=== PATIENT | male | born 1940 | race Caucasian/White ===

== ENCOUNTER 2019-12-27 21:15 | Inpatient (IN) | payer MEDICARE, SELFPAY ==
[2019-12-27] VITALS (8 sets, daily range): BP systolic 103–145; BP diastolic 58–82; PULSE 116–120; RESP 20–35; TEMP 36.5; O2SAT 95–100
--- NOTE | ~2019-12-27 | XR_ITS ---
EXAMINATION: XR chest 1V portable DATE: 12/27/2019 21:51 INDICATION: COPD and lung cancer presenting with shortness of breath and hypertension. TECHNIQUE: frontal view of the chest was obtained. COMPARISON: Chest radiograph and CT dated 10/16/2019 FINDINGS: Chronic opacity in the right upper lung zone with/of volume loss with cephalad retraction of the hilu m consistent with chronic right upper lobe collapse and scarring likely related to prior treated lung cancer. Opacities at the bilateral lung bases, left greater than right. Mild blunting at the costo p hrenic and cardiophrenic angles suggesting very small bilateral pleural effusions. No pneumothorax. T he cardiomediastinal silhouette is normal. Median sternotomy wires and mediastinal surgical clips are seen, likely from prior coronary artery bypass grafting. IMPRESSION: 1. Opacities at the bilateral lung bases, left greater than right, which could represent atelectasis, pneumonia, mild pulmonary edema or some combination thereof. 2. Very small bilateral pleural effusions. 3. Stable appearance of chronic collapse and scarring of the right upper lobe likely related to treat ed lung cancer. Reviewed, dictated and finalized at location A. ANALYSIS INTERN IMPRESSION: 1. Opacities at the bilateral lung bases, left greater than right, which could represent atelectasis, pneumonia, mild pulmonary edema or some combination ther eof. 2. Very small bilateral pleural effusions. 3. Stable appearance of chronic collapse and scarring of the right upper lobe l ikely related to treated lung cancer.
--- NOTE | ~2019-12-27 | US_ITS ---
EXAMINATION: US venous doppler [facility] DATE: 12/29/2019 14:16 INDICATION: Lower limb swelling. TECHNIQUE: Grayscale ultrasound images without and with compression and Doppler ultrasound images of the bilateral lower extremity veins were obtained. COMPARISON: None. FINDINGS: The visualized portions of right common femoral vein, profunda (deep) femoral vein, femoral vein, pop liteal vein, peroneal veins, posterior tibial veins, and greater saphenous vein outflow are patent. The visualized portions of left common femoral vein, profunda femoral vein, femoral vein, popliteal v ein, peroneal veins, posterior tibial veins, and greater saphenous vein outflow are patent. IMPRESSION: 1. No deep venous thrombosis. Reviewed, dictated and finalized at location A. TENDER
--- NOTE | ~2019-12-27 | XR_ITS ---
XR chest 2V DATE: 12/31/2019 14:40 INDICATION: Shortness of breath. Worsening lung sounds. 2 L continuous oxygen TECHNIQUE: AP and lateral views COMPARISON: 12/27/2019 portable AP chest FINDINGS: Chronic severe right apical capping and elevation of the right hilum, chronic right lung vo lume loss. Status post sternotomy.. Coronary artery stents are noted. Borderline heart size. There is minimal infiltrate or atelectasis in the left lower lobe No pulmonary vascular congestion or pleural effusion or pneumothorax. IMPRESSION: Minimal infiltrate or atelectasis in the left lower lobe; little interval change since 12/27/2019 Reviewed, dictated and finalized at location A. GIOUS EDUCATION DIRECTOR IMPRESSION: Minimal infiltrate or atelectasis in the left lower lobe; little in terval change since 12/27/2019
--- NOTE | 2019-12-27 21:13 | ED.SOB ---
HPI - SOB/Dyspnea General Chief Complaint: Shortness of Breath/Dyspnea Stated Complaint: DIFF BREATHING Time Seen by Provider: 12/27/19 21:13 Source: patient, EMS and RN notes reviewed Limitations: clinical condition History of Present Illness HPI Narrative: A 79 y/o male, with a hx of COPD, presents to the ED via EMS from [place] with worsening SOB beginning today. Per EMS states that the pt wasn't complaining of any N/V when they arrived on scene, but that in route the pt became nauseated and vomited, so they gave him some Zofran. They report that the pt's O2 Sat was 89% on 4L NC, so they placed him on CPAP. They also report that the pt has had a fever. MD elicited complaint: shortness of breath Pertinent past history: COPD Onset (ago): hour(s) (today) Timing: progressively worsening Known history of: COPD Associated symptoms: fever and nausea/vomiting Treatment prior to arrival: oxygen Related Data Home Medications Medication Instructions Recorded Confirmed Mucinex DM 1 tablet PO Q12H 10/16/19 11/22/19 Perforomist 2 ml INHALATION BID 10/16/19 11/22/19 acetaminophen 500 mg PO TID PRN 10/16/19 11/22/19 albuterol sulfate 2.5 mg INHALATION Q4H PRN 10/16/19 11/22/19 amiodarone 200 mg PO DAILY 10/16/19 11/22/19 aspirin [Aspir-81] 81 mg PO DAILY 10/16/19 11/22/19 atorvastatin 40 mg PO HS 10/16/19 11/22/19 budesonide 0.5 mg INHALATION BID 10/16/19 11/22/19 cholecalciferol (vitamin D3) 5,000 unit PO DAILY 10/16/19 11/22/19 [Vitamin D3] citalopram 10 mg PO DAILY 10/16/19 11/22/19 ferrous sulfate 325 mg PO BID 10/16/19 11/22/19 furosemide 20 mg PO DAILY 10/16/19 11/22/19 lisinopril 5 mg PO DAILY 10/16/19 11/22/19 melatonin 5 mg PO HS 10/16/19 11/22/19 multivitamin 1 tablet PO DAILY 10/16/19 11/22/19 nitroglycerin 0.4 mg SUBLINGUAL Q5-15M PRN 10/16/19 11/22/19 pantoprazole 40 mg PO HS 10/16/19 11/22/19 polyethylene glycol 3350 17 g PO DAILY PRN 10/16/19 11/22/19 Allergies Allergy/AdvReac Type Severity Reaction Status Date / Time No Known Allergies Allergy Mild Verified 12/27/19 22:31 Review of Systems Review of Systems: All systems reviewed & are unremarkable except as noted in HPI and below ROS unobtainable: unobtainable due to mental condition Constitutional: Constitutional: Reports fever(s) Respiratory: Respiratory: Reports dyspnea Gastrointestinal: Gastrointestinal: Reports nausea and Reports vomiting [facility] Past Medical History Medical History Atrial fibrillation CAD (coronary artery disease) COPD (chronic obstructive pulmonary disease) Diverticulitis Emphysema, unspecified GERD (gastroesophageal reflux disease) Glaucoma History of angina HTN (hypertension) Hyperlipidemia Lung cancer Myocardial infarction Peripheral vascular disease Thrombocytopenia Vocal cord cancer Surgical History Surgical History History of angioplasty History of cardiac catheterization Hx of appendectomy Hx of CABG Stented coronary artery Family History Family History Father Malignant neoplasm of prostate Mother Alzheimer disease Sibling Cancer, bladder, neck Social History Social History Years smoked: 60 Smoking status: Former smoker Tobacco type: cigarettes Alcohol intake: former Substance use: former Gender identity (if verbalized by the patient): Male Spiritual care concerns: No Agree to blood products: No Comments PCP: Александр. Exam Const: General: acute distress moderate and ill appearing Nutritional Appearance: well nourished (elderly) Limitations: other limitations (Clinical condition) Eyes: Conjunctivae: conjunctivae normal Pupils: Equal, round and reactive pupils present Resp: Effort & Inspection: tachypneic Auscultation: rales bilateral at the base and diminished lung
--- NOTE | 2019-12-27 21:21 | ECG_ITS ---
Measurements Intervals [place] Rate: 121 P: AR: 0 QRS: 82 QRSD: 114 T: -61 QT: 305 QTc: 434 Interpretive Statements ATRIAL FLUTTER/TACHYCARDIA WITH RAPID VENTRICULAR RESPONSE INTRAVENTRICULAR CONDUCTION DELAY CONSIDER INFERIOR INFARCT, AGE INDETERMINATE BASELINE ARTIFACT- I, II, III, AVR, AVL, AVF ABNORMAL ECG Electronically Signed On 12-28-2019 6:42:02 ASSISTANT COUNTY ENGINEER by Gurpreet Nicholas D.O.
[2019-12-27 21:46] LABS: Basophils Absolute Auto 0.1 K/mm3 (0.0-0.1); Basophils Percent Auto 0.8 % (0.2-1.2); Eosinophils Absolute Auto 0.3 K/mm3 (0-0.3); Eosinophils Percent Auto 2.2 % (0-4.4); Hematocrit 35.9 % (42.0-52.0); Hemoglobin 10.4 g/dL (14.0-18.0); Immature Granulocyte Absolute 0.05 K/mm3 (0.00-0.031); Immature Granulocyte Percent A 0.4 % (0-0.5); Lymphocytes Absolute Auto 1.61 K/mm3 (0.9-3.2); Lymphocytes Percent Auto 13.9 % (18.3-44.2); Mean Corpuscular Hemoglobin 27.8 pg (26-34); Mean Platelet Volume 11.2 fl (7.4-10.4); Monocytes Absolute Auto 0.9 K/mm3 (0.1-0.6); Monocytes Percent Auto 7.3 % (2.6-8.5); Neutrophils Absolute Auto 8.7 K/mm3 (1.3-6.7); Neutrophils Percent Auto 75.4 % (45.5-73.1); Platelet Count Result 223 k/mm3 (150-375); Red Blood Count 3.74 M/mm3 (4.6-6.20); Red Cell Distribution Width 15.2 % (11.5-14.5); White Blood Count 11.6 K/mm3 (4.5-10.0)
[2019-12-27] MEDS: ALBUTEROL SULFATE NEB 2.5 MG/0.5 ML INH 10 MG INHALATION (21:46)
[2019-12-27] MEDS: IPRATROPIUM BR 0.02% INH SOLN 0.5 MG/2.5 ML VIAL 1 MG INHALATION (21:46)
[2019-12-27 21:48] LABS: Alveolar/Arterial O2 Gradient 50.3 mmHg; Base Excess ABG 5.4 mEq/l (+/-2.0); Fractional Inspired Oxygen 40 %; Oxygen Content ABG 15.7 %vol (16.0-22.0); Oxygen Saturation ABG 98.9 % (95.0-100.0); Oxyhemoglobin 97.6 % THb (90.0-100.0); PO2 ABG 160.4 mmHg (80.0-100.0); PO2 FiO2 Ratio Arterial Blood 4.01 %; Total Hemoglobin 11.2 g/dL (12.0-18.0); pH ABG 7.325 (7.350-7.450)
[2019-12-27 21:49] LABS: Device NON-INVASIVE VENT; PCO2 ABG 64.8 mmHg (35.0-45.0); Site Drawn LEFT BRACHIAL
[2019-12-27 21:50] LABS: Non-Invasive Expiratory Pressure 8 CMH2O; Non-Invasive Inspiratory Pressure 18 CMH2O; Non-Invasive Vent Rate 10 /MIN
[2019-12-27 21:55] LABS: INR 1.1; Prothrombin Time 13.4 Seconds (11.1-14.7)
[2019-12-27 21:56] LABS: Partial Thromboplastin Time 25.8 SECONDS (22.3-36.8)
[2019-12-27 21:57] LABS: Blood Urea Nitrogen 17 mg/dL (9-20); Calcium 9.1 mg/dL (8.4-10.2); Carbon Dioxide 37 mmol/L (22-30); Chloride 94 mmol/L (98-107); Estimated CRCL calculation 53 ml/min; Estimated Glomerular Filt Rate > 60; Glucose 144 mg/dL (75-110); Potassium 4.4 mmol/L (3.4-5.0); Sodium 139 mmol/L (137-145)
[2019-12-27 22:09] LABS: NT Pro B Type Natriuretic Pept 3910 PG/ML (5-100); Troponin I 0.017 ng/mL (0.000-0.034)
[2019-12-28] VITALS (26 sets, daily range): BP systolic 85–123; BP diastolic 45–71; PULSE 90–122; RESP 18–27; TEMP 36.4–36.8; O2SAT 91–98; BMI 27.1
[2019-12-28] MEDS: IPRATROPIUM BR 0.02% INH SOLN 0.5 MG/2.5 ML VIAL INHALATION ×4 (02:14→20:15)
[2019-12-28] MEDS: ALBUTEROL SULFATE NEB 2.5 MG/0.5 ML INH 5 MG INHALATION ×2 (02:14→09:34)
[2019-12-28 03:13] LABS: Base Excess ABG 7.1 mEq/l (+/-2.0); Device NASAL CANNULA; Fractional Inspired Oxygen 28 %; HCO3 ABG 32.9 mEq/l (22.0-26.0); Modified Allen's Test Unable to perform; Oxygen Content ABG 13.4 %vol (16.0-22.0); Oxygen Saturation ABG 94.4 % (95.0-100.0); Oxyhemoglobin 92.6 % THb (90.0-100.0); PCO2 ABG 53.5 mmHg (35.0-45.0); PO2 ABG 72.5 mmHg (80.0-100.0); PO2 FiO2 Ratio Arterial Blood 2.59 %; Site Drawn RIGHT RADIAL; Total Hemoglobin 10.2 g/dL (12.0-18.0); pH ABG 7.407 (7.350-7.450)
--- NOTE | 2019-12-28 03:54 | PM.IMHP ---
H&P: HPI History of Present Illness Chief complaint: DIFF BREATHING Narrative: This is a pleasant 79-year-old male with known chronic respiratory failure on 2 L of oxygen all the time, coronary artery disease status post CABG x2, COPD, and previous lung cancer which is now in remission and known to our hospitalist service for a recent admission presented to the hospital with increased work of breathing and shortness of breath tonight. The patient presented from [facility] where he tells me there are many residents there who are sick with respiratory illness this past week. The patient had been doing well over the past week although last night he did not sleep. Today he was not feeling well. He started to experience increased wheezing, increased coughing, and increased work of breathing. The patient was found to be saturating 89% on 4 L of nasal cannula and he was placed on CPAP before bringing him to hospital. Apparently the patient did get nauseated on the way to the hospital and did receive Zofran. While in the emergency room this evening he has not had any nausea. The patient was found to be in acute hypercapnic respiratory failure and was initiated on BiPAP. He was also given antibiotics. On my encounter with the patient tonight he does seem somewhat anxious on the BiPAP but states that it has helped him with his breathing. Currently he denies any chest pain, fevers, chills, abdominal pain, dysuria, hematuria, back pain, lower extremity swelling, diarrhea, or rectal bleeding. Tonight the patient was also found to be in rapid atrial fibrillation which did improve significantly in the ER with 1 dose of IV Cardizem. He has no other complaints. Review of Systems Review of Systems: All systems reviewed & are unremarkable except as noted in HPI and below PMFSH Past Medical History Medical History Atrial fibrillation CAD (coronary artery disease) COPD (chronic obstructive pulmonary disease) Diverticulitis Emphysema, unspecified GERD (gastroesophageal reflux disease) Glaucoma History of angina HTN (hypertension) Hyperlipidemia Lung cancer Myocardial infarction Peripheral vascular disease Thrombocytopenia Vocal cord cancer Surgical History Surgical History History of angioplasty History of cardiac catheterization Hx of appendectomy Hx of CABG Stented coronary artery Family History Family History Father Malignant neoplasm of prostate Mother Alzheimer disease Sibling Cancer, bladder, neck Social History Social History Years smoked: 60 Smoking status: Former smoker Tobacco type: cigarettes Alcohol intake: former Substance use: former Gender identity (if verbalized by the patient): Male Spiritual care concerns: No Agree to blood products: No Meds Home Medications and Allergies Home Medications Medication Instructions Recorded Confirmed Type Mucinex DM 1 tablet PO Q12H 10/16/19 11/22/19 History Perforomist 2 ml INHALATION BID 10/16/19 11/22/19 History acetaminophen 500 mg PO TID PRN 10/16/19 11/22/19 History albuterol sulfate 2.5 mg INHALATION Q4H PRN 10/16/19 11/22/19 History amiodarone 200 mg PO DAILY 10/16/19 11/22/19 History aspirin [Aspir-81] 81 mg PO DAILY 10/16/19 11/22/19 History atorvastatin 40 mg PO HS 10/16/19 11/22/19 History budesonide 0.5 mg INHALATION BID 10/16/19 11/22/19 History cholecalciferol (vitamin D3) 5,000 unit PO DAILY 10/16/19 11/22/19 History [Vitamin D3] citalopram 10 mg PO DAILY 10/16/19 11/22/19 History ferrous sulfate 325 mg PO BID 10/16/19 11/22/19 History furosemide 20 mg PO DAILY 10/16/19 11/22/19 History lisinopril 5 mg PO DAILY 10/16/19 11/22/19 History melatonin 5 mg PO HS 10/16/19 11/22/19 History multivitamin 1 tablet PO
[2019-12-28] MEDS: methylPREDNISolone SOD SUCC 125 MG VIAL 60 MG IV PUSH ×3 (05:00→21:50)
[2019-12-28 05:25] LABS: Blood Urea Nitrogen 21 mg/dL (9-20); Calcium 8.8 mg/dL (8.4-10.2); Carbon Dioxide 33 mmol/L (22-30); Chloride 94 mmol/L (98-107); Estimated CRCL calculation 53 ml/min; Estimated Glomerular Filt Rate > 60; Glucose 100 mg/dL (75-110); Potassium 4.7 mmol/L (3.4-5.0); Sodium 136 mmol/L (137-145)
[2019-12-28 05:28] LABS: Basophils Percent Auto 0.5 % (0.2-1.2); Eosinophils Percent Auto 0.1 % (0-4.4); Hematocrit 31.7 % (42.0-52.0); Hemoglobin 9.4 g/dL (14.0-18.0); Immature Granulocyte Absolute 0.02 K/mm3 (0.00-0.031); Immature Granulocyte Percent A 0.3 % (0-0.5); Lymphocytes Absolute Auto 0.34 K/mm3 (0.9-3.2); Lymphocytes Percent Auto 4.6 % (18.3-44.2); Mean Corpuscular HGB Conc 29.7 g/dl (32-36); Mean Corpuscular Volume 94.3 fl (80-100); Mean Platelet Volume 11.9 fl (7.4-10.4); Monocytes Absolute Auto 0.9 K/mm3 (0.1-0.6); Monocytes Percent Auto 11.8 % (2.6-8.5); Neutrophils Absolute Auto 6.1 K/mm3 (1.3-6.7); Neutrophils Percent Auto 82.7 % (45.5-73.1); Platelet Count Result 177 k/mm3 (150-375); Red Blood Count 3.36 M/mm3 (4.6-6.20); Red Cell Distribution Width 15.6 % (11.5-14.5); White Blood Count 7.4 K/mm3 (4.5-10.0)
--- NOTE | 2019-12-28 06:15 | PC.NURSE ---
pt placed on hospital bed.
--- NOTE | 2019-12-28 09:28 | PC.NURSE ---
0925 report received from QUINTIN Koenig.
--- NOTE | 2019-12-28 11:11 | ADMGEN ---
This patient, Eusebio Najera, was admitted to [facility] on 12-28-19 at 0945. Patient/family oriented to hospital policies and general routines including ID bracelet, bed and alarms, visiting hours, pain management, procedures, bathroom and other care routines, personal items, smoking policy, room service/diet, and visiting hours. Valuables list has been completed. Information on how to activate the Rapid Response Team has been discussed. Patient/Family are encouraged to report perceived risks to care and to ask questions if they do not understand what they are told or what they should do.
--- NOTE | 2019-12-28 16:18 | PM.IMPN ---
Progress Note: A&P Assessment and Plan (1) Acute hypercapnic respiratory failure: Code(s): J96.02 - Acute respiratory failure with hypercapnia Status: Acute Assessment and Plan: ------Likely secondary to COPD exacerbation of greater severity and PNA. Abgs h ave improved with the initial bipap. His co2 is still elevated but appears to be at his baseline and is pH is normal now. Continue o2. pt utlizes 2L at home usually. (2) Atrial fibrillation with rapid ventricular response: Code(s): I48.91 - Unspecified atrial fibrillation Status: Acute Assessment and Plan: ------Patient's heart rate is currently in the 110. His home amiodarone was restarted. pt is not on extermination inspector anticoagulation and cannot tell me why today. No CP at this time. continue to monitor tele and symptoms. . (3) COPD exacerbation: Code(s): J44.1 - Chronic obstructive pulmonary disease with (acute) exacerbation Status: Acute Assessment and Plan: ------Continue bronchodilators, continue Solu-Medrol, continue IV antibiotics. Blood cultures and sputum never ordered on admission. will obtain. (4) Glaucoma: Qualifiers: Glaucoma type: unspecified Laterality: unspecified laterality Qualified Code(s): H40.9 - Unspecified glaucoma Code(s): H40.9 - Unspecified glaucoma Status: Chronic Assessment and Plan: -----Continue home eyedrops. (5) Normocytic anemia: Code(s): D64.9 - Anemia, unspecified Status: Chronic Assessment and Plan: -----Appears to be anemia of chronic disease. No signs of acute blood loss. Monitor H&H, transfuse p.r.n.. (6) HTN (hypertension): Qualifiers: Hypertension type: essential hypertension Qualified Code(s): I10 - Essential (primary) hypertension Code(s): I10 - Essential (primary) hypertension Status: Chronic Assessment and Plan: -----Blood pressure still soft. Will not restart home bp meds at this time. will watch bp with lasix onboard. (7) Lung cancer: Qualifiers: Laterality: right Lung location: upper lobe of lung Qualified Code(s): C34.11 - Malignant neoplasm of upper lobe, right bronchus or lung Code(s): C34.90 - Malignant neoplasm of unspecified part of unspecified bronchus or lung Status: Chronic Assessment and Plan: -----Currently in remission (8) CAP (community acquired pneumonia): Code(s): J18.9 - Pneumonia, unspecified organism Status: Acute Assessment and Plan: -----continue to tx with azithromycin and ceftriaxone. Pts flu swab is negative. Will also give lasix as well since he appears fluid overloaded and some of this could be pulmonary edema as well. Additional Plan Time Spent With Patient Time with patient: 25 - 35 minutes Subjective Date/time seen: 12/28/19 16:18 Interval history: Pt is a 79-year-old male here for pneumonia and COPD exacerbation. Patient was seen today and was mildly confused but able to answer my questions. He says that he thinks he is here for pneumonia and states everyone at his facility is sick. He says that he is coughing and does feel short of breath occasionally. He says he is usually on oxygen at home. He has not had any chest pain today. He says he is unsure if his legs are usually swollen. Overall he feels better but not 'great'. He feels constipated but had a BM yesterday. Review of Systems Review of Systems: All systems reviewed & are unremarkable except as noted in HPI and below Exam Narrative: Exam Narrative: General: Well developed well nourished patient resting in bed in NAD HEENT: normocephalic Neck: supple Neuro: Alert and oriented but at first thought he was at the assisted living. CV:slightly tachycardic 102 one exam. Tele shows occasional afib rvr up to 117. Resp:gulshan thoughtout. Abd: Soft, non distended. No pain to palpation. Positiv
[2019-12-28] MEDS: FERROUS SULFATE 324 MG TABLET PO (17:57)
[2019-12-28] MEDS: LEVALBUTEROL NEB 1.25 MG/3 ML 0.63 MG INHALATION (20:15)
[2019-12-28] MEDS: ATORVASTATIN 40 MG TABLET PO (21:49)
[2019-12-28] MEDS: MIRTAZAPINE 7.5 MG TABLET PO (21:49)
[2019-12-28] MEDS: FUROSEMIDE INJ 40 MG/4 ML VIAL IV PUSH (21:49)
[2019-12-28] MEDS: MELATONIN 5 MG TABLET PO (21:49)
[2019-12-28] MEDS: PANTOPRAZOLE 40 MG TABLET PO (21:50)
[2019-12-29] VITALS (16 sets, daily range): BP systolic 96–135; BP diastolic 42–65; PULSE 73–96; RESP 18–22; TEMP 36.1–36.6; O2SAT 95–100
[2019-12-29] MEDS: LEVALBUTEROL NEB 1.25 MG/3 ML 0.63 MG INHALATION ×3 (01:25→15:09)
[2019-12-29] MEDS: IPRATROPIUM BR 0.02% INH SOLN 0.5 MG/2.5 ML VIAL INHALATION ×3 (01:25→15:08)
[2019-12-29 05:09] LABS: Hematocrit 28.8 % (42.0-52.0); Hemoglobin 8.5 g/dL (14.0-18.0); Mean Corpuscular HGB Conc 29.5 g/dl (32-36); Mean Corpuscular Hemoglobin 27.7 pg (26-34); Mean Corpuscular Volume 93.8 fl (80-100); Mean Platelet Volume 11.8 fl (7.4-10.4); Platelet Count Result 156 k/mm3 (150-375); Red Blood Count 3.07 M/mm3 (4.6-6.20); Red Cell Distribution Width 15.3 % (11.5-14.5); White Blood Count 4.5 K/mm3 (4.5-10.0)
[2019-12-29 05:22] LABS: Blood Urea Nitrogen 26 mg/dL (9-20); Calcium 8.6 mg/dL (8.4-10.2); Carbon Dioxide 34 mmol/L (22-30); Chloride 93 mmol/L (98-107); Estimated CRCL calculation 51 ml/min; Estimated Glomerular Filt Rate > 60; Glucose 150 mg/dL (75-110); Potassium 3.9 mmol/L (3.4-5.0); Sodium 136 mmol/L (137-145)
[2019-12-29] MEDS: FERROUS SULFATE 324 MG TABLET PO ×2 (08:22→16:41)
[2019-12-29] MEDS: AMIODARONE HCL 200 MG TABLET PO (08:23)
[2019-12-29] MEDS: methylPREDNISolone SOD SUCC 125 MG VIAL 60 MG IV PUSH ×2 (08:23→20:34)
[2019-12-29] MEDS: FUROSEMIDE INJ 40 MG/4 ML VIAL IV PUSH (08:24)
[2019-12-29] MEDS: ASPIRIN 81 MG ENTERIC TABLET PO (08:24)
[2019-12-29] MEDS: CITALOPRAM HYDROBROMIDE 10 MG TABLET PO (08:24)
--- NOTE | 2019-12-29 11:01 | PM.IMPN ---
Progress Note: A&P Assessment and Plan (1) Acute hypercapnic respiratory failure: Code(s): J96.02 - Acute respiratory failure with hypercapnia Status: Acute Assessment and Plan: ------Likely secondary to COPD exacerbation and PNA. ABGs have improved with the initial bipap. His co2 is still elevated but appears to be at his baseline and is pH is normal now. Continue home setting o2. pt utlizes 2L at home usually. Okay to transfer out of IMU. (2) Atrial fibrillation with rapid ventricular response: Code(s): I48.91 - Unspecified atrial fibrillation Status: Acute Assessment and Plan: ------Patient's heart rate is currently in the 108. His home amiodarone was restarted yesterday. pt is not on care home anticoagulation. No CP at this time. continue to monitor tele and symptoms. Albuterol switched to xopenex. Hopefully his HR will improve with tx. . (3) COPD exacerbation: Code(s): J44.1 - Chronic obstructive pulmonary disease with (acute) exacerbation Status: Acute Assessment and Plan: ------Continue bronchodilators, continue Solu-Medrol (dose lowered today), and continue IV antibiotics. Blood cultures and sputum never ordered on admission but were obtained 12/28. (4) Glaucoma: Qualifiers: Glaucoma type: unspecified Laterality: unspecified laterality Qualified Code(s): H40.9 - Unspecified glaucoma Code(s): H40.9 - Unspecified glaucoma Status: Chronic Assessment and Plan: -----Continue home eyedrops. (5) Normocytic anemia: Code(s): D64.9 - Anemia, unspecified Status: Chronic Assessment and Plan: -----Appears to be anemia of chronic disease. No signs of acute blood loss. Monitor H&H, transfuse p.r.n.. (6) HTN (hypertension): Qualifiers: Hypertension type: essential hypertension Qualified Code(s): I10 - Essential (primary) hypertension Code(s): I10 - Essential (primary) hypertension Status: Chronic Assessment and Plan: -----Blood pressure still soft last one 100/49. Will continue to hold home bp meds. Lasix dose decreased today since swelling has improved. (7) Lung cancer: Qualifiers: Laterality: right Lung location: upper lobe of lung Qualified Code(s): C34.11 - Malignant neoplasm of upper lobe, right bronchus or lung Code(s): C34.90 - Malignant neoplasm of unspecified part of unspecified bronchus or lung Status: Chronic Assessment and Plan: -----Currently in remission (8) CAP (community acquired pneumonia): Code(s): J18.9 - Pneumonia, unspecified organism Status: Acute Assessment and Plan: -----continue to tx with azithromycin and ceftriaxone. Pts flu swab is negative. Continue lasix as well since he appears fluid overloaded and some of this could be pulmonary edema as well. Additional Plan Subjective Date/time seen: 12/29/19 11:01 Interval history: Pt is a 79-year-old male here for pneumonia and COPD exacerbation. Patient seen today and was alert and oriented x4. He states that his shortness of breath is always there but is much better than when he came in. He says he is still coughing up some phlegm. he has not got out of bed so he doesn't know if he has any TOMAS. He uses a walker at the facility but also sometimes uses a wheelchair. he still has not had a BM since being here. He says he has lasix at home but doesn't use it because it doesn't help his swelling . he has never had a blood clot before. he denies chest pain, nausea, vomiting, fevers or chills. Exam Narrative: Exam Narrative: General: Well developed well nourished patient resting in bed in NAD HEENT: normocephalic Neck: supple Neuro: Alert and oriented x4 today CV:slightly tachycardic 108 one exam. Tele shows occasional afib rvr up to 120. Resp:ronchi and wheezing thoughtout. Abd: Soft, non distended. No pain to palpation.
--- NOTE | 2019-12-29 14:21 | PC.NURSE ---
ORDERS TO TRANSFER TO 3RD MED/SURG - REPORT GIVEN TO ELLY Sanchez RN - PT transferred to room 333 via bed accompanied by staff- belongings with pt
[2019-12-29] MEDS: ATORVASTATIN 40 MG TABLET PO (20:32)
[2019-12-29] MEDS: MIRTAZAPINE 7.5 MG TABLET PO (20:33)
[2019-12-29] MEDS: PANTOPRAZOLE 40 MG TABLET PO (20:33)
[2019-12-29] MEDS: MELATONIN 5 MG TABLET PO (20:33)
[2019-12-30] VITALS (16 sets, daily range): BP systolic 100–152; BP diastolic 47–79; PULSE 59–126; RESP 16–20; TEMP 36.3–36.5; O2SAT 96–99
--- NOTE | 2019-12-30 | ECHO_ITS ---
Patient Info Name: Eusebio Najera Age: 79 years : 1940 Gender: Male Ht: 69 in Wt: 182 lbs BSA: 2.02 m2 HR: 84 bpm BP: 152 / 79 mmHg Technical Quality: Fair Exam Date: 12/30/2019 10:01 AM Exam Location: [facility] Pulmonary Exam Room: [facility] Patient Status: Inpatient Admit Date: 12/27/2019 Staff Ordering Physician: Nany Bansal PA-C Jewelry Sorter: Dianne Atkinson RDCS Attending Provider: Nany Bansal PA-C Exam Type: CA echo dop color flow w con Study Info Indications - FRANCISCO CAD CABG ANGINA COPD Complete two-dimensional, color flow and Doppler transthoracic echocardiogram is performed with contrast to opacify the left ventrical and to improve the deliniation of the left ventrical endocarial boarders. Contrast/Agitated Saline Contrast/Ag. Saline: Definity Amount: --- ml Administered By: Shanta Wilson RN Existing IV Access: Yes IV Access Condition: patent with no signs of infiltration Summary 1. Left ventricular chamber dimension is moderately enlarged. 2. Definity contrast administered improved wall motion interpretation. 3. Left ventricular systolic function is moderately reduced, estimated at 40-45%. 4. Left ventricular septal wall motion is abnormal with septal motion related to bundle branch block. 5. The left ventricular diastolic function is abnormal. 6. E/e' 10 is mildly elevated. 7. Left atrial chamber dimension is mildly enlarged. 8. There is mild aortic valve sclerosis. 9. There is mild mitral valve regurgitation. 10. There is mild tricuspid valve regurgitation. 11. Mild pulmonary hypertension, estimated pulmonary arterial systolic pressure is 41 mmHg. Left Ventricle E/e' 10 is mildly elevated. Definity contrast administered improved wall motion interpretation. Left ventricular chamber dimension is moderately enlarged. Left ventricular systolic function is moderately reduced, estimated at 40-45%. Left ventricular septal wall motion is abnormal with septal motion related to bundle branch block. The left ventricular diastolic function is abnormal. Right Ventricle Right ventricular chamber dimension is normal. Right ventricular systolic function is normal. Left Atria Left atrial chamber dimension is mildly enlarged. Right Atria Right atrial chamber dimension is normal. Aortic Valve The aortic valve is trileaflet. There is mild aortic valve sclerosis. There is no aortic valve stenosis. There is no aortic valve regurgitation. Pulmonic Valve There is no pulmonic regurgitation. Mitral Valve There is no mitral valve stenosis. There is mild mitral valve regurgitation. Tricuspid Valve There is mild tricuspid valve regurgitation. Mild pulmonary hypertension, estimated pulmonary arterial systolic pressure is 41 mmHg. Pericardium/Pleural There is no pericardial effusion. Inferior Vena Cava Normal inferior vena cava with >50% collapse upon inspiration consistent with normal right atrial pressure, 5 mmHg. Aorta The aortic root size at the sinus of Valsalva is not well visualized. Left Ventricular Outflow Tract Name Value Normal LVOT 2D LVOT Diameter 2.14 cm LV
[2019-12-30 06:30] LABS: Hematocrit 32.8 % (42.0-52.0); Hemoglobin 9.6 g/dL (14.0-18.0); Mean Corpuscular HGB Conc 29.3 g/dl (32-36); Mean Corpuscular Hemoglobin 27.3 pg (26-34); Mean Corpuscular Volume 93.2 fl (80-100); Platelet Count Result 182 k/mm3 (150-375); Red Blood Count 3.52 M/mm3 (4.6-6.20); Red Cell Distribution Width 15.2 % (11.5-14.5); White Blood Count 9.1 K/mm3 (4.5-10.0)
--- NOTE | 2019-12-30 06:45 | PCRCNOTE ---
Window of time for administration has passed. See next scheduled administration.
--- NOTE | 2019-12-30 06:46 | PCRCNOTE ---
Window of time for administration has passed. See next scheduled administration.
[2019-12-30 06:47] LABS: Blood Urea Nitrogen 32 mg/dL (9-20); Calcium 8.8 mg/dL (8.4-10.2); Carbon Dioxide 38 mmol/L (22-30); Chloride 91 mmol/L (98-107); Estimated CRCL calculation 51 ml/min; Estimated Glomerular Filt Rate > 60; Glucose 129 mg/dL (75-110); Potassium 4.4 mmol/L (3.4-5.0); Sodium 139 mmol/L (137-145)
[2019-12-30] MEDS: CITALOPRAM HYDROBROMIDE 10 MG TABLET PO (07:46)
[2019-12-30] MEDS: FERROUS SULFATE 324 MG TABLET PO ×2 (07:46→16:36)
[2019-12-30] MEDS: ASPIRIN 81 MG ENTERIC TABLET PO (07:46)
[2019-12-30] MEDS: AMIODARONE HCL 200 MG TABLET PO (07:46)
[2019-12-30] MEDS: methylPREDNISolone SOD SUCC 125 MG VIAL 60 MG IV PUSH (07:47)
[2019-12-30] MEDS: FUROSEMIDE INJ 40 MG/4 ML VIAL IV PUSH (07:47)
[2019-12-30] MEDS: LEVALBUTEROL NEB 1.25 MG/3 ML 0.63 MG INHALATION ×3 (09:43→22:15)
[2019-12-30] MEDS: IPRATROPIUM BR 0.02% INH SOLN 0.5 MG/2.5 ML VIAL INHALATION ×3 (09:43→22:16)
[2019-12-30] MEDS: PERFLUTREN LIPID MICROSPHERES 1.5 ML VIAL DILUTED TO 10 ML TOTAL VOLUME IV PUSH (10:47)
--- NOTE | 2019-12-30 15:23 | PM.IMPN ---
Progress Note: A&P Assessment and Plan (1) Acute hypercapnic respiratory failure: Code(s): J96.02 - Acute respiratory failure with hypercapnia Status: Acute Assessment and Plan: ------Likely secondary to COPD exacerbation and PNA. ABGs have improved with the initial bipap. His co2 is still elevated but appears to be at his baseline and is pH is normal now. Continue home setting o2. pt utlizes 2L at home usually. Will transition to oral steroids. (2) Atrial fibrillation with rapid ventricular response: Code(s): I48.91 - Unspecified atrial fibrillation Status: Acute Assessment and Plan: ------Patient's heart rate is currently is 80 now but did peak at 120. His home amiodarone has been restarted. 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 No CP at this time. continue to monitor tele and symptoms. Albuterol switched to xopenex. Hopefully his HR will improve with tx. . (3) COPD exacerbation: Code(s): J44.1 - Chronic obstructive pulmonary disease with (acute) exacerbation Status: Acute Assessment and Plan: ------Continue bronchodilators but will transition to oral steroids tomorrow. Continue IV antibiotics. Blood cultures and sputum never ordered on admission but were obtained 2 and are negative to date. (4) Glaucoma: Qualifiers: Glaucoma type: unspecified Laterality: unspecified laterality Qualified Code(s): H40.9 - Unspecified glaucoma Code(s): H40.9 - Unspecified glaucoma Status: Chronic Assessment and Plan: -----Continue home eyedrops. (5) Normocytic anemia: Code(s): D64.9 - Anemia, unspecified Status: Chronic Assessment and Plan: -----Appears to be anemia of chronic disease. No signs of acute blood loss. Monitor H&H, transfuse p.r.n.. (6) HTN (hypertension): Qualifiers: Hypertension type: essential hypertension Qualified Code(s): I10 - Essential (primary) hypertension Code(s): I10 - Essential (primary) hypertension Status: Chronic Assessment and Plan: -----Blood pressure still soft last one 100/47. Will continue to hold home bp meds. Lasix dose decreased today since swelling has improved. (7) Lung cancer: Qualifiers: Laterality: right Lung location: upper lobe of lung Qualified Code(s): C34.11 - Malignant neoplasm of upper lobe, right bronchus or lung Code(s): C34.90 - Malignant neoplasm of unspecified part of unspecified bronchus or lung Status: Chronic Assessment and Plan: -----Currently in remission (8) CAP (community acquired pneumonia): Code(s): J18.9 - Pneumonia, unspecified organism Status: Acute Assessment and Plan: -----continue to tx with azithromycin and ceftriaxone. Pts flu swab is negative. Continue lasix as well since he appears fluid overloaded and some of this could be pulmonary edema as well. (9) Systolic CHF, acute: Code(s): I50.21 - Acute systolic (congestive) heart failure Status: Acute Assessment and Plan: -----echo today estimates EF is 40-45%. I called his pan shover Dr. Sheth and their office states his last echo was January 2019 within normal EF. He did have a PCI early 2018. The patient has chronic AFib and is on amiodarone. He takes lisinopril at home. He is not on a beta-morena but this could be due to his hypotension and is likely why he is on amiodarone as well. He should follow up with pan shover to see if an additional beta-morena would be warranted since he now has systolic heart failure. He does appear fluid overloaded so we will continue with the diuretic. The patient has not been utilizing the diuretic at home because he says it does not help. He was educated that is important to do so. Additional Plan Subjective Date/time seen: 12/30/19 15:23 Interval history: Pt is a 79-year-ol
[2019-12-30] MEDS: BISACODYL 10 MG SUPPOSITORY RECTAL (16:50)
[2019-12-30] MEDS: polyethylene glycoL 3350 17 GM POWD.PACK PO (16:50)
[2019-12-30] MEDS: ATORVASTATIN 40 MG TABLET PO (21:23)
[2019-12-30] MEDS: PANTOPRAZOLE 40 MG TABLET PO (21:27)
[2019-12-30] MEDS: MELATONIN 5 MG TABLET PO (21:27)
[2019-12-30] MEDS: MIRTAZAPINE 7.5 MG TABLET PO (21:27)
[2019-12-31] VITALS (12 sets, daily range): BP systolic 98–125; BP diastolic 44–64; PULSE 75–100; RESP 18–20; TEMP 36.3–36.6; O2SAT 96–100
[2019-12-31] MEDS: IPRATROPIUM BR 0.02% INH SOLN 0.5 MG/2.5 ML VIAL INHALATION ×3 (08:00→21:10)
[2019-12-31] MEDS: LEVALBUTEROL NEB 1.25 MG/3 ML 0.63 MG INHALATION ×3 (08:00→21:10)
[2019-12-31] MEDS: FERROUS SULFATE 324 MG TABLET PO ×2 (09:19→17:00)
[2019-12-31] MEDS: CITALOPRAM HYDROBROMIDE 10 MG TABLET PO (09:20)
[2019-12-31] MEDS: AMIODARONE HCL 200 MG TABLET PO (09:21)
[2019-12-31] MEDS: ASPIRIN 81 MG ENTERIC TABLET PO (09:21)
[2019-12-31] MEDS: FUROSEMIDE 40 MG TABLET PO (09:21)
[2019-12-31] MEDS: predniSONE 20 MG TABLET 40 MG PO (09:23)
--- NOTE | 2019-12-31 16:01 | PM.IMPN ---
Progress Note: A&P Assessment and Plan (1) Acute hypercapnic respiratory failure: Code(s): J96.02 - Acute respiratory failure with hypercapnia Status: Acute Assessment and Plan: ------Likely secondary to COPD exacerbation and PNA. ABGs have improved with the initial bipap. His co2 is still elevated but appears to be at his baseline and is pH is normal now. Continue home setting o2. pt utlizes 2L at home usually. pt did not do as well with oral steroids as expected. Will monitor another day and if he sounds worse tomorrow he may need to go back on IV steroids. (2) Atrial fibrillation with rapid ventricular response: Code(s): I48.91 - Unspecified atrial fibrillation Status: Acute Assessment and Plan: ------No RVR today. His home amiodarone has been restarted. pt is not on usp anticoagulation d/t fall risk and high risk of bleed. No CP at this time. continue to monitor tele and symptoms. Albuterol switched to xopenex. . (3) COPD exacerbation: Code(s): J44.1 - Chronic obstructive pulmonary disease with (acute) exacerbation Status: Acute Assessment and Plan: ------Continue bronchodilators and IV antibiotics. Blood cultures and sputum never ordered on admission but were obtained 2/ and are negative to date. (4) Glaucoma: Qualifiers: Glaucoma type: unspecified Laterality: unspecified laterality Qualified Code(s): H40.9 - Unspecified glaucoma Code(s): H40.9 - Unspecified glaucoma Status: Chronic Assessment and Plan: -----Continue home eyedrops. (5) Normocytic anemia: Code(s): D64.9 - Anemia, unspecified Status: Chronic Assessment and Plan: -----Appears to be anemia of chronic disease. No signs of acute blood loss. Monitor H&H, transfuse p.r.n.. (6) HTN (hypertension): Qualifiers: Hypertension type: essential hypertension Qualified Code(s): I10 - Essential (primary) hypertension Code(s): I10 - Essential (primary) hypertension Status: Chronic Assessment and Plan: -----Blood pressure still soft last one 123/64. Will continue to hold home bp meds. Lasix dose decreased today since swelling has improved. (7) Lung cancer: Qualifiers: Laterality: right Lung location: upper lobe of lung Qualified Code(s): C34.11 - Malignant neoplasm of upper lobe, right bronchus or lung Code(s): C34.90 - Malignant neoplasm of unspecified part of unspecified bronchus or lung Status: Chronic Assessment and Plan: -----Currently in remission (8) CAP (community acquired pneumonia): Code(s): J18.9 - Pneumonia, unspecified organism Status: Acute Assessment and Plan: -----continue to tx with azithromycin and ceftriaxone. Pts flu swab is negative. Continue lasix as well since he appears fluid overloaded and some of this could be pulmonary edema as well. (9) Systolic CHF, acute: Code(s): I50.21 - Acute systolic (congestive) heart failure Status: Acute Assessment and Plan: -----echo today estimates EF is 40-45%. I called his instructional support technician Dr. Sheth and their office states his last echo was January 2019 within normal EF. He did have a PCI early 2018. The patient has chronic AFib and is on amiodarone. He takes lisinopril at home. He is not on a beta-morena but this could be due to his hypotension and is likely why he is on amiodarone as well. He should follow up with instructional support technician to see if an additional beta-morena would be warranted since he now has systolic heart failure. He does appear fluid overloaded so we will continue with the diuretic. The patient has not been utilizing the diuretic at home because he says it does not help. He was educated that is important to do so. Additional Plan Subjective Date/time seen: 12/31/19 16:01 Interval history: Pt is a 79-year-old male here for pneumonia and
[2019-12-31] MEDS: MELATONIN 5 MG TABLET PO (21:00)
[2019-12-31] MEDS: ATORVASTATIN 40 MG TABLET PO (21:00)
[2019-12-31] MEDS: MIRTAZAPINE 7.5 MG TABLET PO (21:00)
[2019-12-31] MEDS: PANTOPRAZOLE 40 MG TABLET PO (21:00)
[2020-01-01] VITALS (12 sets, daily range): BP systolic 108–152; BP diastolic 47–91; PULSE 56–112; RESP 20–24; TEMP 36.4–36.7; O2SAT 95–100
[2020-01-01 06:35] LABS: Hemoglobin 9.8 g/dL (14.0-18.0); Mean Corpuscular HGB Conc 29.7 g/dl (32-36); Mean Corpuscular Hemoglobin 27.9 pg (26-34); Mean Platelet Volume 11.4 fl (7.4-10.4); Platelet Count Result 172 k/mm3 (150-375); Red Blood Count 3.51 M/mm3 (4.6-6.20); White Blood Count 6.7 K/mm3 (4.5-10.0)
[2020-01-01 06:53] LABS: Blood Urea Nitrogen 26 mg/dL (9-20); Calcium 8.6 mg/dL (8.4-10.2); Carbon Dioxide > 40 mmol/L (22-30); Chloride 88 mmol/L (98-107); Estimated CRCL calculation 51 ml/min; Estimated Glomerular Filt Rate > 60; Glucose 86 mg/dL (75-110); Potassium 3.8 mmol/L (3.4-5.0); Sodium 138 mmol/L (137-145)
[2020-01-01] MEDS: LEVALBUTEROL NEB 1.25 MG/3 ML 0.63 MG INHALATION ×3 (08:28→20:26)
[2020-01-01] MEDS: IPRATROPIUM BR 0.02% INH SOLN 0.5 MG/2.5 ML VIAL INHALATION ×3 (08:28→20:27)
[2020-01-01] MEDS: FERROUS SULFATE 324 MG TABLET PO ×2 (08:42→17:41)
[2020-01-01] MEDS: CITALOPRAM HYDROBROMIDE 10 MG TABLET PO (08:43)
[2020-01-01] MEDS: FUROSEMIDE 40 MG TABLET PO (08:43)
[2020-01-01] MEDS: predniSONE 20 MG TABLET 40 MG PO (08:43)
[2020-01-01] MEDS: AMIODARONE HCL 200 MG TABLET PO (08:43)
[2020-01-01] MEDS: ASPIRIN 81 MG ENTERIC TABLET PO (08:43)
--- NOTE | 2020-01-01 16:47 | PM.IMPN ---
Progress Note: A&P Assessment and Plan (1) Acute hypercapnic respiratory failure: Code(s): J96.02 - Acute respiratory failure with hypercapnia Status: Acute Assessment and Plan: ------Likely secondary to COPD exacerbation and PNA. His Co2 as been climbing on his bmp and he is feeling worse. He has been refusing the bipap at night. Since he sounds worse and his co2 is climing, will obtain another ABG and restart IV steroids. pt utlizes 2L at home usually but may be decreasing his respiratory drive so our o2 goal is 90-93% and we will wean o2. (2) Atrial fibrillation with rapid ventricular response: Code(s): I48.91 - Unspecified atrial fibrillation Status: Acute Assessment and Plan: ------has some readings of tachycardia but on exam had a regular rate. Continue amiodarone. 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 No CP at this time. continue to monitor tele and symptoms. Albuterol switched to xopenex. . (3) COPD exacerbation: Code(s): J44.1 - Chronic obstructive pulmonary disease with (acute) exacerbation Status: Acute Assessment and Plan: ------Continue bronchodilators and IV antibiotics. Blood cultures and sputum never ordered on admission but were obtained 2/ and are negative to date. (4) Glaucoma: Qualifiers: Glaucoma type: unspecified Laterality: unspecified laterality Qualified Code(s): H40.9 - Unspecified glaucoma Code(s): H40.9 - Unspecified glaucoma Status: Chronic Assessment and Plan: -----Continue home eyedrops. (5) Normocytic anemia: Code(s): D64.9 - Anemia, unspecified Status: Chronic Assessment and Plan: -----Appears to be anemia of chronic disease. No signs of acute blood loss. Monitor H&H, transfuse p.r.n.. (6) HTN (hypertension): Qualifiers: Hypertension type: essential hypertension Qualified Code(s): I10 - Essential (primary) hypertension Code(s): I10 - Essential (primary) hypertension Status: Chronic Assessment and Plan: -----Blood pressure still soft last one 140/59. Will restart home bp meds (7) Lung cancer: Qualifiers: Laterality: right Lung location: upper lobe of lung Qualified Code(s): C34.11 - Malignant neoplasm of upper lobe, right bronchus or lung Code(s): C34.90 - Malignant neoplasm of unspecified part of unspecified bronchus or lung Status: Chronic Assessment and Plan: -----Currently in remission (8) CAP (community acquired pneumonia): Code(s): J18.9 - Pneumonia, unspecified organism Status: Acute Assessment and Plan: -----continue to tx with azithromycin and ceftriaxone. Pts flu swab is negative. Continue lasix as well since he appears fluid overloaded and some of this could be pulmonary edema as well. (9) Systolic CHF, acute: Code(s): I50.21 - Acute systolic (congestive) heart failure Status: Acute Assessment and Plan: -----echo today estimates EF is 40-45%. I called his comb setter Dr. Sheth and their office states his last echo was January 2019 within normal EF. He did have a PCI early 2018. The patient has chronic AFib and is on amiodarone. He takes lisinopril at home. He is not on a beta-morena but this could be due to his hypotension and is likely why he is on amiodarone as well. He should follow up with comb setter to see if an additional beta-morena would be warranted since he now has systolic heart failure. He does appear fluid overloaded so we will continue with the diuretic. The patient has not been utilizing the diuretic at home because he says it does not help. He was educated that is important to do so. Additional Plan Subjective Date/time seen: 01/01/20 16:47 Interval history: Pt is a 79-year-old male here for pneumonia and COPD exacerbation. Patient was seen today and
[2020-01-01 17:23] LABS: Alveolar/Arterial O2 Gradient 59.9 mmHg; Base Excess ABG 9.3 mEq/l (+/-2.0); Carboxyhemoglobin 0.3 % THb (0-2.0); Fractional Inspired Oxygen 28 %; HCO3 ABG 34.3 mEq/l (22.0-26.0); Methemoglobin ABG 0.4 %THb (0-1.5); Oxygen Content ABG 14.9 %vol (16.0-22.0); Oxygen Saturation ABG 96.5 % (95.0-100.0); Oxyhemoglobin 94.7 % THb (90.0-100.0); PO2 ABG 81.9 mmHg (80.0-100.0); PO2 FiO2 Ratio Arterial Blood 2.92 %; Reduced Hemoglobin 4.6 %THb (0-5.0); Total Hemoglobin 11.1 g/dL (12.0-18.0); pH ABG 7.463 (7.350-7.450)
[2020-01-01 17:24] LABS: Device NASAL CANNULA; Modified Allen's Test Pass; Site Drawn RIGHT RADIAL
[2020-01-01] MEDS: PANTOPRAZOLE 40 MG TABLET PO (21:08)
[2020-01-01] MEDS: ATORVASTATIN 40 MG TABLET PO (21:08)
[2020-01-01] MEDS: methylPREDNISolone SOD SUCC 125 MG VIAL 60 MG IV PUSH (21:08)
[2020-01-01] MEDS: MIRTAZAPINE 7.5 MG TABLET PO (21:09)
[2020-01-01] MEDS: MELATONIN 5 MG TABLET PO (21:09)
[2020-01-02] VITALS (13 sets, daily range): BP systolic 107–117; BP diastolic 54–61; PULSE 50–102; RESP 14–22; TEMP 36.3–36.7; O2SAT 93–100
[2020-01-02] MEDS: IPRATROPIUM BR 0.02% INH SOLN 0.5 MG/2.5 ML VIAL INHALATION ×4 (02:18→22:05)
[2020-01-02] MEDS: LEVALBUTEROL NEB 1.25 MG/3 ML 0.63 MG INHALATION ×4 (02:18→22:05)
[2020-01-02] MEDS: FUROSEMIDE 40 MG TABLET PO (08:47)
[2020-01-02] MEDS: CITALOPRAM HYDROBROMIDE 10 MG TABLET PO (08:47)
[2020-01-02] MEDS: FERROUS SULFATE 324 MG TABLET PO ×2 (08:47→17:45)
[2020-01-02] MEDS: ASPIRIN 81 MG ENTERIC TABLET PO (08:47)
[2020-01-02] MEDS: AMIODARONE HCL 200 MG TABLET PO (08:47)
[2020-01-02] MEDS: lisinopriL 5 MG TABLET PO (08:47)
[2020-01-02] MEDS: methylPREDNISolone SOD SUCC 125 MG VIAL 60 MG IV PUSH ×2 (08:48→21:16)
--- NOTE | 2020-01-02 11:07 | PM.IMPN ---
Progress Note: A&P Assessment and Plan (1) Acute hypercapnic respiratory failure: Code(s): J96.02 - Acute respiratory failure with hypercapnia Status: Acute Assessment and Plan: ------Likely secondary to COPD exacerbation and PNA. His Co2 as been climbing on his bmp and he felt worse yesterday. ABG was reviewed. Pt was started back on IV steroids 01/01 because he failed to improve yesterday on the oral steroids. He has done much better on the IV steroids today and we will continue them through today and possibly try to wean tomorrow. He may be able to discharge tomorrow if his lung exam and symptoms continue to improve. I spoke with the pt and daughter erica about the plan. Continue home setting of 2L. Will decrease lasix to home dose to avoid worsening alkolosis. Pt refuses bipap/cpap. (2) Atrial fibrillation with rapid ventricular response: Code(s): I48.91 - Unspecified atrial fibrillation Status: Acute Assessment and Plan: ------has some readings of tachycardia but on exam had a regular rate 88bpm. Continue amiodarone. pt is not on oysterman anticoagulation d/t fall risk and high risk of bleed. No CP at this time. . (3) COPD exacerbation: Code(s): J44.1 - Chronic obstructive pulmonary disease with (acute) exacerbation Status: Acute Assessment and Plan: ------Continue bronchodilators and IV antibiotics. Blood cultures and sputum never ordered on admission but were obtained 12/28 and are negative to date. (4) Glaucoma: Qualifiers: Glaucoma type: unspecified Laterality: unspecified laterality Qualified Code(s): H40.9 - Unspecified glaucoma Code(s): H40.9 - Unspecified glaucoma Status: Chronic Assessment and Plan: -----Continue home eyedrops. (5) Normocytic anemia: Code(s): D64.9 - Anemia, unspecified Status: Chronic Assessment and Plan: -----Appears to be anemia of chronic disease. No signs of acute blood loss. Monitor H&H, transfuse p.r.n.. (6) HTN (hypertension): Qualifiers: Hypertension type: essential hypertension Qualified Code(s): I10 - Essential (primary) hypertension Code(s): I10 - Essential (primary) hypertension Status: Chronic Assessment and Plan: -----Blood pressure 117/61. Lasix being decreased (7) Lung cancer: Qualifiers: Laterality: right Lung location: upper lobe of lung Qualified Code(s): C34.11 - Malignant neoplasm of upper lobe, right bronchus or lung Code(s): C34.90 - Malignant neoplasm of unspecified part of unspecified bronchus or lung Status: Chronic Assessment and Plan: -----Currently in remission (8) CAP (community acquired pneumonia): Code(s): J18.9 - Pneumonia, unspecified organism Status: Acute Assessment and Plan: -----continue to tx with azithromycin and ceftriaxone now day 5. Pts flu swab is negative. (9) Systolic CHF, acute: Code(s): I50.21 - Acute systolic (congestive) heart failure Status: Acute Assessment and Plan: -----echo estimates EF is 40-45%. I called his gravity prospector Dr. Sheth last week and their office states his last echo was January 2019 within normal EF. He did have a PCI early 2018. The patient has chronic AFib and is on amiodarone. He takes lisinopril at home. He is not on a beta-morena but this could be due to his hypotension and is likely why he is on amiodarone as well. He should follow up with gravity prospector to see if an additional beta-morena would be warranted since he now has systolic heart failure. The patient has not been utilizing the diuretic at home because he says it does not help. He was educated that is important to do so. Additional Plan Subjective Date/time seen: 01/02/20 11:07 Interval history: Pt is a 79-year-old male here for pneumonia and COPD exacerbation. Patient was seen today and states he i
[2020-01-02] MEDS: BISACODYL 10 MG SUPPOSITORY RECTAL (11:41)
[2020-01-02] MEDS: MIRTAZAPINE 7.5 MG TABLET PO (21:17)
[2020-01-02] MEDS: MELATONIN 5 MG TABLET PO (21:18)
[2020-01-02] MEDS: ATORVASTATIN 40 MG TABLET PO (21:18)
[2020-01-02] MEDS: PANTOPRAZOLE 40 MG TABLET PO (21:19)
[2020-01-03] VITALS (9 sets, daily range): BP systolic 136; BP diastolic 68; PULSE 80–91; RESP 18–20; TEMP 36.3; O2SAT 94–99
[2020-01-03] MEDS: LEVALBUTEROL NEB 1.25 MG/3 ML 0.63 MG INHALATION ×3 (02:45→15:07)
[2020-01-03] MEDS: IPRATROPIUM BR 0.02% INH SOLN 0.5 MG/2.5 ML VIAL INHALATION ×3 (02:45→15:07)
[2020-01-03 06:35] LABS: Hematocrit 32.5 % (42.0-52.0); Hemoglobin 9.7 g/dL (14.0-18.0); Mean Corpuscular HGB Conc 29.8 g/dl (32-36); Mean Corpuscular Hemoglobin 27.6 pg (26-34); Mean Corpuscular Volume 92.6 fl (80-100); Mean Platelet Volume 11.9 fl (7.4-10.4); Platelet Count Result 182 k/mm3 (150-375); Red Blood Count 3.51 M/mm3 (4.6-6.20); Red Cell Distribution Width 14.8 % (11.5-14.5); White Blood Count 7.3 K/mm3 (4.5-10.0)
[2020-01-03 06:47] LABS: Blood Urea Nitrogen 30 mg/dL (9-20); Calcium 8.5 mg/dL (8.4-10.2); Carbon Dioxide 39 mmol/L (22-30); Chloride 91 mmol/L (98-107); Estimated CRCL calculation 63 ml/min; Estimated Glomerular Filt Rate > 60; Glucose 143 mg/dL (75-110); Magnesium 2.4 mg/dL (1.6-2.3); Phosphorus 3.5 mg/dL (2.5-4.5); Potassium 3.9 mmol/L (3.4-5.0); Sodium 136 mmol/L (137-145)
[2020-01-03] MEDS: FERROUS SULFATE 324 MG TABLET PO (08:27)
[2020-01-03] MEDS: methylPREDNISolone SOD SUCC 125 MG VIAL 60 MG IV PUSH (08:28)
[2020-01-03] MEDS: AMIODARONE HCL 200 MG TABLET PO (08:28)
[2020-01-03] MEDS: ASPIRIN 81 MG ENTERIC TABLET PO (08:28)
[2020-01-03] MEDS: CITALOPRAM HYDROBROMIDE 10 MG TABLET PO (08:30)
[2020-01-03] MEDS: lisinopriL 5 MG TABLET PO (08:30)
--- NOTE | 2020-01-03 13:14 | PCDIET ---
Nutrition weekly screen Complete: Pt current nutrition is 2gm Na Nutrition recommendation: agree Last recorded weight is 81.6 kg. Bowel Motility: BM yesterday, normal Labs Reviewed:Mg 2.4, Glucose 143, Na 136, Hgb 9.7, Hct 32.5 Meds Noted: solumedrol, Fe, Remeron, Senna/Miralax Additional Notes: Seeing pt 2/2 to LOS. Pt wt steady, appears well nourished. Pt with good appetite eating 75-100% of all meals. Elevated glucose most likely due to solumedrol. We will continue to monitor for adequate intake every seven days.
--- NOTE | 2020-01-03 19:21 | PM.DS ---
DS: Diagnosis Admitting Diagnosis Admitting Diagnosis: Acute respiratory failure with hypercapnia Discharge Diagnosis (1) Acute hypercapnic respiratory failure: Code(s): J96.02 - Acute respiratory failure with hypercapnia Status: Acute Assessment and Plan: Date of Service 01/03/20 Mr. Najera is an 79yo M with history of COPD, chronic respiratory failure on 2 L home O2, coronary artery disease, previous history of lung cancer now in remission who presented to the emergency room from [facility] for evaluation of increased shortness of breath. BiPAP was initiated in the ER for a short period and antibiotics were started. He was noted to be in atrial fibrillation with RVR on arrival and received 1 dose of IV cardizem. Chest XR showed bibasilar opacities, left greater than right. He was treated with steroids, bronchodilator therapy with duo nebs, and antibiotic therapy for presumed COPD exacerbation with pneumonia. He completed 6 days of IV azithromycin and rocephin at the hospital. He was also diuresed with IV lasix. His symptoms improved with the therapy outlined above and he was back to his baseline of 2L supplemental O2, feeling well. He was hemodynamically stable for discharge 01/03/20 after working with PT/OT and felt to be a good candidate for continued therapy at SNF. Discharged to [facility] to see senior care provider or his PCP within 1 week. (2) Atrial fibrillation with rapid ventricular response: Code(s): I48.91 - Unspecified atrial fibrillation Status: Acute Assessment and Plan: A fib RVR on arrival treated with 1 time dose of IV Cardizem. Following that he was rate controlled on his home amiodarone. Noted he is not on terminal gauger supervisor anticoagulation due to fall risk. (3) COPD exacerbation: Code(s): J44.1 - Chronic obstructive pulmonary disease with (acute) exacerbation Status: Acute Assessment and Plan: Treated with IV steroids, duo nebs, antibiotics. Discharged with tapered course of prednisone along with his home medications. (4) CAP (community acquired pneumonia): Qualifiers: Laterality: unspecified laterality Qualified Code(s): J18.9 - Pneumonia, unspecified organism Code(s): J18.9 - Pneumonia, unspecified organism Status: Acute Assessment and Plan: Completed 6 days of IV azithromycin and rocephin and respiratory regimen outlined above. Flu swab negative. (5) Normocytic anemia: Code(s): D64.9 - Anemia, unspecified Status: Chronic Assessment and Plan: Chronic, no evidence of acute bleeding. H&H low but stable. (6) HTN (hypertension): Qualifiers: Hypertension type: essential hypertension Qualified Code(s): I10 - Essential (primary) hypertension Code(s): I10 - Essential (primary) hypertension Status: Chronic Assessment and Plan: BPs variable but stable at discharge, last 138/68. (7) Lung cancer: Qualifiers: Laterality: right Lung location: upper lobe of lung Qualified Code(s): C34.11 - Malignant neoplasm of upper lobe, right bronchus or lung Code(s): C34.90 - Malignant neoplasm of unspecified part of unspecified bronchus or lung Status: Chronic Assessment and Plan: Currently in remission (8) Systolic CHF, acute: Code(s): I50.21 - Acute systolic (congestive) heart failure Status: Acute Assessment and Plan: Echocardiogram estimates EF 40-45%. His test rider Dr Sheth was contacted by the previous provider and his office stated his last echo was January 2019 with a normal EF. He did have PCI early 2019. He has chronic atrial fibrillation on amiodarone, takes lisinopril, not on a beta morena but this could be due to hypotension, but he could pot
== END 2020-01-03 16:33 | DRG 193 ==
LOC: ANHED 12-28 03:35 → ANHIMU 12-28 11:19 → ANH3MEDSUR 12-30 05:42 → ANHIMU 01-06 06:30
PROVIDERS: Physician Assistant; Admitting Provider Family Medicine; Emergency Provider Emergency Medicine; PCP Registered Nurse; Visit Provider Physician Assistant
DX: J18.9 Pneumonia, unspecified organism (principal); J96.22 Acute and chronic respiratory failure with hypercapnia; I50.21 Acute systolic (congestive) heart failure; C34.90 Malignant neoplasm of unspecified part of unspecified bronchus or lung; C34.11 Malignant neoplasm of upper lobe, right bronchus or lung; I48.20 Chronic atrial fibrillation, unspecified; J43.9 Emphysema, unspecified; I11.0 Hypertensive heart disease with heart failure; I25.10 Atherosclerotic heart disease of native coronary artery without angina pectoris; I73.9 Peripheral vascular disease, unspecified; K21.9 Gastro-esophageal reflux disease without esophagitis; H40.9 Unspecified glaucoma; D63.8 Anemia in other chronic diseases classified elsewhere; E78.5 Hyperlipidemia, unspecified; Z99.81 Dependence on supplemental oxygen; Z85.118 Personal history of other malignant neoplasm of bronchus and lung; Z95.5 Presence of coronary angioplasty implant and graft; Z95.1 Presence of aortocoronary bypass graft; Z87.891 Personal history of nicotine dependence; I25.2 Old myocardial infarction; Z85.21 Personal history of malignant neoplasm of larynx
CPT/HCPCS: 36415; 36600; 71045; 71046; 80048; 82375; 82805; 83050; 83735; 83880; 84100; 84484; 85025; 85027; 85610; 85730; 87040; 87081; 87804; 93005; 93970; 94002; 94640; 96365; 96368; 97110; 97116; 97161; 97165; 97530; 97535; 99291; A9270; C8929; J0456; J0696; J1940; J2930; J7060; J7512; Q9957

== ENCOUNTER 2020-01-10 17:24 | Emergency (ER) | payer MEDICARE, SELFPAY ==
[2020-01-10] VITALS (7 sets, daily range): BP systolic 115–137; BP diastolic 55–68; PULSE 69–99; RESP 17–18; TEMP 36.8–37.1; O2SAT 99–100
--- NOTE | ~2020-01-10 | XR_ITS ---
XR chest 2V 01/10/2020 18:11 Indication: Shortness of breath with exertion. COPD. Procedure: AP and lateral views of the chest Comparison: Comparison to multiple prior studies sequentially, with oldest reviewed study dated 02/16. Findings: Chronic right apical pleural thickening/scarring unchanged. Status post median sternotomy f or CABG. Mild cardiomegaly. The lungs are hyperinflated which is consistent with, but not diagnostic of chronic obstructive pulmonary disease. No acute focal pneumonia, edema or effusion. No pneumothora x. No acute osseous abnormality. Impression: 1: No acute cardiopulmonary disease. No significant change. Reviewed, dictated and finalized at location [facility] Impression: 1: No acute cardiopulmonary disease. No significant change.
--- NOTE | 2020-01-10 17:35 | PC.NURSE ---
Pt states he has increased SOB with exertion. Pt states he has been on abt for pneumonia. Pt lungs diminished at bases and course in upper lobes on expiration. Pt has hx of afib but had ablasion stopped afib til recently. Pt is A&Ox4. Pt has hx of COPD, CHF, and AFIB
--- NOTE | 2020-01-10 17:43 | ECG_ITS ---
Measurements Intervals [place] Rate: 79 P: [place]: 0 QRS: 75 QRSD: 105 T: 66 QT: 405 QTc: 465 Interpretive Statements ATRIAL FLUTTER/TACHYCARDIA CONSIDER INFERIOR INFARCT, AGE INDETERMINATE BASELINE ARTIFACT- I, AVR ABNORMAL ECG Electronically Signed On 01-10-2020 17:59:38 MEDICAL PROGRAM SPECIALIST by Gurpreet Nicholas D.O.
[2020-01-10 17:57] LABS: Hematocrit 29.7 % (42.0-52.0); Hemoglobin 8.9 g/dL (14.0-18.0); Mean Corpuscular Hemoglobin 27.9 pg (26-34); Mean Corpuscular Volume 93.1 fl (80-100); Mean Platelet Volume 11.3 fl (7.4-10.4); Platelet Count Result 199 k/mm3 (150-375); Red Blood Count 3.19 M/mm3 (4.6-6.20); Red Cell Distribution Width 14.9 % (11.5-14.5); White Blood Count 11.4 K/mm3 (4.5-10.0)
--- NOTE | 2020-01-10 18:05 | ED.SOB ---
HPI - SOB/Dyspnea General Chief Complaint: Shortness of Breath/Dyspnea Stated Complaint: SOB Time Seen by Provider: 01/10/20 17:29 Source: patient and family Mode of arrival: ambulatory Limitations: no limitations History of Present Illness HPI Narrative: 79 yo male with h/o COPD, oxygen dependence, CHF who presents from [facility] with intermittent episodes of sob and anxiety. Patient states he had 3 episodes today in which he felt sob. He states just prior to arrival he reports he was trying to get out out of bed and develop sob and anxiousness. He denies fever, worsening cough, nausea, vomiting or chest pain. He wears 2 L NC all the time. He was released from [facility] 1 week ago after treatment of COPD and pneumonia. Pertinent past history: COPD Related Data Home Medications Medication Instructions Recorded Confirmed Mucinex DM 1 tablet PO Q12H 10/16/19 12/28/19 Perforomist 2 ml INHALATION BID 10/16/19 12/28/19 acetaminophen 500 mg PO TID 10/16/19 12/28/19 albuterol sulfate 2.5 mg INHALATION Q4H PRN 10/16/19 12/28/19 amiodarone 200 mg PO DAILY 10/16/19 12/28/19 aspirin [Aspir-81] 81 mg PO DAILY 10/16/19 12/28/19 atorvastatin 40 mg PO HS 10/16/19 12/28/19 budesonide 0.5 mg INHALATION BID 10/16/19 12/28/19 cholecalciferol (vitamin D3) 5,000 unit PO DAILY 10/16/19 12/28/19 [Vitamin D3] citalopram 10 mg PO DAILY 10/16/19 12/28/19 ferrous sulfate 325 mg PO BID 10/16/19 12/28/19 furosemide 20 mg PO DAILY 10/16/19 12/28/19 lisinopril 5 mg PO DAILY 10/16/19 12/28/19 melatonin 5 mg PO HS 10/16/19 12/28/19 multivitamin 1 tablet PO DAILY 10/16/19 12/28/19 nitroglycerin 0.4 mg SUBLINGUAL Q5-15M PRN 10/16/19 12/28/19 pantoprazole 40 mg PO HS 10/16/19 12/28/19 polyethylene glycol 3350 17 g PO DAILY PRN 10/16/19 12/28/19 ondansetron HCl 4 mg PO Q6H PRN 12/28/19 12/28/19 Allergies Allergy/AdvReac Type Severity Reaction Status Date / Time No Known Allergies Allergy Mild Verified 01/10/20 17:34 Review of Systems Review of Systems: All systems reviewed & are unremarkable except as noted in HPI and below Constitutional: Constitutional: Denies chills and Denies fever(s) ENT: Denies dizziness and Denies nasal congestion Cardiovascular: Cardiovascular: Denies chest pain and Denies rapid heart rate Respiratory: Respiratory: Denies chest congestion, Denies cough and Reports dyspnea Gastrointestinal: Gastrointestinal: Denies abdominal pain and Denies nausea PMFSH Social History Social History Years smoked: 35 Smoking status: Former smoker Tobacco type: cigarettes Smoking end date: 04/23/19 Alcohol intake: never Substance use: never Gender identity (if verbalized by the patient): Male Spiritual care concerns: No Agree to blood products: Yes Exam Narrative: Exam Narrative: GENERAL: Well-appearing, well-nourished, and in no acute distress. HEAD: Normocephalic, atraumatic EYES: PERRLA and EOMI, conjunctiva clear without discharge THROAT:Mucous membranes moist, Oropharynx normal without erythema, exudate, peritonsillar swelling or fluctuance NECK: Supple, without lymphadenopathy or mass RESPIRATORY: No respiratory distress, Airway patent, Respirations non-labored, Clear to auscultation without rales, rhonchi or wheeze, on nasal canula, diminished HEART: Regular rate and irregular rhythm. No murmur heard. Normal peripheral pulses. ABDOMEN: Soft, nontender, nondistended, normal active bowel sounds. No masses. No rebound or guarding, No organomegaly. EXTREMITIES: No edema, normal strength with full range of motion. SKIN: Warm, dry, normal color without rash NEURO: Alert and oriented x3. CN 2-12 grossly intact. No focal deficits. PSYCH: Normal mood and affect. Urinary Catheter: Urinary Catheter: patent and draining and urine clear Course Reevaluation(s) Reevaluation #1: I discussed with patient and family test are stable. he has c
[2020-01-10 18:08] LABS: Blood Urea Nitrogen 21 mg/dL (9-20); Calcium 8.5 mg/dL (8.4-10.2); Carbon Dioxide 34 mmol/L (22-30); Chloride 95 mmol/L (98-107); Estimated CRCL calculation 63 ml/min; Estimated Glomerular Filt Rate > 60; Glucose 122 mg/dL (75-110); Potassium 4.3 mmol/L (3.4-5.0); Sodium 138 mmol/L (137-145)
[2020-01-10 18:23] LABS: Band Neutrophils Percent 2 % (0-6); Giant Platelets Present; Hypochromasia 2+ (NORMAL); Lymphocytes Absolute Manual 0.22 K/mm3 (1.1-4.5); Monocytes Absolute Manual 0.34 K/mm3 (0.1-0.90); Monocytes Percent Manual 3 % (3-9); Neutrophils Absolute Manual 10.83 K/mm3 (1.3-6.7); Neutrophils Percent Manual 93 % (46-73); Ovalocytes 2+ (NORMAL); Platelet Estimate Adequate (Adequate); Total Cells Counted 100
[2020-01-10 18:54] LABS: Alveolar/Arterial O2 Gradient 46.4 mmHg; Base Excess ABG 6.8 mEq/l (+/-2.0); Carboxyhemoglobin 0.1 % THb (0-2.0); Fractional Inspired Oxygen 28 %; HCO3 ABG 32.1 mEq/l (22.0-26.0); Methemoglobin ABG 0.2 %THb (0-1.5); Oxygen Content ABG 13.4 %vol (16.0-22.0); Oxygen Saturation ABG 97.2 % (95.0-100.0); Oxyhemoglobin 95.9 % THb (90.0-100.0); PCO2 ABG 50.2 mmHg (35.0-45.0); PO2 FiO2 Ratio Arterial Blood 3.36 %; Reduced Hemoglobin 3.8 %THb (0-5.0); Total Hemoglobin 9.8 g/dL (12.0-18.0); pH ABG 7.424 (7.350-7.450)
[2020-01-10 18:55] LABS: Device NASAL CANNULA; Site Drawn RIGHT BRACHIAL
[2020-01-10] MEDS: ALBUTEROL SULFATE NEB 2.5 MG/0.5 ML INH 5 MG INHALATION (20:30)
[2020-01-10] MEDS: IPRATROPIUM BR 0.02% INH SOLN 0.5 MG/2.5 ML VIAL INHALATION (20:30)
[2020-01-10] MEDS: methylPREDNISolone SOD SUCC 125 MG VIAL IV PUSH (20:37)
--- NOTE | 2020-01-10 21:23 | PC.NURSE ---
called [facility] to transport patient. ETA 15 minute.
--- NOTE | 2020-01-10 21:41 | PC.NURSE ---
Attempted to contact [facility] regarding discharge and report for patient, no answer on the phone. ED Charge nurse Emily Phillips notified.
== END 2020-01-10 21:56 ==
PROVIDERS: Emergency Provider General Practice; PCP Registered Nurse
DX: J44.1 Chronic obstructive pulmonary disease with (acute) exacerbation (principal); Z87.891 Personal history of nicotine dependence; I50.9 Heart failure, unspecified; Z99.81 Dependence on supplemental oxygen
CPT/HCPCS: 36415; 36600; 71046; 80048; 82375; 82805; 83050; 85025; 93005; 94640; 96374; 99284; J2930

== ENCOUNTER 2020-04-26 17:20 | Emergency (ER) | payer MEDICARE, SELFPAY ==
[2020-04-26 17:26] VITALS: BP 102/58; PULSE 74; RESP 18; TEMP 36.9; O2SAT 99
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
[2020-04-26 18:04] VITALS: BP 111/51; PULSE 54; RESP 15; O2SAT 100
== END 2020-04-26 18:05 ==
PROVIDERS: Emergency Provider Emergency Medicine; PCP Registered Nurse
DX: S51.812A Laceration without foreign body of left forearm, initial encounter (principal); I48.91 Unspecified atrial fibrillation; I25.10 Atherosclerotic heart disease of native coronary artery without angina pectoris; J43.9 Emphysema, unspecified; K21.9 Gastro-esophageal reflux disease without esophagitis; H40.9 Unspecified glaucoma; I10 Essential (primary) hypertension; E78.5 Hyperlipidemia, unspecified; Z85.118 Personal history of other malignant neoplasm of bronchus and lung; I25.2 Old myocardial infarction; Z85.21 Personal history of malignant neoplasm of larynx; I73.9 Peripheral vascular disease, unspecified; Z95.1 Presence of aortocoronary bypass graft; Z95.5 Presence of coronary angioplasty implant and graft; Z87.891 Personal history of nicotine dependence; Z79.82 Long term (current) use of aspirin; V00.831A Fall from motorized mobility scooter, initial encounter
CPT/HCPCS: 99282

== ENCOUNTER 2020-05-02 11:28 | Inpatient (IN) | payer MEDICARE, SELFPAY ==
[2020-05-02] VITALS (19 sets, daily range): BP systolic 88–114; BP diastolic 45–96; PULSE 79–103; RESP 15–23; TEMP 36.2–36.7; O2SAT 97–100; BMI 28.2
--- NOTE | ~2020-05-02 | XR_ITS ---
XR chest 1V portable 05/02/2020 12:30 Indication: Shortness of breath Procedure: AP portable chest Comparison: Comparison to multiple prior studies sequentially, with oldest reviewed study dated 09/24. Findings: Chronic right apical pleural thickening/consolidation,. Chronic tenting of the right diaphr agm. No acute focal pneumonia, edema. No pneumothorax. Status post median sternotomy for CABG. No acu te osseous abnormality. Impression: 1: No acute changes. No significant change to chronic right apical consolidation. Reviewed, dictated and finalized at location A. Impression: 1: No acute changes. No significant change to chronic right apical consolidatio n.
--- NOTE | 2020-05-02 11:37 | PC.NURSE ---
LEG BAG CHANGED TO BIGGER DRAINAGE BAG AT THIS TIME, NO FOUL ODOR OR SEDIMENT NOTED AT THIS TIME.
--- NOTE | 2020-05-02 11:49 | ECG_ITS ---
Measurements Intervals [place] Rate: 72 P: 236 LA: 171 QRS: 102 QRSD: 102 T: 20 QT: 392 QTc: 432 Interpretive Statements ATRIAL FLUTTER/TACHYCARDIA RIGHT AXIS DEVIATION CONSIDER INFERIOR INFARCT, AGE INDETERMINATE BASELINE ARTIFACT- I, II, AVR, V1-V6 ABNORMAL ECG Electronically Signed On 05-02-2020 12:26:12 CDT by Gurpreet Nicholas D.O.
[2020-05-02] MEDS: SODIUM CHLORIDE 0.9% IV 500 ML 999 ML IV CONT (12:13)
[2020-05-02 12:19] LABS: Basophils Percent Auto 0.3 % (0.2-1.2); Eosinophils Absolute Auto 0.2 K/mm3 (0-0.3); Eosinophils Percent Auto 1.1 % (0-4.4); Hematocrit 33.1 % (42.0-52.0); Hemoglobin 10.1 g/dL (14.0-18.0); Immature Granulocyte Absolute 0.16 K/mm3 (0.00-0.031); Immature Granulocyte Percent A 1.2 % (0-0.5); Lymphocytes Absolute Auto 1.05 K/mm3 (0.9-3.2); Lymphocytes Percent Auto 7.6 % (18.3-44.2); Mean Corpuscular HGB Conc 30.5 g/dl (32-36); Mean Corpuscular Hemoglobin 28.4 pg (26-34); Monocytes Absolute Auto 1.2 K/mm3 (0.1-0.6); Neutrophils Absolute Auto 11.1 K/mm3 (1.3-6.7); Neutrophils Percent Auto 80.8 % (45.5-73.1); Platelet Count Result 220 k/mm3 (150-375); Red Blood Count 3.56 M/mm3 (4.6-6.20); Red Cell Distribution Width 14.9 % (11.5-14.5); White Blood Count 13.7 K/mm3 (4.5-10.0)
[2020-05-02 12:29] LABS: Partial Thromboplastin Time 23.7 SECONDS (22.3-36.8); Prothrombin Time 12.7 Seconds (11.1-14.7)
[2020-05-02 12:34] LABS: Add Urine Microscopic? YES; Appearance Urine Turbid (Clear); Bacteria Urine 4+ /hpf; Bilirubin Urine 2+ (Negative); Blood Urine 2+ (Negative); Color Urine Amber (Yellow); Glucose Urine UA Negative (Negative); Hyaline Casts Urine 30-49 /lpf; Ketones Urine Trace mg/dL (Negative); Leukocyte Esterase Ur 2+ LEU/UL (Negative); Mucus Urine Rare /lpf; Nitrate Urine Negative (Negative); Protein Urine 2+ mg/dL (Negative); RBC Urine >75 /hpf (0-2); Specific Grav Ur 1.023 (1.001-1.035); Squamous Epithelial Cell Urine Occasional /hpf (Few); WBC Clumps Urine Present /HPF; WBC Urine >75 /hpf
[2020-05-02 12:35] LABS: Alanine Aminotransferase 15 U/L (4-50); Albumin Level 3.9 g/dL (3.5-5.1); Alkaline Phosphatase 76 U/L (38-126); Aspartate Amino Transferase 20 U/L (17-59); Bilirubin,Total 0.6 mg/dL (0.2-1.3); Blood Urea Nitrogen 49 mg/dL (9-20); Calcium 8.8 mg/dL (8.4-10.2); Carbon Dioxide 37 mmol/L (22-30); Chloride 95 mmol/L (98-107); Estimated CRCL calculation 26 ml/min; Estimated Glomerular Filt Rate 32; Glucose 79 mg/dL (75-110); Lipase 89 U/L (23-300); Potassium 4.6 mmol/L (3.4-5.0); Sodium 135 mmol/L (137-145)
[2020-05-02 12:51] LABS: NT Pro B Type Natriuretic Pept 2580 PG/ML (5-100); Troponin I 0.061 ng/mL (0.000-0.034)
--- NOTE | 2020-05-02 13:03 | PC.NURSE ---
PT BP NOTED TO BE 75/48, ЕКАТЕРИНА GOMEZ AND MYSELF AT BEDSIDE TO RECHECK. RECHECK AT 88/51, PT DENIES DIZZINESS, OR BEING LIGHTHEADED. VERBAL ORDER PER ЕКАТЕРИНА GOMEZ TO BEGIN RUNNING 750ML NS AT THIS TIME AT A BOLUS RATE. PA INFORMING PT THAT HE WILL BE STAYING IN THE HOSPITAL, FAMILY AND PT VERBALIZE UNDERSTANDING. RESTING COMFORTABLY.
[2020-05-02] MEDS: SODIUM CHLORIDE 0.9% IV 1,000 ML 999 ML IV CONT ×2 (13:20→13:55)
--- NOTE | 2020-05-02 14:04 | ED.GENADULT ---
HPI - General Adult General Chief complaint: Unspecified <Stefan Murrell PA-C - Last Filed: 05/02/20 14:10> Stated complaint: MULTIPLE C/O <KIT Wheeler Last Filed: 05/02/20 14:10> Time Seen by Provider: 05/02/20 11:44 <KIT Wheeler Last Filed: 05/02/20 14:10> History of Present Illness HPI narrative: Patient is an 79-year-old male who presents to emergency department for evaluation of noting shortness of breath weakness and low blood pressure. Patient has been in the hospital off and on in the recent past for dyspnea. Patient notes that he did not sleep last night and was having nightmares. On arrival patient notes that he feels weak and that his blood pressure has been low since EMS arrived and found him at the [facility] resting in the bed in no distress. Patient notes that he is mainly wheelchair bound. Patient notes he has been having some shortness of breath but denies URI symptoms. <Stefan Murrell PA-C - Last Filed: 05/02/20 14:10> Related Data Home medications: Home Medications Medication Instructions Recorded Confirmed Perforomist 2 ml INHALATION BID 10/16/19 12/28/19 acetaminophen 500 mg PO TID 10/16/19 12/28/19 albuterol sulfate 2.5 mg INHALATION Q4H PRN 10/16/19 12/28/19 aspirin [Aspir-81] 81 mg PO DAILY 10/16/19 12/28/19 atorvastatin 40 mg PO HS 10/16/19 12/28/19 budesonide 0.5 mg INHALATION BID 10/16/19 12/28/19 cholecalciferol (vitamin D3) 5,000 unit PO DAILY 10/16/19 12/28/19 [Vitamin D3] citalopram 10 mg PO DAILY 10/16/19 12/28/19 ferrous sulfate 325 mg PO BID 10/16/19 12/28/19 furosemide 20 mg PO DAILY 10/16/19 12/28/19 lisinopril 5 mg PO DAILY 10/16/19 12/28/19 melatonin 5 mg PO HS 10/16/19 12/28/19 nitroglycerin 0.4 mg SUBLINGUAL Q5-15M PRN 10/16/19 12/28/19 pantoprazole 40 mg PO HS 10/16/19 12/28/19 polyethylene glycol 3350 17 g PO DAILY PRN 10/16/19 12/28/19 ondansetron HCl 4 mg PO Q6H PRN 12/28/19 12/28/19 buspirone 5 mg PO BID 05/02/20 ciprofloxacin HCl 500 mg PO Q12H 05/02/20 docusate sodium 100 mg PO DAILY 05/02/20 finasteride 5 mg PO DAILY 05/02/20 guaifenesin 400 mg PO Q4H 05/02/20 metoprolol succinate [Toprol XL] 25 mg PO DAILY 05/02/20 potassium chloride 20 meq PO DAILY 05/02/20 tamsulosin 0.4 mg PO DAILY 05/02/20 <Stefan Murrell PA-C - Last Filed: 05/02/20 14:10> Allergies/adverse reactions: Allergies Allergy/AdvReac Type Severity Reaction Status Date / Time No Known Allergies Allergy Mild Verified 05/02/20 11:36 <Stefan Murrell PA-C - Last Filed: 05/02/20 14:10> Review of Systems Review of Systems: All systems reviewed & are unremarkable except as noted in HPI and below <Stefan Murrell PA-C - Last Filed: 05/02/20 14:10> [facility] Social History Social History: Social History Years smoked: 35 Smoking status: Former smoker Tobacco type: cigarettes Smoking end date: 04/23/19 Alcohol intake: never Substance use: never Gender identity (if verbalized by the patient): Male Spiritual care concerns: No Agree to blood products: Yes <Stefan Murrell PA-C - Last Filed: 05/02/20 14:10> Exam Narrative: Exam Narrative: GENERAL: Ill-appearing, well-nourished, and in no acute distress. HEAD: Normocephalic, atraumatic. EYES: PERRLA and EOMI. ENT: Nares clear, no rhinorrhea or epistaxis. Mucous membranes dry. Oropharynx without tonsillar hypertrophy exudate or other lesions. NECK: Supple. No adenopathy or masses. No carotid bruits or JVD CHEST: Clear to auscultation. No respiratory distress. No wheezes rales or rhonchi HEART: Regular rate and rhythm. No murmur heard. Normal peripheral pulses. ABDOMEN: Soft, nontender, nondistended EXTREMITIES: Normal range of motion. No edema. SKIN: Warm, dry, no rash. Skin tear of the left forearm NEURO: No focal deficits. Alert and oriented x3. Cranial nerves II through XII grossly i
--- NOTE | 2020-05-02 14:37 | PC.NURSE ---
PA INFORMED OF BP, ASKING FOR BP RECHECK.
--- NOTE | 2020-05-02 14:55 | PC.NURSE ---
ATTEMPTED TO CALL PT REPORT, RN REFUSED STATES SHE WILL CALL BACK.
[2020-05-02 16:25] LABS: Troponin I 0.038 ng/mL (0.000-0.034)
--- NOTE | 2020-05-02 17:22 | PM.IMHP ---
H&P: HPI History of Present Illness Chief complaint: Sepsis/urinary tract infection/acute kidney injury Narrative: Eusebio Najera is a 79 year old male who resides at [facility]. The patient has a history of congestive heart failure as well as COPD and is on chronic oxygen at 2 L per nasal cannula. The patient came to the emergency room for complaints of shortness of breath weakness and low blood pressure. He has been in the hospital on and off the recent past for dyspnea. Patient stated that he did not sleep last night had nightmares. He feels weak and was found in his bed resting quietly when the ambulance ambulance arrived at his place of residence. Patient's creatinine was found to be 2 today. He was also found to have a urinary tract infection. He had a slight bump in his troponin. The patient was started on Rocephin for U TI. IV fluids were started for acute renal failure. Review of Systems Review of Systems: All systems reviewed & are unremarkable except as noted in HPI and below Constitutional: Constitutional: Reports as per HPI and Reports no additional constitutional complaints Eyes: Eyes: Reports as per HPI and Reports no additional eye complaints ENT: Reports system reviewed and no additional complaints, except as documented and Reports Normal hearing present Cardiovascular: Cardiovascular: Reports no additional cardiovascular complaints Respiratory: Respiratory: Reports no additional respiratory complaints and Reports no additional respiratory complaints Gastrointestinal: Gastrointestinal: Reports as per HPI and Reports no additional gastrointestinal complaints Musculoskeletal: Musculoskeletal: Reports no additional musculoskeletal complaints Integumentary/Breasts: Skin/Breast: Reports system reviewed and no additional complaints, except as docu and Reports as per HPI Neurologic: Reports system reviewed and no additional complaints, except as documented, Reports as per HPI and Reports Normal hearing present Psychiatric: Psychiatric: Reports no additional psychiatric complaints and Reports as per HPI Endocrine: Endocrine: Reports no additional endocrine complaints Hematologic/Lymphatic: Hematologic/Lymphatic: Reports no additional hematologic/lymphatic complaints Allergic/Immunologic: Allergic/Immunologic: Reports no additional allergic/immunologic complaints [facility] Past Medical History Medical History (Updated 05/02/20 @ 17:59 by Janice Weldon NP) Atrial fibrillation BPH (benign prostatic hyperplasia) CAD (coronary artery disease) COPD (chronic obstructive pulmonary disease) Depression Diverticulitis Emphysema, unspecified GERD (gastroesophageal reflux disease) History of angina HTN (hypertension) Hyperlipidemia Lung cancer Radiation treatment Myocardial infarction Peripheral vascular disease Thrombocytopenia Vocal cord cancer Radiation treatment Surgical History Surgical History (Updated 05/02/20 @ 17:29 by Janice Weldon NP) History of angioplasty With 5 stents History of cardiac catheterization Hx of appendectomy Hx of CABG 1 vessel on 2 separate occasions Stented coronary artery 5 stents Family History Family History Father Malignant neoplasm of prostate Mother Alzheimer disease Sibling Cancer, bladder, neck Social History Social History (Updated 05/02/20 @ 17:46 by Janice Weldon NP) Social History: The patient stated that he is and he lives in 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 He was just in rehab at [facility]. The patient is a full code. He has 3 children. 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 He denies any alcohol marijuana or illicit drug use. His daughter Massiel is a durable power divorce attorney for healthcare. Smoking packs per day: 1 Smoking cigarettes per day: 20.0 Years smoked: 35 Smoking pack-years: 35.00 Smoking status: Former smoker Tobacco type: ci
[2020-05-02] MEDS: SODIUM CHLORIDE 0.9% IV 1,000 ML 75 ML IV CONT (18:20)
[2020-05-02 18:56] LABS: Troponin I 0.036 ng/mL (0.000-0.034)
[2020-05-02] MEDS: BUDESONIDE RESPULE NEB 0.5 MG/2 ML AMP INHALATION (19:32)
[2020-05-02] MEDS: ATORVASTATIN 40 MG TABLET PO (20:17)
[2020-05-02] MEDS: busPIRone HCL 5 MG TABLET PO (20:17)
[2020-05-02] MEDS: MIRTAZAPINE 7.5 MG TABLET PO (20:17)
[2020-05-02] MEDS: ACETAMINOPHEN 500 MG TABLET PO (20:17)
[2020-05-02] MEDS: PANTOPRAZOLE 40 MG TABLET PO (20:17)
[2020-05-02] MEDS: FERROUS SULFATE 324 MG TABLET PO (20:17)
[2020-05-02] MEDS: MELATONIN 5 MG TABLET PO (20:19)
[2020-05-03] VITALS (19 sets, daily range): BP systolic 91–115; BP diastolic 41–58; PULSE 70–104; RESP 16–22; TEMP 35.9–36.5; O2SAT 98–100
--- NOTE | 2020-05-03 | ECHO_ITS ---
Patient Info Name: Eusebio Najera Age: 79 years : 1940 Gender: Male Ht: 69 in Wt: 199 lbs BSA: 2.12 m2 HR: 99 bpm BP: 104 / 41 mmHg Technical Quality: Fair Exam Date: 05/03/2020 3:44 PM Exam Location: [facility] Exam Room: 331 Patient Status: Inpatient Admit Date: 05/02/2020 Staff Ordering Physician: Nany Bansal PA-C Shipping Team Leader: Dianne Atkinson RDCS Attending Provider: Nany Bansal PA-C Referring Physician: Nimisha BERNARD; Exam Type: CA echo limited w contrast Study Info Indications - CHF SOB Complete two-dimensional, color flow and Doppler transthoracic echocardiogram is performed with contrast to opacify the left ventricle and to improve the deliniation of the left ventricle endocardial borders. Contrast/Agitated Saline Contrast/Ag. Saline: Definity Amount: 1.00 ml IV Access Condition: patent with no signs of infiltration Summary 1. Limited echocardiogram to assess EF. 2. Left ventricular chamber dimension is moderately enlarged. 3. Left ventricular systolic function is moderately reduced, estimated at 35-40%. 4. Left ventricular septal wall motion is abnormal with septal motion related to bundle branch block. 5. Definity contrast administered improved wall motion interpretation. Left Ventricle Limited echocardiogram to assess EF. Left ventricular chamber dimension is moderately enlarged. Left ventricular systolic function is moderately reduced, estimated at 35-40%. Left ventricular septal wall motion is abnormal with septal motion related to bundle branch block. Definity contrast administered improved wall motion interpretation. Diastolic function is not assessed. Tricuspid Valve Name Value Normal TV Regurgitation Doppler TR Peak Velocity 209 cm/s TR Peak Gradient 17 mmHg Estimated PAP/RSVP RA Pressure 10 mmHg <=5 PA Systolic Pressure 27 mmHg <36 RV Systolic Pressure 27 mmHg <36 Ventricles Name Value Normal LV Fractional Shortening/Ejection Fraction 2D/MM LV Diastolic Volume (4C MOD) 166 ml LV EF (4C MOD) 33 % LV Diastolic Volume (2C MOD) 188 ml LV EF (2C MOD) 25 % LV Diastolic Volume (BP MOD) 176 ml 62-150 LV Diastolic Volume Index (BP MOD) 83 ml/m2 34-74 LV Systolic Volume (BP MOD) 126 ml 21-61 LV Systolic Volume Index (BP MOD) 59 ml/m2 11-31 LV EF (BP MOD) 29 % 52-72 LV Diastolic Length (4C) 9.5 cm LV Systolic Length (4C) 8.7 cm LV Stroke Volume (4C MOD) 55 ml Report Signatures Electronically signed by
[2020-05-03 04:51] LABS: Basophils Percent Auto 0.3 % (0.2-1.2); Eosinophils Absolute Auto 0.1 K/mm3 (0-0.3); Eosinophils Percent Auto 1.7 % (0-4.4); Hematocrit 29.4 % (42.0-52.0); Immature Granulocyte Absolute 0.07 K/mm3 (0.00-0.031); Immature Granulocyte Percent A 0.9 % (0-0.5); Lymphocytes Absolute Auto 1.08 K/mm3 (0.9-3.2); Lymphocytes Percent Auto 13.9 % (18.3-44.2); Mean Corpuscular HGB Conc 30.6 g/dl (32-36); Mean Corpuscular Hemoglobin 28.4 pg (26-34); Mean Corpuscular Volume 92.7 fl (80-100); Mean Platelet Volume 11.1 fl (7.4-10.4); Monocytes Absolute Auto 0.5 K/mm3 (0.1-0.6); Monocytes Percent Auto 6.7 % (2.6-8.5); Neutrophils Absolute Auto 5.9 K/mm3 (1.3-6.7); Neutrophils Percent Auto 76.5 % (45.5-73.1); Platelet Count Result 175 k/mm3 (150-375); Red Blood Count 3.17 M/mm3 (4.6-6.20); Red Cell Distribution Width 14.7 % (11.5-14.5); White Blood Count 7.8 K/mm3 (4.5-10.0)
[2020-05-03 05:18] LABS: Blood Urea Nitrogen 36 mg/dL (9-20); Calcium 8.1 mg/dL (8.4-10.2); Carbon Dioxide 31 mmol/L (22-30); Chloride 101 mmol/L (98-107); Estimated CRCL calculation 47 ml/min; Estimated Glomerular Filt Rate > 60; Glucose 90 mg/dL (75-110); Potassium 4.6 mmol/L (3.4-5.0); Sodium 134 mmol/L (137-145)
[2020-05-03] MEDS: SODIUM CHLORIDE 0.9% IV 1,000 ML 75 ML IV CONT ×2 (06:14→19:35)
[2020-05-03] MEDS: BUDESONIDE RESPULE NEB 0.5 MG/2 ML AMP INHALATION ×2 (07:50→19:23)
[2020-05-03] MEDS: busPIRone HCL 5 MG TABLET PO ×2 (10:13→16:46)
[2020-05-03] MEDS: TAMSULOSIN HCL 0.4 MG CAPSULE PO (10:13)
[2020-05-03] MEDS: FERROUS SULFATE 324 MG TABLET PO ×2 (10:13→16:47)
[2020-05-03] MEDS: FINASTERIDE 5 MG TABLET PO (10:13)
[2020-05-03] MEDS: CITALOPRAM HYDROBROMIDE 10 MG TABLET PO (10:14)
[2020-05-03] MEDS: ACETAMINOPHEN 500 MG TABLET PO ×3 (10:14→16:46)
[2020-05-03] MEDS: ASPIRIN 81 MG ENTERIC TABLET PO (10:14)
[2020-05-03] MEDS: FAMOTIDINE 20 MG/2 ML VIAL IV PUSH (10:16)
[2020-05-03] MEDS: POTASSIUM CHLORIDE 20 MEQ TABLET.ER PO (10:17)
[2020-05-03] MEDS: CHOLECALCIFEROL 1,000 UNIT TABLET 5000 UNITS PO (13:17)
--- NOTE | 2020-05-03 13:56 | PM.IMPN ---
Progress Note: A&P Assessment and Plan (1) Urinary tract infection: Qualifiers: Hematuria presence: with hematuria Urinary tract infection type: site unspecified Qualified Code(s): N39.0 - Urinary tract infection, site not specified; R31.9 - Hematuria, unspecified Code(s): N39.0 - Urinary tract infection, site not specified Status: Acute Assessment and Plan: -----Pt UA suspicious for UTI d/t chronic indwelling weeks catheter. His catheter has been changed. His bp and leukocytosis has improved with abx and IVF. Will continue IV fluids but decrease rate. His bp on exam was 102/62 but pt still feeling weak. Last echo shows EF 40% so must watch for fluid overload. I do think he still needs to fluids at this time. Continue ceftriaxone and await urine culture and adjust treatment as needed. (2) Elevated troponin: Code(s): R79.89 - Other specified abnormal findings of blood chemistry Status: Acute Assessment and Plan: -----No further CP. Likely type 2 infarct due to hypotension and infection. I do not suspect ACS at this time. No signs of fluid overload. Monitor for CP. (3) Acute kidney injury: Code(s): N17.9 - Acute kidney failure, unspecified Status: Acute Assessment and Plan: -----Improved with IV therapy. Likely d/t infection and dehydration. Continue to hold diuretics and lisinopril because of his low BP. Will likely stop fluids tomorrow. (4) Atrial fibrillation: Qualifiers: Atrial fibrillation type: unspecified Qualified Code(s): I48.91 - Unspecified atrial fibrillation Code(s): I48.91 - Unspecified atrial fibrillation Status: Acute Assessment and Plan: ------Rate controlled, not on anticoagulation d/t fall risk. No CP. (5) CHF (congestive heart failure): Qualifiers: Heart failure chronicity: unspecified Heart failure type: unspecified Qualified Code(s): I50.9 - Heart failure, unspecified Code(s): I50.9 - Heart failure, unspecified Status: Chronic Assessment and Plan: -----No signs of fluid overload at this time. Pt has systolic HF so will watch the amount of fluids we give him. Hold metoprolol and lasix. (6) Hypotension: Qualifiers: Hypotension type: unspecified hypotension type Qualified Code(s): I95.9 - Hypotension, unspecified Code(s): I95.9 - Hypotension, unspecified Status: Acute Assessment and Plan: ------At this time he has IV fluids and this could be due to sepsis. Will recheck echo. (7) Chronic indwelling Weeks catheter: Code(s): Z97.8 - Presence of other specified devices Status: Acute Assessment and Plan: ------Could be due to enlarged prostate or urinary retention. Looks like he is on medications for BPH. (8) GERD (gastroesophageal reflux disease): Qualifiers: Esophagitis presence: esophagitis presence not specified Qualified Code(s): K21.9 - Gastro-esophageal reflux disease without esophagitis Code(s): K21.9 - Gastro-esophageal reflux disease without esophagitis Status: Acute Assessment and Plan: ------Continue with patient's pantoprazole (9) Hyperlipidemia: Qualifiers: Hyperlipidemia type: unspecified Qualified Code(s): E78.5 - Hyperlipidemia, unspecified Code(s): E78.5 - Hyperlipidemia, unspecified Status: Chronic Assessment and Plan: ------Chronic (10) Normocytic anemia: Code(s): D64.9 - Anemia, unspecified Status: Chronic Assessment and Plan: -----Stable, monitor H and H. (11) COPD (chronic obstructive pulmonary disease): Qualifiers: COPD type: COPD with acute lower respiratory infection Qualified Code(s): J44.0 - Chronic obstructive pulmonary disease with (acute) lower respiratory infection Code(s): J44.9 - Chronic obstructive pulmonary disease, unspecifi
[2020-05-03] MEDS: PERFLUTREN LIPID MICROSPHERES 1.5 ML VIAL DILUTED TO 10 ML TOTAL VOLUME IV PUSH (16:01)
[2020-05-03] MEDS: ALBUTEROL SULFATE NEB 2.5 MG/3 ML INH INHALATION (19:21)
[2020-05-03] MEDS: ATORVASTATIN 40 MG TABLET PO (19:36)
[2020-05-03] MEDS: MIRTAZAPINE 7.5 MG TABLET PO (19:36)
[2020-05-03] MEDS: PANTOPRAZOLE 40 MG TABLET PO (19:37)
[2020-05-03] MEDS: MELATONIN 5 MG TABLET PO (19:37)
[2020-05-04] VITALS (22 sets, daily range): BP systolic 96–122; BP diastolic 44–79; PULSE 73–115; RESP 16–26; TEMP 36.2–36.4; O2SAT 98–100
[2020-05-04 04:23] LABS: Hematocrit 29.4 % (42.0-52.0); Mean Corpuscular HGB Conc 30.6 g/dl (32-36); Mean Corpuscular Hemoglobin 28.4 pg (26-34); Mean Corpuscular Volume 92.7 fl (80-100); Mean Platelet Volume 10.7 fl (7.4-10.4); Platelet Count Result 176 k/mm3 (150-375); Red Blood Count 3.17 M/mm3 (4.6-6.20); Red Cell Distribution Width 14.7 % (11.5-14.5); White Blood Count 6.8 K/mm3 (4.5-10.0)
[2020-05-04 04:48] LABS: Blood Urea Nitrogen 25 mg/dL (9-20); Calcium 8.4 mg/dL (8.4-10.2); Carbon Dioxide 35 mmol/L (22-30); Chloride 102 mmol/L (98-107); Estimated CRCL calculation 58 ml/min; Estimated Glomerular Filt Rate > 60; Glucose 82 mg/dL (75-110); Magnesium 2.1 mg/dL (1.6-2.3); Phosphorus 3.7 mg/dL (2.5-4.5); Potassium 4.8 mmol/L (3.4-5.0); Sodium 136 mmol/L (137-145)
--- NOTE | 2020-05-04 08:19 | WPDCDIQUERY2 ---
CDI Query Clarification Request - ED provider documented sepsis - Janice documented, hypotension, could be due to sepsis in H&P. - 05/03 progress note also states, Could be due to sepsis . Please clarify if sepsis was ruled in or ruled out. <Nilsa Newton RN - Last Filed: 05/04/20 08:25> Clarified Diagnosis (1) Sepsis: Code(s): A41.9 - Sepsis, unspecified organism <Nilsa Newton RN - Last Filed: 05/04/20 08:25> Status: Acute <Nilsa Newton RN - Last Filed: 05/04/20 08:25> Assessment and Plan: Initially patient did have hypotension however patient did not have a fever very mild leukocytosis there was no lactic acidosis, very slight tachycardia and tachypnea most likely patient did not have sepsis <Marielena Hernandez MD - Last Filed: 05/09/20 12:55>
[2020-05-04] MEDS: FINASTERIDE 5 MG TABLET PO (08:23)
[2020-05-04] MEDS: CITALOPRAM HYDROBROMIDE 10 MG TABLET PO (08:23)
[2020-05-04] MEDS: POTASSIUM CHLORIDE 20 MEQ TABLET.ER PO (08:23)
[2020-05-04] MEDS: TAMSULOSIN HCL 0.4 MG CAPSULE PO (08:23)
[2020-05-04] MEDS: FERROUS SULFATE 324 MG TABLET PO ×2 (08:23→16:33)
[2020-05-04] MEDS: ACETAMINOPHEN 500 MG TABLET PO ×2 (08:23→15:12)
[2020-05-04] MEDS: ASPIRIN 81 MG ENTERIC TABLET PO (08:24)
[2020-05-04] MEDS: busPIRone HCL 5 MG TABLET PO ×2 (08:24→16:33)
[2020-05-04] MEDS: CHOLECALCIFEROL 1,000 UNIT TABLET 5000 UNITS PO (08:24)
--- NOTE | 2020-05-04 08:30 | PM.IMPN ---
Progress Note: A&P Assessment and Plan (1) Urinary tract infection: Qualifiers: Hematuria presence: with hematuria Urinary tract infection type: site unspecified Qualified Code(s): N39.0 - Urinary tract infection, site not specified; R31.9 - Hematuria, unspecified Code(s): N39.0 - Urinary tract infection, site not specified Status: Acute Assessment and Plan: -----confirmed UTI, awaiting sensitivities due to chronic indwelling weeks catheter. His catheter has been changed. His bp and leukocytosis has improved with abx and IVF. Continue ceftriaxone and await sensitivities and adjust treatment as needed. Blood cultures negative so far. Continue PT and OT. Patient is eating and drinking well. Likely discharge in 1-2 days (2) Elevated troponin: Code(s): R79.89 - Other specified abnormal findings of blood chemistry Status: Acute Assessment and Plan: -----No further CP. Patient does have some tachycardia today which is likely due to not receiving his beta-morena. Although his blood pressure is still soft, I will restart this but will do metoprolol tartrate b.i.d. so it can be stopped quicker if needed. Likely type 2 infarct due to hypotension and infection. I do not suspect ACS at this time. No signs of fluid overload. Monitor for CP. (3) Acute kidney injury: Code(s): N17.9 - Acute kidney failure, unspecified Status: Acute Assessment and Plan: -----Improved with IV therapy. Likely d/t infection and dehydration. Continue to hold diuretics and lisinopril because of his low BP. (4) Atrial fibrillation: Qualifiers: Atrial fibrillation type: unspecified Qualified Code(s): I48.91 - Unspecified atrial fibrillation Code(s): I48.91 - Unspecified atrial fibrillation Status: Acute Assessment and Plan: ------Rate uncontrolled at this time but no chest pain or palpitations. Restart metoprolol this morning. See above., not on anticoagulation d/t fall risk. No CP. (5) CHF (congestive heart failure): Qualifiers: Heart failure chronicity: unspecified Heart failure type: unspecified Qualified Code(s): I50.9 - Heart failure, unspecified Code(s): I50.9 - Heart failure, unspecified Status: Chronic Assessment and Plan: -----No signs of fluid overload at this time. Pt has systolic HF which is a bit worse since earlier this year. Echo shows EF 35-40%. Continue cardiac medications (6) Hypotension: Qualifiers: Hypotension type: unspecified hypotension type Qualified Code(s): I95.9 - Hypotension, unspecified Code(s): I95.9 - Hypotension, unspecified Status: Acute Assessment and Plan: ------last blood pressure 110/79 at 4:00 a.m.. Patient requested to get his vitals taken after breakfast. He is not having any lightheadedness or dizziness. (7) Chronic indwelling Weeks catheter: Code(s): Z97.8 - Presence of other specified devices Status: Acute Assessment and Plan: ------Could be due to enlarged prostate or urinary retention. Looks like he is on medications for BPH. (8) GERD (gastroesophageal reflux disease): Qualifiers: Esophagitis presence: esophagitis presence not specified Qualified Code(s): K21.9 - Gastro-esophageal reflux disease without esophagitis Code(s): K21.9 - Gastro-esophageal reflux disease without esophagitis Status: Acute Assessment and Plan: ------Continue with patient's pantoprazole (9) Hyperlipidemia: Qualifiers: Hyperlipidemia type: unspecified Qualified Code(s): E78.5 - Hyperlipidemia, unspecified Code(s): E78.5 - Hyperlipidemia, unspecified Status: Chronic Assessment and Plan: ------Chronic (10) Normocytic anemia: Code(s): D64.9 - Anemia, unspecified Status: Chronic Assessment and Plan: -----Stable, monitor
[2020-05-04] MEDS: BUDESONIDE RESPULE NEB 0.5 MG/2 ML AMP INHALATION ×2 (08:49→20:57)
[2020-05-04] MEDS: ALBUTEROL SULFATE NEB 2.5 MG/3 ML INH INHALATION (08:49)
[2020-05-04] MEDS: METOPROLOL TARTRATE 12.5 MG TABLET PO ×2 (09:21→20:25)
[2020-05-04] MEDS: ATORVASTATIN 40 MG TABLET PO (20:24)
[2020-05-04] MEDS: MELATONIN 5 MG TABLET PO (20:25)
[2020-05-04] MEDS: MIRTAZAPINE 7.5 MG TABLET PO (20:26)
[2020-05-04] MEDS: PANTOPRAZOLE 40 MG TABLET PO (20:26)
[2020-05-05] VITALS (11 sets, daily range): BP systolic 95–107; BP diastolic 50–53; PULSE 62–101; RESP 16–20; TEMP 35.9–36.3; O2SAT 99–100
[2020-05-05 05:41] LABS: Hematocrit 30.6 % (42.0-52.0); Hemoglobin 9.2 g/dL (14.0-18.0); Mean Corpuscular HGB Conc 30.1 g/dl (32-36); Mean Corpuscular Hemoglobin 28.1 pg (26-34); Mean Corpuscular Volume 93.6 fl (80-100); Mean Platelet Volume 11.2 fl (7.4-10.4); Platelet Count Result 184 k/mm3 (150-375); Red Blood Count 3.27 M/mm3 (4.6-6.20); Red Cell Distribution Width 14.7 % (11.5-14.5); White Blood Count 7.2 K/mm3 (4.5-10.0)
[2020-05-05 05:54] LABS: Blood Urea Nitrogen 19 mg/dL (9-20); Calcium 8.7 mg/dL (8.4-10.2); Carbon Dioxide 35 mmol/L (22-30); Chloride 99 mmol/L (98-107); Estimated CRCL calculation 56 ml/min; Estimated Glomerular Filt Rate > 60; Glucose 89 mg/dL (75-110); Potassium 4.5 mmol/L (3.4-5.0); Sodium 135 mmol/L (137-145)
[2020-05-05] MEDS: BUDESONIDE RESPULE NEB 0.5 MG/2 ML AMP INHALATION (08:19)
--- NOTE | 2020-05-05 09:48 | PM.DS ---
DS: Admitting Diagnosis Admitting Diagnosis Admitting Diagnosis: Urinary tract infection, site not specified DS: Discharge Diagnosis Discharge Diagnosis (1) Urinary tract infection: Qualifiers: Hematuria presence: with hematuria Urinary tract infection type: site unspecified Qualified Code(s): N39.0 - Urinary tract infection, site not specified; R31.9 - Hematuria, unspecified Code(s): N39.0 - Urinary tract infection, site not specified Status: Acute (2) Elevated troponin: Code(s): R79.89 - Other specified abnormal findings of blood chemistry Status: Acute Assessment and Plan: -----No further CP. Patient does have some tachycardia today which is likely due to not receiving his beta-morena. Although his blood pressure is still soft, I will restart this but will do metoprolol tartrate b.i.d. so it can be stopped quicker if needed. Likely type 2 infarct due to hypotension and infection. I do not suspect ACS at this time. No signs of fluid overload. Monitor for CP. (3) Acute kidney injury: Code(s): N17.9 - Acute kidney failure, unspecified Status: Acute (4) Atrial fibrillation: Qualifiers: Atrial fibrillation type: unspecified Qualified Code(s): I48.91 - Unspecified atrial fibrillation Code(s): I48.91 - Unspecified atrial fibrillation Status: Acute Assessment and Plan: ------Rate uncontrolled at this time but no chest pain or palpitations. Restart metoprolol this morning. See above., not on anticoagulation d/t fall risk. No CP. (5) CHF (congestive heart failure): Qualifiers: Heart failure chronicity: unspecified Heart failure type: unspecified Qualified Code(s): I50.9 - Heart failure, unspecified Code(s): I50.9 - Heart failure, unspecified Status: Chronic Assessment and Plan: -----No signs of fluid overload at this time. Pt has systolic HF which is a bit worse since earlier this year. Echo shows EF 35-40%. Continue cardiac medications (6) Hypotension: Qualifiers: Hypotension type: unspecified hypotension type Qualified Code(s): I95.9 - Hypotension, unspecified Code(s): I95.9 - Hypotension, unspecified Status: Acute (7) Chronic indwelling Landeros catheter: Code(s): Z97.8 - Presence of other specified devices Status: Acute (8) GERD (gastroesophageal reflux disease): Qualifiers: Esophagitis presence: esophagitis presence not specified Qualified Code(s): K21.9 - Gastro-esophageal reflux disease without esophagitis Code(s): K21.9 - Gastro-esophageal reflux disease without esophagitis Status: Acute (9) Hyperlipidemia: Qualifiers: Hyperlipidemia type: unspecified Qualified Code(s): E78.5 - Hyperlipidemia, unspecified Code(s): E78.5 - Hyperlipidemia, unspecified Status: Chronic Assessment and Plan: ------Chronic (10) Normocytic anemia: Code(s): D64.9 - Anemia, unspecified Status: Chronic Assessment and Plan: -----Stable, monitor H and H. (11) COPD (chronic obstructive pulmonary disease): Qualifiers: COPD type: COPD with acute lower respiratory infection Qualified Code(s): J44.0 - Chronic obstructive pulmonary disease with (acute) lower respiratory infection Code(s): J44.9 - Chronic obstructive pulmonary disease, unspecified Status: Chronic Assessment and Plan: ------Continue with his inhalers from home and nebulizer treatments. (12) BPH (benign prostatic hyperplasia): Code(s): N40.0 - Benign prostatic hyperplasia without lower urinary tract symptoms Status: Chronic Assessment and Plan: -----Continue catheter. (13) Depression: Code(s): F32.9 - Major depressive disorder, single episode, unspecified Status: Chronic Assessment and Plan: ------Continue with use BuSpar and Celexa
[2020-05-05] MEDS: ASPIRIN 81 MG ENTERIC TABLET PO (09:55)
[2020-05-05] MEDS: TAMSULOSIN HCL 0.4 MG CAPSULE PO (09:55)
[2020-05-05] MEDS: CHOLECALCIFEROL 1,000 UNIT TABLET 5000 UNITS PO (09:56)
[2020-05-05] MEDS: busPIRone HCL 5 MG TABLET PO (09:56)
[2020-05-05] MEDS: FERROUS SULFATE 324 MG TABLET PO (09:56)
[2020-05-05] MEDS: FINASTERIDE 5 MG TABLET PO (09:57)
[2020-05-05] MEDS: POTASSIUM CHLORIDE 20 MEQ TABLET.ER PO (09:57)
[2020-05-05] MEDS: polyethylene glycoL 3350 17 GM POWD.PACK PO (09:58)
[2020-05-05] MEDS: CITALOPRAM HYDROBROMIDE 10 MG TABLET PO (09:58)
[2020-05-05] MEDS: METOPROLOL TARTRATE 12.5 MG TABLET PO (09:58)
[2020-05-05] MEDS: ACETAMINOPHEN 500 MG TABLET PO ×2 (09:59→13:18)
[2020-05-05 13:11] LABS: SARS-CoV-2 RNA PCR Negative
--- NOTE | 2020-05-09 08:51 | PC.NURSE ---
Blood cx are negative
== END 2020-05-05 15:00 | disposition home health service (06) | DRG 698 ==
LOC: ANHED 14:33 → ANHIMU 14:38
PROVIDERS: Emergency Medicine Emergency Medical Services; Physician Assistant; Admitting Provider Internal Medicine; Emergency Provider Emergency Medicine; PCP Registered Nurse; Visit Provider Family Medicine
DX: T83.511A Infection and inflammatory reaction due to indwelling urethral catheter, initial encounter (principal); A41.9 Sepsis, unspecified organism; I21.A1 Myocardial infarction type 2; I50.22 Chronic systolic (congestive) heart failure; N17.9 Acute kidney failure, unspecified; E87.3 Alkalosis; N39.0 Urinary tract infection, site not specified; Z11.59 Encounter for screening for other viral diseases; I11.0 Hypertensive heart disease with heart failure; R31.9 Hematuria, unspecified; E86.0 Dehydration; N40.0 Benign prostatic hyperplasia without lower urinary tract symptoms; J43.9 Emphysema, unspecified; F32.9 Major depressive disorder, single episode, unspecified; D64.9 Anemia, unspecified; E78.5 Hyperlipidemia, unspecified; K21.9 Gastro-esophageal reflux disease without esophagitis; I48.91 Unspecified atrial fibrillation; I73.9 Peripheral vascular disease, unspecified; I25.10 Atherosclerotic heart disease of native coronary artery without angina pectoris; Z87.891 Personal history of nicotine dependence; Z99.81 Dependence on supplemental oxygen; Z85.118 Personal history of other malignant neoplasm of bronchus and lung; I25.2 Old myocardial infarction; Z85.21 Personal history of malignant neoplasm of larynx; Z95.5 Presence of coronary angioplasty implant and graft; Z95.1 Presence of aortocoronary bypass graft
CPT/HCPCS: 36415; 71045; 80048; 80053; 81001; 83605; 83690; 83735; 83880; 84100; 84484; 85025; 85027; 85610; 85730; 87040; 87077; 87086; 87088; 87186; 87635; 93005; 93308; 94640; 96361; 96365; 97110; 97116; 97161; 97165; 97530; 97535; 99291; A9270; C8924; C9803; J0696; J0743; J7030; J7040; Q9957; U0003

== ENCOUNTER 2020-05-21 09:26 | Inpatient (IN) | payer MEDICARE, SELFPAY ==
[2020-05-21] VITALS (15 sets, daily range): BP systolic 85–110; BP diastolic 40–74; PULSE 67–112; RESP 18–22; TEMP 36–36.6; O2SAT 94–100; BMI 27.3
--- NOTE | ~2020-05-21 | CT_ITS ---
EXAMINATION: CT abdomen pelvis w con DATE: 05/21/2020 11:05 INDICATION: Lower abdominal pain. TECHNIQUE: Computed tomography (CT) of the abdomen and pelvis was performed with 100 mL Omnipaque-350 intravenous contrast. Automated exposure control and iterative reconstruction technique were employe d. The dose-length product was 666.63 mGy-cm. COMPARISON: None FINDINGS: Calcified left lower lobe nodule consistent with old granulomatous disease. Chronic atelectasis/scarr ing at the bilateral lung bases with chronic calcified pleural plaque at the posterior medial right l ower lobe. Heart size is normal. Postoperative change of prior median sternotomy and coronary artery bypass grafting. Small sliding-type hiatal hernia. Liver, gallbladder, spleen, pancreas, left adrenal gland and kidney are normal. Unchanged 1.4 cm right adrenal adenoma with typical low attenuation on prior noncontrast CT. 2.3 cm exophytic right renal cyst. 1.6 cm duodenal diverticulum. Landeros catheter in the decompressed bladder. There is mild colonic diverticulosis with a sigmoid predominance. Ther e is no adjacent inflammatory change to suggest diverticulitis. No abnormal bowel wall thickening or obstruction. No free intraperitoneal gas or fluid. No pathologically enlarged abdominal or pelvic lym phadenopathy. There is calcified atherosclerosis of the aorta and many of the other arteries. There i s stenting at the left and right common iliac arteries. Fractures at the bilateral proximal femurs, b oth with antegrade intramedullary fortunato and femoral neck dynamic compression screw fixations. Small fat -containing left inguinal hernia. Moderate lumbar spondylosis. IMPRESSION: 1. No acute intra-abdominal/pelvic process. 2. Diverticulosis. 3. Small sliding-type hiatal hernia. 4. Small fat-containing left inguinal hernia. Reviewed, dictated and finalized at location A.
--- NOTE | ~2020-05-21 | XR_ITS ---
EXAMINATION: XR chest 1V portable DATE: 05/25/2020 08:17 INDICATION: Pulmonary edema. TECHNIQUE: frontal view of the chest was obtained. COMPARISON: Chest radiograph dated 05/21/2020 and 02/16/2019 FINDINGS: Volume loss and architectural distortion in the right hemithorax with chronic opacification of the ri ght upper lung zone. Unchanged linear atelectasis/scarring at the right lung base. Mildly increased i nterstitial pattern in the lower lungs consistent with mild pulmonary edema. Calcified nodules in the left lower lung zone consistent with old granulomatous disease. The cardiomediastinal silhouette is normal. Median sternotomy wires and mediastinal surgical clips are seen, likely from prior coronary a rtery bypass grafting. IMPRESSION: 1. Mild pulmonary edema. 2. Chronic consolidation in the right upper lung zone with volume loss and architectural distortion w hich could represent atelectasis/scarring although underlying pneumonia or malignancy cannot be exclu ded. Reviewed, dictated and finalized at location A. IMPRESSION: 1. Mild pulmonary edema. 2. Chronic consolidation in the right upper lung zone with volume loss and arch itectural distortion which could represent atelectasis/scarring although underl kristen pneumonia or malignancy cannot be excluded.
--- NOTE | ~2020-05-21 | XR_ITS ---
XR chest 1V portable 05/21/2020 10:09 Indication: Dyspnea. Weakness. Procedure: AP portable chest Comparison: Comparison to multiple prior studies sequentially, with oldest reviewed study dated 06/2020. Findings: There is chronic right apical pleural thickening/scarring. There is chronic scarring right lung base with tenting of the diaphragm. There is prominent pulmonary vascularity, which may reflect mild interstitial edema. Status post median sternotomy for CABG. No significant pleural effusion or p neumothorax. Cardiomediastinal contour is stable. No acute osseous abnormality. Impression: 1: Pulmonary vascular indistinctness, suspicious for interstitial edema. Otherwise, no change. Reviewed, dictated and finalized at location A. Impression: 1: Pulmonary vascular indistinctness, suspicious for interstitial edema. Otherw ise, no change.
--- NOTE | ~2020-05-21 | CT_ITS ---
EXAMINATION: CT brain wo con DATE: 05/22/2020 11:15 INDICATION: Weakness, sepsis and UTI. TECHNIQUE: Computed tomography (CT) of the head was performed without intravenous contrast. The dose- length product was 908.00 mGy-cm. The mA was adjusted according to patient size. Iterative reconstruc tion technique was employed. COMPARISON: None FINDINGS: No acute intracranial hemorrhage, infarction, mass or mass effect. No ventriculomegaly or m idline shift. There are scattered mild periventricular and subcortical white matter changes, most lik pia related to small vessel ischemic disease (microangiopathy). Generalized atrophy. Paranasal sinuse s and mastoids are pneumatized. No depressed skull fractures. IMPRESSION: 1. No acute intracranial abnormality. 2: Chronic age-related findings. Reviewed, dictated and finalized at location A.
--- NOTE | 2020-05-21 09:39 | ECG_ITS ---
Measurements Intervals [place] Rate: 82 P: 236 [place]: 168 QRS: 71 QRSD: 106 T: 42 QT: 368 QTc: 430 Interpretive Statements ATRIAL FLUTTER/TACHYCARDIA CONSIDER INFERIOR INFARCT, AGE INDETERMINATE BASELINE ARTIFACT- I, II, AVR, AVL, V1-V6 ABNORMAL ECG Electronically Signed On 05-21-2020 9:46:47 CDT by Gurpreet Nicholas D.O.
[2020-05-21] MEDS: SODIUM CHLORIDE 0.9% IV 1,000 ML 999 ML IV CONT ×2 (09:48→11:44)
--- NOTE | 2020-05-21 09:48 | ED.WEAKNESS ---
HPI - Weakness General Chief complaint: Weakness Stated complaint: WEAKNESS Time Seen by Provider: 05/21/20 09:31 Source: patient Mode of arrival: EMS Limitations: no limitations History of Present Illness HPI Narrative: This patient is an 79 year old male with history of sepsis, UTI, and indwelling catheter who presents for evaluation of generalized weakness x 2 days. PAtient was discharged from [facility] 2 weeks ago after treatment for UTI and sepsis. He has completed antibiotics recently. He states 2 days ago he started having weakness. He denies falling due to his weakness. He does report right side abdominal pain. He denies chest pain, nausea, vomiting but he had 1 episode of diarrhea this morning. EMS found patient to have blood pressure of 100/40. MD Complaint: generalized weakness Related Data Home Medications Medication Instructions Recorded Confirmed Perforomist 2 ml INHALATION BID 10/16/19 05/21/20 acetaminophen 500 mg PO TID 10/16/19 05/21/20 albuterol sulfate 2.5 mg INHALATION Q4H PRN 10/16/19 05/21/20 aspirin [Aspir-81] 81 mg PO DAILY 10/16/19 05/21/20 atorvastatin 40 mg PO HS 10/16/19 05/21/20 budesonide 0.5 mg INHALATION BID 10/16/19 05/21/20 cholecalciferol (vitamin D3) 5,000 unit PO DAILY 10/16/19 05/21/20 [Vitamin D3] citalopram 10 mg PO DAILY 10/16/19 05/21/20 ferrous sulfate 325 mg PO BID 10/16/19 05/21/20 lisinopril 5 mg PO DAILY 10/16/19 05/21/20 melatonin 5 mg PO HS 10/16/19 05/21/20 nitroglycerin 0.4 mg SUBLINGUAL Q5-15M PRN 10/16/19 05/21/20 pantoprazole 40 mg PO HS 10/16/19 05/21/20 polyethylene glycol 3350 17 g PO DAILY PRN 10/16/19 05/21/20 ondansetron HCl 4 mg PO Q6H PRN 12/28/19 05/21/20 buspirone 5 mg PO BID 05/02/20 05/21/20 docusate sodium 100 mg PO BID PRN 05/02/20 05/21/20 finasteride 5 mg PO DAILY 05/02/20 05/21/20 guaifenesin 600 mg PO BID 05/02/20 05/21/20 metoprolol succinate [Toprol XL] 25 mg PO DAILY 05/02/20 05/21/20 potassium chloride 20 meq PO DAILY 05/02/20 05/21/20 tamsulosin 0.4 mg PO DAILY 05/02/20 05/21/20 furosemide 40 mg PO BID 05/21/20 05/21/20 Allergies Allergy/AdvReac Type Severity Reaction Status Date / Time No Known Allergies Allergy Mild Verified 05/21/20 09:38 Review of Systems Review of Systems: All systems reviewed & are unremarkable except as noted in HPI and below Constitutional: Constitutional: Denies chills, Denies fever(s) and Reports weakness ENT: Denies dizziness Cardiovascular: Cardiovascular: Denies chest pain and Denies radiating jaw, neck or arm pain Respiratory: Respiratory: Reports dyspnea (chronic) and Denies wheezing Gastrointestinal: Gastrointestinal: Reports abdominal pain, Reports diarrhea, Denies nausea and Denies vomiting Genitourinary: Genitourinary: Denies hematuria, Denies oliguria and Denies urinary incontinence Musculoskeletal: Musculoskeletal: Denies back pain [facility] Past Medical History Medical History Atrial fibrillation BPH (benign prostatic hyperplasia) CAD (coronary artery disease) COPD (chronic obstructive pulmonary disease) Depression Diverticulitis Emphysema, unspecified GERD (gastroesophageal reflux disease) History of angina HTN (hypertension) Hyperlipidemia Lung cancer Radiation treatment Myocardial infarction Peripheral vascular disease Thrombocytopenia Vocal cord cancer Radiation treatment Surgical History Surgical History History of angioplasty With 5 stents History of cardiac catheterization Hx of appendectomy Hx of CABG 1 vessel on 2 separate occasions Stented coronary artery 5 stents Social History Social History (Updated 05/21/20 @ 15:42 by Nany Bansal PA-C) Social History: The patient stated that he is and he lives in [facility] living. He was recently in rehab at [facility] but after last hospitalization 2 weeks ago went back
[2020-05-21 10:13] LABS: Basophils Percent Auto 0.2 % (0.2-1.2); Eosinophils Absolute Auto 0.2 K/mm3 (0-0.3); Eosinophils Percent Auto 1.3 % (0-4.4); Hematocrit 30.6 % (42.0-52.0); Hemoglobin 9.4 g/dL (14.0-18.0); Immature Granulocyte Absolute 0.16 K/mm3 (0.00-0.031); Immature Granulocyte Percent A 1.2 % (0-0.5); Lymphocytes Absolute Auto 1.09 K/mm3 (0.9-3.2); Lymphocytes Percent Auto 8.4 % (18.3-44.2); Mean Corpuscular HGB Conc 30.7 g/dl (32-36); Mean Corpuscular Hemoglobin 28.1 pg (26-34); Mean Corpuscular Volume 91.6 fl (80-100); Mean Platelet Volume 11.2 fl (7.4-10.4); Monocytes Absolute Auto 1.2 K/mm3 (0.1-0.6); Monocytes Percent Auto 8.9 % (2.6-8.5); Neutrophils Absolute Auto 10.4 K/mm3 (1.3-6.7); Platelet Count Result 234 k/mm3 (150-375); Red Blood Count 3.34 M/mm3 (4.6-6.20); Red Cell Distribution Width 15.2 % (11.5-14.5)
[2020-05-21 10:21] LABS: Add Urine Microscopic? YES; Appearance Urine Cloudy (Clear); Bacteria Urine Trace /hpf; Bilirubin Urine Negative (Negative); Blood Urine 3+ (Negative); Color Urine Yellow (Yellow); Glucose Urine UA Negative (Negative); Hyaline Casts Urine 15-19 /lpf; Ketones Urine Negative (Negative); Leukocyte Esterase Ur 3+ LEU/UL (Negative); Mucus Urine Rare /lpf; Nitrate Urine Positive (Negative); Protein Urine 1+ mg/dL (Negative); RBC Urine 21-50 /hpf (0-2); Specific Grav Ur 1.014 (1.001-1.035); Urobilinogen Urine Negative mg/dL (<2.0); WBC Urine >75 /hpf
[2020-05-21 10:23] LABS: Partial Thromboplastin Time 22.6 SECONDS (22.3-36.8); Prothrombin Time 12.7 Seconds (11.1-14.7)
[2020-05-21 10:26] LABS: Lactic Acid Reflex 1.4 mmol/L (0.7-2.1)
[2020-05-21 10:29] LABS: Alanine Aminotransferase 25 U/L (4-50); Albumin Level 3.7 g/dL (3.5-5.1); Alkaline Phosphatase 73 U/L (38-126); Aspartate Amino Transferase 22 U/L (17-59); Bilirubin,Total 0.4 mg/dL (0.2-1.3); Blood Urea Nitrogen 41 mg/dL (9-20); CRP < 0.5 mg/dL (<1.0); Calcium 8.6 mg/dL (8.4-10.2); Carbon Dioxide 37 mmol/L (22-30); Chloride 94 mmol/L (98-107); Estimated Glomerular Filt Rate 58; Glucose 89 mg/dL (75-110); Lipase 60 U/L (23-300); Sodium 133 mmol/L (137-145)
[2020-05-21 11:13] LABS: NT Pro B Type Natriuretic Pept 1670 PG/ML (5-100)
[2020-05-21] MEDS: ERTAPENEM 1 GM/NS 50 ML 1 GM/50 ML BAG IVPB (11:44)
--- NOTE | 2020-05-21 14:57 | ADMGEN ---
This patient, Eusebio Najera, was admitted to IMU Room 204-01. Patient/family oriented to hospital policies and general routines including ID bracelet, bed and alarms, visiting hours, pain management, procedures, bathroom and other care routines, personal items, smoking policy, room service/diet, and visiting hours. Valuables list has been completed. Information on how to activate the Rapid Response Team has been discussed. Patient/Family are encouraged to report perceived risks to care and to ask questions if they do not understand what they are told or what they should do.
[2020-05-21] MEDS: SODIUM CHLORIDE 0.9% IV 1,000 ML 125 ML IV CONT ×2 (15:26→22:42)
--- NOTE | 2020-05-21 15:36 | PM.IMHP ---
H&P: HPI History of Present Illness Chief complaint: sepsis,uti Narrative: Eusebio Najera is a 79 year old male who has a history of urinary retention, resistant UTIs, and hypotension who presented emergency room for progressing generalized weakness. Patient states that he felt mildly weak when he was discharged 2 weeks ago but thought he could handle it at the assisted living facility. In the last 2 days he has noted that he has been significantly weak. He has lightheadedness, dizziness and has been incontinent of diarrhea which is unusual for him. He says the diarrhea is black but he takes iron and this is been black for 3-4 months. The patient mentions that he has had burning around the catheter site and has noticed in the mornings he has to strain to get urine to go into his urine bag. The Landeros bag usually has urine in the mornings but he still feels distended and that he needs to urinate more. He has never had this issue before. He also has been having some abdominal pain since last week that is not associated with urinary retention or his diarrhea. He mentions 3 days ago he had some stabbing like chest pain before he went to bed and it went away on its own. It was non reproducible. He did not have any shortness of breath with this or recurrence since 3 days ago. Although he has felt weak he denies falls, fevers, shortness of breath, numbness or tingling, weakness on 1 side of his body, cough or leg swelling. He said his left side has been weaker for the last 2 years but has not changed. He is chronically on 2 L of oxygen and denies any changes in that. He has a history of atrial fibrillation and had an ablation previously. He sees Dr. Reyes and is occasionally and AFib but because of his high fall risk he is not on anticoagulation. Review of Systems Review of Systems: All systems reviewed & are unremarkable except as noted in HPI and below [facility] Past Medical History Medical History Atrial fibrillation BPH (benign prostatic hyperplasia) CAD (coronary artery disease) COPD (chronic obstructive pulmonary disease) Depression Diverticulitis Emphysema, unspecified GERD (gastroesophageal reflux disease) History of angina HTN (hypertension) Hyperlipidemia Lung cancer Radiation treatment Myocardial infarction Peripheral vascular disease Thrombocytopenia Vocal cord cancer Radiation treatment Surgical History Surgical History History of angioplasty With 5 stents History of cardiac catheterization Hx of appendectomy Hx of CABG 1 vessel on 2 separate occasions Stented coronary artery 5 stents Social History Social History (Updated 05/21/20 @ 15:42 by Nany Bansal PA-C) Social History: The patient stated that he is and he lives in assistant account manager living. He was recently in rehab at [facility] but after last hospitalization 2 weeks ago went back to assisted living with home health. The patient is a full code. He has 3 children. 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 He denies any alcohol marijuana or illicit drug use. His daughter Massiel is a durable power estate planning attorney for healthcare. Smoking packs per day: 2 Smoking cigarettes per day: 40.0 Years smoked: 55 Smoking pack-years: 110.00 Smoking status: Former smoker Tobacco type: cigarettes Second hand tobacco smoke exposure: Yes Smoking end date: 04/23/19 Alcohol intake: never Substance use: never Substance use type: does not use Gender identity (if verbalized by the patient): Male Spiritual care concerns: No Agree to blood products: Yes Meds Home Medications and Allergies Home Medications Medication Instructions Recorded Confirmed Type Perforomist 2 ml INHALATION BID 10/16/19 05/02/20 History acetaminophen 500 mg PO TID 10/16/19 05/02/20 History albuterol sulfate 2.5 mg INHA
[2020-05-21] MEDS: busPIRone HCL 5 MG TABLET PO (18:59)
[2020-05-21] MEDS: VANCOMYCIN ORAL 125 MG/2.5 ML SYRUP PO ×2 (18:59→23:12)
[2020-05-21] MEDS: FERROUS SULFATE 324 MG TABLET PO (19:00)
[2020-05-21] MEDS: ACETAMINOPHEN 500 MG TABLET PO (19:00)
[2020-05-21] MEDS: BUDESONIDE RESPULE NEB 0.5 MG/2 ML AMP INHALATION (20:28)
[2020-05-21] MEDS: PANTOPRAZOLE 40 MG TABLET PO (20:59)
[2020-05-21] MEDS: MIRTAZAPINE 7.5 MG TABLET PO (20:59)
[2020-05-21] MEDS: MELATONIN 5 MG TABLET PO (20:59)
[2020-05-21 23:24] LABS: Sodium Urine Random 62 meq/L
[2020-05-22] VITALS (14 sets, daily range): BP systolic 99–114; BP diastolic 44–56; PULSE 56–111; RESP 16–24; TEMP 36.2–37.1; O2SAT 96–100
[2020-05-22 05:01] LABS: Basophils Percent Auto 0.1 % (0.2-1.2); Eosinophils Absolute Auto 0.2 K/mm3 (0-0.3); Eosinophils Percent Auto 2.7 % (0-4.4); Hematocrit 26.3 % (42.0-52.0); Hemoglobin 8.1 g/dL (14.0-18.0); Immature Granulocyte Absolute 0.11 K/mm3 (0.00-0.031); Immature Granulocyte Percent A 1.5 % (0-0.5); Lymphocytes Absolute Auto 0.91 K/mm3 (0.9-3.2); Lymphocytes Percent Auto 12.7 % (18.3-44.2); Mean Corpuscular HGB Conc 30.8 g/dl (32-36); Mean Corpuscular Hemoglobin 28.4 pg (26-34); Mean Corpuscular Volume 92.3 fl (80-100); Mean Platelet Volume 10.9 fl (7.4-10.4); Monocytes Absolute Auto 0.6 K/mm3 (0.1-0.6); Monocytes Percent Auto 8.7 % (2.6-8.5); Neutrophils Absolute Auto 5.3 K/mm3 (1.3-6.7); Neutrophils Percent Auto 74.3 % (45.5-73.1); Platelet Count Result 184 k/mm3 (150-375); Red Blood Count 2.85 M/mm3 (4.6-6.20); Red Cell Distribution Width 15.2 % (11.5-14.5); White Blood Count 7.1 K/mm3 (4.5-10.0)
[2020-05-22] MEDS: VANCOMYCIN ORAL 125 MG/2.5 ML SYRUP PO ×2 (05:33→11:43)
[2020-05-22 05:34] LABS: Alanine Aminotransferase 20 U/L (4-50); Alkaline Phosphatase 74 U/L (38-126); Aspartate Amino Transferase 17 U/L (17-59); Bilirubin,Total < 0.1 mg/dL (0.2-1.3); Blood Urea Nitrogen 26 mg/dL (9-20); CRP 0.7 mg/dL (<1.0); Calcium 7.9 mg/dL (8.4-10.2); Carbon Dioxide 32 mmol/L (22-30); Chloride 102 mmol/L (98-107); Estimated CRCL calculation 56 ml/min; Estimated Glomerular Filt Rate > 60; Glucose 83 mg/dL (75-110); Magnesium 2.2 mg/dL (1.6-2.3); Phosphorus 3.2 mg/dL (2.5-4.5); Potassium 4.1 mmol/L (3.4-5.0); Sodium 137 mmol/L (137-145)
[2020-05-22 06:26] LABS: Folic Acid 10.2 ng/mL (2.76->20)
[2020-05-22] MEDS: SODIUM CHLORIDE 0.9% IV 1,000 ML 125 ML IV CONT (06:43)
[2020-05-22] MEDS: BUDESONIDE RESPULE NEB 0.5 MG/2 ML AMP INHALATION ×2 (08:08→20:03)
[2020-05-22] MEDS: ACETAMINOPHEN 500 MG TABLET PO ×3 (08:58→16:23)
[2020-05-22] MEDS: CITALOPRAM HYDROBROMIDE 10 MG TABLET PO (08:58)
[2020-05-22] MEDS: busPIRone HCL 5 MG TABLET PO ×2 (08:58→16:23)
[2020-05-22] MEDS: ASPIRIN 81 MG ENTERIC TABLET PO (08:58)
[2020-05-22] MEDS: TAMSULOSIN HCL 0.4 MG CAPSULE PO (08:59)
[2020-05-22] MEDS: FINASTERIDE 5 MG TABLET PO (08:59)
[2020-05-22] MEDS: FERROUS SULFATE 324 MG TABLET PO ×2 (08:59→16:23)
[2020-05-22] MEDS: ERTAPENEM 1 GM/NS 50 ML 1 GM/50 ML BAG IVPB (09:03)
--- NOTE | 2020-05-22 10:46 | PM.IMPN ---
Progress Note: A&P Assessment and Plan (1) Catheter-associated urinary tract infection: Qualifiers: Encounter type: initial encounter Indwelling urinary catheter type: indwelling urethral catheter Qualified Code(s): T83.511A - Infection and inflammatory reaction due to indwelling urethral catheter, initial encounter; N39.0 - Urinary tract infection, site not specified Code(s): T83.511A - Infection and inflammatory reaction due to indwelling urethral catheter, initial encounter; N39.0 - Urinary tract infection, site not specified Status: Acute Assessment and Plan: Chronic Landeros. UA suspicious for UTI with some burning at the catheter site. Symptoms resolved today. Catheter changed. Continue Flomax. History of resistant UTI; continue Ertapenem and wait for urine culture. Will consider ID consult pending urine culture. (2) Sepsis: Qualifiers: Sepsis acute organ dysfunction status: unspecified Sepsis type: sepsis due to unspecified organism Qualified Code(s): A41.9 - Sepsis, unspecified organism Code(s): A41.9 - Sepsis, unspecified organism Status: Acute Assessment and Plan: Evident on arrival with hypotension and leukocytosis. Suspected source at this time is urinary. See above. Blood and urine cultures pending; CT abdomen shows no acute process. Monitor vitals and urine output. Decrease rate IV fluids and monitor fluid status. (3) Diarrhea: Qualifiers: Diarrhea type: unspecified type Qualified Code(s): R19.7 - Diarrhea, unspecified Code(s): R19.7 - Diarrhea, unspecified Status: Resolved Assessment and Plan: With diarrhea and leukocytosis on arrival, he was started on oral vanc for concern of C diff since he was recently treated with antibiotics for UTI. No diarrhea today, stop vanc. Stool occult blood to be collected with next BM. No evidence of colitis on CT. Leukocytosis resolved. Will monitor. (4) CHF (congestive heart failure): Qualifiers: Heart failure chronicity: unspecified Heart failure type: unspecified Qualified Code(s): I50.9 - Heart failure, unspecified Code(s): I50.9 - Heart failure, unspecified Status: Chronic Assessment and Plan: Chronic; mixed systolic and diastolic. Echo 12/2019 shows EF 40-45% with mild pulmonary hypertension. Appears compensated. Will monitor fluid status. Medications are held secondary to hypotension. (5) Chronic respiratory failure with hypoxia: Code(s): J96.11 - Chronic respiratory failure with hypoxia Status: Acute Assessment and Plan: Tolerating his home O2 requirement of 2L/min. (6) COPD (chronic obstructive pulmonary disease): Qualifiers: COPD type: COPD with acute exacerbation Qualified Code(s): J44.1 - Chronic obstructive pulmonary disease with (acute) exacerbation Code(s): J44.9 - Chronic obstructive pulmonary disease, unspecified Status: Acute Assessment and Plan: No evidence of respiratory distress. Continue pulmicort and PRN albuterol. (7) GERD (gastroesophageal reflux disease): Qualifiers: Esophagitis presence: esophagitis presence not specified Qualified Code(s): K21.9 - Gastro-esophageal reflux disease without esophagitis Code(s): K21.9 - Gastro-esophageal reflux disease without esophagitis Status: Acute Assessment and Plan: Continue protonix. (8) Generalized weakness: Code(s): R53.1 - Weakness Status: Acute Assessment and Plan: Lives at assisted living. Continue PT/OT. Hypotension may be contributing. (9) Chronic atrial fibrillation: Code(s): I48.20 - Chronic atrial fibrillation, unspecified
--- NOTE | 2020-05-22 17:15 | PC.NURSE ---
This patient, Eusebio Najera, was transferred to [facility] on 05/22/20 at 1704. Personal belongings sent with patient. Belongings list checked. Report given to Jamie RIBEIRO. Appropriate documentation sent with patient.
[2020-05-22] MEDS: SODIUM CHLORIDE 0.9% IV 1,000 ML 80 ML IV CONT (18:09)
[2020-05-22] MEDS: ALBUTEROL SULFATE NEB 2.5 MG/0.5 ML INH INHALATION (20:03)
[2020-05-22] MEDS: MELATONIN 5 MG TABLET PO (21:18)
[2020-05-22] MEDS: PANTOPRAZOLE 40 MG TABLET PO (21:18)
[2020-05-22] MEDS: MIRTAZAPINE 7.5 MG TABLET PO (21:19)
[2020-05-23] VITALS (17 sets, daily range): BP systolic 97–117; BP diastolic 52–61; PULSE 75–121; RESP 16–20; TEMP 36.6–37.1; O2SAT 95–100
[2020-05-23] MEDS: LEVOTHYROXINE SODIUM 50 MCG TABLET PO (05:33)
[2020-05-23 06:20] LABS: Basophils Absolute Auto 0.1 K/mm3 (0.0-0.1); Eosinophils Absolute Auto 0.3 K/mm3 (0-0.3); Eosinophils Percent Auto 4.1 % (0-4.4); Hematocrit 30.9 % (42.0-52.0); Hemoglobin 9.3 g/dL (14.0-18.0); Immature Granulocyte Absolute 0.09 K/mm3 (0.00-0.031); Immature Granulocyte Percent A 1.2 % (0-0.5); Lymphocytes Absolute Auto 0.78 K/mm3 (0.9-3.2); Lymphocytes Percent Auto 10.6 % (18.3-44.2); Mean Corpuscular HGB Conc 30.1 g/dl (32-36); Mean Corpuscular Hemoglobin 28.5 pg (26-34); Mean Corpuscular Volume 94.8 fl (80-100); Mean Platelet Volume 11.1 fl (7.4-10.4); Monocytes Absolute Auto 0.7 K/mm3 (0.1-0.6); Monocytes Percent Auto 9.4 % (2.6-8.5); Neutrophils Absolute Auto 5.4 K/mm3 (1.3-6.7); Neutrophils Percent Auto 73.7 % (45.5-73.1); Platelet Count Result 197 k/mm3 (150-375); Red Blood Count 3.26 M/mm3 (4.6-6.20); Red Cell Distribution Width 15.1 % (11.5-14.5); White Blood Count 7.4 K/mm3 (4.5-10.0)
[2020-05-23 06:36] LABS: Blood Urea Nitrogen 17 mg/dL (9-20); Calcium 8.3 mg/dL (8.4-10.2); Carbon Dioxide 33 mmol/L (22-30); Chloride 101 mmol/L (98-107); Estimated CRCL calculation 63 ml/min; Estimated Glomerular Filt Rate > 60; Glucose 83 mg/dL (75-110); Potassium 4.3 mmol/L (3.4-5.0); Sodium 137 mmol/L (137-145)
[2020-05-23] MEDS: SODIUM CHLORIDE 0.9% IV 1,000 ML 80 ML IV CONT (06:49)
[2020-05-23] MEDS: ALBUTEROL SULFATE NEB 2.5 MG/0.5 ML INH INHALATION ×2 (08:01→19:56)
[2020-05-23] MEDS: BUDESONIDE RESPULE NEB 0.5 MG/2 ML AMP INHALATION ×2 (08:01→19:55)
[2020-05-23] MEDS: ACETAMINOPHEN 500 MG TABLET PO ×3 (08:21→16:54)
[2020-05-23] MEDS: busPIRone HCL 5 MG TABLET PO ×2 (08:21→16:53)
[2020-05-23] MEDS: ASPIRIN 81 MG ENTERIC TABLET PO (08:21)
[2020-05-23] MEDS: FERROUS SULFATE 324 MG TABLET PO ×2 (08:22→16:53)
[2020-05-23] MEDS: TAMSULOSIN HCL 0.4 MG CAPSULE PO (08:22)
[2020-05-23] MEDS: CITALOPRAM HYDROBROMIDE 10 MG TABLET PO (08:22)
[2020-05-23] MEDS: FINASTERIDE 5 MG TABLET PO (08:22)
--- NOTE | 2020-05-23 08:28 | ECG_ITS ---
Measurements Intervals [place] Rate: 132 P: DC: 0 QRS: 85 QRSD: 103 T: -78 QT: 292 QTc: 433 Interpretive Statements ATRIAL FLUTTER/TACHYCARDIA WITH RAPID VENTRICULAR RESPONSE VENTRICULAR PREMATURE COMPLEX BORDERLINE ST-T WAVE ABNORMALITY- INF/LAT LEADS ABNORMAL ECG Electronically Signed On 05-23-2020 9:06:15 CDT by Gurpreet Nicholas D.O.
[2020-05-23 09:26] LABS: Troponin I 0.059 ng/mL (0.000-0.034)
[2020-05-23 09:41] LABS: IFOB Positive Control Positive; Immunochemical Fecal Occult Bl Positive (N)
--- NOTE | 2020-05-23 09:44 | PM.IMPN ---
Progress Note: A&P Assessment and Plan (1) Atrial fibrillation with rapid ventricular response: Code(s): I48.91 - Unspecified atrial fibrillation Status: Acute Assessment and Plan: Patient with history of chronic a fib followed by Dr Sheth in [place]; with RVR this morning. Yesterday was A fib/flutter rates in 80s. He described chest discomfort to nursing early this AM that has now resolved. Troponin minimally elevated may be secondary to RVR; trop was mildly elevated and flat last admission a few weeks ago. He does have history of coronary artery disease with multiple coronary stents, last 2019 per patient. Not on systemic anticoagulation due to history of falls. May have been precipitated by holding his beta blockade due to hypotension; other possible contributing factors could include presumed UTI, TSH is elevated. His home Toprol had been held due to hypotension. Pressures more stable this morning than on arrival, last 107/59 this morning. Will try IV Lopressor for rate control and monitor with cardiac telemetry and monitor BP. If no improvement with lopressor, will consider cardiology consultation here. Edit: Appreciate Dr Zheng's recommendations; resume low-dose lopressor, gentle diuresis with oral lasix, and will defer decision of systemic anticoagulation to his primary [place] administrative law judge. Appreciate input. (2) Catheter-associated urinary tract infection: Qualifiers: Encounter type: initial encounter Indwelling urinary catheter type: indwelling urethral catheter Qualified Code(s): T83.511A - Infection and inflammatory reaction due to indwelling urethral catheter, initial encounter; N39.0 - Urinary tract infection, site not specified Code(s): T83.511A - Infection and inflammatory reaction due to indwelling urethral catheter, initial encounter; N39.0 - Urinary tract infection, site not specified Status: Acute Assessment and Plan: Chronic Landeros, patient reports initiated a few months ago. UA suspicious for UTI. He noted that he was previously having to strain to get urine into his catheter bag and was having burning at the catheter site. His catheter was changed here and those symptoms have now resolved. The facility has requested urology consult for evaluation of possible trial of catheter removal. Patient cannot recall the name of his urologist but believe he is followed by our group here. Appreciate recommendations in this setting. Continue Flomax. History of resistant UTI; continue Ertapenem (day 3) and wait for urine culture. Will consider ID consult pending urine culture. Edit: Urine culture growing gram negative bacilli 2 separate organisms, waiting on sensitivities. Appreciate urology recommendations - noted the plan to keep Landeros catheter to attempt voiding trial at 6 month no in July. Rhiannon restarted Proscar. He can follow up in the office outpatient. Appreciate input. (3) Sepsis: Qualifiers: Sepsis acute organ dysfunction status: unspecified Sepsis type: sepsis due to unspecified organism Qualified Code(s): A41.9 - Sepsis, unspecified organism Code(s): A41.9 - Sepsis, unspecified organism Status: Acute Assessment and Plan: Evident on arrival with hypotension and leukocytosis. Suspected source at this time is urinary. See above. Blood and urine cultures pending; CT abdomen shows no acute process. Monitor vitals and urine output. (4) CHF (congestive heart failure): Qualifiers: Heart failure chronicity: unspecified Heart failure type: unspecified Qualified Code(s): I50.9 - Heart failure, unspecified Code(s): I50.9 - Heart failure, unspecified Status: Chronic Assessment and Plan: Chronic; mixed systolic and diastolic. Echo 12/2019 showed EF 40-45% with mild pulmonary hypertension. Oral lasix, beta blockade, and monitor fluid status. _
--- NOTE | 2020-05-23 10:06 | PCPTNOTE ---
Attempted PT evaluation this AM. Per nursing, pt has had some cardiac testing and some chest pain this AM however to take PT easy. Pt states he's feeling tired and would prefer resting. Will try again at a later time.
--- NOTE | 2020-05-23 10:06 | PCOTNOTE ---
OT evaluation attempted this AM. Patient refusing therapy at this time stating that he is too tired. Refusing despite encouragement, however, agreeable to OT evaluation at later time. Will attempt OT evaluation at later time.
[2020-05-23] MEDS: METOPROLOL TARTRATE INJ 5 MG/5 ML VIAL IV PUSH (10:35)
[2020-05-23] MEDS: ERTAPENEM 1 GM/NS 50 ML 1 GM/50 ML BAG IVPB (11:46)
[2020-05-23 11:50] LABS: Troponin I 0.101 ng/mL (0.000-0.034)
[2020-05-23 15:09] LABS: Troponin I 0.183 ng/mL (0.000-0.034)
--- NOTE | 2020-05-23 15:53 | PM.CNCAR ---
Assessment and Plan Assessment and plan (1) Atrial fibrillation with rapid ventricular response: Code(s): I48.91 - Unspecified atrial fibrillation Status: Acute Assessment and Plan: 79-year-old male with multiple medical problems-coronary disease, history of CABG in 1988, redo CABG in 1997 with unknown graft; peripheral artery disease, persistent atrial flutter with history of atrial flutter ablation in 2013 with recurrent flutter in 2019 (not on anticoagulation due to history of frequent falls and hip fracture from a fall as per notes from his manager it training), history of UTI, and indwelling catheter. Patient was admitted with generalized weakness with recurrent UTI. He had an episode of chest discomfort this morning when he was in atrial fibrillation with RVR. Currently, he is in atrial flutter/fibrillation with ventricular rate in 90s. Chest discomfort has resolved. Troponins are mildly elevated. -resume low-dose metoprolol tartrate at 6.25 mg p.o. b.i.d., dose to be optimized as tolerated. -continue aspirin -patient has not been on chronic anticoagulation due to history of recurrent falls and hip fracture secondary to a fall. He follows up with a manager it training in [place]. His candidacy for any future chronic anticoagulation will be determined by his primary manager it training after discharge from the hospital. (2) Troponin level elevated: Code(s): R79.89 - Other specified abnormal findings of blood chemistry Status: Acute Assessment and Plan: Patient has known CAD. Troponin elevation likely type 2 [place] in the setting of UTI. He does have known CAD and history of PCI and surgical revascularization. Continue aspirin, low-dose beta-morena, statin. Hold ACEI for now due to recent hypotension. (3) CHF (congestive heart failure): Qualifiers: Heart failure chronicity: unspecified Heart failure type: unspecified Qualified Code(s): I50.9 - Heart failure, unspecified Code(s): I50.9 - Heart failure, unspecified Status: Chronic Assessment and Plan: Patient has CHF with mildly reduced ejection fraction on the recent echo. He has mild volume overload at present. Start gentle diuresis with furosemide p.o. q.a.m. and monitor in's and out's, electrolytes and renal function. (4) Urinary tract infection: Qualifiers: Hematuria presence: with hematuria Urinary tract infection type: site unspecified Qualified Code(s): N39.0 - Urinary tract infection, site not specified; R31.9 - Hematuria, unspecified Code(s): N39.0 - Urinary tract infection, site not specified Status: Acute Assessment and Plan: Management as per primary team. History of Present Illness History of Present Illness Consult date/time: 05/23/20 15:53 Date of consult: 05/23/2020 reason for consult: Chronic a fib now in RVR; chest pain this morning resolved; hypotension Requesting physician:ЕКАТЕРИНА Lima Chief complaint: Generalized weakness HPI: 79-year-old male with multiple medical problems-coronary disease, history of CABG in 1988, redo CABG in 1997 with unknown graft; peripheral artery disease, persistent atrial flutter with history of atrial flutter ablation in 2013 with recurrent flutter in 2019 (not on anticoagulation due to history of frequent falls and hip fracture from a fall as per notes from his manager it training), history of UTI, and indwelling catheter. Patient presented to [facility] ER on 05/21/2020 with complaints of generalized weakness for last 2 days. He was recently discharged from the hospital after treatment of UTI and sepsis. EMS found patient to have blood pressure of 100/40. Today morning, patient had fibrillation with RVR with associated chest discomfort which lasted for about 2 hours associated with shortness of breath. His beta-morena was held due to relatively low blood pressure. EKG on presentation which I personally evaluated showed atrial flutter
--- NOTE | 2020-05-23 15:56 | WPDURCON ---
Assessment and Plan Assessment and plan (1) Acute UTI: Code(s): N39.0 - Urinary tract infection, site not specified Status: Acute Assessment and Plan: Continue IV antibiotics, tailor to culture results. (2) Chronic indwelling Weeks catheter: Code(s): Z97.8 - Presence of other specified devices Status: Acute Assessment and Plan: Keep weeks in and continue monthly catheter changes until Jul. Patient will need a follow up in our office for a voiding trial. No further evaluation needed. (3) BPH (benign prostatic hyperplasia): Code(s): N40.0 - Benign prostatic hyperplasia without lower urinary tract symptoms Status: Chronic Assessment and Plan: Continue Flomax. Restart Finasteride 5mg QD. Urology Consult Note HPI Date Seen: 05/23/20 Requesting Physician: JANES Vigil Primary Care Provider: Kimmy Dawson, FENCE MAKING MACHINE OPERATOR Consult Narrative Narrative: Eusebio Najera is a 79 year old male who presented to the ER on 05/21/2020 for weakness that was worsening and started 2 days ago. He was also c/o right flank pain. He has been on antibiotics recently for a UTI. UA is suspicious of a UTI, culture is growing gram negative bacilli, but sensitivity is not ready. Blood cultures are still pending. A CT was done of abdomen and pelvis and is negative for urologic findings. His WBC is 7.4 and creatinine is 0.80. He is a patient of mine who I saw for the first time in the office on 02/10/2020. We had a long discussion regarding his retention in that he had his weeks initially placed at [facility] d/t slowed stream and difficultly urinating. He was started on Flomax at that time. I started him on Finasteride and sent him back to [facility] to have monthly catheter changes d/t the FInasteride taking 3-6 months to work. He is not a candidate for a Urolift or TURP d/t other co-morbidities. His weeks was most recently changed here in the hospital. We discussed that if we did another voiding trial in six months and he wasn't able to urinate, he unfortunately would need a weeks indefinitely with monthly weeks changes. That six month voiding trial is due on or after 08/12/2020. THe patient is a poor historian and his responses to my questions were not appropriate, he is unfortunately not a reliable source of information. Review of Systems Review of Systems: ROS unobtainable: Yes unobtainable due to mental status PMFSH Past Medical History Medical History Atrial fibrillation BPH (benign prostatic hyperplasia) CAD (coronary artery disease) COPD (chronic obstructive pulmonary disease) Depression Diverticulitis Emphysema, unspecified GERD (gastroesophageal reflux disease) History of angina HTN (hypertension) Hyperlipidemia Lung cancer Radiation treatment Myocardial infarction Peripheral vascular disease Thrombocytopenia Vocal cord cancer Radiation treatment Surgical History Surgical History History of angioplasty With 5 stents History of cardiac catheterization Hx of appendectomy Hx of CABG 1 vessel on 2 separate occasions Stented coronary artery 5 stents Family History Family History Father Malignant neoplasm of prostate Mother Alzheimer disease Sibling Cancer, bladder, neck Social History Social History Social History: The patient stated that he is and he lives in carpenter assistant installer living. He was recently in rehab at [facility] but after last hospitalization 2 weeks ago went back to assisted living with home health. The patient is a full code. He has 3 children. 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 He denies any alcohol marijuana or illicit drug use. His daughter Massiel is a durable power prosecuting attorney for [employer] [employer]
[2020-05-23] MEDS: MELATONIN 5 MG TABLET PO (21:22)
[2020-05-23] MEDS: METOPROLOL TARTRATE 6.25 MG TABLET PO (21:22)
[2020-05-23] MEDS: PANTOPRAZOLE 40 MG TABLET PO (21:25)
[2020-05-23] MEDS: MIRTAZAPINE 7.5 MG TABLET PO (21:26)
[2020-05-24] VITALS (18 sets, daily range): BP systolic 105–125; BP diastolic 46–62; PULSE 64–120; RESP 16–20; TEMP 36.5–37.5; O2SAT 95–100
[2020-05-24] MEDS: LEVOTHYROXINE SODIUM 50 MCG TABLET PO (05:51)
[2020-05-24 06:06] LABS: Hematocrit 29.4 % (42.0-52.0); Hemoglobin 8.8 g/dL (14.0-18.0)
[2020-05-24 06:30] LABS: Blood Urea Nitrogen 12 mg/dL (9-20); Calcium 8.4 mg/dL (8.4-10.2); Carbon Dioxide 34 mmol/L (22-30); Chloride 100 mmol/L (98-107); Estimated CRCL calculation 63 ml/min; Estimated Glomerular Filt Rate > 60; Glucose 81 mg/dL (75-110); Magnesium 2.1 mg/dL (1.6-2.3); Sodium 137 mmol/L (137-145)
[2020-05-24] MEDS: BUDESONIDE RESPULE NEB 0.5 MG/2 ML AMP INHALATION ×2 (07:23→20:13)
[2020-05-24] MEDS: ALBUTEROL SULFATE NEB 2.5 MG/3 ML INH (07:23)
[2020-05-24] MEDS: ACETAMINOPHEN 500 MG TABLET PO ×3 (08:59→18:04)
[2020-05-24] MEDS: busPIRone HCL 5 MG TABLET PO ×2 (09:00→18:04)
[2020-05-24] MEDS: ASPIRIN 81 MG ENTERIC TABLET PO (09:00)
[2020-05-24] MEDS: CITALOPRAM HYDROBROMIDE 10 MG TABLET PO (09:00)
[2020-05-24] MEDS: FERROUS SULFATE 324 MG TABLET PO ×2 (09:01→18:04)
[2020-05-24] MEDS: METOPROLOL TARTRATE 6.25 MG TABLET PO ×2 (09:02→21:04)
[2020-05-24] MEDS: TAMSULOSIN HCL 0.4 MG CAPSULE PO (09:02)
[2020-05-24] MEDS: FUROSEMIDE 40 MG TABLET PO (09:02)
[2020-05-24] MEDS: FINASTERIDE 5 MG TABLET PO (09:02)
[2020-05-24] MEDS: ERTAPENEM 1 GM/NS 50 ML 1 GM/50 ML BAG IVPB (09:03)
--- NOTE | 2020-05-24 09:53 | PM.IMPN ---
Progress Note: A&P Assessment and Plan (1) Atrial fibrillation with rapid ventricular response: Code(s): I48.91 - Unspecified atrial fibrillation Status: Acute Assessment and Plan: Patient with history of chronic a fib followed by Dr Sheth in [place]. Rates low 100s today. Appreciate cardiology recommendations; resumed metoprolol and oral lasix, will monitor. May have been precipitated by holding his beta blockade due to hypotension; other possible contributing factors could include UTI, TSH is elevated. (2) Catheter-associated urinary tract infection: Qualifiers: Encounter type: initial encounter Indwelling urinary catheter type: indwelling urethral catheter Qualified Code(s): T83.511A - Infection and inflammatory reaction due to indwelling urethral catheter, initial encounter; N39.0 - Urinary tract infection, site not specified Code(s): T83.511A - Infection and inflammatory reaction due to indwelling urethral catheter, initial encounter; N39.0 - Urinary tract infection, site not specified Status: Acute Assessment and Plan: Chronic Landeros. Urine culture grew ESBL E coli and pseudomonas. Appreciate Dr Poole's recommendations; switched to Imipenem today. Appreciate urology recommendations - noted the plan to keep Landeros catheter to attempt voiding trial at 6 month no in July. Rhiannon restarted Proscar. He can follow up in the office outpatient. Appreciate input. (3) Sepsis: Qualifiers: Sepsis acute organ dysfunction status: unspecified Sepsis type: sepsis due to unspecified organism Qualified Code(s): A41.9 - Sepsis, unspecified organism Code(s): A41.9 - Sepsis, unspecified organism Status: Acute Assessment and Plan: Evident on arrival with hypotension and leukocytosis. Suspected source at this time is urinary. See above. Blood cultures show no growth to date; CT abdomen shows no acute process. Monitor vitals and urine output. (4) CHF (congestive heart failure): Qualifiers: Heart failure chronicity: unspecified Heart failure type: unspecified Qualified Code(s): I50.9 - Heart failure, unspecified Code(s): I50.9 - Heart failure, unspecified Status: Chronic Assessment and Plan: Chronic; mixed systolic and diastolic. Echo 12/2019 showed EF 40-45% with mild pulmonary hypertension. Oral lasix, beta blockade, and monitor fluid status. (5) Chronic respiratory failure with hypoxia: Code(s): J96.11 - Chronic respiratory failure with hypoxia Status: Acute Assessment and Plan: Tolerating his home O2 requirement of 2L/min. No respiratory distress today. (6) COPD (chronic obstructive pulmonary disease): Qualifiers: COPD type: COPD with acute exacerbation Qualified Code(s): J44.1 - Chronic obstructive pulmonary disease with (acute) exacerbation Code(s): J44.9 - Chronic obstructive pulmonary disease, unspecified Status: Acute Assessment and Plan: No evidence of respiratory distress. Continue pulmicort and PRN albuterol. (7) GERD (gastroesophageal reflux disease): Qualifiers: Esophagitis presence: esophagitis presence not specified Qualified Code(s): K21.9 - Gastro-esophageal reflux disease without esophagitis Code(s): K21.9 - Gastro-esophageal reflux disease without esophagitis Status: Acute Assessment and Plan: Continue protonix. (8) Generalized weakness: Code(s): R53.1 - Weakness Status: Acute Assessment and Plan: Lives at assisted living. Continue PT/OT. (9) Elevated TSH: Code(s): R79.89 - Other specified abnormal findings of blood chemistry Status: Acute A
--- NOTE | 2020-05-24 10:39 | PM.PNCARD ---
Progress Note: A&P Assessment and Plan (1) Atrial fibrillation with rapid ventricular response: Code(s): I48.91 - Unspecified atrial fibrillation Status: Acute Assessment and Plan: 79-year-old male with multiple medical problems-coronary disease, history of CABG in 1988, redo CABG in 1997 with unknown graft; peripheral artery disease, persistent atrial flutter with history of atrial flutter ablation in 2013 with recurrent flutter in 2019 (not on anticoagulation due to history of frequent falls and hip fracture from a fall as per notes from his dock supervisor Dr Sheth in [place]), history of UTI and indwelling catheter. Heart rate improving with re-initiation of beta-morena. Recommend documentation of heart rates from the director digital advertising. Continue low-dose metoprolol tartrate at 6.25 mg p.o. b.i.d. up titrate when able. Monitor blood pressure response to furosemide. Continue aspirin Has not been on chronic anticoagulation due to history of recurrent falls and hip fracture secondary to a fall. He follows up with Dr Sheth in [place]. His candidacy for any future chronic anticoagulation should be determined by his primary dock supervisor after discharge from the hospital. (2) Troponin level elevated: Code(s): R79.89 - Other specified abnormal findings of blood chemistry Status: Acute Assessment and Plan: Patient has known CAD. Troponin elevation likely type 2 [place] in the setting of UTI. He does have known CAD and history of PCI and surgical revascularization. Continue aspirin, low-dose beta-morena, statin. Hold ACEI for now due to recent hypotension. Denied chest discomfort this morning. (3) CHF (congestive heart failure): Qualifiers: Heart failure chronicity: unspecified Heart failure type: unspecified Qualified Code(s): I50.9 - Heart failure, unspecified Code(s): I50.9 - Heart failure, unspecified Status: Chronic Assessment and Plan: Mildly reduced ejection fraction on the echo from 12/30/2019. EF 40-45%. Mild volume overload at present. Continue gentle diuresis with furosemide p.o. q.a.m.. Monitor intake and output, electrolytes and renal function. (4) Urinary tract infection: Qualifiers: Hematuria presence: with hematuria Urinary tract infection type: site unspecified Qualified Code(s): N39.0 - Urinary tract infection, site not specified; R31.9 - Hematuria, unspecified Code(s): N39.0 - Urinary tract infection, site not specified Status: Acute Assessment and Plan: Management as per primary team. Additional Plan No further cardiac recommendations. Will follow p.r.n.. Please do not hesitate to call if we can be of further assistance.. Plan discussed with Dr Riley [id number] 05/24/2020 Time Spent With Patient Time with patient: less than 15 minutes Subjective Date/time seen: 05/24/20 10:39 Interval history: Follow-up for: Atrial fibrillation with rapid ventricular response, chest discomfort, history coronary artery disease Date of service: 05/24/2020 Subjective: Denied chest discomfort or palpitations. States had some slight right arm discomfort this morning. Lightheaded if he gets up too quickly. Shortness of breath with exertional activities at baseline. Review of Systems Constitutional: Constitutional: Denies chills, Reports fatigue, Denies fever(s) and Denies headache(s) Eyes: Eyes: Denies change in vision, Denies loss of vision and Denies eye pain ENT: Reports Normal hearing present, Denies headache(s), Denies lip swelling, Denies epistaxis and Denies sore throat Cardiovascular: Cardiovascular: Denies chest pain, Denies syncope, Reports irregular heart rhythm, Denies lightheadedness and Reports dyspnea Respiratory: Respiratory: Denies cough, Reports dyspnea and Denies wheezing Gastrointestinal: Serena
--- NOTE | 2020-05-24 14:11 | WPDINFPN2 ---
Progress Note: A&P Assessment and Plan (1) Acute UTI: Code(s): N39.0 - Urinary tract infection, site not specified Status: Acute Assessment and Plan: Symptomatic UTI due to catheter malfunction REC Imipenem q6hr x 7 days. Ok discharge planning, he hopes to go to a SNF prior to return to assisted living. Less frequent dosing is not possible. Subjective Date/time seen: 05/24/20 14:11 Objective Data Vital Signs Vital Signs: Vital Signs - 24 hr 05/23/20 16:00 05/23/20 18:00 05/23/20 19:58 Temperature 36.9 C Pulse Rate 111 H 113 H 76 Respiratory Rate 18 16 Blood Pressure 115/59 L Pulse Oximetry 98 95 05/23/20 20:00 05/23/20 20:06 05/23/20 21:00 Temperature 36.6 C Pulse Rate 98 87 75 Respiratory Rate 18 18 Blood Pressure 103/55 L Pulse Oximetry 99 05/23/20 21:22 05/24/20 00:00 05/24/20 02:00 Temperature 36.5 C Pulse Rate 86 73 74 Respiratory Rate 18 Blood Pressure 119/62 Pulse Oximetry 100 05/24/20 04:00 05/24/20 06:00 05/24/20 07:20 Temperature 37.1 C Pulse Rate 89 113 H 78 Respiratory Rate 18 16 Blood Pressure 125/60 Pulse Oximetry 99 95 05/24/20 08:57 05/24/20 09:02 Temperature 37.5 C Pulse Rate 64 64 Respiratory Rate 16 Blood Pressure 111/46 L Pulse Oximetry 96 Intake/Output Intake/Output: Intake & Output 05/21/20 05/22/20 05/23/20 05/24/20 23:59 23:59 23:59 23:59 Intake Total 3440 2850 2060 840 Output Total 350 1450 1850 750 Balance 3090 1400 210 90 Meds/Results Medications: Active Medications Generic Name Dose Route Start Last Admin Trade Name Freq PRN Reason Stop Dose Admin Acetaminophen 500 mg 05/21/20 17:00 05/24/20 12:50 Tylenol Tablet PO 500 mg TID SHENA Administration Albuterol 2.5 mg 05/21/20 16:22 05/23/20 19:56 Albuterol Sulf Neb 2.5mg/0.5ml INHALATION 2.5 mg Q6HRT PRN Administration Shortness Of Breath Aspirin 81 mg 05/22/20 09:00 05/24/20 09:00 Aspirin Ec PO 81 mg DAILY SHENA Administration Budesonide 0.5 mg 05/21/20 20:00 05/24/20 07:23 Pulmicort Respule Neb INHALATION 0.5 mg Q12HRT SHENA Administration Buspirone HCl 5 mg 05/21/20 17:00 05/24/20 09:00 Buspar PO 5 mg BID SHENA Administration Citalopram Hydrobromide 10 mg 05/22/20 09:00 05/24/20 09:00 Celexa PO 10 mg DAILY SHENA Administration Ferrous Sulfate 324 mg 05/21/20 17:00 05/24/20 09:01 Ferrous Sulfate PO 324 mg BID SHENA Administration Finasteride 5 mg 05/22/20 09:00 05/24/20 09:02 Proscar PO 5 mg DAILY SHENA Administration Furosemide 40 mg 05/24/20 09:00 05/24/20 09:02 Lasix Tablet PO 40 mg DAILY SHENA Administration Imipenem/Cilastatin Sodium 250 100 mls @ 300 mls/hr 05/24/20 14:10 mg/ Dextrose IVPB 05/31/20 08:29 Q6H SHENA Levothyroxine Sodium 50 mcg 05/23/20 06:30 05/24/20 05:51 Synthroid PO 50 mcg DAILY@0630 SHENA Administration Melatonin 5 mg 05/21/20 21:00 05/23/20 21:22 Melatonin PO 5 mg HS SHENA Administration Metoprolol Tartrate 6.25 mg 05/23/20 21:00 05/24/20 09:02 Lopressor PO 6.25 mg Q12HR SHENA Administration Mirtazapine 7.5 mg 05/21/20 21:00 05/23/20 21:26 Remeron PO 7.5 mg HS SHENA Administration Ondansetron HCl 4 mg 05/21/20 16:28 Zofran Odt PO Q6H PRN Vomiting Pantoprazole Sodium 40 mg 05/21/20 21:00 05/23/20 21:25 Protonix PO 40 mg HS SHENA Administration Tamsulosin HCl 0.4 mg 05/22/20 09:00 05/24/20 09:02 Flomax PO 0.4 mg DAILY SHENA Administration Radiology Results: ITS Impressions Chest X-Ray 05/21/20 10:21 Impression: 1: Pulmonary vascular indistinctness, suspicious for interstitial edema. Otherwise, no change. Abdomen/Pelvis CT 05/21/20 11:06 IMPRESSION: 1. No acute intra-abdominal/pelvic process. 2. Diverticulosis. 3. Small sliding-type hiatal hernia. 4. Small fat-containing left inguinal hernia. Head CT
--- NOTE | 2020-05-24 15:05 | CONS_ITS ---
DATE OF CONSULTATION: 05/24/2020 REASON FOR CONSULTATION: Urinary tract infection. HISTORY OF PRESENT ILLNESS: The patient is an 79-year-old male who was found to have urinary retention earlier this year and was started on medical therapy. He has had a Landeros catheter in place for several months now. He did have a malfunction of his catheter prior to the present admission, manifested by abdomen feeling distended, increased urinary urge, leaking around the catheter site and having to strain to get the urine into his bag. Upon arrival here, he also noted chest pain, weakness, loose bowel movements, and flank pain. On arrival here, he was tachycardic. He was admitted, he has been given ertapenem. Consultation requested today, he has been seen by Urology team with no interventions planned for the moment. The patient denies fever, chills, sweats, ongoing abdominal pain, nausea, vomiting, or dizziness. ALLERGIES: NONE KNOWN. PRESENT MEDICATIONS: List reviewed. No immunosuppressants. HOME MEDICATION: List also reviewed. No recent antibiotics. HABITS: Ex-smoker and no alcohol. 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 FAMILY HISTORY: Prostate cancer, Alzheimer's. SOCIAL HISTORY: He is , assisted living, 3 children. No family at the bedside. 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 REVIEW OF SYSTEMS: 14-point review otherwise negative. PHYSICAL EXAMINATION: GENERAL: This is an elderly male who appears younger than his actual age, in no distress. VITAL SIGNS: Afebrile since arrival, 64, 16, 96%, 111/46. SKIN: No generalized rashes. Warm and dry. NODES: He has no cervical adenopathy. EENT: The conjunctivae are normal. Pupils equal, round. The oropharynx, oral mucosa also normal. NECK: No masses or thyromegaly. LUNGS: Clear to auscultation and percussion. BACK: No CVAT. CARDIAC: Regular rate and rhythm. Normal S1, S2. No murmurs. ABDOMEN: Mildly obese. No masses, tenderness, organomegaly. : Landeros catheter draining clear yellow urine. EXTREMITIES: No clubbing, cyanosis, or edema. LABORATORY DATA: Urine culture with an ESBL producing E. coli as well as Pseudomonas, each more than 100,000. I also reviewed his urinalysis results in full. Blood cultures from May 21, no growth. Prior blood cultures on May 02, final no growth. The patient's white blood cell count 13.0 on admission, now normal at 7.4, hemoglobin 8.8, platelets are 197, differential normal. Chemistry panel normal except for CO2 of 34. Troponin is high, albumin 3.0. TSH is high. T4 is low. Urinalysis as above. RADIOLOGICAL DATA: Abdomen and pelvic CT, inguinal hernia, hiatal hernia, diverticulosis, and other chronic findings. ASSESSMENT: 1. Symptomatic urinary tract infection due to catheter malfunction, the catheter has now been replaced and functioning well. He has multi-drug resistant pathogens isolated from his urine culture. 2. Urinary tract obstruction with Landeros in place and followed by Urology. 3. Chemical hypothyroidism. 4. Past diverticulitis. RECOMMENDATIONS: 1. Change ertapenem to imipenem and continue for 7-day course. 2. Okay with me for discharge planning. Unfortunately, he is not appropriate for anything less than q.6 hours dosing and so discharge planning may be problematic. I reassured the patient that no matter where he is, he will get the needed antibiotics for his condition. Thank you very much for asking me see him. I will follow along as needed.
[2020-05-24] MEDS: IMIPENEM/CILASTATIN SODIUM 250 MG in DEXTROSE 5% 100 ML 300 ML IVPB (18:04)
[2020-05-24] MEDS: ALBUTEROL SULFATE NEB 2.5 MG/0.5 ML INH INHALATION (20:13)
[2020-05-24] MEDS: PANTOPRAZOLE 40 MG TABLET PO (21:05)
[2020-05-24] MEDS: MIRTAZAPINE 7.5 MG TABLET PO (21:05)
[2020-05-24] MEDS: MELATONIN 5 MG TABLET PO (21:05)
[2020-05-25] VITALS (20 sets, daily range): BP systolic 81–121; BP diastolic 45–62; PULSE 50–107; RESP 18–20; TEMP 36.3–36.8; O2SAT 95–100
[2020-05-25] MEDS: IMIPENEM/CILASTATIN SODIUM 250 MG in DEXTROSE 5% 100 ML 300 ML IVPB ×4 (00:50→18:03)
[2020-05-25] MEDS: LEVOTHYROXINE SODIUM 50 MCG TABLET PO (06:03)
[2020-05-25 06:27] LABS: Basophils Percent Auto 0.7 % (0.2-1.2); Eosinophils Absolute Auto 0.3 K/mm3 (0-0.3); Eosinophils Percent Auto 4.8 % (0-4.4); Hematocrit 29.4 % (42.0-52.0); Hemoglobin 8.9 g/dL (14.0-18.0); Immature Granulocyte Absolute 0.04 K/mm3 (0.00-0.031); Immature Granulocyte Percent A 0.7 % (0-0.5); Lymphocytes Absolute Auto 0.52 K/mm3 (0.9-3.2); Lymphocytes Percent Auto 9.3 % (18.3-44.2); Mean Corpuscular HGB Conc 30.3 g/dl (32-36); Mean Corpuscular Hemoglobin 28.3 pg (26-34); Mean Corpuscular Volume 93.6 fl (80-100); Mean Platelet Volume 10.9 fl (7.4-10.4); Monocytes Absolute Auto 0.5 K/mm3 (0.1-0.6); Monocytes Percent Auto 9.1 % (2.6-8.5); Neutrophils Absolute Auto 4.2 K/mm3 (1.3-6.7); Neutrophils Percent Auto 75.4 % (45.5-73.1); Platelet Count Result 184 k/mm3 (150-375); Red Blood Count 3.14 M/mm3 (4.6-6.20); Red Cell Distribution Width 15.1 % (11.5-14.5); White Blood Count 5.6 K/mm3 (4.5-10.0)
[2020-05-25 06:38] LABS: Blood Urea Nitrogen 12 mg/dL (9-20); Calcium 8.2 mg/dL (8.4-10.2); Carbon Dioxide 35 mmol/L (22-30); Chloride 98 mmol/L (98-107); Estimated CRCL calculation 71 ml/min; Estimated Glomerular Filt Rate > 60; Glucose 91 mg/dL (75-110); Magnesium 2.1 mg/dL (1.6-2.3); Potassium 3.8 mmol/L (3.4-5.0); Sodium 137 mmol/L (137-145)
[2020-05-25] MEDS: BUDESONIDE RESPULE NEB 0.5 MG/2 ML AMP INHALATION ×2 (07:12→20:06)
[2020-05-25] MEDS: FUROSEMIDE 40 MG TABLET PO (08:34)
[2020-05-25] MEDS: ASPIRIN 81 MG ENTERIC TABLET PO (08:34)
[2020-05-25] MEDS: ACETAMINOPHEN 500 MG TABLET PO ×3 (08:34→18:02)
[2020-05-25] MEDS: FERROUS SULFATE 324 MG TABLET PO ×2 (08:34→18:02)
[2020-05-25] MEDS: FINASTERIDE 5 MG TABLET PO (08:34)
[2020-05-25] MEDS: TAMSULOSIN HCL 0.4 MG CAPSULE PO (08:34)
[2020-05-25] MEDS: busPIRone HCL 5 MG TABLET PO ×2 (08:34→18:03)
[2020-05-25] MEDS: CITALOPRAM HYDROBROMIDE 10 MG TABLET PO (08:34)
[2020-05-25] MEDS: METOPROLOL TARTRATE 6.25 MG TABLET PO (08:37)
[2020-05-25] MEDS: LIDOCAINE HCL 1% LOCAL INJ 2 ML AMPUL 5 ML INFILTRATE (14:00)
--- NOTE | 2020-05-25 15:14 | PM.IMPN ---
Progress Note: A&P Assessment and Plan (1) Atrial fibrillation with rapid ventricular response: Code(s): I48.91 - Unspecified atrial fibrillation Status: Acute Assessment and Plan: Patient with history of chronic a fib followed by Dr Sheth in [place]. Rates 90s to low 100s today. Appreciate cardiology recommendations; resumed metoprolol and oral lasix, will monitor. May have been precipitated by holding his beta blockade due to hypotension; other possible contributing factors could include UTI, TSH is elevated. (2) Catheter-associated urinary tract infection: Qualifiers: Indwelling urinary catheter type: indwelling urethral catheter Encounter type: initial encounter Qualified Code(s): T83.511A - Infection and inflammatory reaction due to indwelling urethral catheter, initial encounter; N39.0 - Urinary tract infection, site not specified Code(s): T83.511A - Infection and inflammatory reaction due to indwelling urethral catheter, initial encounter; N39.0 - Urinary tract infection, site not specified Status: Acute Assessment and Plan: Chronic Landeros. Urine culture grew ESBL E coli and pseudomonas. Appreciate Dr Poole's recommendations; switched to Imipenem 05/24/20. Appreciate urology recommendations - noted the plan to keep Landeros catheter to attempt voiding trial at 6 month no in July. Rhiannon restarted Proscar. He can follow up in the office outpatient. Appreciate input. Plan to place midline today and discharge once COVID testing comes back hopefully tomorrow, to continue IV imipenem through 05/31/20 (3) Sepsis: Qualifiers: Sepsis type: sepsis due to unspecified organism Sepsis acute organ dysfunction status: unspecified Qualified Code(s): A41.9 - Sepsis, unspecified organism Code(s): A41.9 - Sepsis, unspecified organism Status: Acute Assessment and Plan: Evident on arrival with hypotension and leukocytosis. Suspected source at this time is urinary. See above. Blood cultures show no growth to date; CT abdomen shows no acute process. Monitor vitals and urine output. (4) CHF (congestive heart failure): Qualifiers: Heart failure chronicity: unspecified Heart failure type: unspecified Qualified Code(s): I50.9 - Heart failure, unspecified Code(s): I50.9 - Heart failure, unspecified Status: Chronic Assessment and Plan: Chronic; mixed systolic and diastolic. Echo 12/2019 showed EF 40-45% with mild pulmonary hypertension. Oral lasix, beta blockade, and monitor fluid status. (5) Chronic respiratory failure with hypoxia: Code(s): J96.11 - Chronic respiratory failure with hypoxia Status: Acute Assessment and Plan: Tolerating his home O2 requirement of 2L/min. No respiratory distress today. (6) COPD (chronic obstructive pulmonary disease): Qualifiers: COPD type: COPD with acute exacerbation Qualified Code(s): J44.1 - Chronic obstructive pulmonary disease with (acute) exacerbation Code(s): J44.9 - Chronic obstructive pulmonary disease, unspecified Status: Acute Assessment and Plan: No evidence of respiratory distress. Continue pulmicort and PRN albuterol. (7) GERD (gastroesophageal reflux disease): Qualifiers: Esophagitis presence: esophagitis presence not specified Qualified Code(s): K21.9 - Gastro-esophageal reflux disease without esophagitis Code(s): K21.9 - Gastro-esophageal reflux disease without esophagitis Status: Acute Assessment and Plan: Continue protonix. (8) Generalized weakness: Code(s): R53.1 - Weakness Status: Acute Assessment and Plan: Lives at assisted living. Continue PT/OT.
[2020-05-25] MEDS: CENTRAL LINE FLUSH 10 ML IV PUSH ×2 (18:03→20:35)
[2020-05-25] MEDS: PANTOPRAZOLE 40 MG TABLET PO (20:34)
[2020-05-25] MEDS: MELATONIN 5 MG TABLET PO (20:34)
[2020-05-25] MEDS: MIRTAZAPINE 7.5 MG TABLET PO (20:34)
[2020-05-26] VITALS (12 sets, daily range): BP systolic 107–137; BP diastolic 51–75; PULSE 71–116; RESP 18–20; TEMP 36.3–36.7; O2SAT 95–99
[2020-05-26] MEDS: IMIPENEM/CILASTATIN SODIUM 250 MG in DEXTROSE 5% 100 ML 300 ML IVPB ×4 (00:05→17:38)
[2020-05-26] MEDS: LEVOTHYROXINE SODIUM 50 MCG TABLET PO (05:26)
[2020-05-26] MEDS: CENTRAL LINE FLUSH 10 ML IV PUSH ×3 (05:26→17:38)
[2020-05-26 05:42] LABS: Hematocrit 26.5 % (42.0-52.0); Hemoglobin 8.1 g/dL (14.0-18.0)
[2020-05-26 05:45] LABS: Blood Urea Nitrogen 11 mg/dL (9-20); Calcium 8.1 mg/dL (8.4-10.2); Carbon Dioxide 37 mmol/L (22-30); Chloride 97 mmol/L (98-107); Estimated CRCL calculation 63 ml/min; Estimated Glomerular Filt Rate > 60; Glucose 89 mg/dL (75-110); Potassium 3.8 mmol/L (3.4-5.0); Sodium 137 mmol/L (137-145)
[2020-05-26] MEDS: BUDESONIDE RESPULE NEB 0.5 MG/2 ML AMP INHALATION (07:34)
[2020-05-26] MEDS: ASPIRIN 81 MG ENTERIC TABLET PO (08:13)
[2020-05-26] MEDS: FERROUS SULFATE 324 MG TABLET PO ×2 (08:13→17:38)
[2020-05-26] MEDS: CITALOPRAM HYDROBROMIDE 10 MG TABLET PO (08:13)
[2020-05-26] MEDS: FINASTERIDE 5 MG TABLET PO (08:13)
[2020-05-26] MEDS: TAMSULOSIN HCL 0.4 MG CAPSULE PO (08:13)
[2020-05-26] MEDS: FUROSEMIDE 40 MG TABLET PO (08:14)
[2020-05-26] MEDS: ACETAMINOPHEN 500 MG TABLET PO ×3 (08:14→17:38)
[2020-05-26] MEDS: METOPROLOL TARTRATE 6.25 MG TABLET PO (08:14)
[2020-05-26] MEDS: busPIRone HCL 5 MG TABLET PO ×2 (08:14→17:37)
--- NOTE | 2020-05-26 16:25 | PM.DS ---
DS: Admitting Diagnosis Admitting Diagnosis Admitting Diagnosis: Sepsis, unspecified organism DS: Discharge Diagnosis Discharge Diagnosis (1) Atrial fibrillation with rapid ventricular response: Code(s): I48.91 - Unspecified atrial fibrillation Status: Acute Assessment and Plan: Date of Service 05/26/20 Mr. Najera is a pleasant 79yo M with history of chronic a fib, COPD with chronic respiratory failure using 2L/min O2 at baseline, and BPH with chronic indwelling Landeros catheter who presented to the ED from assisted living for evaluation of generalized weakness. He described that he was having burning around his catheter site and was having to strain to get any urine into the bag. His catheter was changed here and those symptoms resolved. He was treated with IV ertapenem based on his last urine culture results. When urine culture grew ESBL E coli and also pseudomonas infectious disease was consulted. He was treated with IV imipenem, midline was placed, and he was discharged to SNF to continue IV imipenem q6 through 05/31/[address] Poole's recommendations. Mr. Najera's established systems protection technician is Dr Sheth in [place]. He remained in a fib through this admission. He has hypotension which caused some difficulty controlling his rate. His oral metoprolol was held due to blood pressures 80s/40s initially. Unfortunately his heart rates increased up to 130s once his metoprolol was held, cardiology was consulted for help managing a fib RVR. Pressures were more stable at that time and lower-dose metoprolol was added back in addition to oral lasix. He did have a bit of chest discomfort the morning he went into RVR and troponins were minimally elevated. Chest pain resolved and heart rates were stable in 90s day of discharge. He is not on systemic anticoagulation due to high fall risk. He will benefit from following up with Dr Sheth. TSH was 12. He was started on oral levothyroxine and will benefit from TSH monitoring in about 6 weeks. Chronic anemia noted - H&H remained low but stable with no evidence of acute bleeding. He was seen by Rhiannon Jj, BRANDY, urology, regarding his chronic indwelling Landeros catheter. She recommends leaving Landeros in and for him to follow up in July 2020 for voiding trial at her office, which is the 6 month no for his catheter. He was hemodynamically stable for discharge 05/26/20 to continue IV imipenem for multi-drug resistant UTI to be seen by PCP or NH provider in 1 week. He worked with PT/OT and was felt to be a good candidate for continued therapy at [facility]. COVID-19 testing for screening discharge 05/25/20 was negative. Patient with history of chronic a fib followed by Dr Sheth in [place]. Rates 90s to low 100s today. Seen by cardiology here; resumed metoprolol and oral lasix, improved now. RVR may have been precipitated by holding his beta blockade due to hypotension; other possible contributing factors could include UTI, TSH is elevated. (2) Catheter-associated urinary tract infection: Qualifiers: Indwelling urinary catheter type: indwelling urethral catheter Encounter type: initial encounter Qualified Code(s): T83.511A - Infection and inflammatory reaction due to indwelling urethral catheter, initial encounter; N39.0 - Urinary tract infection, site not specified Code(s): T83.511A - Infection and inflammatory reaction due to indwelling urethral catheter, initial encounter; N39.0 - Urinary tract infection, site not specified Status: Acute Assessment and Plan: Chronic Landeros. Urine culture grew ESBL E coli and pseudomonas. Appreciate Dr Poole's recommendations; switched to Imipenem 05/24/20. Appreciate urology recommendations - noted the plan to keep Landeros catheter to attempt voiding trial at 6 month no in July. Continue Flomax and Proscar. Plan to place midline today and discharge to continue IV imipene
[2020-05-26 17:28] LABS: SARS-CoV-2 RNA PCR Negative
== END 2020-05-26 19:00 | DRG 698 ==
LOC: ANHED 12:35 → ANHIMU 13:14 → ANH3MEDSUR 05-23 00:28 → ANHIMU 05-30 09:07 → ANH3MEDSUR 05-30 10:35 → ANHIMU 05-30 10:35
PROVIDERS: Family Medicine; Physician Assistant; Admitting Provider Internal Medicine; Emergency Provider General Practice; PCP Registered Nurse; Visit Provider Physician Assistant
DX: T83.511A Infection and inflammatory reaction due to indwelling urethral catheter, initial encounter (principal); A41.9 Sepsis, unspecified organism; R65.20 Severe sepsis without septic shock; I21.A1 Myocardial infarction type 2; N17.9 Acute kidney failure, unspecified; J96.11 Chronic respiratory failure with hypoxia; I50.42 Chronic combined systolic (congestive) and diastolic (congestive) heart failure; N39.0 Urinary tract infection, site not specified; J44.9 Chronic obstructive pulmonary disease, unspecified; I25.10 Atherosclerotic heart disease of native coronary artery without angina pectoris; E78.5 Hyperlipidemia, unspecified; K21.9 Gastro-esophageal reflux disease without esophagitis; F32.9 Major depressive disorder, single episode, unspecified; Z99.81 Dependence on supplemental oxygen; I11.0 Hypertensive heart disease with heart failure; B96.20 Unspecified Escherichia coli [E. coli] as the cause of diseases classified elsewhere; B96.5 Pseudomonas (aeruginosa) (mallei) (pseudomallei) as the cause of diseases classified elsewhere; Z11.59 Encounter for screening for other viral diseases
CPT/HCPCS: 36415; 36569; 70450; 71045; 74177; 80048; 80053; 81001; 82274; 82607; 82746; 83605; 83690; 83735; 83880; 84100; 84300; 84439; 84443; 84484; 85014; 85018; 85025; 85610; 85730; 86140; 87040; 87077; 87086; 87088; 87186; 87635; 93005; 94640; 96361; 96365; 97110; 97116; 97161; 97165; 97530; 99285; A9270; C1751; C9803; J0743; J1335; J7030; Q9967; U0003

== ENCOUNTER 2020-06-22 05:17 | Emergency (ER) | payer MEDICARE, SELFPAY ==
--- NOTE | ~2020-06-22 | CT_ITS ---
EXAMINATION: CT abdomen pelvis wo con EXAM DATE: 06/22/2020 06:46 INDICATION: Lower abdominal pain for 3 days. Diarrhea. TECHNIQUE: Spiral CT of the abdomen and pelvis was performed without contrast. Axial, coronal and s agittal images were reviewed. The dose-length product (DLP) for this examination was 706.14 mGy-cm. The exposure was tailored according to patient size (auto mA exposure control), and iterative recons truction (ASIR) was used as additional dose reduction technique. Comparison is made to prior examinat ion from 05/21/2020. FINDINGS: There is a right adrenal gland 1.2 cm adenoma. The liver, spleen, adrenal glands and pancr eas are otherwise unremarkable. Gallbladder is unremarkable. No biliary obstruction. There is no n ephrolithiasis or hydronephrosis. There is a 2 cm right renal cyst. The prostate is unremarkable. T he bladder is unremarkable. There is no retroperitoneal or pelvic lymphadenopathy. Biiliac stents. Small left inguinal fat-containing hernia. There is suspicion of ascending colonic wall thickening, for about 3 cm in length, suspicion of colon ic adenocarcinoma. There is mild to moderate sigmoid predominant in the colonic diverticulosis. Ther e is no adjacent inflammatory change to suggest diverticulitis. The appendix is not positively visual ized. There is no pericecal inflammatory change to suggest appendicitis. The stomach and small gian l are unremarkable. There is expected amount of colonic stool. No free intraperitoneal gas. The heart is normal in size. There are no pericardial or pleural effusions. Some right pleural thickeni ng posteromedially with calcifications. Left lower lobe granuloma. Moderate hyperinflation and emphys rhina. There are no osteoblastic or osteolytic lesions identified. Bilateral hip gamma nails. IMPRESSION: 1. Suspicion of of ascending colonic adenocarcinoma; recommend colonoscopy. 2. Mild to moderate sigmoid predominant diverticulosis. 3. Other chronic findings. Reviewed, dictated and finalized at location A.
[2020-06-22 05:19] VITALS: BP 109/53; PULSE 102; RESP 18; TEMP 36.4; O2SAT 95
--- NOTE | 2020-06-22 05:22 | ECG_ITS ---
Measurements Intervals [place] Rate: 101 P: [place]: 0 QRS: 85 QRSD: 110 T: 31 QT: 345 QTc: 449 Interpretive Statements ATRIAL FLUTTER/TACHYCARDIA WITH RAPID VENTRICULAR RESPONSE NONSPECIFIC ST & T-WAVE ABNORMALITY- INF/LAT LEADS ABNORMAL ECG Electronically Signed On 06-22-2020 7:00:37 CDT by Gurpreet Nicholas D.O.
--- NOTE | 2020-06-22 05:44 | ED.ABDPAIN ---
HPI - Abdominal Pain General Chief Complaint: Abdominal Pain <Nae Dugan MD - Last Filed: 06/23/20 04:35> Stated Complaint: abd pain <Nae Dugan MD - Last Filed: 06/23/20 04:35> Time Seen by Provider: 06/22/20 05:18 <Nae Dugan MD - Last Filed: 06/23/20 04:35> Source: patient <Nae Dugan MD - Last Filed: 06/23/20 04:35> Mode of arrival: ambulatory <Nae Dugan MD - Last Filed: 06/23/20 04:35> Limitations: no limitations <Nae Dugan MD - Last Filed: 06/23/20 04:35> History of Present Illness HPI narrative: This patient is an 79 year old male with multiple medical problems which includes COPD on 1 LNC , urinary retention with indwelling weeks catheter who presents for evaluation of lower abdominal pain. Patient states he developed lower abdominal pain yesterday. He describes this pain has pressure like he needs to have a bowel movement. He has already had 1 BM this morning and this may have improved his pain. He also reports penile pain since his weeks catheter was changed 2 days ago. . HE denies associated nausea, vomiting or fever. He is unaware of if his catheter is draining. <Nae Dugan MD - Last Filed: 06/23/20 04:35> Related Data Home Medications: Home Medications Medication Instructions Recorded Confirmed Perforomist 2 ml INHALATION BID 10/16/19 05/21/20 albuterol sulfate 2.5 mg INHALATION Q4H PRN 10/16/19 05/21/20 aspirin [Aspir-81] 81 mg PO DAILY 10/16/19 05/21/20 atorvastatin 40 mg PO HS 10/16/19 05/21/20 budesonide 0.5 mg INHALATION BID 10/16/19 05/21/20 cholecalciferol (vitamin D3) 5,000 unit PO DAILY 10/16/19 05/21/20 [Vitamin D3] citalopram 10 mg PO DAILY 10/16/19 05/21/20 ferrous sulfate 325 mg PO BID 10/16/19 05/21/20 melatonin 5 mg PO HS 10/16/19 05/21/20 nitroglycerin 0.4 mg SUBLINGUAL Q5-15M PRN 10/16/19 05/21/20 pantoprazole 40 mg PO HS 10/16/19 05/21/20 polyethylene glycol 3350 17 g PO DAILY PRN 10/16/19 05/21/20 ondansetron HCl 4 mg PO Q6H PRN 12/28/19 05/21/20 buspirone 5 mg PO BID 05/02/20 05/21/20 docusate sodium 100 mg PO BID PRN 05/02/20 05/21/20 finasteride 5 mg PO DAILY 05/02/20 05/21/20 guaifenesin 600 mg PO BID 05/02/20 05/21/20 potassium chloride 20 meq PO DAILY 05/02/20 05/21/20 tamsulosin 0.4 mg PO DAILY 05/02/20 05/21/20 <Nae Dugan MD - Last Filed: 06/23/20 04:35> Allergies/Adverse Reactions: Allergies Allergy/AdvReac Type Severity Reaction Status Date / Time No Known Allergies Allergy Mild Verified 06/22/20 05:27 <Nae Dugan MD - Last Filed: 06/23/20 04:35> Review of Systems Review of Systems: All systems reviewed & are unremarkable except as noted in HPI and below <Nae Dugan MD - Last Filed: 06/23/20 04:35> Constitutional: Constitutional: Denies chills and Denies fever(s) <Nae Dugan MD - Last Filed: 06/23/20 04:35> Cardiovascular: Cardiovascular: Denies chest pain <Nae Dugan MD - Last Filed: 06/23/20 04:35> Respiratory: Respiratory: Denies cough and Denies dyspnea <Nae Dugan MD - Last Filed: 06/23/20 04:35> Gastrointestinal: Gastrointestinal: Reports abdominal pain, Denies diarrhea, Denies nausea and Denies vomiting <Nae Dugan MD - Last Filed: 06/23/20 04:35> Genitourinary: Genitourinary: Reports dysuria <Nae Dugan MD - Last Filed: 06/23/20 04:35> PMFSH Social History Social History: Social History Social History: The patient stated that he is and he lives in paraprofessional education assistant living. He was recently in rehab at [facility] but after last hospitalization 2 weeks ago went back to assisted living with home health. The patient is a full code. He has 3 children. 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 He denies any alcohol marijuana or illicit drug use. His daughter Massiel is a durable power employee benefits attorney for
[2020-06-22 05:59] LABS: Basophils Absolute Auto 0.1 K/mm3 (0.0-0.1); Basophils Percent Auto 0.9 % (0.2-1.2); Eosinophils Absolute Auto 0.3 K/mm3 (0-0.3); Eosinophils Percent Auto 3.4 % (0-4.4); Hematocrit 31.6 % (42.0-52.0); Hemoglobin 9.6 g/dL (14.0-18.0); Immature Granulocyte Absolute 0.03 K/mm3 (0.00-0.031); Immature Granulocyte Percent A 0.4 % (0-0.5); Lymphocytes Absolute Auto 1.23 K/mm3 (0.9-3.2); Lymphocytes Percent Auto 15.1 % (18.3-44.2); Mean Corpuscular HGB Conc 30.4 g/dl (32-36); Mean Corpuscular Volume 92.1 fl (80-100); Mean Platelet Volume 12.1 fl (7.4-10.4); Monocytes Absolute Auto 0.9 K/mm3 (0.1-0.6); Monocytes Percent Auto 11.6 % (2.6-8.5); Neutrophils Absolute Auto 5.6 K/mm3 (1.3-6.7); Neutrophils Percent Auto 68.6 % (45.5-73.1); Platelet Count Result 223 k/mm3 (150-375); Red Blood Count 3.43 M/mm3 (4.6-6.20); Red Cell Distribution Width 14.2 % (11.5-14.5); White Blood Count 8.1 K/mm3 (4.5-10.0)
[2020-06-22 06:03] LABS: Alveolar/Arterial O2 Gradient 0.9 mmHg; Carboxyhemoglobin 0.1 % THb (0-2.0); Device ROOM AIR; Fractional Inspired Oxygen 21 %; HCO3 ABG 34.5 mEq/l (22.0-26.0); Methemoglobin ABG 0.3 %THb (0-1.5); Modified Allen's Test Pass; Oxygen Content ABG 13.4 %vol (16.0-22.0); Oxygen Saturation ABG 96.6 % (95.0-100.0); Oxyhemoglobin 95.2 % THb (90.0-100.0); PCO2 ABG 52.7 mmHg (35.0-45.0); PO2 ABG 85.7 mmHg (80.0-100.0); PO2 FiO2 Ratio Arterial Blood 4.08 %; Reduced Hemoglobin 4.4 %THb (0-5.0); Site Drawn RIGHT RADIAL; Total Hemoglobin 9.9 g/dL (12.0-18.0); pH ABG 7.434 (7.350-7.450)
[2020-06-22 06:10] LABS: Alanine Aminotransferase 12 U/L (4-50); Albumin Level 3.7 g/dL (3.5-5.1); Alkaline Phosphatase 89 U/L (38-126); Anion Gap 10.4 mmol/L (7-16); Aspartate Amino Transferase 25 U/L (17-59); Bilirubin,Total 0.8 mg/dL (0.2-1.3); Blood Urea Nitrogen 17 mg/dL (9-20); Calcium 8.7 mg/dL (8.4-10.2); Carbon Dioxide 37 mmol/L (22-30); Chloride 94 mmol/L (98-107); Estimated CRCL calculation 56 ml/min; Estimated Glomerular Filt Rate > 60; Glucose 100 mg/dL (75-110); Lipase 50 U/L (23-300); Potassium 4.4 mmol/L (3.4-5.0); Sodium 137 mmol/L (137-145)
[2020-06-22 06:11] LABS: Lactic Acid Reflex 0.5 mmol/L (0.7-2.1)
[2020-06-22 06:17] LABS: Add Urine Microscopic? YES; Appearance Urine Turbid (Clear); Bacteria Urine 2+ /hpf; Bilirubin Urine Negative (Negative); Blood Urine 3+ (Negative); Color Urine Yellow (Yellow); Glucose Urine UA Negative (Negative); Ketones Urine Negative (Negative); Leukocyte Esterase Ur 3+ LEU/UL (Negative); Mucus Urine Moderate /lpf; Nitrate Urine Positive (Negative); Protein Urine 2+ mg/dL (Negative); RBC Urine >75 /hpf (0-2); Specific Grav Ur 1.014 (1.001-1.035); Urobilinogen Urine Negative mg/dL (<2.0); WBC Clumps Urine Present /HPF; WBC Urine >75 /hpf
[2020-06-22 06:54] VITALS: BP 111/81; PULSE 85; RESP 17; O2SAT 97
--- NOTE | 2020-06-22 07:19 | PC.NURSE ---
This RN called pharmacy to inquire about medication. Pharmacy is sending medication.
[2020-06-22] MEDS: ERTAPENEM 1 GM/NS 50 ML 1 GM/50 ML BAG IVPB (07:25)
[2020-06-22 07:26] VITALS: BP 105/56; PULSE 92; RESP 20; O2SAT 100
--- NOTE | 2020-06-22 08:13 | PC.NURSE ---
Pt asked me to call his daughter Massiel, to give him a ride home. Called Massiel and she states she will be here in a little bit.
== END 2020-06-22 09:12 ==
PROVIDERS: Emergency Provider General Practice; PCP Registered Nurse
DX: R10.30 Lower abdominal pain, unspecified (principal); R93.3 Abnormal findings on diagnostic imaging of other parts of digestive tract; I48.20 Chronic atrial fibrillation, unspecified; Z79.82 Long term (current) use of aspirin; J44.9 Chronic obstructive pulmonary disease, unspecified; Z87.891 Personal history of nicotine dependence; R00.0 Tachycardia, unspecified; R94.31 Abnormal electrocardiogram [ECG] [EKG]
CPT/HCPCS: 36415; 36600; 74176; 80053; 81001; 82375; 82805; 83050; 83605; 83690; 85025; 87077; 87086; 87088; 87186; 93005; 96365; 99284; J1335

== ENCOUNTER 2020-07-19 11:42 | Inpatient (IN) | payer MEDICARE, SELFPAY ==
[2020-07-19] VITALS (11 sets, daily range): BP systolic 105–154; BP diastolic 46–76; PULSE 74–104; RESP 16–30; TEMP 35.7–37.9; O2SAT 95–99
--- NOTE | ~2020-07-19 | XR_ITS ---
EXAMINATION: XR chest 1V portable DATE: 07/19/2020 12:11 INDICATION: Shortness of breath. TECHNIQUE: A single frontal view of the chest was obtained. COMPARISON: Chest single view 05/25/2020, chest CT 10/16/2019, chest 2 views 02/16/2019 FINDINGS: There are chronic airspace opacities at right lung apex with volume loss, superior displace ment of the right hilum, and rightward displacement of the superior mediastinum, consistent with scar ring. There is mild scarring at right lung base. A calcified left lung nodule is consistent with old granulomatous disease. No pleural effusion or pneumothorax. The heart size is normal. Median sternoto my wires and mediastinal surgical clips are seen, likely from prior coronary artery bypass grafting. IMPRESSION: 1. Stable scarring in right lung, worst at right lung apex. Reviewed, dictated and finalized at location B.
--- NOTE | ~2020-07-19 | NM_ITS ---
EXAMINATION: NM raoul stress w perfusion DATE: 07/25/2020 10:23 INDICATION: Coronary atherosclerosis. TECHNIQUE: Rest images were obtained following intravenous administration of 10.5 mCi Tc99m tetrofosm in (Myoview). The patient was infused intravenously with Lexiscan (regadenoson). Then, 32.7 mCi Tc99m tetrofosmin (Myoview) was administered intravenously, and stress images were obtained. Data was dejuan nstructed into short axis and horizontal and vertical long axis SPECT images. Gated SPECT images were also obtained. COMPARISON: None. FINDINGS: There is a small, mild, fixed perfusion defect involving left ventricular apex, consistent with infarct. There is a moderate-sized, severe, partially reversible perfusion defect involving infe rior wall of left ventricle, consistent with mixed ischemia and infarct. There is no segmental wall motion abnormality. Left ventricular ejection fraction measures 44%. IMPRESSION: 1. Moderate-sized area of severe mixed ischemia and infarct involving left ventricular inferior wall. 2. Small area of mild infarct involving left ventricular apex. 3. Decreased left ventricular ejection fraction measuring 44%. Reviewed, dictated and finalized at location A. IMPRESSION: 1. Moderate-sized area of severe mixed ischemia and infarct involving left vent ricular inferior wall. 2. Small area of mild infarct involving left ventricular apex. 3. Decreased left ventricular ejection fraction measuring 44%.
--- NOTE | ~2020-07-19 | US_ITS ---
EXAMINATION: US carotid duplex BI DATE: 07/25/2020 09:56 INDICATION: Left carotid bruit. TECHNIQUE: Grayscale, color Doppler, and pulsed Doppler images of the cervical carotid arteries were obtained. The degree of vessel stenosis is placed in one of the following categories: normal, <50%, 5 0-69%, >=70% but less than near-occlusion, near-occlusion, or total occlusion. Note that percent sten osis relative to normal distal artery lumen diameter is indirectly measured from velocity measurement s as described by Zay, et al. Radiology 2003; 229:340-346. COMPARISON: None. FINDINGS: RIGHT: The right common carotid artery (CCA) peak systolic velocity (PSV) is 59 cm/s. The right internal car otid artery (ICA) PSV is 71 cm/s. The right ICA end-diastolic velocity (EDV) is 14 cm/s. The right IC A/CCA PSV ratio is 1.2. Grayscale and color Doppler images yield an estimate of <50% diameter reducti on from plaque in the ICA. There is antegrade flow in the right vertebral artery. LEFT: The left CCA PSV is 58 cm/s. The left ICA PSV is 104 cm/s. The left ICA EDV is 9 cm/s. The left ICA/C CA PSV ratio is 1.8. Grayscale and color Doppler images yield an estimate of <50% diameter reduction from plaque in the ICA. There is antegrade flow in the left vertebral artery. IMPRESSION: 1. <50% stenosis in the right internal carotid artery. 2. <50% stenosis in the left internal carotid artery. Reviewed, dictated and finalized at location A.
--- NOTE | ~2020-07-19 | XR_ITS ---
EXAMINATION: XR chest 2V DATE: 07/29/2020 09:45 INDICATION: Leukocytosis TECHNIQUE: AP and lateral views of the chest are obtained. COMPARISON: 07/19/2020 FINDINGS: There is unchanged opacity of the right lung apex with rightward deviation of the trachea a nd superior displacement of the right hilum, consistent with scarring. Also noted is stable scarring of the right lung base. There is no pleural effusion or pneumothorax. The heart size is normal. Media n sternotomy wires and mediastinal surgical clips are seen, likely from prior coronary artery bypass grafting. There is moderate thoracic spondylosis. IMPRESSION: 1. Chronic scarring of the right lung without acute cardiopulmonary abnormality. Reviewed, dictated and finalized at location A. IMPRESSION: 1. Chronic scarring of the right lung without acute cardiopulmonary abnormality .
--- NOTE | 2020-07-19 11:50 | ECG_ITS ---
Measurements Intervals [place] Rate: 101 P: 76 PA: 211 QRS: 77 QRSD: 93 T: 47 QT: 332 QTc: 431 Interpretive Statements ATRIAL FLUTTER/TACHYCARDIA WITH RAPID VENTRICULAR RESPONSE BORDERLINE ST-T WAVE ABNORMALITY- DIFFUSE LEADS BASELINE ARTIFACT- I, II, III, AVR, AVL, AVF, V4-V6 ABNORMAL ECG Electronically Signed On 07-19-2020 15:04:18 CDT by Gurpreet Nicholas D.O.
[2020-07-19 12:13] LABS: Basophils Percent Auto 0.3 % (0.2-1.2); Hematocrit 30.8 % (42.0-52.0); Hemoglobin 9.3 g/dL (14.0-18.0); Immature Granulocyte Absolute 0.05 K/mm3 (0.00-0.031); Immature Granulocyte Percent A 0.5 % (0-0.5); Lymphocytes Absolute Auto 0.28 K/mm3 (0.9-3.2); Lymphocytes Percent Auto 2.7 % (18.3-44.2); Mean Corpuscular HGB Conc 30.2 g/dl (32-36); Mean Corpuscular Hemoglobin 27.4 pg (26-34); Mean Corpuscular Volume 90.9 fl (80-100); Mean Platelet Volume 12.2 fl (7.4-10.4); Monocytes Absolute Auto 0.6 K/mm3 (0.1-0.6); Monocytes Percent Auto 6.2 % (2.6-8.5); Neutrophils Absolute Auto 9.2 K/mm3 (1.3-6.7); Neutrophils Percent Auto 90.3 % (45.5-73.1); Platelet Count Result 179 k/mm3 (150-375); Red Blood Count 3.39 M/mm3 (4.6-6.20); Red Cell Distribution Width 14.1 % (11.5-14.5); White Blood Count 10.2 K/mm3 (4.5-10.0)
--- NOTE | 2020-07-19 12:21 | ED.SOB ---
HPI - SOB/Dyspnea General Chief Complaint: Shortness of Breath/Dyspnea Stated Complaint: SOB Time Seen by Provider: 07/19/20 11:56 History of Present Illness HPI Narrative: Patient is A+O x2, poor historian, history taken from nursing staff at the facility. 79-year-old male presents emergency department for a change in vital signs per the nursing staff at his shelter. Staff notes that he had a temperature yesterday, and with tachycardic. Additionally, they note he was feeling worsening shortness of breath. Give him Tylenol for fever. They sent him into the emergency department for further evaluation. Patient reports feeling short of breath for months. No chest pain. No abdominal pain. No nausea or vomiting. He states he wears 2 L oxygen at the facility Related Data Home Medications Medication Instructions Recorded Confirmed Perforomist 2 ml INHALATION Q12H 10/16/19 07/19/20 albuterol sulfate 2.5 mg INHALATION Q4H PRN 10/16/19 07/19/20 aspirin [Aspir-81] 81 mg PO DAILY 10/16/19 07/19/20 atorvastatin 40 mg PO HS 10/16/19 07/19/20 budesonide 0.5 mg INHALATION Q12H 10/16/19 07/19/20 cholecalciferol (vitamin D3) 5,000 unit PO DAILY 10/16/19 07/19/20 [Vitamin D3] citalopram 10 mg PO DAILY 10/16/19 07/19/20 ferrous sulfate 325 mg PO BID 10/16/19 07/19/20 melatonin 5 mg PO HS 10/16/19 07/19/20 nitroglycerin 0.4 mg SUBLINGUAL Q5-15M PRN 10/16/19 07/19/20 pantoprazole 40 mg PO HS 10/16/19 07/19/20 polyethylene glycol 3350 17 g PO EVERY OTHER DAY 10/16/19 07/19/20 ondansetron HCl 4 mg PO Q6H PRN 12/28/19 07/19/20 buspirone 5 mg PO TID 05/02/20 07/19/20 docusate sodium 100 mg PO BID PRN 05/02/20 07/19/20 finasteride 5 mg PO DAILY 05/02/20 07/19/20 guaifenesin 600 mg PO Q12H 05/02/20 07/19/20 potassium chloride 20 meq PO DAILY 05/02/20 07/19/20 tamsulosin 0.4 mg PO HS 05/02/20 07/19/20 Lactobacillus acidophilus 100 mg PO BID 07/19/20 07/19/20 [Acidophilus] acetaminophen [Mapap 325 - 650 mg PO Q6H PRN 07/19/20 07/19/20 (acetaminophen)] doxycycline hyclate 100 mg PO Q12H 07/19/20 07/19/20 furosemide 40 mg PO Q12H 07/19/20 07/19/20 lidocaine 1 applic TOPICAL QID PRN 07/19/20 07/19/20 lorazepam [Ativan] 0.5 mg PO Q12H PRN 07/19/20 07/19/20 Allergies Allergy/AdvReac Type Severity Reaction Status Date / Time No Known Allergies Allergy Mild Verified 06/22/20 05:27 Review of Systems Review of Systems: Narrative: CONSTITUTIONAL: Denies fever, chills, or sweats. EYES: Denies visual changes, redness, or discharge. ENT: Denies rhinorrhea, congestion, sore throat, or otalgia. CARDIOVASCULAR: Denies chest pain, palpitations, or edema. RESPIRATORY: Reports shortness of breath. GASTROINTESTINAL: Denies abdominal pain, nausea, vomiting, or diarrhea. GENITOURINARY: Denies dysuria or hematuria. SKIN: Denies rash or itching. MUSCULOSKELETAL: Denies back pain, joint pain, or myalgia. NEUROLOGIC: Denies headache, numbness, dizziness, or weakness. PSYCHIATRIC: Denies anxiety or depression. All systems reviewed & are unremarkable except as noted in HPI and below (ROS) [facility] Past Medical History Medical History Anemia Atrial fibrillation BPH (benign prostatic hyperplasia) CAD (coronary artery disease) COPD (chronic obstructive pulmonary disease) Depression Diverticulitis Emphysema, unspecified GERD (gastroesophageal reflux disease) History of angina HTN (hypertension) Hyperlipidemia Lung cancer Radiation treatment Myocardial infarction Peripheral vascular disease Thrombocytopenia Vocal cord cancer Radiation treatment Surgical History Surgical History History of angioplasty With 5 stents History of cardiac catheterization History of total left hip arthroplasty bilateral hip gamma nails noted on his CT scan. Hx of appendectomy Hx of CABG 1 vessel on 2 separate occasions S/P insertion of iliac artery stent Stented c
[2020-07-19 12:29] LABS: Anion Gap 7 mmol/L (8-16); Blood Urea Nitrogen 27 mg/dL (9-20); Calcium 8.4 mg/dL (8.4-10.2); Carbon Dioxide 35 mmol/L (22-30); Chloride 95 mmol/L (98-107); Estimated Glomerular Filt Rate 53; Glucose 120 mg/dL (75-110); Lactic Acid Reflex 1.3 mmol/L (0.7-2.1); Potassium 4.2 mmol/L (3.4-5.0); Sodium 137 mmol/L (137-145)
[2020-07-19] MEDS: ALBUTEROL SULFATE (*SP) AEROSOL 1 PUFF 6 PUFF INHALATION (12:44)
[2020-07-19] MEDS: ALBUTEROL SULFATE (*SP) INHALER 1 PUFF (12:44)
[2020-07-19] MEDS: ACETAMINOPHEN 325 MG TABLET 650 MG PO (12:46)
[2020-07-19] MEDS: methylPREDNISolone SOD SUCC 40 MG VIAL 80 MG IV PUSH (12:46)
[2020-07-19] MEDS: LACTATED RINGERS 1,000 ML 999 ML IV CONT (12:46)
[2020-07-19 12:57] LABS: Alanine Aminotransferase 9 U/L (4-50); Albumin Level 4.3 g/dL (3.5-5.1); Alkaline Phosphatase 44 U/L (38-126); Aspartate Amino Transferase 7 U/L (17-59); Bilirubin,Total 1.4 mg/dL (0.2-1.3)
[2020-07-19 13:17] LABS: NT Pro B Type Natriuretic Pept 3930 PG/ML (5-100); Troponin I 0.107 ng/mL (0.000-0.034)
[2020-07-19 13:18] LABS: Lactate Dehydrogenase < 100 U/L (313-618)
[2020-07-19 14:21] LABS: Add Urine Microscopic? YES; Appearance Urine Cloudy (Clear); Bacteria Urine Trace /hpf; Bilirubin Urine Negative (Negative); Blood Urine 2+ (Negative); Color Urine Yellow (Yellow); Glucose Urine UA Negative (Negative); Ketones Urine Negative (Negative); Leukocyte Esterase Ur 3+ LEU/UL (Negative); Mucus Urine Rare /lpf; Nitrate Urine Negative (Negative); Protein Urine 2+ mg/dL (Negative); Specific Grav Ur 1.016 (1.001-1.035); Squamous Epithelial Cell Urine Rare /hpf (Few); WBC Clumps Urine Present /HPF; WBC Urine >75 /hpf
[2020-07-19 14:38] LABS: CRP 13.8 mg/dL (<1.0)
[2020-07-19] MEDS: SODIUM CHLORIDE 0.9% IV 1,000 ML 999 ML IV CONT (15:27)
--- NOTE | 2020-07-19 18:09 | PC.NURSE ---
This patient, Eusebio Najera, was admitted to Intensive Care Unit-4. Patient/family oriented to hospital policies and general routines including ID bracelet, bed and alarms, visiting hours, pain management, procedures, bathroom and other care routines, personal items, smoking policy, room service/diet, and visiting hours. Valuables list has been completed. Information on how to activate the Rapid Response Team has been discussed. Patient/Family are encouraged to report perceived risks to care and to ask questions if they do not understand what they are told or what they should do.
[2020-07-19] MEDS: SODIUM CHLORIDE 0.9% IV 1,000 ML 75 ML IV CONT (18:52)
--- NOTE | 2020-07-19 20:40 | PM.IMHP ---
H&P: HPI History of Present Illness Date/Time: 07/19/20 20:40 Chief complaint: UTI with sepsis Narrative: Eusebio Najera is a 79 year old male Who has a history of COPD and is chronically on oxygen at 2 L per nasal cannula. EMS was dispatched to a nursing facility with the patient was complaining of shortness of breath and temperature. The patient was complaining of shortness of breath. He had an episode of emesis this morning. The patient uses nebulizers as well as inhalers. Patient stated that he was short of breath for several weeks but just been getting progressively worse. Patient has a history of having urinary tract infections with a chronic indwelling Landeros catheter. He has had ESBL as well as Pseudomonas aeruginosa in his urine. Patient recently was check for COVID was found to be negative. Patient was satting 98-100% on 3 L. according to the EMS record the patient came from a intermediate facility. The patient was [facility] me [facility]. Patient had a temperature of 100.2? upon arrival to the emergency room. Patient was fall for covid 19. The patient was noted to have a large dark stool however he is on iron. The patient has a chronic indwelling Landeros catheters found to have a UTI. The patient was started on cefepime per ED provider. Patient was given Tylenol for the fever. Patient's chest x-ray was read as stable scarring in the right lung worse at the right lung apex per radiology. His urine was positive for UTI. His white count was noted to be 10.2. His H&H is 9.3 and 30.8. His troponin was noted to be 0.107. But his troponins are chronically elevated. BNP 3930. He does have a history of congestive heart failure. He is not complaining of any chest pain at this time. His COVID testing is pending. He was placed in isolation and ICU. Date of service 07/19/2020 Review of Systems Review of Systems: All systems reviewed & are unremarkable except as noted in HPI and below Constitutional: Constitutional: Reports as per HPI and Reports no additional constitutional complaints Eyes: Eyes: Reports as per HPI and Reports no additional eye complaints ENT: Reports system reviewed and no additional complaints, except as documented and Reports Normal hearing present Cardiovascular: Cardiovascular: Reports no additional cardiovascular complaints Respiratory: Respiratory: Reports no additional respiratory complaints and Reports no additional respiratory complaints Gastrointestinal: Gastrointestinal: Reports as per HPI and Reports no additional gastrointestinal complaints Musculoskeletal: Musculoskeletal: Reports no additional musculoskeletal complaints Integumentary/Breasts: Skin/Breast: Reports system reviewed and no additional complaints, except as docu and Reports as per HPI Neurologic: Reports system reviewed and no additional complaints, except as documented, Reports as per HPI and Reports Normal hearing present Psychiatric: Psychiatric: Reports no additional psychiatric complaints and Reports as per HPI Endocrine: Endocrine: Reports no additional endocrine complaints Hematologic/Lymphatic: Hematologic/Lymphatic: Reports no additional hematologic/lymphatic complaints Allergic/Immunologic: Allergic/Immunologic: Reports no additional allergic/immunologic complaints [facility] Past Medical History Medical History (Updated 07/19/20 @ 21:11 by Janice Weldon NP) Anemia Atrial fibrillation BPH (benign prostatic hyperplasia) CAD (coronary artery disease) COPD (chronic obstructive pulmonary disease) Depression Diverticulitis Emphysema, unspecified GERD (gastroesophageal reflux disease) History of angina HTN (hypertension) Hyperlipidemia Lung cancer Radiation treatment Myocardial infarction Peripheral vascular disease Thrombocytopenia Vocal cord cancer Radiation treatment Surgical History Surgical History (Updated 07/19/20 @ 21:16 by Janice Weldon NP) History of angioplasty
[2020-07-19] MEDS: MIRTAZAPINE 7.5 MG TABLET PO (21:10)
[2020-07-19] MEDS: TAMSULOSIN HCL 0.4 MG CAPSULE PO (21:11)
[2020-07-19] MEDS: guaiFENesin 12 HR 600 MG TABCR PO (21:11)
[2020-07-19] MEDS: PANTOPRAZOLE 40 MG TABLET PO (21:11)
[2020-07-19] MEDS: MELATONIN 5 MG TABLET PO (21:13)
[2020-07-19] MEDS: ALBUTEROL SULFATE (*SP) AEROSOL 1 PUFF 2 PUFF INHALATION (21:30)
[2020-07-19] MEDS: BUDESONIDE RESPULE NEB 0.5 MG/2 ML AMP INHALATION (21:30)
[2020-07-19 22:02] LABS: Troponin I 0.115 ng/mL (0.000-0.034)
[2020-07-19] MEDS: FUROSEMIDE 40 MG TABLET PO (23:37)
[2020-07-19] MEDS: methylPREDNISolone SOD SUCC 125 MG VIAL 60 MG IV PUSH (23:37)
[2020-07-20] VITALS (18 sets, daily range): BP systolic 104–121; BP diastolic 41–60; PULSE 55–100; RESP 16–24; TEMP 36.6–36.7; O2SAT 90–98
[2020-07-20 00:41] LABS: SARS-CoV-2 RNA PCR Negative
[2020-07-20 05:12] LABS: Basophils Percent Auto 0.1 % (0.2-1.2); Hematocrit 26.2 % (42.0-52.0); Immature Granulocyte Absolute 0.12 K/mm3 (0.00-0.031); Immature Granulocyte Percent A 1.5 % (0-0.5); Lymphocytes Absolute Auto 0.24 K/mm3 (0.9-3.2); Mean Corpuscular HGB Conc 30.5 g/dl (32-36); Mean Corpuscular Hemoglobin 27.8 pg (26-34); Mean Platelet Volume 11.9 fl (7.4-10.4); Monocytes Absolute Auto 0.3 K/mm3 (0.1-0.6); Monocytes Percent Auto 3.3 % (2.6-8.5); Neutrophils Absolute Auto 7.4 K/mm3 (1.3-6.7); Neutrophils Percent Auto 92.1 % (45.5-73.1); Platelet Count Result 144 k/mm3 (150-375); Red Blood Count 2.88 M/mm3 (4.6-6.20); Red Cell Distribution Width 13.6 % (11.5-14.5)
[2020-07-20] MEDS: methylPREDNISolone SOD SUCC 125 MG VIAL 60 MG IV PUSH ×4 (05:24→23:34)
[2020-07-20] MEDS: SODIUM CHLORIDE 0.9% IV 1,000 ML 75 ML IV CONT (05:24)
[2020-07-20 05:25] LABS: Alanine Aminotransferase 12 U/L (4-50); Alkaline Phosphatase 79 U/L (38-126); Anion Gap 5 mmol/L (8-16); Aspartate Amino Transferase 24 U/L (17-59); Bilirubin,Total 0.7 mg/dL (0.2-1.3); Blood Urea Nitrogen 24 mg/dL (9-20); Calcium 8.2 mg/dL (8.4-10.2); Carbon Dioxide 32 mmol/L (22-30); Chloride 97 mmol/L (98-107); Estimated CRCL calculation 53 ml/min; Estimated Glomerular Filt Rate > 60; Glucose 141 mg/dL (75-110); Magnesium 2.1 mg/dL (1.6-2.3); Sodium 134 mmol/L (137-145)
[2020-07-20] MEDS: LEVOTHYROXINE SODIUM 50 MCG TABLET PO (05:30)
--- NOTE | 2020-07-20 07:05 | PC.NURSE ---
This patient, Eusebio Najera, was transferred to [[facility] ] on 07/20/20 at 0705. Personal belongings sent with patient. Belongings list checked and signed with receiving [ RN]. Report given to [Poli ]. Appropriate documentation sent with patient.
[2020-07-20] MEDS: guaiFENesin 12 HR 600 MG TABCR PO ×2 (07:48→20:53)
[2020-07-20] MEDS: ASPIRIN 81 MG ENTERIC TABLET PO (07:48)
[2020-07-20] MEDS: CHOLECALCIFEROL 1,000 UNITS TABLET 5000 UNITS PO (07:48)
[2020-07-20] MEDS: POTASSIUM CHLORIDE 20 MEQ TABLET.ER PO (07:49)
[2020-07-20] MEDS: FUROSEMIDE 40 MG TABLET PO ×2 (07:49→20:53)
[2020-07-20] MEDS: METOPROLOL SUCCINATE EXT REL 12.5 MG TABCR PO (07:49)
[2020-07-20] MEDS: ACIDOPHILUS/BULGARICUS CHEWABLE TABLET 1 TABLET PO ×2 (07:49→16:06)
[2020-07-20] MEDS: CITALOPRAM HYDROBROMIDE 10 MG TABLET PO (07:49)
[2020-07-20] MEDS: FINASTERIDE 5 MG TABLET PO (07:49)
[2020-07-20] MEDS: busPIRone HCL 5 MG TABLET PO ×3 (07:49→16:06)
[2020-07-20] MEDS: ALBUTEROL SULFATE (*SP) AEROSOL 1 PUFF 2 PUFF INHALATION ×2 (09:32→12:16)
[2020-07-20] MEDS: BUDESONIDE/FORMOTEROL (*SP) 160-4.5 MCG 6 GM INH 2 PUFF INHALATION (09:32)
[2020-07-20] MEDS: LORazepam 0.5 MG TABLET PO (13:41)
--- NOTE | 2020-07-20 15:07 | PM.IMPN ---
Progress Note: A&P Assessment and Plan (1) UTI (urinary tract infection) due to urinary indwelling Landeros catheter: Code(s): T83.511A - Infection and inflammatory reaction due to indwelling urethral catheter, initial encounter; N39.0 - Urinary tract infection, site not specified Status: Acute Assessment and Plan: patient has and positive for ESBL and Pseudomonas in the past. I started him on Primaxin awaiting full sensitivities (2) Chronic atrial fibrillation: Code(s): I48.20 - Chronic atrial fibrillation, unspecified Status: Acute Assessment and Plan: Restart metoprolol. (3) Sepsis: Qualifiers: Sepsis type: sepsis due to unspecified organism Sepsis acute organ dysfunction status: unspecified Qualified Code(s): A41.9 - Sepsis, unspecified organism Code(s): A41.9 - Sepsis, unspecified organism Status: Acute Assessment and Plan: Most likely due to use UTI. Patient does have a chronic indwelling Landeros catheter. He was found to have UTI as well the patient's last urine cultures last month showed ESBL and the previous urine cultures were also ESBL plus Pseudomonas aeruginosa. (4) CHF (congestive heart failure): Qualifiers: Heart failure chronicity: unspecified Heart failure type: unspecified Qualified Code(s): I50.9 - Heart failure, unspecified Code(s): I50.9 - Heart failure, unspecified Status: Chronic Assessment and Plan: continue metoprolol and Lasix. (5) Elevated troponin: Code(s): R79.89 - Other specified abnormal findings of blood chemistry Status: Acute Assessment and Plan: Patient has chronically elevated troponins (6) BPH (benign prostatic hyperplasia): Code(s): N40.0 - Benign prostatic hyperplasia without lower urinary tract symptoms Status: Chronic Assessment and Plan: His a chronic indwelling Landeros catheter. He is on Proscar and Flomax. (7) Chronic respiratory failure with hypoxia: Code(s): J96.11 - Chronic respiratory failure with hypoxia Status: Chronic Assessment and Plan: He is chronically on 2 L per nasal cannula. (8) COPD (chronic obstructive pulmonary disease): Qualifiers: COPD type: COPD with acute exacerbation Qualified Code(s): J44.1 - Chronic obstructive pulmonary disease with (acute) exacerbation Code(s): J44.9 - Chronic obstructive pulmonary disease, unspecified Status: Chronic Assessment and Plan: I continued with his neb treatments and is inhalers. I started him on Solu-Medrol. (9) HTN (hypertension): Qualifiers: Hypertension type: essential hypertension Qualified Code(s): I10 - Essential (primary) hypertension Code(s): I10 - Essential (primary) hypertension Status: Chronic Assessment and Plan: I continued with his metoprolol. (10) Anemia: Code(s): D64.9 - Anemia, unspecified Status: Chronic Assessment and Plan: it looks like the patient is on ferrous sulfate Will continue to monitor. Subjective Date/time seen: 07/20/20 15:07 Interval history: Reinaldo is a 79 year old male Who has a history of COPD and cHF and is chronically on oxygen at 2 L per nasal cannula. EMS was dispatched to a nursing facility with the patient was complaining of shortness of breath and temperature. Pts covid is negative. Pt is now on medical floor. Pt admitted with UTI, COPD exacerbation and sepsis. Review of Systems Constitutional: Constitutional: Reports fatigue and Reports weakness Respiratory: Respiratory: Reports cough, Reports dyspnea and Reports wheezing Exam Const: General: cooperative, healthy appearing, comfortable, no acute distress, well developed, alert, awake and Physically active Nutritional Appearance: average body habitus and well nourished Orientation/consciousness: oriented to person and oriented to place Limitations: no limita
[2020-07-20] MEDS: ALBUTEROL SULFATE NEB 2.5 MG/3 ML INH INHALATION (15:16)
[2020-07-20] MEDS: PANTOPRAZOLE 40 MG TABLET PO (20:53)
[2020-07-20] MEDS: TAMSULOSIN HCL 0.4 MG CAPSULE PO (20:53)
[2020-07-20] MEDS: MIRTAZAPINE 7.5 MG TABLET PO (20:53)
[2020-07-20] MEDS: MELATONIN 5 MG TABLET PO (20:53)
[2020-07-21] VITALS (14 sets, daily range): BP systolic 103–134; BP diastolic 43–70; PULSE 54–88; RESP 20; TEMP 36.3–36.7; O2SAT 98–100
[2020-07-21 05:18] LABS: Hematocrit 24.7 % (42.0-52.0); Hemoglobin 7.7 g/dL (14.0-18.0); Mean Corpuscular HGB Conc 31.2 g/dl (32-36); Mean Corpuscular Volume 89.8 fl (80-100); Mean Platelet Volume 12.7 fl (7.4-10.4); Platelet Count Result 154 k/mm3 (150-375); Red Blood Count 2.75 M/mm3 (4.6-6.20); Red Cell Distribution Width 13.5 % (11.5-14.5)
[2020-07-21 05:31] LABS: Anion Gap 6 mmol/L (8-16); Blood Urea Nitrogen 26 mg/dL (9-20); Calcium 8.1 mg/dL (8.4-10.2); Carbon Dioxide 31 mmol/L (22-30); Chloride 99 mmol/L (98-107); Estimated CRCL calculation 51 ml/min; Estimated Glomerular Filt Rate > 60; Glucose 144 mg/dL (75-110); Potassium 3.7 mmol/L (3.4-5.0); Sodium 136 mmol/L (137-145)
[2020-07-21] MEDS: LEVOTHYROXINE SODIUM 50 MCG TABLET PO (05:59)
[2020-07-21] MEDS: methylPREDNISolone SOD SUCC 125 MG VIAL 60 MG IV PUSH ×4 (05:59→23:35)
[2020-07-21] MEDS: METOPROLOL SUCCINATE EXT REL 12.5 MG TABCR PO (08:30)
[2020-07-21] MEDS: ASPIRIN 81 MG ENTERIC TABLET PO (08:30)
[2020-07-21] MEDS: CHOLECALCIFEROL 1,000 UNITS TABLET 5000 UNITS PO (08:30)
[2020-07-21] MEDS: FUROSEMIDE 40 MG TABLET PO ×2 (08:30→20:36)
[2020-07-21] MEDS: ACIDOPHILUS/BULGARICUS CHEWABLE TABLET 1 TABLET PO ×2 (08:30→17:11)
[2020-07-21] MEDS: CITALOPRAM HYDROBROMIDE 10 MG TABLET PO (08:31)
[2020-07-21] MEDS: FINASTERIDE 5 MG TABLET PO (08:31)
[2020-07-21] MEDS: guaiFENesin 12 HR 600 MG TABCR PO ×2 (08:31→20:36)
[2020-07-21] MEDS: busPIRone HCL 5 MG TABLET PO ×3 (08:31→17:10)
[2020-07-21] MEDS: POTASSIUM CHLORIDE 20 MEQ TABLET.ER PO (08:31)
[2020-07-21] MEDS: ALBUTEROL SULFATE (*SP) AEROSOL 1 PUFF 2 PUFF INHALATION ×4 (08:31→19:58)
[2020-07-21] MEDS: BUDESONIDE/FORMOTEROL (*SP) 160-4.5 MCG 6 GM INH 2 PUFF INHALATION ×2 (08:31→19:57)
--- NOTE | 2020-07-21 18:09 | PM.IMPN ---
Progress Note: A&P Assessment and Plan (1) UTI (urinary tract infection) due to urinary indwelling Landeros catheter: Code(s): T83.511A - Infection and inflammatory reaction due to indwelling urethral catheter, initial encounter; N39.0 - Urinary tract infection, site not specified Status: Acute Assessment and Plan: patient has and positive for ESBL and Pseudomonas in the past. I started him on Primaxin awaiting full sensitivities 07/21/20 18:09 Interval history: Reinaldo is a 79 year old male Who has a history of COPD and cHF and is chronically on oxygen at 2 L per nasal cannula. EMS was dispatched to a nursing facility with the patient was complaining of shortness of breath and temperature. Pts covid is negative. Pt is now on medical floor. Pt admitted with UTI, COPD exacerbation and sepsis. patient with history UTI with E coli ESBL and Pseudomonas sensitive to imipenem this time patient urine is growing E coli sensitivities pending will continue imipenem, is clinically stable, is feeling much better denies any abdominal pain nausea or vomiting fever or chills, will follow-up on sensitivity and further recommendation to follow (2) Chronic atrial fibrillation: Code(s): I48.20 - Chronic atrial fibrillation, unspecified Status: Acute Assessment and Plan: Restart metoprolol. (3) Sepsis: Qualifiers: Sepsis type: sepsis due to unspecified organism Sepsis acute organ dysfunction status: unspecified Qualified Code(s): A41.9 - Sepsis, unspecified organism Code(s): A41.9 - Sepsis, unspecified organism Status: Acute Assessment and Plan: Most likely due to use UTI. Patient does have a chronic indwelling Landeros catheter. He was found to have UTI as well the patient's last urine cultures last month showed ESBL and the previous urine cultures were also ESBL plus Pseudomonas aeruginosa. (4) CHF (congestive heart failure): Qualifiers: Heart failure chronicity: unspecified Heart failure type: unspecified Qualified Code(s): I50.9 - Heart failure, unspecified Code(s): I50.9 - Heart failure, unspecified Status: Chronic Assessment and Plan: continue metoprolol and Lasix. (5) Elevated troponin: Code(s): R79.89 - Other specified abnormal findings of blood chemistry Status: Acute Assessment and Plan: Patient has chronically elevated troponins (6) BPH (benign prostatic hyperplasia): Code(s): N40.0 - Benign prostatic hyperplasia without lower urinary tract symptoms Status: Chronic Assessment and Plan: His a chronic indwelling Lnaderos catheter. He is on Proscar and Flomax. (7) Chronic respiratory failure with hypoxia: Code(s): J96.11 - Chronic respiratory failure with hypoxia Status: Chronic Assessment and Plan: He is chronically on 2 L per nasal cannula. (8) COPD (chronic obstructive pulmonary disease): Qualifiers: COPD type: COPD with acute exacerbation Qualified Code(s): J44.1 - Chronic obstructive pulmonary disease with (acute) exacerbation Code(s): J44.9 - Chronic obstructive pulmonary disease, unspecified Status: Chronic Assessment and Plan: I continued with his neb treatments and is inhalers. I started him on Solu-Medrol. (9) HTN (hypertension): Qualifiers: Hypertension type: essential hypertension Qualified Code(s): I10 - Essential (primary) hypertension Code(s): I10 - Essential (primary) hypertension Status: Chronic Assessment and Plan: I continued with his metoprolol. (10) Anemia: Code(s): D64.9 - Anemia, unspecified Status: Chronic Assessment and Plan: it looks like the patient is on ferrous sulfate Will continue to monitor. Subjective Date/time seen: 07/21/20 18:09 Interval history: Reinaldo is a 79 year old male Who has a history of COPD and cHF and is chronically on oxygen
[2020-07-21] MEDS: TAMSULOSIN HCL 0.4 MG CAPSULE PO (20:36)
[2020-07-21] MEDS: MIRTAZAPINE 7.5 MG TABLET PO (20:36)
[2020-07-21] MEDS: PANTOPRAZOLE 40 MG TABLET PO (20:36)
[2020-07-21] MEDS: MELATONIN 5 MG TABLET PO (20:36)
[2020-07-21 22:23] LABS: IFOB Positive Control Positive; Immunochemical Fecal Occult Bl Positive (N)
[2020-07-22] VITALS (19 sets, daily range): BP systolic 105–141; BP diastolic 48–65; PULSE 63–82; RESP 16–24; TEMP 36.2–36.8; O2SAT 96–100
[2020-07-22 04:46] LABS: Hematocrit 25.6 % (42.0-52.0); Hemoglobin 7.9 g/dL (14.0-18.0); Mean Corpuscular HGB Conc 30.9 g/dl (32-36); Mean Corpuscular Hemoglobin 27.7 pg (26-34); Mean Corpuscular Volume 89.8 fl (80-100); Mean Platelet Volume 11.9 fl (7.4-10.4); Platelet Count Result 173 k/mm3 (150-375); Red Blood Count 2.85 M/mm3 (4.6-6.20); Red Cell Distribution Width 13.2 % (11.5-14.5); White Blood Count 5.6 K/mm3 (4.5-10.0)
[2020-07-22 05:03] LABS: Anion Gap 4 mmol/L (8-16); Blood Urea Nitrogen 29 mg/dL (9-20); Calcium 8.4 mg/dL (8.4-10.2); Carbon Dioxide 36 mmol/L (22-30); Chloride 97 mmol/L (98-107); Estimated CRCL calculation 51 ml/min; Estimated Glomerular Filt Rate > 60; Glucose 160 mg/dL (75-110); Potassium 3.6 mmol/L (3.4-5.0); Sodium 137 mmol/L (137-145)
[2020-07-22] MEDS: LEVOTHYROXINE SODIUM 50 MCG TABLET PO (06:18)
[2020-07-22] MEDS: methylPREDNISolone SOD SUCC 125 MG VIAL 60 MG IV PUSH ×4 (06:19→23:37)
[2020-07-22] MEDS: BUDESONIDE/FORMOTEROL (*SP) 160-4.5 MCG 6 GM INH 2 PUFF INHALATION (08:01)
[2020-07-22] MEDS: ALBUTEROL SULFATE (*SP) AEROSOL 1 PUFF 2 PUFF INHALATION ×3 (08:01→15:54)
--- NOTE | 2020-07-22 08:47 | WPDGICN ---
Assessment and Plan Assessment and plan (1) Anemia: Code(s): D64.9 - Anemia, unspecified Status: Chronic Assessment and Plan: Patient has chronic anemia. Now with occult blood in stool. Would consider GI endoscopy to evaluate more thoroughly. But we should wait till is CHF and COPD or felt to be stable. This can be deferred in performed electively. Either later this admission or electively as an outpatient. We will follow with you during this hospital stay. Consider GI endoscopy in several days. (2) Occult blood in stools: Code(s): R19.5 - Other fecal abnormalities Status: Acute (3) UTI (urinary tract infection) due to urinary indwelling Landeros catheter: Code(s): T83.511A - Infection and inflammatory reaction due to indwelling urethral catheter, initial encounter; N39.0 - Urinary tract infection, site not specified Status: Acute (4) Atrial fibrillation with rapid ventricular response: Code(s): I48.91 - Unspecified atrial fibrillation Status: Acute (5) COPD (chronic obstructive pulmonary disease): Qualifiers: COPD type: COPD with acute exacerbation Qualified Code(s): J44.1 - Chronic obstructive pulmonary disease with (acute) exacerbation Code(s): J44.9 - Chronic obstructive pulmonary disease, unspecified Status: Chronic (6) Systolic CHF, acute: Code(s): I50.21 - Acute systolic (congestive) heart failure Status: Acute GI Consult Note Consult date/time: 07/22/20 08:47 HPI: Eusebio Najera is a 79 year old male Seen in evaluation at the request of the hospitalist service. Patient was found to have Hemoccult-positive stools. Review of old records reveal a chronic anemia. Patient was admitted the hospital because of exacerbation of congestive heart failure. He also has an underlying history of COPD. And at the time of admission had an active urinary tract infection. Patient denies any obvious signs of GI blood loss. His current weight appetite bowel movements are normal. States he is feeling somewhat less short of breath after admission with supplemental oxygen. Diuresis. No obvious active bleeding as described. He denies abdominal pain. Review of Systems Review of Systems: All systems reviewed & are unremarkable except as noted in HPI and below PMFSH Past Medical History Medical History Anemia Atrial fibrillation BPH (benign prostatic hyperplasia) CAD (coronary artery disease) COPD (chronic obstructive pulmonary disease) Depression Diverticulitis Emphysema, unspecified GERD (gastroesophageal reflux disease) History of angina HTN (hypertension) Hyperlipidemia Lung cancer Radiation treatment Myocardial infarction Peripheral vascular disease Thrombocytopenia Vocal cord cancer Radiation treatment Surgical History Surgical History History of angioplasty With 5 stents History of cardiac catheterization History of total left hip arthroplasty bilateral hip gamma nails noted on his CT scan. Hx of appendectomy Hx of CABG 1 vessel on 2 separate occasions S/P insertion of iliac artery stent Stented coronary artery 5 stents Family History Family History Father Malignant neoplasm of prostate Mother Alzheimer disease Sibling Cancer, bladder, neck Social History Social History Social History: The patient stated that he is and he lives in professional nursing assistant living. He was recently in rehab at [facility] and has gone back to assisted living with home health. The patient is a full code. He has 3 children. 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 He denies any alcohol marijuana or illicit drug use. His daughter Massiel is a durable power boat operator for healthcare. Smoking p
[2020-07-22] MEDS: CHOLECALCIFEROL 1,000 UNITS TABLET 5000 UNITS PO (08:53)
[2020-07-22] MEDS: busPIRone HCL 5 MG TABLET PO ×3 (08:53→17:11)
[2020-07-22] MEDS: POTASSIUM CHLORIDE 20 MEQ TABLET.ER PO (08:53)
[2020-07-22] MEDS: guaiFENesin 12 HR 600 MG TABCR PO ×2 (08:53→21:24)
[2020-07-22] MEDS: ACIDOPHILUS/BULGARICUS CHEWABLE TABLET 1 TABLET PO ×2 (08:53→17:11)
[2020-07-22] MEDS: METOPROLOL SUCCINATE EXT REL 12.5 MG TABCR PO (08:53)
[2020-07-22] MEDS: FUROSEMIDE 40 MG TABLET PO ×2 (08:54→21:24)
[2020-07-22] MEDS: CITALOPRAM HYDROBROMIDE 10 MG TABLET PO (08:54)
[2020-07-22] MEDS: FINASTERIDE 5 MG TABLET PO (08:55)
[2020-07-22] MEDS: POTASSIUM CHLORIDE 20 MEQ TABLET 40 MEQ PO (10:37)
--- NOTE | 2020-07-22 16:54 | PM.IMPN ---
Progress Note: A&P Assessment and Plan (1) UTI (urinary tract infection) due to urinary indwelling Landeros catheter: Code(s): T83.511A - Infection and inflammatory reaction due to indwelling urethral catheter, initial encounter; N39.0 - Urinary tract infection, site not specified Status: Acute Assessment and Plan: patient has and positive for ESBL and Pseudomonas in the past. I started him on Primaxin awaiting full sensitivities 07/22/20 16:54 Interval history: Reinaldo is a 79 year old male Who has a history of COPD and cHF and is chronically on oxygen at 2 L per nasal cannula. EMS was dispatched to a nursing facility with the patient was complaining of shortness of breath and temperature. Pts covid is negative. Pt is now on medical floor. Pt admitted with UTI, COPD exacerbation and sepsis. patient with history UTI with E coli ESBL and Pseudomonas sensitive to imipenem this time patient is a similar presented with a E coli ESBL and Pseudomonas and sensitive to imipenem will continue, is clinically stable will give 4/7 days of IV antibiotic before doing the discharge planning, patient remains clinically stable denies any fever or chills (2) Chronic atrial fibrillation: Code(s): I48.20 - Chronic atrial fibrillation, unspecified Status: Acute Assessment and Plan: Restart metoprolol. (3) Sepsis: Qualifiers: Sepsis type: sepsis due to unspecified organism Sepsis acute organ dysfunction status: unspecified Qualified Code(s): A41.9 - Sepsis, unspecified organism Code(s): A41.9 - Sepsis, unspecified organism Status: Acute Assessment and Plan: Most likely due to use UTI. Patient does have a chronic indwelling Landeros catheter. He was found to have UTI as well the patient's last urine cultures last month showed ESBL and the previous urine cultures were also ESBL plus Pseudomonas aeruginosa. (4) CHF (congestive heart failure): Qualifiers: Heart failure chronicity: unspecified Heart failure type: unspecified Qualified Code(s): I50.9 - Heart failure, unspecified Code(s): I50.9 - Heart failure, unspecified Status: Chronic Assessment and Plan: continue metoprolol and Lasix. (5) Elevated troponin: Code(s): R79.89 - Other specified abnormal findings of blood chemistry Status: Acute Assessment and Plan: Patient has chronically elevated troponins (6) BPH (benign prostatic hyperplasia): Code(s): N40.0 - Benign prostatic hyperplasia without lower urinary tract symptoms Status: Chronic Assessment and Plan: His a chronic indwelling Landeros catheter. He is on Proscar and Flomax. (7) Chronic respiratory failure with hypoxia: Code(s): J96.11 - Chronic respiratory failure with hypoxia Status: Chronic Assessment and Plan: He is chronically on 2 L per nasal cannula. (8) COPD (chronic obstructive pulmonary disease): Qualifiers: COPD type: COPD with acute exacerbation Qualified Code(s): J44.1 - Chronic obstructive pulmonary disease with (acute) exacerbation Code(s): J44.9 - Chronic obstructive pulmonary disease, unspecified Status: Chronic Assessment and Plan: I continued with his neb treatments and is inhalers. I started him on Solu-Medrol. (9) HTN (hypertension): Qualifiers: Hypertension type: essential hypertension Qualified Code(s): I10 - Essential (primary) hypertension Code(s): I10 - Essential (primary) hypertension Status: Chronic Assessment and Plan: I continued with his metoprolol. (10) Anemia: Code(s): D64.9 - Anemia, unspecified Status: Chronic Assessment and Plan: it looks like the patient is on ferrous sulfate Will continue to monitor. Subjective Date/time seen: 07/22/20 16:54 Interval history: Reinaldo is a 79 year old male Who has a history of COPD and cHF and is chronica
[2020-07-22] MEDS: BUDESONIDE RESPULE NEB 0.5 MG/2 ML AMP INHALATION (20:21)
[2020-07-22] MEDS: ALBUTEROL SULFATE NEB 2.5 MG/0.5 ML INH INHALATION (20:21)
[2020-07-22] MEDS: PANTOPRAZOLE 40 MG TABLET PO (21:24)
[2020-07-22] MEDS: MIRTAZAPINE 7.5 MG TABLET PO (21:24)
[2020-07-22] MEDS: MELATONIN 5 MG TABLET PO (21:24)
[2020-07-22] MEDS: TAMSULOSIN HCL 0.4 MG CAPSULE PO (21:25)
[2020-07-23] VITALS (25 sets, daily range): BP systolic 98–140; BP diastolic 49–65; PULSE 58–108; RESP 16–20; TEMP 36.2–36.7; O2SAT 95–99
[2020-07-23 05:42] LABS: Hematocrit 26.5 % (42.0-52.0); Hemoglobin 8.1 g/dL (14.0-18.0); Mean Corpuscular HGB Conc 30.6 g/dl (32-36); Mean Corpuscular Hemoglobin 27.1 pg (26-34); Mean Corpuscular Volume 88.6 fl (80-100); Mean Platelet Volume 12.1 fl (7.4-10.4); Platelet Count Result 180 k/mm3 (150-375); Red Blood Count 2.99 M/mm3 (4.6-6.20); Red Cell Distribution Width 13.2 % (11.5-14.5); White Blood Count 4.6 K/mm3 (4.5-10.0)
[2020-07-23] MEDS: LEVOTHYROXINE SODIUM 50 MCG TABLET PO (05:49)
[2020-07-23] MEDS: methylPREDNISolone SOD SUCC 125 MG VIAL 60 MG IV PUSH ×4 (05:49→23:58)
[2020-07-23 06:01] LABS: Anion Gap 4 mmol/L (8-16); Blood Urea Nitrogen 29 mg/dL (9-20); Calcium 8.3 mg/dL (8.4-10.2); Carbon Dioxide 38 mmol/L (22-30); Chloride 93 mmol/L (98-107); Estimated CRCL calculation 56 ml/min; Estimated Glomerular Filt Rate > 60; Glucose 138 mg/dL (75-110); Sodium 135 mmol/L (137-145)
[2020-07-23 06:16] LABS: Potassium 3.5 mmol/L (3.4-5.0)
[2020-07-23] MEDS: BUDESONIDE RESPULE NEB 0.5 MG/2 ML AMP INHALATION ×2 (07:31→19:47)
[2020-07-23] MEDS: ALBUTEROL SULFATE NEB 2.5 MG/0.5 ML INH INHALATION ×3 (07:31→19:47)
[2020-07-23] MEDS: CITALOPRAM HYDROBROMIDE 10 MG TABLET PO (10:15)
[2020-07-23] MEDS: METOPROLOL SUCCINATE EXT REL 12.5 MG TABCR PO (10:15)
[2020-07-23] MEDS: CHOLECALCIFEROL 1,000 UNITS TABLET 5000 UNITS PO (10:15)
[2020-07-23] MEDS: FINASTERIDE 5 MG TABLET PO (10:15)
[2020-07-23] MEDS: guaiFENesin 12 HR 600 MG TABCR PO ×2 (10:15→20:17)
[2020-07-23] MEDS: busPIRone HCL 5 MG TABLET PO ×3 (10:15→15:59)
[2020-07-23] MEDS: ACIDOPHILUS/BULGARICUS CHEWABLE TABLET 1 TABLET PO ×2 (10:15→15:59)
[2020-07-23] MEDS: POTASSIUM CHLORIDE 20 MEQ TABLET 40 MEQ PO (10:16)
[2020-07-23] MEDS: POTASSIUM CHLORIDE 20 MEQ TABLET.ER PO (10:16)
--- NOTE | 2020-07-23 10:55 | WPDGIPROGNO ---
Progress Note: A&P Additional Plan Patient alert and comfortable this morning. No longer short of breath. No obvious bleeding reported. he denies abdominal pain. Physical exam reveals patient be alert vital signs stable. Comfortable at rest. HEENT exam is anicteric. Lungs are clear with few rales noted. Heart without murmur. Abdomen bowel sounds are present soft nontender with no organomegaly. Labs reveal stool Hemoccult positive. Hemoglobin 8.1, hematocrit 26.5, MCV 88. Impression 1. Anemia. Suspect blood loss given Hemoccult-positive stools. This likely contributed to congestive heart failure. 2. Occult blood in stool. Plan is to proceed with colonoscopy an EGD tomorrow after preparation to assess this anemia and occult blood loss. 3. Congestive heart failure. Patient improved after therapy. Plan is to proceed with GI endoscopy. Subjective Date/time seen: 07/23/20 10:55 Objective Data Vital Signs Vital Signs: Vital Signs - 24 hr 07/22/20 12:00 07/22/20 13:05 07/22/20 14:10 Temperature 98.2 F Pulse Rate 77 71 76 Respiratory Rate 24 H Blood Pressure 105/58 L Pulse Oximetry 99 07/22/20 16:00 07/22/20 17:34 07/22/20 18:46 Temperature 97.1 F L Pulse Rate 68 64 69 Respiratory Rate 20 Blood Pressure 128/64 Pulse Oximetry 99 07/22/20 20:00 07/22/20 20:23 07/22/20 20:28 Temperature 98.2 F Pulse Rate 63 78 76 Respiratory Rate 22 H 20 20 Blood Pressure 128/53 L Pulse Oximetry 98 98 07/22/20 22:00 07/22/20 23:16 07/23/20 00:00 Temperature 97.6 F Pulse Rate 74 81 69 Respiratory Rate 18 Blood Pressure 120/58 L Pulse Oximetry 96 07/23/20 01:55 07/23/20 03:37 07/23/20 04:00 Temperature 98.0 F Pulse Rate 70 68 64 Respiratory Rate 18 Blood Pressure 132/52 L Pulse Oximetry 97 07/23/20 06:00 07/23/20 06:54 07/23/20 07:31 Temperature 98.0 F Pulse Rate 79 58 L 76 Respiratory Rate 18 18 Blood Pressure 98/61 L Pulse Oximetry 97 98 07/23/20 07:59 07/23/20 08:00 07/23/20 10:00 Temperature Pulse Rate 74 86 72 Respiratory Rate 18 Blood Pressure Pulse Oximetry 95 07/23/20 10:15 Temperature Pulse Rate 82 Respiratory Rate Blood Pressure Pulse Oximetry Intake/Output Intake/Output: Intake & Output 07/20/20 07/21/20 07/22/20 07/23/20 23:59 23:59 23:59 23:59 Intake Total 1570 1770 1838 940 Output Total 1450 2000 2400 1600 Balance 467 -004 -562 -660 Meds/Results Medications: Active Medications Generic Name Dose Route Start Last Admin Trade Name Freq PRN Reason Stop Dose Admin Acetaminophen 650 mg 07/19/20 18:37 Tylenol Tablet PO Q6H PRN Mild Pain (1-3) Or Fever Albuterol 2.5 mg 07/19/20 18:37 07/20/20 15:16 Albuterol Sulf Neb 2.5 Mg/3 Ml INHALATION 2.5 mg Q4H PRN Administration Shortness Of Breath Or Wheezing Albuterol 2.5 mg 07/22/20 20:00 07/23/20 07:31 Albuterol Sulf Neb 2.5mg/0.5ml INHALATION 2.5 mg [id number] SHENA Administration Aspirin 81 mg 07/20/20 09:00 07/21/20 08:30 Aspirin Ec PO 81 mg DAILY SHENA Administration Budesonide 0.5 mg 07/22/20 20:00 07/23/20 07:31 Pulmicort Respule Neb INHALATION 0.5 mg Q12HRT SHENA Administration Buspirone HCl 5 mg 07/20/20 09:00 07/23/20 10:15 Buspar PO 5 mg TID SHENA Administration Citalopram Hydrobromide 10 mg 07/20/20 09:00 07/23/20 10:15 Celexa PO 10 mg DAILY SHENA Administration Docusate Sodium 100 mg 07/19/20 18:37 Colace Capsule PO BID PRN Constipation Ferrous Sulfate 324 mg 07/29/20 09:00 Ferrous Sulfate PO BID SHENA Finasteride 5 mg 07/20/20 09:00 07/23/20 10:15 Proscar PO 5 mg DAILY SHENA Administration Furosemide 40 mg 07/19/20 21:00 07/22/20 21:24 Lasix Tablet PO 40 mg Q12HR SHENA Administration Guaifenesin 600 mg 07/19/20 21:00 07/23/20 10:15 Mucinex 12 Hr Tab PO 600 mg Q12HR SHENA Administration Im
[2020-07-23] MEDS: PEG (High)/E-LYTE SOLN 4,000 ML BTL 4000 ML PO (13:22)
[2020-07-23 16:16] LABS: SARS-CoV-2 RNA PCR Negative
[2020-07-23] MEDS: FUROSEMIDE 40 MG TABLET PO (17:40)
--- NOTE | 2020-07-23 18:05 | PM.IMPN ---
Progress Note: A&P Assessment and Plan (1) UTI (urinary tract infection) due to urinary indwelling Landeros catheter: Code(s): T83.511A - Infection and inflammatory reaction due to indwelling urethral catheter, initial encounter; N39.0 - Urinary tract infection, site not specified Status: Acute Assessment and Plan: patient has and positive for ESBL and Pseudomonas in the past. I started him on Primaxin awaiting full sensitivities 07/23/20 18:05 Interval history: Reinaldo is a 79 year old male Who has a history of COPD and cHF and is chronically on oxygen at 2 L per nasal cannula. EMS was dispatched to a nursing facility with the patient was complaining of shortness of breath and temperature. Pts covid is negative. Pt is now on medical floor. Pt admitted with UTI, COPD exacerbation and sepsis. patient with history UTI with E coli ESBL and Pseudomonas sensitive to imipenem this time patient is a similar presented with a E coli ESBL and Pseudomonas and sensitive to imipenem will continue, is clinically stable will give 5/7 days of IV antibiotic before doing the discharge planning, patient remains clinically stable denies any fever or chills (2) Chronic atrial fibrillation: Code(s): I48.20 - Chronic atrial fibrillation, unspecified Status: Acute Assessment and Plan: Restart metoprolol. (3) Sepsis: Qualifiers: Sepsis type: sepsis due to unspecified organism Sepsis acute organ dysfunction status: unspecified Qualified Code(s): A41.9 - Sepsis, unspecified organism Code(s): A41.9 - Sepsis, unspecified organism Status: Acute Assessment and Plan: Most likely due to use UTI. Patient does have a chronic indwelling Landeros catheter. He was found to have UTI as well the patient's last urine cultures last month showed ESBL and the previous urine cultures were also ESBL plus Pseudomonas aeruginosa. (4) CHF (congestive heart failure): Qualifiers: Heart failure chronicity: unspecified Heart failure type: unspecified Qualified Code(s): I50.9 - Heart failure, unspecified Code(s): I50.9 - Heart failure, unspecified Status: Chronic Assessment and Plan: continue metoprolol and Lasix. (5) Elevated troponin: Code(s): R79.89 - Other specified abnormal findings of blood chemistry Status: Acute Assessment and Plan: Patient has chronically elevated troponins (6) BPH (benign prostatic hyperplasia): Code(s): N40.0 - Benign prostatic hyperplasia without lower urinary tract symptoms Status: Chronic Assessment and Plan: His a chronic indwelling Landeros catheter. He is on Proscar and Flomax. (7) Chronic respiratory failure with hypoxia: Code(s): J96.11 - Chronic respiratory failure with hypoxia Status: Chronic Assessment and Plan: He is chronically on 2 L per nasal cannula. (8) COPD (chronic obstructive pulmonary disease): Qualifiers: COPD type: COPD with acute exacerbation Qualified Code(s): J44.1 - Chronic obstructive pulmonary disease with (acute) exacerbation Code(s): J44.9 - Chronic obstructive pulmonary disease, unspecified Status: Chronic Assessment and Plan: I continued with his neb treatments and is inhalers. I started him on Solu-Medrol. (9) HTN (hypertension): Qualifiers: Hypertension type: essential hypertension Qualified Code(s): I10 - Essential (primary) hypertension Code(s): I10 - Essential (primary) hypertension Status: Chronic Assessment and Plan: I continued with his metoprolol. (10) Anemia: Code(s): D64.9 - Anemia, unspecified Status: Chronic Assessment and Plan: it looks like the patient is on ferrous sulfate Will continue to monitor. Subjective Date/time seen: 07/23/20 18:05 Interval history: Reinaldo is a 79 year old male Who has a history of COPD and cHF and is chronicall
[2020-07-23] MEDS: TAMSULOSIN HCL 0.4 MG CAPSULE PO (20:16)
[2020-07-23] MEDS: PANTOPRAZOLE 40 MG TABLET PO (20:17)
[2020-07-24] VITALS (24 sets, daily range): BP systolic 97–151; BP diastolic 39–67; PULSE 56–86; RESP 18–23; TEMP 36.3–37.1; O2SAT 96–100
[2020-07-24 05:14] LABS: Hemoglobin 7.9 g/dL (14.0-18.0); Mean Corpuscular HGB Conc 30.4 g/dl (32-36); Mean Corpuscular Hemoglobin 27.1 pg (26-34); Mean Corpuscular Volume 89.3 fl (80-100); Mean Platelet Volume 11.8 fl (7.4-10.4); Platelet Count Result 189 k/mm3 (150-375); Red Blood Count 2.91 M/mm3 (4.6-6.20); Red Cell Distribution Width 13.3 % (11.5-14.5); White Blood Count 4.3 K/mm3 (4.5-10.0)
[2020-07-24 05:30] LABS: Potassium 2.9 mmol/L (3.4-5.0)
[2020-07-24 05:47] LABS: Anion Gap 4.99999 mmol/L (8-16); Blood Urea Nitrogen 24 mg/dL (9-20); Calcium 8.2 mg/dL (8.4-10.2); Carbon Dioxide > 40 mmol/L (22-30); Chloride 92 mmol/L (98-107); Estimated CRCL calculation 63 ml/min; Estimated Glomerular Filt Rate > 60; Glucose 115 mg/dL (75-110); Sodium 137 mmol/L (137-145)
[2020-07-24] MEDS: methylPREDNISolone SOD SUCC 125 MG VIAL 60 MG IV PUSH ×4 (05:52→23:29)
[2020-07-24] MEDS: LEVOTHYROXINE SODIUM 50 MCG TABLET PO (05:53)
[2020-07-24] MEDS: LACTATED RINGERS 1,000 ML 150 ML IV CONT ×2 (07:00→08:59)
--- NOTE | 2020-07-24 07:39 | WPDANESEPPF ---
Anes - Initial Pre Proc Eval Procedure: Operation Date: 07/24/20 08:00 Proposed Procedures p Esophagogastroduodenoscopy & Colonoscopy - Arthur Duncan MD Date/Time: 07/24/20 07:39 Surgeon: Li He MD Pre Op Diagnosis: UTI with sepsis Patient Data Age: 79 Gender: M Height: 5 ft 9 in Weight: 88.4 kg Last Vital Signs Temp 97.3 F L 07/24/20 07:04 Pulse 84 07/24/20 07:04 Resp 20 07/24/20 07:04 BP 131/55 L 07/24/20 07:04 Pulse Ox 96 07/24/20 07:06 Allergies Allergy/AdvReac Type Severity Reaction Status Date / Time No Known Allergies Allergy Mild Verified 07/24/20 06:50 Home Medications Medication Instructions Recorded Confirmed Type Perforomist 2 ml INHALATION Q12H 10/16/19 07/19/20 History albuterol sulfate 2.5 mg INHALATION Q4H PRN 10/16/19 07/19/20 History aspirin [Aspir-81] 81 mg PO DAILY 10/16/19 07/19/20 History atorvastatin 40 mg PO HS 10/16/19 07/19/20 History budesonide 0.5 mg INHALATION Q12H 10/16/19 07/19/20 History cholecalciferol (vitamin D3) 5,000 unit PO DAILY 10/16/19 07/19/20 History [Vitamin D3] citalopram 10 mg PO DAILY 10/16/19 07/19/20 History ferrous sulfate 325 mg PO BID 10/16/19 07/19/20 History melatonin 5 mg PO HS 10/16/19 07/19/20 History nitroglycerin 0.4 mg SUBLINGUAL Q5-15M PRN 10/16/19 07/19/20 History pantoprazole 40 mg PO HS 10/16/19 07/19/20 History polyethylene glycol 3350 17 g PO EVERY OTHER DAY 10/16/19 07/19/20 History mirtazapine [Remeron] 7.5 mg PO HS #15 tablet 10/21/19 07/19/20 Rx ondansetron HCl 4 mg PO Q6H PRN 12/28/19 07/19/20 History buspirone 5 mg PO TID 05/02/20 07/19/20 History docusate sodium 100 mg PO BID PRN 05/02/20 07/19/20 History finasteride 5 mg PO DAILY 05/02/20 07/19/20 History guaifenesin 600 mg PO Q12H 05/02/20 07/19/20 History potassium chloride 20 meq PO DAILY 05/02/20 07/19/20 History tamsulosin 0.4 mg PO HS 05/02/20 07/19/20 History levothyroxine [Synthroid] 50 mcg PO DAILY@0630 30 Days #30 05/26/20 07/19/20 Rx tablet metoprolol succinate [Toprol XL] 12.5 mg PO DAILY #0 tablet 05/26/20 07/19/20 Rx Lactobacillus acidophilus 100 mg PO BID 07/19/20 07/19/20 History [Acidophilus] acetaminophen [Mapap 325 - 650 mg PO Q6H PRN 07/19/20 07/19/20 History (acetaminophen)] doxycycline hyclate 100 mg PO Q12H 07/19/20 07/19/20 History furosemide 40 mg PO Q12H 07/19/20 07/19/20 History lidocaine 1 applic TOPICAL QID PRN 07/19/20 07/19/20 History lorazepam [Ativan] 0.5 mg PO Q12H PRN 07/19/20 07/19/20 History Laboratory Tests 07/22/20 07/24/20 07/24/20 03:26 04:21 04:21 WBC 4.3 K/mm3 L K/mm3 (4.5-10.0) RBC 2.91 M/mm3 L M/mm3 (4.6-6.20) Hgb 7.9 g/dL L g/dL (14.0-18.0) Hct 26.0 % L % (42.0-52.0) MCV 89.3 fl fl (80-100) MCH 27.1 pg pg (26-34) MCHC 30.4 g/dl L g/dl (32-36) RDW 13.3 % % (11.5-14.5) Plt Count 189 k/mm3 k/mm3 (150-375) MPV 11.8 fl H fl (7.4-10.4) Sodium 137 mmol/L mmol/L (137-145) Potassium 2.9 mmol/L L mmol/L (3.4-5.0) Chloride 92 mmol/L L mmol/L (98-107) Carbon Dioxide > 40 mmol/L H mmol/L (22-30) Anion Gap 4.47136 mmol/L L mmol/L (8-16) BUN 24 mg/dL H mg/dL (9-20) Creatinine 0.80 mg/dL mg/dL (0.7-1.3) Estim Creat Clear Calc 63 ml/min ml/min Estimated GFR > 60 (59 - ) Glucose 115 mg/dL H mg/dL (75-110) Calcium 8.2 mg/dL L mg/dL (8.4-10.2) Magnesium SARS-CoV-2 RNA (RT-PCR) Negative 07/24/20 04:21 WBC RBC Hgb Hct MCV MCH MCHC RDW Plt Count MPV Sodium Potassium Chloride Carbon Dioxide Anion Gap BUN Creatinine Estim Creat Clear Calc Estimated GFR Glucose Calcium Magnesium 2.0 mg/dL mg/dL
--- NOTE | 2020-07-24 08:34 | SUR.OPER ---
EGD COMPLETED AT 828, COLONOSCOPY STARTED AT 834.
--- NOTE | 2020-07-24 09:33 | PCPTNOTE ---
Attempted PT eval. Pt gone to GI Lab. Will try again this afternoon.
[2020-07-24] MEDS: acetaZOLAMIDE TAB 250 MG TABLET PO (11:23)
[2020-07-24] MEDS: busPIRone HCL 5 MG TABLET PO ×2 (11:23→17:26)
[2020-07-24] MEDS: FINASTERIDE 5 MG TABLET PO (11:24)
[2020-07-24] MEDS: POTASSIUM CHLORIDE 20 MEQ TABLET.ER PO (11:24)
[2020-07-24] MEDS: CHOLECALCIFEROL 1,000 UNITS TABLET 5000 UNITS PO (11:24)
[2020-07-24] MEDS: ACIDOPHILUS/BULGARICUS CHEWABLE TABLET 1 TABLET PO ×2 (11:24→17:26)
[2020-07-24] MEDS: METOPROLOL SUCCINATE EXT REL 12.5 MG TABCR PO (11:25)
[2020-07-24] MEDS: CITALOPRAM HYDROBROMIDE 10 MG TABLET PO (11:25)
[2020-07-24] MEDS: guaiFENesin 12 HR 600 MG TABCR PO ×2 (11:25→21:44)
[2020-07-24 11:47] LABS: Potassium 3.3 mmol/L (3.4-5.0)
[2020-07-24 12:21] LABS: Carcinoembryonic Antigen 15.1 ng/mL (0.0-3.0)
[2020-07-24] MEDS: ALBUTEROL SULFATE NEB 2.5 MG/0.5 ML INH INHALATION ×2 (14:36→19:55)
[2020-07-24] MEDS: POTASSIUM CHLORIDE 20 MEQ PACKET (FOR LIQUID) 40 MEQ PO (15:15)
[2020-07-24] MEDS: metroNIDAZOLE 250 MG TABLET 500 MG PO ×2 (15:55→17:27)
[2020-07-24] MEDS: NEOMYCIN SULFATE 500 MG TAB 1000 MG PO ×2 (15:56→17:26)
--- NOTE | 2020-07-24 16:59 | PM.IMPN ---
Progress Note: A&P Assessment and Plan (1) UTI (urinary tract infection) due to urinary indwelling Landeros catheter: Code(s): T83.511A - Infection and inflammatory reaction due to indwelling urethral catheter, initial encounter; N39.0 - Urinary tract infection, site not specified Status: Acute Assessment and Plan: patient has and positive for ESBL and Pseudomonas in the past. I started him on Primaxin awaiting full sensitivities 07/24/20 16:59 Interval history: Reinaldo is a 79 year old male Who has a history of COPD and cHF and is chronically on oxygen at 2 L per nasal cannula. EMS was dispatched to a nursing facility with the patient was complaining of shortness of breath and temperature. Pts covid is negative. Pt is now on medical floor. Pt admitted with UTI, COPD exacerbation and sepsis. patient with history UTI with E coli ESBL and Pseudomonas sensitive to imipenem this time patient is a similar presented with a E coli ESBL and Pseudomonas and sensitive to imipenem will continue, is clinically stable will give 6/7 days of IV antibiotic, patient with anemia patient was seen by GI and had a colonoscopy today which showed patient has colon mass suspicious for malignancy recommending excision and further evaluation, I spoke with the patient and he is in agreement for the surgery, patient has a moderate systolic dysfunction with ejection fraction of 45% will consult cardiology for their opinion for the surgery, patient is seen by surgery team upon clearance from cardiology team patient will have colectomy, GI also spoke with the patient's daughter and she is also in agreement with surgery, will continue to monitor further recommendation to follow (2) Chronic atrial fibrillation: Code(s): I48.20 - Chronic atrial fibrillation, unspecified Status: Acute Assessment and Plan: Restart metoprolol. (3) Sepsis: Qualifiers: Sepsis type: sepsis due to unspecified organism Sepsis acute organ dysfunction status: unspecified Qualified Code(s): A41.9 - Sepsis, unspecified organism Code(s): A41.9 - Sepsis, unspecified organism Status: Acute Assessment and Plan: Most likely due to use UTI. Patient does have a chronic indwelling Landeros catheter. He was found to have UTI as well the patient's last urine cultures last month showed ESBL and the previous urine cultures were also ESBL plus Pseudomonas aeruginosa. (4) CHF (congestive heart failure): Qualifiers: Heart failure chronicity: unspecified Heart failure type: unspecified Qualified Code(s): I50.9 - Heart failure, unspecified Code(s): I50.9 - Heart failure, unspecified Status: Chronic Assessment and Plan: continue metoprolol and Lasix. (5) Elevated troponin: Code(s): R79.89 - Other specified abnormal findings of blood chemistry Status: Acute Assessment and Plan: Patient has chronically elevated troponins (6) BPH (benign prostatic hyperplasia): Code(s): N40.0 - Benign prostatic hyperplasia without lower urinary tract symptoms Status: Chronic Assessment and Plan: His a chronic indwelling Landeros catheter. He is on Proscar and Flomax. (7) Chronic respiratory failure with hypoxia: Code(s): J96.11 - Chronic respiratory failure with hypoxia Status: Chronic Assessment and Plan: He is chronically on 2 L per nasal cannula. (8) COPD (chronic obstructive pulmonary disease): Qualifiers: COPD type: COPD with acute exacerbation Qualified Code(s): J44.1 - Chronic obstructive pulmonary disease with (acute) exacerbation Code(s): J44.9 - Chronic obstructive pulmonary disease, unspecified Status: Chronic Assessment and Plan: I continued with his neb treatments and is inhalers. I started him on Solu-Medrol. (9) HTN (hypertension): Qualifiers: Hypertension type: essential hypertension Qualified Code(
--- NOTE | 2020-07-24 17:27 | PM.CNCAR ---
Assessment and Plan Assessment and plan (1) Preop cardiovascular exam: Code(s): Z01.810 - Encounter for preprocedural cardiovascular examination Status: Acute Assessment and Plan: patient is going to be at least at moderate risk and likely in the high risk category but I do think that given his chest pain and extensive cardiac history that further evaluation should be performed prior to his colon surgery. Will order a Lexiscan myocardial perfusion study for in the morning. 2D echocardiogram with Doppler also be ordered to evaluate for his ejection fraction as he does have a known cardiomyopathy. Further risk assessment will be dependent on results of these tests. (2) Cardiomyopathy: Code(s): I42.9 - Cardiomyopathy, unspecified Status: Acute Assessment and Plan: Previously 40-45%. Will repeat a 2D echocardiogram with Doppler. (3) Coronary artery disease of [place] heart with stable angina pectoris: Code(s): I25.118 - Atherosclerotic heart disease of [place] coronary artery with other forms of angina pectoris Status: Acute Assessment and Plan: Continue metoprolol, statin, furosemide hold aspirin for now (4) Atrial fibrillation with rapid ventricular response: Code(s): I48.91 - Unspecified atrial fibrillation Status: Acute Assessment and Plan: rate is controlled (5) Hypokalemia: Code(s): E87.6 - Hypokalemia Status: Acute Assessment and Plan: will replace with another 40 mEq p.o. potassium x1 (6) Left carotid bruit: Code(s): R09.89 - Other specified symptoms and signs involving the circulatory and respiratory systems Status: Acute Assessment and Plan: carotid artery ultrasound also to be performed because of his bruit History of Present Illness History of Present Illness Consult date/time: 07/24/20 17:27 Requesting physician: Marielena Hernandez MD Consult reason: pre-op evaluation Reason For Visit: UTI with sepsis Narrative: date of service 07/24/2020 Reason for consultation preoperative risk evaluation History patient is a 79-year-old male with significant coronary history. He was found to be anemic and had a colonoscopy showing a mass consistent with colon cancer. Preoperative risk assessment is ask for by the hospitalist. He has a history of CABG in 1988 and a redo CABG and 1997. He also has peripheral artery disease as well as atrial flutter and atrial flutter ablation 2013. Recurrent atrial flutter in 2019. Not on anticoagulation due to history of frequent falls and hip fracture. His indwelling catheter. He was hospitalized at the end of April of 2020 at this hospital because of urosepsis. Patient was also found to be anemic. Patient follows with Dr. Sheth in [place]. Patient states that he does have angina on occasion. He states that he has chest pain if he over exerts . He is not very active. He has chest pain 1 time every couple of months relieved over the period of minutes. He describes as tightness. It is associated shortness of breath. He has chronic shortness of breath and is on 2 L via nasal cannula. He is short of breath with most any activity. He denies any paroxysmal nocturnal dyspnea, orthopnea, syncope, presyncope or palpitations. Review of Systems Review of Systems: All systems reviewed & are unremarkable except as noted in HPI and below Constitutional: Constitutional: Denies weakness Eyes: Eyes: Denies blurry vision ENT: Denies epistaxis Cardiovascular: Cardiovascular: Reports chest pain Respiratory: Respiratory: Reports dyspnea Gastrointestinal: Gastrointestinal: Denies abdominal pain Genitourinary: Genitourinary: Denies dysuria Musculoskeletal: Musculoskeletal: Denies neck pain Integumentary/Breasts: Skin/Breast: Denies dry skin Neurologic: Denies headache(s) Psychiatric: Psychiatric: Denies anxiety and Denies confusion Endocrine: Endocrine: De
--- NOTE | 2020-07-24 19:02 | PM.CNGS ---
Assessment and Plan Assessment and plan (1) Ascending colon malignant neoplasm: Code(s): C18.2 - Malignant neoplasm of ascending colon Status: Chronic Assessment and Plan: pathology is pending but with the elevated CEA and the appearance at colonoscopy as well as CT scan I think it is safe to say he has ascending colon cancer. Patient is a high risk surgical candidate but will need right colectomy. Plan to proceed with this using hand access laparoscopic technique. I discussed this with the patient and his daughter. As I mentioned, they very much want to do this during this hospitalization and without repeating his bowel prep if possible. I will start him on Ensure and continue clear liquids. Cardiac workup is underway. (2) Coronary artery disease of [place] heart with stable angina pectoris: Code(s): I25.118 - Atherosclerotic heart disease of [place] coronary artery with other forms of angina pectoris Status: Acute Assessment and Plan: Significant coronary disease and still has angina. Evaluation is proceeding. (3) Cardiomyopathy: Code(s): I42.9 - Cardiomyopathy, unspecified Status: Chronic (4) Anemia: Code(s): D64.9 - Anemia, unspecified Status: Chronic (5) UTI (urinary tract infection) due to urinary indwelling Lander[place] catheter: Code(s): T83.511A - Infection and inflammatory reaction due to indwelling urethral catheter, initial encounter; N39.0 - Urinary tract infection, site not specified Status: Acute Assessment and Plan: Being treated (6) Hyponatremia: Code(s): E87.1 - Hypo-osmolality and hyponatremia Status: Acute (7) COPD (chronic obstructive pulmonary disease): Qualifiers: COPD type: COPD with acute exacerbation Qualified Code(s): J44.1 - Chronic obstructive pulmonary disease with (acute) exacerbation Code(s): J44.9 - Chronic obstructive pulmonary disease, unspecified Status: Chronic Assessment and Plan: on 2 L oxygen chronically. High risk for postoperative mechanical ventilation and ICU care History of Present Illness Consult details Consult date: 07/24/20 Reason for consult: other ( ascending colon mass) Narrative: The patient is an 79-year-old man who resides in a assisted living and has a chronic indwelling Landeros catheter. He has severe COPD and is on 2 L of oxygen chronically. He also has an extensive cardiac history with coronary bypass grafting x2 and 5 coronary stents. He is in atrial fib chronically but is not on anticoagulation due to risk of falling. He has a history of congestive heart failure. He was in the hospital critically ill with community-acquired pneumonia and acute respiratory failure last September. Recently he came to the hospital with fever and increased shortness of breath. He was admitted on 07/19/2020 with sepsis and urinary tract infection. He was noted to have guaiac-positive stools and anemia. He had a CT scan of the abdomen and pelvis 06/20/2020 which suggested an ascending colon mass. Dr. Duncan saw the patient in consultation on 07/22/2020. The patient underwent colonoscopy today. His colonoscopy did confirm a suspicious mass in the distal ascending colon strongly suggestive of colon cancer. His CT scan from 06/22/2020 was not done with intravenous contrast. He had CT 05/21/2020 with IV contrast. This did not show any sign of liver nodules but also did not really suggest the ascending colon mask. CEA came back today at 15.1. Patient has been seen by Dr. Infante for cardiology consultation. I spoke with Dr. Infante while the patient desires to proceed with resection of the colon mass, evaluation of his current cardiac status and also of his carotid artery status is needed prior to proceeding. Patient very much however wants to have this surgery done before going back to the custodial. He also would like to avoid another bowel prep if possible. He has not
[2020-07-24] MEDS: BUDESONIDE RESPULE NEB 0.5 MG/2 ML AMP INHALATION (19:55)
[2020-07-24] MEDS: TAMSULOSIN HCL 0.4 MG CAPSULE PO (21:44)
[2020-07-24] MEDS: PANTOPRAZOLE 40 MG TABLET PO (21:44)
[2020-07-24] MEDS: MIRTAZAPINE 7.5 MG TABLET PO (21:44)
[2020-07-24] MEDS: MELATONIN 5 MG TABLET PO (21:44)
[2020-07-25] VITALS (19 sets, daily range): BP systolic 100–139; BP diastolic 45–72; PULSE 47–79; RESP 18–24; TEMP 36.2–36.7; O2SAT 93–99
--- NOTE | 2020-07-25 | ECHO_ITS ---
Patient Info Name: Eusebio Najera Age: 79 years : 1940 Gender: Male Ht: 69 in Wt: 195 lbs BSA: 2.10 m2 HR: 75 bpm BP: 106 / 54 mmHg Heart Rhythm: Atrial Fibrillation Technical Quality: Good Exam Date: 07/25/2020 11:03 AM Exam Location: [facility] Pulmonary Patient Status: Inpatient Admit Date: 07/20/2020 Staff Ordering Physician: Christoph Infante MD Proof Sorter: Rahul Jordan RDCS Attending Provider: Li He MD Referring Physician: Naresh RODRIGUEZ; Exam Type: CA echo dop color flow w con Study Info Indications Z01.810 - Encounter for preprocedural cardiovascular examination Complete two-dimensional, color flow and Doppler transthoracic echocardiogram is performed with contrast to opacify the left ventricle and to improve the deliniation of the left ventricle endocardial borders. Contrast/Agitated Saline Contrast/Ag. Saline: Definity Amount: 3.00 ml Administered By: Melvin Overton RN Existing IV Access: Yes History/Risk Factors CAD s/p CABGx2, COPD, HTN. Summary 1. Left ventricular chamber dimension is mildly enlarged. 2. Left ventricular systolic function is mildly reduced, estimated at 40-45%. 3. There is mildly increased left ventricular wall thickness. 4. The left ventricular diastolic function is grade I diastolic dysfunction. 5. The inferior wall is hypokinetic. 6. Left atrial chamber dimension is mildly enlarged. 7. There is moderate aortic valve sclerosis. 8. There is mild aortic valve regurgitation. 9. There is mild aortic valve calcification. 10. There is mild mitral valve regurgitation. 11. The mitral valve has thickened leaflets. 12. The aortic root size at the sinus of Valsalva is mildly dilated. Left Ventricle Left ventricular chamber dimension is mildly enlarged. Left ventricular systolic function is mildly reduced, estimated at 40-45%. There is mildly increased left ventricular wall thickness. The left ventricular diastolic function is grade I diastolic dysfunction. The inferior wall is hypokinetic. All other higgins appear normal. Right Ventricle Right ventricular chamber dimension is normal. Right ventricular systolic function is normal. Left Atria Left atrial chamber dimension is mildly enlarged. Right Atria Right atrial chamber dimension is normal. Atrial Septum Intact interatrial septum visualized by color flow imaging. Aortic Valve The aortic valve is trileaflet. There is moderate aortic valve sclerosis. There is no aortic valve stenosis. There is mild aortic valve regurgitation. There is mild aortic valve calcification. Pulmonic Valve The pulmonic valve is not well visualized. There is no pulmonic valve stenosis. There is trace pulmonic regurgitation. Mitral Valve The mitral valve has thickened leaflets. There is no mitral valve stenosis. There is mild mitral valve regurgitation. Tricuspid Valve The tricuspid valve leaflets are normal. There is no significant tricuspid valve stenosis. There is trace tricuspid valve regurgitation. Pericardium/Pleural The pericardium appears normal. There is no pericardial effusion. Inferior Vena Cava Normal inferior vena cava with >50% collapse upon inspiration consistent with normal right atrial pressure, 10 mmHg. Aorta The aortic root size at the sinus of Valsalva is mildly dilated. Left Ventricular Outflow Tract
[2020-07-25 04:42] LABS: Hematocrit 26.2 % (42.0-52.0); Hemoglobin 8.2 g/dL (14.0-18.0); Mean Corpuscular HGB Conc 31.3 g/dl (32-36); Mean Corpuscular Hemoglobin 27.7 pg (26-34); Mean Corpuscular Volume 88.5 fl (80-100); Mean Platelet Volume 11.3 fl (7.4-10.4); Platelet Count Result 200 k/mm3 (150-375); Red Blood Count 2.96 M/mm3 (4.6-6.20); Red Cell Distribution Width 13.2 % (11.5-14.5); White Blood Count 5.3 K/mm3 (4.5-10.0)
[2020-07-25 04:57] LABS: Anion Gap 7 mmol/L (8-16); Blood Urea Nitrogen 24 mg/dL (9-20); Calcium 8.2 mg/dL (8.4-10.2); Carbon Dioxide 31 mmol/L (22-30); Chloride 97 mmol/L (98-107); Estimated CRCL calculation 56 ml/min; Estimated Glomerular Filt Rate > 60; Glucose 140 mg/dL (75-110); Potassium 3.3 mmol/L (3.4-5.0); Sodium 135 mmol/L (137-145)
[2020-07-25] MEDS: LEVOTHYROXINE SODIUM 50 MCG TABLET PO (06:14)
[2020-07-25] MEDS: methylPREDNISolone SOD SUCC 125 MG VIAL 60 MG IV PUSH ×4 (06:14→23:23)
--- NOTE | 2020-07-25 07:30 | PC.NURSE ---
Patient to [facility] via bed for Lexiscan.
--- NOTE | 2020-07-25 09:41 | WPDGIPROGNO ---
Progress Note: A&P Additional Plan Patient alert and comfortable this morning. No active bleeding described. He denies abdominal pain. Less short of breath. Physical exam reveals patient to be alert. Vital signs are stable. HEENT exam is anicteric. Lungs are clear No rales appreciated.. Heart without murmur, Heart irregularly irregular. abdomen is soft nontender no organomegaly. . Impression 1. Right colon mass. Consistent with carcinoma. Final histology pending. Appreciate surgery input. Agree with plans for surgical resection. 2. Congestive heart failure. Patient improving after hospital stay. Cardiology now following the patient for clearance prior to surgery. 3. Atrial fibrillation. Anticoagulation on hold. Subjective Date/time seen: 07/25/20 09:41 Objective Data Vital Signs Vital Signs: Vital Signs - 24 hr 07/24/20 09:50 07/24/20 10:00 07/24/20 11:25 Temperature 98.8 F Pulse Rate 70 70 74 Respiratory Rate 18 Blood Pressure 144/46 H Pulse Oximetry 98 07/24/20 12:00 07/24/20 14:00 07/24/20 14:36 Temperature 97.5 F L Pulse Rate 66 70 75 Respiratory Rate 20 18 Blood Pressure 151/47 H Pulse Oximetry 99 07/24/20 14:48 07/24/20 16:00 07/24/20 18:00 Temperature 98.6 F Pulse Rate 74 67 78 Respiratory Rate 18 20 Blood Pressure 122/44 L Pulse Oximetry 97 07/24/20 19:40 07/24/20 19:55 07/24/20 20:00 Temperature 98.8 F Pulse Rate 68 69 63 Respiratory Rate 22 H 20 20 Blood Pressure 115/48 L Pulse Oximetry 99 97 97 07/24/20 20:03 07/24/20 22:00 07/25/20 00:00 Temperature 98.0 F Pulse Rate 68 69 65 Respiratory Rate 20 20 Blood Pressure 127/45 L Pulse Oximetry 93 07/25/20 02:00 07/25/20 04:00 07/25/20 06:00 Temperature 97.9 F Pulse Rate 47 L 59 L 66 Respiratory Rate 20 Blood Pressure 106/54 L Pulse Oximetry 97 Intake/Output Intake/Output: Intake & Output 07/22/20 07/23/20 07/24/20 07/25/20 23:59 23:59 23:59 23:59 Intake Total 1838 1380 1900 200 Output Total 2400 2200 2050 1000 [facility] -[phone] -150 -800 Meds/Results Medications: Active Medications Generic Name Dose Route Start Last Admin Trade Name Freq PRN Reason Stop Dose Admin Acetaminophen 650 mg 07/19/20 18:37 Tylenol Tablet PO Q6H PRN Mild Pain (1-3) Or Fever Albuterol 2.5 mg 07/19/20 18:37 07/20/20 15:16 Albuterol Sulf Neb 2.5 Mg/3 Ml INHALATION 2.5 mg Q4H PRN Administration Shortness Of Breath Or Wheezing Albuterol 2.5 mg 07/22/20 20:00 07/24/20 19:55 Albuterol Sulf Neb 2.5mg/0.5ml INHALATION 2.5 mg [id number] SHENA Administration Aspirin 81 mg 07/20/20 09:00 07/21/20 08:30 Aspirin Ec PO 81 mg DAILY SHENA Administration Budesonide 0.5 mg 07/22/20 20:00 07/24/20 19:55 Pulmicort Respule Neb INHALATION 0.5 mg Q12HRT SHENA Administration Buspirone HCl 5 mg 07/20/20 09:00 07/24/20 17:26 Buspar PO 5 mg TID SHENA Administration Citalopram Hydrobromide 10 mg 07/20/20 09:00 07/24/20 11:25 Celexa PO 10 mg DAILY SHENA Administration Docusate Sodium 100 mg 07/19/20 18:37 Colace Capsule PO BID PRN Constipation Ferrous Sulfate 324 mg 07/29/20 09:00 Ferrous Sulfate PO BID SHENA Finasteride 5 mg 07/20/20 09:00 07/24/20 11:24 Proscar PO 5 mg DAILY SHENA Administration Guaifenesin 600 mg 07/19/20 21:00 07/24/20 21:44 Mucinex 12 Hr Tab PO 600 mg Q12HR SHENA Administration Imipenem/Cilastatin Sodium 500 mg in 100 mls @ 300 mls/hr 07/19/20 23:00 07/25/20 06:35 Primaxin 500 Mg/D5w 100 Ml IVPB Infused Q8H SHENA Infusion Lactated Ringer's 1,000 mls @ 80 mls/hr 07/24/20 11:00 07/24/20 09:34 Lr - Lactated Ringers Iv IV CONT Infused .[id number] SHENA Infusion Potassium Chloride 500 mls @ 125 mls/hr 07/25/20 08:47 Kcl 40 Meq/D5w 500 Ml Peripheral IVPB 07/25/20 12:46 ONCE ONE Lactobacillus Acidophilus 1 tablet
--- NOTE | 2020-07-25 10:15 | PC.NURSE ---
Patient returned to room following Lexiscan.
[2020-07-25] MEDS: CHOLECALCIFEROL 1,000 UNITS TABLET 5000 UNITS PO (10:23)
[2020-07-25] MEDS: CITALOPRAM HYDROBROMIDE 10 MG TABLET PO (10:24)
[2020-07-25] MEDS: busPIRone HCL 5 MG TABLET PO ×3 (10:24→17:16)
[2020-07-25] MEDS: ACIDOPHILUS/BULGARICUS CHEWABLE TABLET 1 TABLET PO ×2 (10:24→17:16)
[2020-07-25] MEDS: POTASSIUM CHLORIDE 20 MEQ TABLET.ER PO (10:25)
[2020-07-25] MEDS: FINASTERIDE 5 MG TABLET PO (10:25)
[2020-07-25] MEDS: METOPROLOL SUCCINATE EXT REL 12.5 MG TABCR PO (10:25)
[2020-07-25] MEDS: guaiFENesin 12 HR 600 MG TABCR PO ×2 (10:25→21:25)
--- NOTE | 2020-07-25 11:13 | PM.PNCARD ---
Progress Note: A&P Assessment and Plan (1) Preop cardiovascular exam: Code(s): Z01.810 - Encounter for preprocedural cardiovascular examination Status: Acute Assessment and Plan: History of chest pain and extensive cardiac history. Lexiscan done for risk stratification. Nuclear perfusion study is abnormal. Moderate risk to high risk for cardiovascular event. (2) Cardiomyopathy: Qualifiers: Cardiomyopathy type: ischemic Qualified Code(s): I25.5 - Ischemic cardiomyopathy Code(s): I42.9 - Cardiomyopathy, unspecified Status: Chronic Assessment and Plan: Previously 40-45%. EF 44% on stress test. Echo pending. Continue Metoprolol. Follows with Dr. Sheth, [facility], in [facility] (3) Coronary artery disease of [place] heart with stable angina pectoris: Code(s): I25.118 - Atherosclerotic heart disease of [place] coronary artery with other forms of angina pectoris Status: Acute Assessment and Plan: Continue metoprolol, statin, furosemide. Hold aspirin for now (4) Atrial fibrillation with rapid ventricular response: Code(s): I48.91 - Unspecified atrial fibrillation Status: Acute Assessment and Plan: Rate is controlled (5) Hypokalemia: Code(s): E87.6 - Hypokalemia Status: Acute Assessment and Plan: Supplemented. BMP in the morning (6) Left carotid bruit: Code(s): R09.89 - Other specified symptoms and signs involving the circulatory and respiratory systems Status: Acute Assessment and Plan: Carotid Dopplers are negative. Additional Plan OK to proceed with planned surgery with moderate to high risk. Plan discussed with Dr. Infante 11:10 07/25/2020 Subjective Date/time seen: 07/25/20 08:45 seen in stress lab Interval history: Follow up for: coronary artery disease and cardiac risk assessment for noncardiac surgery. Date of service: 07/25/2020 Subjective: denied chest discomfort , shortness of breath, lightheaded or palpitations. Tired of laying and not being able to eat. Review of Systems Constitutional: Constitutional: Denies fatigue, Denies headache(s) and Denies weakness Eyes: Eyes: Denies blurry vision ENT: Denies headache(s), Denies lip swelling, Denies epistaxis and Denies neck pain Cardiovascular: Cardiovascular: Denies chest pain, Denies dyspnea and Reports dyspnea on exertion Respiratory: Respiratory: Reports dyspnea on exertion Comments: Chronic oxygen at 2 L per nasal cannula Gastrointestinal: Gastrointestinal: Denies abdominal pain Genitourinary: Genitourinary: Denies dysuria Musculoskeletal: Musculoskeletal: Denies neck pain Integumentary/Breasts: Skin/Breast: Denies dry skin Neurologic: Denies confusion, Denies headache(s) and Denies weakness Psychiatric: Psychiatric: Denies anxiety and Denies confusion Endocrine: Endocrine: Denies fatigue Hematologic/Lymphatic: Hematologic/Lymphatic: Denies easy bleeding Allergic/Immunologic: Allergic/Immunologic: Denies lip swelling Exam Narrative: Exam Narrative: Seen in stress lab. Laying comfortably in bed. No distress peer Const: General: no acute distress; No confusion Orientation/consciousness: No confusion HENMT: General nose exam: Normal nares present Eyes: Sclera: sclerae normal Neck: Neck: no JVD Carotids: bruit Other: left carotid bruit Chest: Other: no reproducible chest wall pain to palpation Resp: Auscultation: clear to auscultation bilaterally Cardio: Rate: regular rate Rhythm: regular rhythm GI: GI Palp: Yes Soft to palpation Auscultation: normal bowel sounds Skin: General skin exam: normal color Neuro: General: No confusion Cognition (Neuro): normal cognition Sp
[2020-07-25] MEDS: PERFLUTREN LIPID MICROSPHERES 1.5 ML VIAL DILUTED TO 10 ML TOTAL VOLUME IV PUSH (11:34)
[2020-07-25] MEDS: POTASSIUM CHLORIDE 20 MEQ PACKET (FOR LIQUID) 40 MEQ PO (12:23)
[2020-07-25] MEDS: ALBUTEROL SULFATE NEB 2.5 MG/0.5 ML INH INHALATION ×2 (14:14→19:53)
--- NOTE | 2020-07-25 17:26 | EST_ITS ---
Patient Info Name: Eusebio Najera Age: 79 years : 1940 Gender: Male Ht: 69 in Wt: 185 lbs BSA: 2.04 m2 BP: 132 / 43 mmHg Exam Date: 07/25/2020 8:38 AM Exam Location: [facility] Stress Patient Status: Inpatient Admit Date: 07/20/2020 Staff Ordering Physician: Christoph Infante MD Attending Provider: TIMOTHY CURRAN Exercise Technologist: Kris Barrientos RDCS, RT Exam Type: CA stress raoul w NM Study Info A regadenoson stress test was performed. Summary 1. Please correlate with nuclear medicine images, reported separately. 2. No abnormal ST-T wave changes with lexiscan. Protocol: Lexiscan Stress ECG Details Stage: REST Duration (min): 0 min : 57 sec HR (bpm): 64 SBP (mmHg): 136 DBP (mmHg): 59 Stage: REST Duration (min): 3 min : 10 sec HR (bpm): 71 SBP (mmHg): 136 DBP (mmHg): 59 Stage: STAGE 1 Duration (min): 0 min : 59 sec HR (bpm): 75 SBP (mmHg): 132 DBP (mmHg): 43 Stage: RECOVERY Duration (min): 1 min : 0 sec HR (bpm): 86 SBP (mmHg): 132 DBP (mmHg): 43 Stage: RECOVERY Duration (min): 2 min : 0 sec HR (bpm): 86 SBP (mmHg): 132 DBP (mmHg): 43 Stage: RECOVERY Duration (min): 3 min : 0 sec HR (bpm): 83 SBP (mmHg): 113 DBP (mmHg): 46 Stage: RECOVERY Duration (min): 4 min : 0 sec HR (bpm): 84 SBP (mmHg): 113 DBP (mmHg): 46 Stage: RECOVERY Duration (min): 5 min : 0 sec HR (bpm): 75 SBP (mmHg): 121 DBP (mmHg): 48 Stage: RECOVERY Duration (min): 5 min : 9 sec HR (bpm): 82 SBP (mmHg): 121 DBP (mmHg): 48 Rest HR: 71 bpm Peak HR: 91 bpm Rest Sys BP: 136 mmHg Peak Sys BP: 132 mmHg Max Pred HR: 139 bpm % Max Pred HR: 65 % Target HR: 118 bpm Max RPP: 12,012 bpm*mmHg Target HR Summary: Hemodynamic response to exercise was normal BP Response: Normal blood pressure response Termination Reason: Completed protocol Cardiac Symptoms: None Total Time: 1 min : 0 sec Rest Norris BP: 59 mmHg Peak Norris BP: 43 mmHg Total Dose: 0.4 mg Resting ECG Normal sinus rhythm. Ventricular couplet, PACs, nonspecific ST and T-wave abnormality. Stress ECG No abnormal ST/T wave changes with exercise. Arrhythmias Frequent PACs. Frequent PVCs. Report Signatures
--- NOTE | 2020-07-25 18:01 | PM.IMPN ---
Progress Note: A&P Assessment and Plan (1) UTI (urinary tract infection) due to urinary indwelling Landeros catheter: Code(s): T83.511A - Infection and inflammatory reaction due to indwelling urethral catheter, initial encounter; N39.0 - Urinary tract infection, site not specified Status: Acute Assessment and Plan: 07/25/20 18:01 patient has and positive for ESBL and Pseudomonas in the past. I started him on Primaxin awaiting full sensitivities Interval history: Reinaldo is a 79 year old male Who has a history of COPD and cHF and is chronically on oxygen at 2 L per nasal cannula. EMS was dispatched to a nursing facility with the patient was complaining of shortness of breath and temperature. Pts covid is negative. Pt is now on medical floor. Pt admitted with UTI, COPD exacerbation and sepsis. patient with history UTI with E coli ESBL and Pseudomonas sensitive to imipenem this time patient is a similar presented with a E coli ESBL and Pseudomonas and sensitive to imipenem will continue, is clinically stable will give 6/7 days of IV antibiotic, patient with anemia patient was seen by GI and had a colonoscopy today which showed patient has colon mass suspicious for malignancy recommending excision and further evaluation, I spoke with the patient and he is in agreement for the surgery, patient has a moderate systolic dysfunction with ejection fraction of 45% will consult cardiology for their opinion for the surgery, Patient is clinically stable seen by choir director patient had Lexiscan test suggesting moderate to high risk for the surgery, patient is cleared for colectomy tomorrow will follow-up clinically patient is stable, denies any abdominal pain nausea or vomiting fever or chills (2) Chronic atrial fibrillation: Code(s): I48.20 - Chronic atrial fibrillation, unspecified Status: Acute Assessment and Plan: Restart metoprolol. (3) Sepsis: Qualifiers: Sepsis type: sepsis due to unspecified organism Sepsis acute organ dysfunction status: unspecified Qualified Code(s): A41.9 - Sepsis, unspecified organism Code(s): A41.9 - Sepsis, unspecified organism Status: Acute Assessment and Plan: Most likely due to use UTI. Patient does have a chronic indwelling Landeros catheter. He was found to have UTI as well the patient's last urine cultures last month showed ESBL and the previous urine cultures were also ESBL plus Pseudomonas aeruginosa. (4) CHF (congestive heart failure): Qualifiers: Heart failure chronicity: unspecified Heart failure type: unspecified Qualified Code(s): I50.9 - Heart failure, unspecified Code(s): I50.9 - Heart failure, unspecified Status: Chronic Assessment and Plan: continue metoprolol and Lasix. (5) Elevated troponin: Code(s): R79.89 - Other specified abnormal findings of blood chemistry Status: Acute Assessment and Plan: Patient has chronically elevated troponins (6) BPH (benign prostatic hyperplasia): Code(s): N40.0 - Benign prostatic hyperplasia without lower urinary tract symptoms Status: Chronic Assessment and Plan: His a chronic indwelling Landeros catheter. He is on Proscar and Flomax. (7) Chronic respiratory failure with hypoxia: Code(s): J96.11 - Chronic respiratory failure with hypoxia Status: Chronic Assessment and Plan: He is chronically on 2 L per nasal cannula. (8) COPD (chronic obstructive pulmonary disease): Qualifiers: COPD type: COPD with acute exacerbation Qualified Code(s): J44.1 - Chronic obstructive pulmonary disease with (acute) exacerbation Code(s): J44.9 - Chronic obstructive pulmonary disease, unspecified Status: Chronic Assessment and Plan: I continued with his neb treatments and is inhalers. I started him on Solu-Medrol. (9) HTN (hypertension): Qualifiers: Hypertension type: essen
[2020-07-25] MEDS: BUDESONIDE RESPULE NEB 0.5 MG/2 ML AMP INHALATION (19:53)
[2020-07-25] MEDS: MELATONIN 5 MG TABLET PO (21:25)
[2020-07-25] MEDS: TAMSULOSIN HCL 0.4 MG CAPSULE PO (21:25)
[2020-07-25] MEDS: PANTOPRAZOLE 40 MG TABLET PO (21:25)
[2020-07-25] MEDS: MIRTAZAPINE 7.5 MG TABLET PO (21:25)
[2020-07-26] VITALS (29 sets, daily range): BP systolic 101–146; BP diastolic 37–79; PULSE 34–86; RESP 12–20; TEMP 35.7–36.5; O2SAT 97–100
[2020-07-26 04:39] LABS: Hematocrit 26.8 % (42.0-52.0); Hemoglobin 8.4 g/dL (14.0-18.0); Mean Corpuscular HGB Conc 31.3 g/dl (32-36); Mean Corpuscular Hemoglobin 27.5 pg (26-34); Mean Corpuscular Volume 87.9 fl (80-100); Mean Platelet Volume 11.2 fl (7.4-10.4); Platelet Count Result 214 k/mm3 (150-375); Red Blood Count 3.05 M/mm3 (4.6-6.20); Red Cell Distribution Width 13.5 % (11.5-14.5); White Blood Count 6.4 K/mm3 (4.5-10.0)
[2020-07-26 04:51] LABS: Anion Gap 2 mmol/L (8-16); Blood Urea Nitrogen 26 mg/dL (9-20); Carbon Dioxide 34 mmol/L (22-30); Chloride 99 mmol/L (98-107); Estimated CRCL calculation 56 ml/min; Estimated Glomerular Filt Rate > 60; Glucose 155 mg/dL (75-110); Potassium 3.7 mmol/L (3.4-5.0); Sodium 135 mmol/L (137-145)
[2020-07-26] MEDS: methylPREDNISolone SOD SUCC 125 MG VIAL 60 MG IV PUSH ×4 (06:12→23:53)
[2020-07-26] MEDS: LEVOTHYROXINE SODIUM 50 MCG TABLET PO (06:12)
--- NOTE | 2020-07-26 07:25 | WPDGIPROGNO ---
Progress Note: A&P Additional Plan Patient alert and comfortable this morning. Anxious to proceed with surgery. He denies any bleeding. Denies abdominal pain. Physical exam reveals patient to be alert. Vital signs stable. HEENT exam unremarkable he is anicteric. Lungs appear clear. Heart without murmur. Abdomen is soft nontender with no organomegaly. Labs reveal a right colon mass consistent with adenocarcinoma. Impression 1. Adenocarcinoma of the right colon. Resection anticipated. Await cardiology clearance. 2. Congestive heart failure. Cardiology evaluation in progress. In anticipation of a ventral colon resection. Subjective Date/time seen: 07/26/20 07:25 Objective Data Vital Signs Vital Signs: Vital Signs - 24 hr 07/25/20 08:00 07/25/20 10:00 07/25/20 10:25 Temperature 97.2 F L Pulse Rate 65 75 71 Respiratory Rate 22 H Blood Pressure 129/50 L Pulse Oximetry 99 07/25/20 12:00 07/25/20 14:00 07/25/20 14:15 Temperature 97.4 F L Pulse Rate 76 78 76 Respiratory Rate 20 20 Blood Pressure 139/72 Pulse Oximetry 98 07/25/20 14:20 07/25/20 15:56 07/25/20 16:00 Temperature 97.3 F L Pulse Rate 76 63 73 Respiratory Rate 20 24 H Blood Pressure 100/45 L Pulse Oximetry 99 07/25/20 18:00 07/25/20 18:42 07/25/20 19:54 Temperature 97.4 F L Pulse Rate 76 75 77 Respiratory Rate 18 20 Blood Pressure 115/53 L Pulse Oximetry 98 07/25/20 19:56 07/25/20 20:00 07/25/20 22:00 Temperature Pulse Rate 70 54 L Respiratory Rate 20 Blood Pressure Pulse Oximetry 96 96 07/26/20 00:00 07/26/20 00:03 07/26/20 00:48 Temperature 96.5 F L Pulse Rate 73 73 36 L Respiratory Rate 16 16 Blood Pressure 134/79 Pulse Oximetry 100 100 07/26/20 02:00 07/26/20 03:28 07/26/20 04:00 Temperature Pulse Rate 51 L 36 L 54 L Respiratory Rate 18 Blood Pressure Pulse Oximetry 100 07/26/20 04:14 07/26/20 05:39 07/26/20 06:00 Temperature 96.4 F L Pulse Rate 54 L 34 L 66 Respiratory Rate 18 Blood Pressure 136/47 L Pulse Oximetry 100 Intake/Output Intake/Output: Intake & Output 07/23/20 07/24/20 07/25/20 07/26/20 23:59 23:59 23:59 23:59 Intake Total 1380 1900 570 100 Output Total 2200 2050 1450 750 Balance -820 -150 -880 -650 Meds/Results Medications: Active Medications Generic Name Dose Route Start Last Admin Trade Name Freq PRN Reason Stop Dose Admin Acetaminophen 650 mg 07/19/20 18:37 Tylenol Tablet PO Q6H PRN Mild Pain (1-3) Or Fever Albuterol 2.5 mg 07/19/20 18:37 07/20/20 15:16 Albuterol Sulf Neb 2.5 Mg/3 Ml INHALATION 2.5 mg Q4H PRN Administration Shortness Of Breath Or Wheezing Albuterol 2.5 mg 07/22/20 20:00 07/25/20 19:53 Albuterol Sulf Neb 2.5mg/0.5ml INHALATION 2.5 mg [id number] SHENA Administration Aspirin 81 mg 07/20/20 09:00 07/21/20 08:30 Aspirin Ec PO 81 mg DAILY SHENA Administration Budesonide 0.5 mg 07/22/20 20:00 07/25/20 19:53 Pulmicort Respule Neb INHALATION 0.5 mg Q12HRT SHENA Administration Buspirone HCl 5 mg 07/20/20 09:00 07/25/20 17:16 Buspar PO 5 mg TID SHENA Administration Citalopram Hydrobromide 10 mg 07/20/20 09:00 07/25/20 10:24 Celexa PO 10 mg DAILY SHENA Administration Docusate Sodium 100 mg 07/19/20 18:37 Colace Capsule PO BID PRN Constipation Ferrous Sulfate 324 mg 07/29/20 09:00 Ferrous Sulfate PO BID SHENA Finasteride 5 mg 07/20/20 09:00 07/25/20 10:25 Proscar PO 5 mg DAILY SHENA Administration Guaifenesin 600 mg 07/19/20 21:00 07/25/20 21:25 Mucinex 12 Hr Tab PO 600 mg Q12HR SHENA Administration Imipenem/Cilastatin Sodium 500 mg in 100 mls @ 300 mls/hr 07/19/20 23:00 07/26/20 06:58 Primaxin 500 Mg/D5w 100 Ml IVPB Infused Q8H SHENA Infusion Lactated Ringer's 1,000 mls @ 80 mls/hr 07/24/20 11:00 07/24/20 09:34 Lr - Lactated Ringers Iv
[2020-07-26] MEDS: ALBUTEROL SULFATE NEB 2.5 MG/0.5 ML INH INHALATION ×3 (08:41→20:50)
[2020-07-26] MEDS: BUDESONIDE RESPULE NEB 0.5 MG/2 ML AMP INHALATION ×2 (08:41→20:50)
[2020-07-26] MEDS: CITALOPRAM HYDROBROMIDE 10 MG TABLET PO (08:53)
[2020-07-26] MEDS: METOPROLOL SUCCINATE EXT REL 12.5 MG TABCR PO (08:53)
[2020-07-26] MEDS: FINASTERIDE 5 MG TABLET PO (08:54)
[2020-07-26] MEDS: busPIRone HCL 5 MG TABLET PO ×3 (08:54→17:51)
--- NOTE | 2020-07-26 10:51 | PM.PNCARD ---
Progress Note: A&P Assessment and Plan (1) Preop cardiovascular exam: Code(s): Z01.810 - Encounter for preprocedural cardiovascular examination Status: Acute Assessment and Plan: History of chest pain and extensive cardiac history. Lexiscan done for risk stratification. Nuclear perfusion study is abnormal. I personally reviewed the perfusion images. He does have a mixed inferior defect but it is predominantly fixed consistent with predominantly old infarction. He does have a mild amount of reversibility involving the inferior wall. There is no other significant ischemia noted. finally, the cardiac catheterization report from 2019 was sent from [facility]. Within that catheterization report, there is known occluded proximal RCA as well as occluded vein graft to the RCA. Patient does have faint collaterals coming from the left system to the PDA. He also has an occluded proximal LAD as well as 2 occluded diagonal branches. The vein graft to the LAD is patent and at that time patient had a 95% InStent stenosis of the vein graft to the diagonal branch is which was stented. The circumflex system had previous stents. There is no ischemia within the LAD or circumflex systems when reviewing his stress test from yesterday. Therefore, his abnormal stress test for ischemia on all correlates to his known anatomy of the occluded RCA with the occluded vein graft to the RCA with some faint collaterals. subsequently, there is no benefit of Re-cathing this patient in my opinion as his known anatomy correlates very well to the stress test as above. the ADULT SCHOOL TEACHER of the RCA will not /cannot be addressed. With all of this being said, I do think that this patient is at high risk of having at least some degree of cardiovascular complication for his upcoming colon resection. However, I think his intraoperative mortality risk is low Albeit not zero. All of these findings were discussed with Dr. Kimble. If possible, I recommend continuing his aspirin perioperatively. Obviously I recommend continuing his statin as well as his beta-morena perioperatively also. Avoid excessive IV hydration to avoid putting him into heart failure. I believe he is optimized as much as possible prior to hemicolectomy. I did talk this over with the patient as well as the patient's daughter also. I explained everything that is detailed in this note including mortality risk as well as him being at high risk of having at least some degree of cardiovascular complication. They verbalized understanding, are agreeable, and wished to proceed with colon resection Jaxon. (2) Cardiomyopathy: Qualifiers: Cardiomyopathy type: ischemic Qualified Code(s): I25.5 - Ischemic cardiomyopathy Code(s): I42.9 - Cardiomyopathy, unspecified Status: Chronic Assessment and Plan: Previously 40-45%. EF 44% on stress test. Echo pending. Continue Metoprolol. Follows with Dr. Sheth, [facility] (3) Coronary artery disease of [place] heart with stable angina pectoris: Code(s): I25.118 - Atherosclerotic heart disease of [place] coronary artery with other forms of angina pectoris Status: Acute Assessment and Plan: Continue metoprolol, statin, furosemide. Resume aspirin for now if able (4) Atrial fibrillation with rapid ventricular response: Code(s): I48.91 - Unspecified atrial fibrillation Status: Acute Assessment and Plan: Rate is controlled (5) Hypokalemia: Code(s): E87.6 - Hypokalemia Status: Acute Assessment and Plan: Supplemented. BMP in the morning (6) Left carotid bruit: Code(s): R09.89 - Other specified symptoms and signs involving the circulatory and respiratory systems Status: Acute Assessment and
[2020-07-26] MEDS: CHOLECALCIFEROL 1,000 UNITS TABLET 5000 UNITS PO (12:38)
[2020-07-26] MEDS: ACIDOPHILUS/BULGARICUS CHEWABLE TABLET 1 TABLET PO ×2 (12:39→17:50)
[2020-07-26] MEDS: guaiFENesin 12 HR 600 MG TABCR PO ×2 (12:39→21:00)
[2020-07-26] MEDS: POTASSIUM CHLORIDE 20 MEQ PACKET (FOR LIQUID) PO (12:40)
[2020-07-26] MEDS: NEOMYCIN SULFATE 500 MG TAB 1000 MG PO ×3 (12:41→21:00)
[2020-07-26] MEDS: metroNIDAZOLE 250 MG TABLET 500 MG PO ×3 (12:42→23:52)
--- NOTE | 2020-07-26 12:44 | PM.IMPN ---
Progress Note: A&P Assessment and Plan (1) UTI (urinary tract infection) due to urinary indwelling Landeros catheter: Code(s): T83.511A - Infection and inflammatory reaction due to indwelling urethral catheter, initial encounter; N39.0 - Urinary tract infection, site not specified Status: Acute Assessment and Plan: 07/26/20 12:44 patient has and positive for ESBL and Pseudomonas in the past. I started him on Primaxin awaiting full sensitivities Interval history: Reinaldo is a 79 year old male Who has a history of COPD and cHF and is chronically on oxygen at 2 L per nasal cannula. EMS was dispatched to a nursing facility with the patient was complaining of shortness of breath and temperature. Pts covid is negative. Pt is now on medical floor. Pt admitted with UTI, COPD exacerbation and sepsis. patient with history UTI with E coli ESBL and Pseudomonas sensitive to imipenem this time patient is a similar presented with a E coli ESBL and Pseudomonas and sensitive to imipenem will continue, is clinically stable will give 6/7 days of IV antibiotic, patient with anemia patient was seen by GI and had a colonoscopy today which showed patient has colon mass suspicious for malignancy recommending excision and further evaluation, I spoke with the patient and he is in agreement for the surgery, patient has a moderate systolic dysfunction with ejection fraction of 45% will consult cardiology for their opinion for the surgery, Patient is clinically stable seen by boning room worker patient had Lexiscan test suggesting moderate to high risk for the surgery, today boning room worker recommending cardiac catheterization further evaluation and recommendation for the surgery, patient is clinically stable does complaint abdominal but no nausea or vomiting fever or chills, today patient is sitting in the chair working with physical therapy. will follow-up on cardiac catheterization further recommendation to follow (2) Chronic atrial fibrillation: Code(s): I48.20 - Chronic atrial fibrillation, unspecified Status: Acute Assessment and Plan: Restart metoprolol. (3) Sepsis: Qualifiers: Sepsis type: sepsis due to unspecified organism Sepsis acute organ dysfunction status: unspecified Qualified Code(s): A41.9 - Sepsis, unspecified organism Code(s): A41.9 - Sepsis, unspecified organism Status: Acute Assessment and Plan: Most likely due to use UTI. Patient does have a chronic indwelling Landeros catheter. He was found to have UTI as well the patient's last urine cultures last month showed ESBL and the previous urine cultures were also ESBL plus Pseudomonas aeruginosa. (4) CHF (congestive heart failure): Qualifiers: Heart failure chronicity: unspecified Heart failure type: unspecified Qualified Code(s): I50.9 - Heart failure, unspecified Code(s): I50.9 - Heart failure, unspecified Status: Chronic Assessment and Plan: continue metoprolol and Lasix. (5) Elevated troponin: Code(s): R79.89 - Other specified abnormal findings of blood chemistry Status: Acute Assessment and Plan: Patient has chronically elevated troponins (6) BPH (benign prostatic hyperplasia): Code(s): N40.0 - Benign prostatic hyperplasia without lower urinary tract symptoms Status: Chronic Assessment and Plan: His a chronic indwelling Landeros catheter. He is on Proscar and Flomax. (7) Chronic respiratory failure with hypoxia: Code(s): J96.11 - Chronic respiratory failure with hypoxia Status: Chronic Assessment and Plan: He is chronically on 2 L per nasal cannula. (8) COPD (chronic obstructive pulmonary disease): Qualifiers: COPD type: COPD with acute exacerbation Qualified Code(s): J44.1 - Chronic obstructive pulmonary disease with (acute) exacerbation Code(s): J44.9 - Chronic obstructive pulmonary disease, unspecified Statu
--- NOTE | 2020-07-26 13:21 | WPDANESEPP ---
Anes - Eval Pre Procedure Procedure: Operation Date: 07/27/20 10:00 Proposed Procedures p HAND ASSISTED LAPAROSCOPIC RIGHT COLECTOMY - Peggy Ferro MD Date/Time: 07/26/20 13:21 Pre Op Diagnosis: Right colon adenocarcinoma Patient Data Age: 79 Gender: M Height: 5 ft 9 in Weight: 86.5 kg Last Vital Signs Temp 97.1 F L 07/26/20 12:00 Pulse 77 07/26/20 12:00 Resp 18 07/26/20 12:00 BP 101/45 L 07/26/20 12:00 Pulse Ox 98 07/26/20 12:00 Allergies Allergy/AdvReac Type Severity Reaction Status Date / Time No Known Allergies Allergy Mild Verified 07/24/20 06:50 Home Medications Medication Instructions Recorded Confirmed Type Perforomist 2 ml INHALATION Q12H 10/16/19 07/19/20 History albuterol sulfate 2.5 mg INHALATION Q4H PRN 10/16/19 07/19/20 History aspirin [Aspir-81] 81 mg PO DAILY 10/16/19 07/19/20 History atorvastatin 40 mg PO HS 10/16/19 07/19/20 History budesonide 0.5 mg INHALATION Q12H 10/16/19 07/19/20 History cholecalciferol (vitamin D3) 5,000 unit PO DAILY 10/16/19 07/19/20 History [Vitamin D3] citalopram 10 mg PO DAILY 10/16/19 07/19/20 History ferrous sulfate 325 mg PO BID 10/16/19 07/19/20 History melatonin 5 mg PO HS 10/16/19 07/19/20 History nitroglycerin 0.4 mg SUBLINGUAL Q5-15M PRN 10/16/19 07/19/20 History pantoprazole 40 mg PO HS 10/16/19 07/19/20 History polyethylene glycol 3350 17 g PO EVERY OTHER DAY 10/16/19 07/19/20 History mirtazapine [Remeron] 7.5 mg PO HS #15 tablet 10/21/19 07/19/20 Rx ondansetron HCl 4 mg PO Q6H PRN 12/28/19 07/19/20 History buspirone 5 mg PO TID 05/02/20 07/19/20 History docusate sodium 100 mg PO BID PRN 05/02/20 07/19/20 History finasteride 5 mg PO DAILY 05/02/20 07/19/20 History guaifenesin 600 mg PO Q12H 05/02/20 07/19/20 History potassium chloride 20 meq PO DAILY 05/02/20 07/19/20 History tamsulosin 0.4 mg PO HS 05/02/20 07/19/20 History levothyroxine [Synthroid] 50 mcg PO DAILY@0630 30 Days #30 05/26/20 07/19/20 Rx tablet metoprolol succinate [Toprol XL] 12.5 mg PO DAILY #0 tablet 05/26/20 07/19/20 Rx Lactobacillus acidophilus 100 mg PO BID 07/19/20 07/19/20 History [Acidophilus] acetaminophen [Mapap 325 - 650 mg PO Q6H PRN 07/19/20 07/19/20 History (acetaminophen)] doxycycline hyclate 100 mg PO Q12H 07/19/20 07/19/20 History furosemide 40 mg PO Q12H 07/19/20 07/19/20 History lidocaine 1 applic TOPICAL QID PRN 07/19/20 07/19/20 History lorazepam [Ativan] 0.5 mg PO Q12H PRN 07/19/20 07/19/20 History Laboratory Tests 07/26/20 07/26/20 04:23 04:23 WBC 6.4 K/mm3 K/mm3 (4.5-10.0) RBC 3.05 M/mm3 L M/mm3 (4.6-6.20) Hgb 8.4 g/dL L g/dL (14.0-18.0) Hct 26.8 % L % (42.0-52.0) MCV 87.9 fl fl (80-100) MCH 27.5 pg pg (26-34) MCHC 31.3 g/dl L g/dl (32-36) RDW 13.5 % % (11.5-14.5) Plt Count 214 k/mm3 k/mm3 (150-375) MPV 11.2 fl H fl (7.4-10.4) Sodium 135 mmol/L L mmol/L (137-145) Potassium 3.7 mmol/L mmol/L (3.4-5.0) Chloride 99 mmol/L mmol/L (98-107) Carbon Dioxide 34 mmol/L H mmol/L (22-30) Anion Gap 2 mmol/L L mmol/L (8-16) BUN 26 mg/dL H mg/dL (9-20) Creatinine 0.90 mg/dL mg/dL (0.7-1.3) Estim Creat Clear Calc 56 ml/min ml/min Estimated GFR > 60 (59 - ) Glucose 155 mg/dL H mg/dL (75-110) Calcium 8.0 mg/dL L mg/dL (8.4-10.2) Patient hx anesthesia problems: none Family hx anesthesia problems: none PMFSH Past Medical History Medical History Anemia Atrial fibrillation BPH (benign prostatic hyperplasia) CAD (coronary artery disease) COPD (chronic obstructive pulmonary disease) Coronary artery disease of [place] heart with stable angina pectoris Depression Diverticulitis Emphysema, unspecified GERD (gastroesophageal reflux disease) History of angina HTN (hypertension) Hyperlipidemia Lung can
[2020-07-26] MEDS: MELATONIN 5 MG TABLET PO (21:00)
[2020-07-26] MEDS: MIRTAZAPINE 7.5 MG TABLET PO (21:00)
[2020-07-26] MEDS: TAMSULOSIN HCL 0.4 MG CAPSULE PO (21:00)
[2020-07-26] MEDS: PANTOPRAZOLE 40 MG TABLET PO (21:00)
[2020-07-27] VITALS (27 sets, daily range): BP systolic 104–156; BP diastolic 51–77; PULSE 43–107; RESP 16–20; TEMP 36–36.8; O2SAT 93–100; BMI 27.7
[2020-07-27 05:04] LABS: Hematocrit 27.8 % (42.0-52.0); Hemoglobin 8.6 g/dL (14.0-18.0); Mean Corpuscular HGB Conc 30.9 g/dl (32-36); Mean Corpuscular Hemoglobin 26.8 pg (26-34); Mean Corpuscular Volume 86.6 fl (80-100); Platelet Count Result 226 k/mm3 (150-375); Red Blood Count 3.21 M/mm3 (4.6-6.20); Red Cell Distribution Width 13.2 % (11.5-14.5); White Blood Count 5.9 K/mm3 (4.5-10.0)
[2020-07-27 05:47] LABS: Anion Gap 3 mmol/L (8-16); Blood Urea Nitrogen 28 mg/dL (9-20); Calcium 7.9 mg/dL (8.4-10.2); Carbon Dioxide 32 mmol/L (22-30); Chloride 98 mmol/L (98-107); Estimated CRCL calculation 71 ml/min; Estimated Glomerular Filt Rate > 60; Glucose 138 mg/dL (75-110); Potassium 4.1 mmol/L (3.4-5.0); Sodium 133 mmol/L (137-145)
[2020-07-27] MEDS: methylPREDNISolone SOD SUCC 125 MG VIAL 60 MG IV PUSH ×3 (06:20→17:23)
[2020-07-27] MEDS: LEVOTHYROXINE SODIUM 50 MCG TABLET PO (06:20)
[2020-07-27] MEDS: CHLORHEXIDINE GLUCONATE 4% SOL 120 ML BTL 1 APPLIC TOPICAL (06:21)
[2020-07-27] MEDS: METOPROLOL SUCCINATE EXT REL 12.5 MG TABCR PO (07:58)
--- NOTE | 2020-07-27 08:57 | PM.PNCARD ---
Progress Note: A&P Assessment and Plan (1) Preop cardiovascular exam: Code(s): Z01.810 - Encounter for preprocedural cardiovascular examination Status: Acute Assessment and Plan: History of chest pain and extensive cardiac history. Lexiscan done for risk stratification. Nuclear perfusion study is abnormal. I personally reviewed the perfusion images. He does have a mixed inferior defect but it is predominantly fixed consistent with predominantly old infarction. He does have a mild amount of reversibility involving the inferior wall. There is no other significant ischemia noted. finally, the cardiac catheterization report from 2019 was sent from [facility]. Within that catheterization report, there is known occluded proximal RCA as well as occluded vein graft to the RCA. Patient does have faint collaterals coming from the left system to the PDA. He also has an occluded proximal LAD as well as 2 occluded diagonal branches. The vein graft to the LAD is patent and at that time patient had a 95% InStent stenosis of the vein graft to the diagonal branch is which was stented. The circumflex system had previous stents. There is no ischemia within the LAD or circumflex systems when reviewing his stress test from yesterday. Therefore, his abnormal stress test for ischemia on all correlates to his known anatomy of the occluded RCA with the occluded vein graft to the RCA with some faint collaterals. subsequently, there is no benefit of Re-cathing this patient in my opinion as his known anatomy correlates very well to the stress test as above. the PUBLIC HEALTH SANITARIAN TECHNICIAN of the RCA will not /cannot be addressed. With all of this being said, I do think that this patient is at high risk of having at least some degree of cardiovascular complication for his upcoming colon resection. However, I think his intraoperative mortality risk is low Albeit not zero. All of these findings were discussed with Dr. Kimble. If possible, I recommend continuing his aspirin perioperatively. Obviously I recommend continuing his statin as well as his beta-morena perioperatively also. Avoid excessive IV hydration to avoid putting him into heart failure. I believe he is optimized as much as possible prior to hemicolectomy. I did talk this over with the patient as well as the patient's daughter also. I explained everything that is detailed in this note including mortality risk as well as him being at high risk of having at least some degree of cardiovascular complication. They verbalized understanding, are agreeable, and wished to proceed with colon resection Jaxon. (2) Cardiomyopathy: Qualifiers: Cardiomyopathy type: ischemic Qualified Code(s): I25.5 - Ischemic cardiomyopathy Code(s): I42.9 - Cardiomyopathy, unspecified Status: Chronic Assessment and Plan: Previously 40-45%. EF 44% on stress test. Echo pending. Continue Metoprolol. Follows with Dr. Sheth, [place], in [facility] (3) Coronary artery disease of [place] heart with stable angina pectoris: Code(s): I25.118 - Atherosclerotic heart disease of [place] coronary artery with other forms of angina pectoris Status: Acute Assessment and Plan: Continue metoprolol, statin, furosemide. continue current meds (4) Atrial fibrillation with rapid ventricular response: Code(s): I48.91 - Unspecified atrial fibrillation Status: Acute Assessment and Plan: Rate is controlled (5) Hypokalemia: Code(s): E87.6 - Hypokalemia Status: Acute Assessment and Plan: Supplemented. BMP in the morning (6) Left carotid bruit: Code(s): R09.89 - Other specified symptoms and signs involving the circulatory and respiratory systems Status: Acute Assessment and Plan: C
--- NOTE | 2020-07-27 09:00 | PC.NURSE ---
Patient to Pre-Op via bed. Daughter at bedside.
--- NOTE | 2020-07-27 09:14 | WPDGIPROGNO ---
Progress Note: A&P Additional Plan patient alert and comfortable this morning. Anxious to proceed with surgery. No obvious GI bleeding evident. He denies abdominal pain. Breathing easily today. Physical exam reveals lungs to have only few rhonchi. Heart without murmur. Abdomen soft and nontender. No obvious organomegaly. Labs reveal hemoglobin 8.6, hematocrit 27.8, MCV 86. Mass biopsy consistent with adenocarcinoma of the colon. Impression 1. Ascending colon mass. Adenocarcinoma confirmed. Surgical therapy anticipated today. 2. Congestive heart failure. Stable as per cardiology service following patient. Subjective Date/time seen: 07/27/20 09:14 Objective Data Vital Signs Vital Signs: Vital Signs - 24 hr 07/26/20 10:00 07/26/20 12:00 07/26/20 14:00 Temperature 97.1 F L Pulse Rate 57 L 58 L 73 Respiratory Rate 18 Blood Pressure 101/45 L Pulse Oximetry 98 07/26/20 14:53 07/26/20 14:55 07/26/20 15:03 Temperature Pulse Rate 60 64 Respiratory Rate 20 20 Blood Pressure Pulse Oximetry 97 07/26/20 16:15 07/26/20 16:50 07/26/20 18:00 Temperature 96.3 F L Pulse Rate 63 71 65 Respiratory Rate 20 Blood Pressure 124/54 L Pulse Oximetry 99 07/26/20 19:38 07/26/20 20:00 07/26/20 20:54 Temperature 96.8 F L Pulse Rate 71 70 75 Respiratory Rate 20 20 20 Blood Pressure 102/37 L Pulse Oximetry 98 98 07/26/20 21:04 07/26/20 22:00 07/26/20 23:58 Temperature 97.7 F Pulse Rate 76 54 L 54 L Respiratory Rate 20 20 Blood Pressure 146/42 H Pulse Oximetry 100 07/27/20 00:00 07/27/20 02:00 07/27/20 03:35 Temperature 97.4 F L Pulse Rate 43 L 58 L 57 L Respiratory Rate 20 18 Blood Pressure 156/56 H Pulse Oximetry 100 99 07/27/20 04:00 07/27/20 06:00 07/27/20 06:52 Temperature 97.9 F Pulse Rate 57 L 47 L 57 L Respiratory Rate 18 18 Blood Pressure 138/52 L Pulse Oximetry 99 100 07/27/20 07:58 09/04/20 08:00 Temperature Pulse Rate 68 78 Respiratory Rate Blood Pressure Pulse Oximetry Intake/Output Intake/Output: Intake & Output 07/24/20 07/25/20 07/26/20 07/27/20 23:59 23:59 23:59 23:59 Intake Total 6639 232 4727 600 Output Total 2050 1450 1350 700 Balance -150 -880 -310 -100 Meds/Results Medications: Active Medications Generic Name Dose Route Start Last Admin Trade Name Freq PRN Reason Stop Dose Admin Acetaminophen 650 mg 07/19/20 18:37 Tylenol Tablet PO Q6H PRN Mild Pain (1-3) Or Fever Albuterol 2.5 mg 07/19/20 18:37 07/20/20 15:16 Albuterol Sulf Neb 2.5 Mg/3 Ml INHALATION 2.5 mg Q4H PRN Administration Shortness Of Breath Or Wheezing Albuterol 2.5 mg 07/22/20 20:00 07/26/20 20:50 Albuterol Sulf Neb 2.5mg/0.5ml INHALATION 2.5 mg [id number] SHENA Administration Alvimopan 12 mg 07/27/20 09:30 Entereg PO 07/27/20 09:31 ONCE ONE Aspirin 81 mg 07/20/20 09:00 07/21/20 08:30 Aspirin Ec PO 81 mg DAILY [facility] Administration Budesonide 0.5 mg 07/22/20 20:00 07/26/20 20:50 Pulmicort Respule Neb INHALATION 0.5 mg Q12HRT SHENA Administration Buspirone HCl 5 mg 07/20/20 09:00 07/27/20 07:52 Buspar PO Not Given TID [facility] Citalopram Hydrobromide 10 mg 07/20/20 09:00 07/27/20 07:52 Celexa PO Not Given DAILY [facility] Docusate Sodium 100 mg 07/19/20 18:37 Colace Capsule PO BID PRN Constipation Ferrous Sulfate 324 mg 07/29/20 09:00 Ferrous Sulfate PO BID [facility] Finasteride 5 mg 07/20/20 09:00 07/27/20 07:52 Proscar PO Not Given DAILY [facility] Guaifenesin 600 mg 07/19/20 21:00 07/27/20 07:52 Mucinex 12 Hr Tab PO Not Given Q12HR [facility] Imipenem/Cilastatin Sodium 500 mg in 100 mls @ 300 mls/hr 07/19/20 23:00 07/27/20 06:52 Primaxin 500 Mg/D5w 100 Ml IVPB Infused Q8H SHENA Infusion Lactated Ringer's 1,000 mls @ 80 mls/hr 07/24/20 11:00 07/24/20 09:34 Lr - Lactated Edith
--- NOTE | 2020-07-27 09:33 | WPDANESEFPP ---
Anes - Eval Final PreProcedure Day of Procedure 07/27/20 09:33 Patient weight: overweight Heart: irregular rhythm Lungs: clear to auscultation Airway: Mallampati scale class II Neurological: alert and oriented Last oral intake: >/= 8 hours ASA classification: IV Emergent: no Anesthetic plan: proceed Anesthesia type and monitoring: general ETT and standard monitoring Informed Consent: The patient's anesthetic plan and its attendant risks and benefits were discussed with the patient/family/POA. Questions were solicited and answers provided to the satisfaction of the patient/family/POA.
[2020-07-27] MEDS: ALVIMOPAN 12 MG CAPSULE PO (09:55)
[2020-07-27] MEDS: LACTATED RINGERS 1,000 ML 30 ML IV CONT ×2 (09:57→11:50)
[2020-07-27] MEDS: ceFAZolin 2 GM/D5W 50 ML 2 GM/50 ML BAG IVPB (10:00)
[2020-07-27] MEDS: metroNIDAZOLE 500 MG/ISO 100ML 500 MG/100 ML BAG 100 MG IVPB (10:23)
[2020-07-27] MEDS: BUPIVACAINE/EPINEPHRINE 0.5% 30 ML VIAL INFILTRATE (10:45)
--- NOTE | 2020-07-27 11:43 | PM.PROC ---
Procedure Note - Detailed Date of procedure: 07/27/20 Pre-op diagnosis: Right colon adenocarcinoma Post-op diagnosis: same Procedure performed: Hand assisted laparoscopic right colectomy, mobilization of hepatic flexure Description of procedure: The patient was taken to the operating room and placed in the supine position. After adequate induction of general anesthesia, the patient was prepped and draped normal sterile fashion. A time-out was then done to verify the patient's identity as well as the procedure being performed. I began by making a hand port incision in the supraumbilical region. This was carried down into the peritoneal cavity and there was no noted adhesions to the anterior abdominal wall. The hand port was then placed at this point. I then insufflated the abdomen through the hand port. I then placed the camera through the hand port under direct visualization I placed 2 5 mm ports in right mid and right upper abdomen. Once this was done, I examined the right abdomen. It was noted there was some scarring of the right colon to the right lateral abdominal wall and there was also adhesions near the ileocecal junction likely from previous appendectomy. Given this I slowly took down all these adhesions under direct visualization with the LigaSure device. Once the ileocecal area was mobilized, I began my medial approach. I did this by 1st recognizing and transecting the right colic vessels. This was taken down near the base of the mesentery with the LigaSure. Once this was done, I carried this plane towards the hepatic flexure until I encountered the duodenum which was mobilized posteriorly. I then began taking down the lateral attachments of the terminal ileum and right colon including taking down the white line of [place] and the hepatic flexure. Once this was done my medial and lateral dissection planes met. I was able to easily manipulate the right colon. At this point, I extracorporealyzed the right colon and terminal ileum. I then transected the terminal ileum approximately 10 cm proximal to the ileo colic junction with a 55 ЮЛИЯ stapler. I then localized the tumor in the hepatic flexure, I measured 10 cm distal to this and transected the transverse colon at this point. I then performed a [id number] functional end-to-end anastomosis between the ileum and mid transverse colon with a 55 ЮЛИЯ stapler followed by a TL 60 stapler. The anastomosis was noted to be tension-free and widely patent. Of note, the middle colic vessels were noted to be spared and intact. I then copiously irrigated the abdomen, no other pathology was noted. I then closed the hand port incision with 1 PDS suture x 2 at the fascial level. The skin was closed with 4 O Monocryl subcuticular sutures including the 5 mm ports sites. Dermabond was then placed on all wounds. The patient tolerated the procedure well. He was extubated in the operating room postoperatively and will be transferred to the recovery room in stable condition. Implants: Anesthesia: GETA Surgeon: Peggy Ferro MD Estimated blood loss (mL): 25 Drains: No Packing: No Pathology: yes Complications: No immediate complications Condition: stable Disposition: PACU Findings: palpable, tatooed mass at hepatic flexure
--- NOTE | 2020-07-27 11:46 | PCOTNOTE ---
Attempted to see pt this AM. RN stated that pt was having surgery at this time. Will continue per POC duration and frequency.
--- NOTE | 2020-07-27 12:00 | PCPTNOTE ---
The PT treatment was unable to be completed today due to patient out of room for procedure. Will continue per Plan of Care frequency and duration.
--- NOTE | 2020-07-27 12:25 | PC.NURSE ---
Patient to transfer to 259 after surgery. Report given to QUINTIN Marrero. Patient's belongings moved to 259. Daughter, Massiel, aware and helped move belongings.
--- NOTE | 2020-07-27 13:02 | PC.NURSE ---
Recieved patient from OR, iv intact and locked. Report from IMU and PACU.
[2020-07-27] MEDS: busPIRone HCL 5 MG TABLET PO ×2 (13:16→17:23)
--- NOTE | 2020-07-27 14:08 | PM.IMPN ---
Progress Note: A&P Assessment and Plan (1) UTI (urinary tract infection) due to urinary indwelling Landeros catheter: Code(s): T83.511A - Infection and inflammatory reaction due to indwelling urethral catheter, initial encounter; N39.0 - Urinary tract infection, site not specified Status: Acute Assessment and Plan: 07/27/20 14:08 patient has and positive for ESBL and Pseudomonas in the past. I started him on Primaxin awaiting full sensitivities Interval history: Reinaldo is a 79 year old male Who has a history of COPD and cHF and is chronically on oxygen at 2 L per nasal cannula. EMS was dispatched to a nursing facility with the patient was complaining of shortness of breath and temperature. Pts covid is negative. Pt is now on medical floor. Pt admitted with UTI, COPD exacerbation and sepsis. patient with history UTI with E coli ESBL and Pseudomonas sensitive to imipenem this time patient is a similar presented with a E coli ESBL and Pseudomonas and sensitive to imipenem will continue, is clinically stable will give 6/7 days of IV antibiotic, patient with anemia patient was seen by GI and had a colonoscopy today which showed patient has colon mass suspicious for malignancy recommending excision and further evaluation, I spoke with the patient and he is in agreement for the surgery, patient has a moderate systolic dysfunction with ejection fraction of 45% will consult cardiology for their opinion for the surgery, Patient is clinically stable seen by health plan advisor patient had Lexiscan test suggesting moderate to high risk for the surgery, today patient was taken to OR and had a colectomy, patient still under anesthesia, denies any pain, patient's daughter is present in the room, patient is given clear liquid, will continue to monitor and further recommendation to follow (2) Chronic atrial fibrillation: Code(s): I48.20 - Chronic atrial fibrillation, unspecified Status: Acute Assessment and Plan: Restart metoprolol. (3) Sepsis: Qualifiers: Sepsis type: sepsis due to unspecified organism Sepsis acute organ dysfunction status: unspecified Qualified Code(s): A41.9 - Sepsis, unspecified organism Code(s): A41.9 - Sepsis, unspecified organism Status: Acute Assessment and Plan: Most likely due to use UTI. Patient does have a chronic indwelling Landeros catheter. He was found to have UTI as well the patient's last urine cultures last month showed ESBL and the previous urine cultures were also ESBL plus Pseudomonas aeruginosa. (4) CHF (congestive heart failure): Qualifiers: Heart failure chronicity: unspecified Heart failure type: unspecified Qualified Code(s): I50.9 - Heart failure, unspecified Code(s): I50.9 - Heart failure, unspecified Status: Chronic Assessment and Plan: continue metoprolol and Lasix. (5) Elevated troponin: Code(s): R79.89 - Other specified abnormal findings of blood chemistry Status: Acute Assessment and Plan: Patient has chronically elevated troponins (6) BPH (benign prostatic hyperplasia): Code(s): N40.0 - Benign prostatic hyperplasia without lower urinary tract symptoms Status: Chronic Assessment and Plan: His a chronic indwelling Landeros catheter. He is on Proscar and Flomax. (7) Chronic respiratory failure with hypoxia: Code(s): J96.11 - Chronic respiratory failure with hypoxia Status: Chronic Assessment and Plan: He is chronically on 2 L per nasal cannula. (8) COPD (chronic obstructive pulmonary disease): Qualifiers: COPD type: COPD with acute exacerbation Qualified Code(s): J44.1 - Chronic obstructive pulmonary disease with (acute) exacerbation Code(s): J44.9 - Chronic obstructive pulmonary disease, unspecified Status: Chronic Assessment and Plan: I continued with his neb treatments and is inhalers. I started him on So
[2020-07-27] MEDS: ALBUTEROL SULFATE NEB 2.5 MG/0.5 ML INH INHALATION ×2 (15:18→20:31)
[2020-07-27] MEDS: ACIDOPHILUS/BULGARICUS CHEWABLE TABLET 1 TABLET PO (17:23)
[2020-07-27] MEDS: BUDESONIDE RESPULE NEB 0.5 MG/2 ML AMP INHALATION (20:31)
[2020-07-27] MEDS: TAMSULOSIN HCL 0.4 MG CAPSULE PO (21:27)
[2020-07-27] MEDS: guaiFENesin 12 HR 600 MG TABCR PO (21:27)
[2020-07-27] MEDS: MELATONIN 5 MG TABLET PO (21:27)
[2020-07-27] MEDS: PANTOPRAZOLE 40 MG TABLET PO (21:27)
[2020-07-27] MEDS: MIRTAZAPINE 7.5 MG TABLET PO (21:27)
[2020-07-28] VITALS (17 sets, daily range): BP systolic 111–124; BP diastolic 46–71; PULSE 56–78; RESP 16–20; TEMP 36.3–36.8; O2SAT 95–100; BMI 10.0
[2020-07-28] MEDS: methylPREDNISolone SOD SUCC 125 MG VIAL 60 MG IV PUSH ×5 (01:17→23:43)
[2020-07-28 05:39] LABS: Hematocrit 27.8 % (42.0-52.0); Hemoglobin 8.6 g/dL (14.0-18.0); Mean Corpuscular HGB Conc 30.9 g/dl (32-36); Mean Corpuscular Hemoglobin 27.7 pg (26-34); Mean Corpuscular Volume 89.4 fl (80-100); Mean Platelet Volume 11.4 fl (7.4-10.4); Platelet Count Result 205 k/mm3 (150-375); Red Blood Count 3.11 M/mm3 (4.6-6.20); Red Cell Distribution Width 13.7 % (11.5-14.5); White Blood Count 14.1 K/mm3 (4.5-10.0)
[2020-07-28] MEDS: LEVOTHYROXINE SODIUM 50 MCG TABLET PO (06:03)
[2020-07-28 06:30] LABS: Blood Urea Nitrogen 28 mg/dL (9-20); Carbon Dioxide 32 mmol/L (22-30); Chloride 99 mmol/L (98-107); Estimated CRCL calculation 63 ml/min; Estimated Glomerular Filt Rate > 60; Glucose 142 mg/dL (75-110)
[2020-07-28 06:31] LABS: Anion Gap 3 mmol/L (8-16); Sodium 134 mmol/L (137-145)
[2020-07-28] MEDS: ACETAMINOPHEN 325 MG TABLET 650 MG PO (06:59)
[2020-07-28 07:20] LABS: Potassium 4.4 mmol/L (3.4-5.0)
[2020-07-28] MEDS: busPIRone HCL 5 MG TABLET PO ×3 (08:51→17:03)
[2020-07-28] MEDS: CHOLECALCIFEROL 1,000 UNITS TABLET 5000 UNITS PO (08:51)
[2020-07-28] MEDS: ACIDOPHILUS/BULGARICUS CHEWABLE TABLET 1 TABLET PO ×2 (08:51→17:03)
[2020-07-28] MEDS: guaiFENesin 12 HR 600 MG TABCR PO ×2 (08:51→20:41)
[2020-07-28] MEDS: POTASSIUM CHLORIDE 20 MEQ PACKET (FOR LIQUID) PO (08:51)
[2020-07-28] MEDS: CITALOPRAM HYDROBROMIDE 10 MG TABLET PO (08:51)
[2020-07-28] MEDS: FINASTERIDE 5 MG TABLET PO (08:51)
--- NOTE | 2020-07-28 08:58 | PM.PNCARD ---
Progress Note: A&P Assessment and Plan (1) Preop cardiovascular exam: Code(s): Z01.810 - Encounter for preprocedural cardiovascular examination Status: Acute Assessment and Plan: He has done well thus far postoperatively. Continue current cardiac regimen. Once he is eating and drinking more regularly, his home dose of furosemide should be restarted (2) Cardiomyopathy: Qualifiers: Cardiomyopathy type: ischemic Qualified Code(s): I25.5 - Ischemic cardiomyopathy Code(s): I42.9 - Cardiomyopathy, unspecified Status: Chronic Assessment and Plan: Previously 40-45%. EF 44% on stress test. Echo pending. Continue Metoprolol. Follows with Dr. Sheth, [facility] [place], in [facility] (3) Coronary artery disease of [place] heart with stable angina pectoris: Code(s): I25.118 - Atherosclerotic heart disease of [place] coronary artery with other forms of angina pectoris Status: Acute Assessment and Plan: Continue metoprolol, statin continue current meds (4) Atrial fibrillation with rapid ventricular response: Code(s): I48.91 - Unspecified atrial fibrillation Status: Acute Assessment and Plan: Rate is controlled (5) Hypokalemia: Code(s): E87.6 - Hypokalemia Status: Acute Assessment and Plan: stable (6) Left carotid bruit: Code(s): R09.89 - Other specified symptoms and signs involving the circulatory and respiratory systems Status: Acute Assessment and Plan: Carotid Dopplers are negative. will follow-up postoperative Subjective Date/time seen: 07/28/20 08:59 Interval history: Follow up for: coronary artery disease and cardiac risk assessment for noncardiac surgery. Date of service: 07/28/2020 Subjective: he looks quite well pod 1 status post partial colon resection. Denies any chest pain or shortness of breath. Does have some abdominal pain. Review of Systems Review of Systems: All systems reviewed & are unremarkable except as noted in HPI and below Constitutional: Constitutional: Denies fatigue, Denies headache(s) and Denies weakness Eyes: Eyes: Denies blurry vision ENT: Denies headache(s), Denies lip swelling, Denies epistaxis and Denies neck pain Cardiovascular: Cardiovascular: Denies chest pain and Reports dyspnea on exertion Respiratory: Respiratory: Reports dyspnea on exertion Gastrointestinal: Gastrointestinal: Reports abdominal pain Genitourinary: Genitourinary: Denies dysuria Musculoskeletal: Musculoskeletal: Denies neck pain Integumentary/Breasts: Skin/Breast: Denies dry skin Neurologic: Denies confusion, Denies headache(s) and Denies weakness Psychiatric: Psychiatric: Denies anxiety and Denies confusion Endocrine: Endocrine: Denies fatigue Hematologic/Lymphatic: Hematologic/Lymphatic: Denies easy bleeding Allergic/Immunologic: Allergic/Immunologic: Denies lip swelling Exam Narrative: Exam Narrative: Seen in stress lab. Laying comfortably in bed. No distress peer Const: General: no acute distress; No confusion Orientation/consciousness: No confusion HENMT: General nose exam: Normal nares present Eyes: Sclera: sclerae normal Neck: Neck: no JVD Carotids: bruit Other: left carotid bruit Chest: Other: no reproducible chest wall pain to palpation Resp: Auscultation: clear to auscultation bilaterally Cardio: Rate: regular rate Rhythm: regular rhythm GI: Auscultation: normal bowel sounds Skin: General skin exam: normal color Neuro: General: No confusion Cognition (Neuro): normal cognition Speech: normal speech Extrem: General: no pedal edema Psych: Mental Status: mental status grossly normal Objective Data Vital Signs Vital Signs: Vital Signs - 24 hr 07/27/20 09:30 07/27/20 11
--- NOTE | 2020-07-28 09:00 | WPDGIPROGNO ---
Progress Note: A&P Additional Plan Patient alert. Complains of incisional tenderness after surgery yesterday. Physical exam reveals abdomen to be soft. Incisional tenderness noted. Bowel sounds present but hypoactive. Surgical findings noted. Await final path report. Labs reveal hemoglobin 8.6, hematocrit 27.8. Impression 1. Adenocarcinoma of the colon. Status post resection. Tumor located at hepatic flexure area. Final path pending. 2. Congestive heart failure. Clinically stable at this time. Cardiology following. 3. COPD. Whigham to be stable at present. Plan for supportive care. Advance diet per surgical service. Anticipate follow-up colonoscopy 1 year. Oncology follow-up pending results of final path report. Subjective Date/time seen: 07/28/20 09:00 Objective Data Vital Signs Vital Signs: Vital Signs - 24 hr 07/27/20 09:30 07/27/20 11:50 07/27/20 12:10 Temperature 96.8 F L 98.2 F Pulse Rate 48 L 95 72 Respiratory Rate 20 19 Blood Pressure 143/57 H 145/77 H 155/67 H Pulse Oximetry 99 100 100 07/27/20 12:25 07/27/20 12:35 07/27/20 13:05 Temperature 97.9 F Pulse Rate 65 67 107 H Respiratory Rate 16 18 19 Blood Pressure 122/56 L 136/72 118/55 L Pulse Oximetry 99 99 98 07/27/20 13:20 07/27/20 13:50 07/27/20 14:50 Temperature 97.5 F L 97.7 F 97.8 F Pulse Rate 53 L 54 L 60 Respiratory Rate 19 18 19 Blood Pressure 126/57 L 116/56 L 117/58 L Pulse Oximetry 97 96 97 07/27/20 15:19 07/27/20 15:20 07/27/20 15:24 Temperature Pulse Rate 77 71 Respiratory Rate 18 18 Blood Pressure Pulse Oximetry 93 07/27/20 16:00 07/27/20 18:00 07/27/20 20:00 Temperature 98.1 F Pulse Rate 61 81 57 L Respiratory Rate 18 Blood Pressure 115/55 L Pulse Oximetry 97 07/27/20 20:25 07/27/20 20:33 07/27/20 20:34 Temperature Pulse Rate 69 69 Respiratory Rate 18 18 Blood Pressure Pulse Oximetry 95 07/27/20 20:53 07/28/20 00:00 07/28/20 01:10 Temperature 97.6 F 97.4 F L Pulse Rate 57 L 58 L 61 Respiratory Rate 18 16 Blood Pressure 104/51 L 111/63 Pulse Oximetry 98 97 07/28/20 04:00 Temperature Pulse Rate 61 Respiratory Rate Blood Pressure Pulse Oximetry Intake/Output Intake/Output: Intake & Output 07/25/20 07/26/20 07/27/20 07/28/20 23:59 23:59 23:59 23:59 Intake Total 570 1040 1520 600 Output Total 1450 1350 1250 550 Balance -880 -310 270 50 Meds/Results Medications: Active Medications Generic Name Dose Route Start Last Admin Trade Name Freq PRN Reason Stop Dose Admin Acetaminophen 650 mg 07/19/20 18:37 07/28/20 06:59 Tylenol Tablet PO 650 mg Q6H PRN Administration Mild Pain (1-3) Or Fever Albuterol 2.5 mg 07/19/20 18:37 07/20/20 15:16 Albuterol Sulf Neb 2.5 Mg/3 Ml INHALATION 2.5 mg Q4H PRN Administration Shortness Of Breath Or Wheezing Albuterol 2.5 mg 07/22/20 20:00 07/27/20 20:31 Albuterol Sulf Neb 2.5mg/0.5ml INHALATION 2.5 mg [id number] SHENA Administration Aspirin 81 mg 07/20/20 09:00 07/21/20 08:30 Aspirin Ec PO 81 mg DAILY [facility] Administration Budesonide 0.5 mg 07/22/20 20:00 07/27/20 20:31 Pulmicort Respule Neb INHALATION 0.5 mg Q12HRT SHENA Administration Buspirone HCl 5 mg 07/20/20 09:00 07/28/20 08:51 Buspar PO 5 mg TID [facility] Administration Citalopram Hydrobromide 10 mg 07/20/20 09:00 07/28/20 08:51 Celexa PO 10 mg DAILY [facility] Administration Ferrous Sulfate 324 mg 07/29/20 09:00 Ferrous Sulfate PO BID [facility] Finasteride 5 mg 07/20/20 09:00 07/28/20 08:51 Proscar PO 5 mg DAILY [facility] Administration Guaifenesin 600 mg 07/19/20 21:00 07/28/20 08:51 Mucinex 12 Hr Tab PO 600 mg Q12HR [facility] Administration Imipenem/Cilastatin Sodium 500 mg in 100 mls @ 300 mls/hr 07/19/20 23:00 07/28/20 06:22 Primaxin 500 Mg/D5w 100 Ml IVPB Infused Q8H SHE[facility] Infusion Lactobacillus Acidophilus 1 tablet 07/20/20 0
--- NOTE | 2020-07-28 09:25 | PM.PNGS ---
Progress Note: A&P Assessment and Plan (1) Ascending colon malignant neoplasm: Code(s): C18.2 - Malignant neoplasm of ascending colon Status: Chronic Assessment and Plan: cont clears, await bowel fxn, cont PT/OT, encourage OOB/IS (2) Coronary artery disease of [place] heart with stable angina pectoris: Code(s): I25.118 - Atherosclerotic heart disease of [place] coronary artery with other forms of angina pectoris Status: Acute Assessment and Plan: stable, mgmt per cardiology Subjective Subjective Date/Time Seen: 07/28/20 09:25 doing ok this am, c/o some incisional soreness, iglesia clears Review of Systems Constitutional: Constitutional: Reports body ache(s), Denies chills, Reports fatigue, Reports lethargy and Reports weakness Cardiovascular: Cardiovascular: Denies chest pain Respiratory: Respiratory: Denies dyspnea and Reports dyspnea on exertion Gastrointestinal: Gastrointestinal: Reports abdominal pain, Reports bloating, Denies constipation, Denies heartburn, Denies diarrhea, Denies nausea, Denies vomiting and Denies hematemesis Exam Const: General: no acute distress Resp: Auscultation: diminished lung sounds Cardio: Rate: regular rate Rhythm: regular rhythm GI: Other: S, mod dist, renée TTP, incisions C/D/I Objective Data Vital Signs Vital Signs: Vital Signs - 24 hr 07/27/20 09:30 07/27/20 11:50 07/27/20 12:10 Temperature 36.0 C L 36.8 C Pulse Rate 48 L 95 72 Respiratory Rate 20 19 Blood Pressure 143/57 H 145/77 H 155/67 H Pulse Oximetry 99 100 100 07/27/20 12:25 07/27/20 12:35 07/27/20 13:05 Temperature 36.6 C Pulse Rate 65 67 107 H Respiratory Rate 16 18 19 Blood Pressure 122/56 L 136/72 118/55 L Pulse Oximetry 99 99 98 07/27/20 13:20 07/27/20 13:50 07/27/20 14:50 Temperature 36.4 C L 36.5 C 36.6 C Pulse Rate 53 L 54 L 60 Respiratory Rate 19 18 19 Blood Pressure 126/57 L 116/56 L 117/58 L Pulse Oximetry 97 96 97 07/27/20 15:19 07/27/20 15:20 07/27/20 15:24 Temperature Pulse Rate 77 71 Respiratory Rate 18 18 Blood Pressure Pulse Oximetry 93 07/27/20 16:00 07/27/20 18:00 07/27/20 20:00 Temperature 36.7 C Pulse Rate 61 81 57 L Respiratory Rate 18 Blood Pressure 115/55 L Pulse Oximetry 97 07/27/20 20:25 07/27/20 20:33 07/27/20 20:34 Temperature Pulse Rate 69 69 Respiratory Rate 18 18 Blood Pressure Pulse Oximetry 95 07/27/20 20:53 07/28/20 00:00 07/28/20 01:10 Temperature 36.4 C 36.3 C L Pulse Rate 57 L 58 L 61 Respiratory Rate 18 16 Blood Pressure 104/51 L 111/63 Pulse Oximetry 98 97 07/28/20 04:00 Temperature Pulse Rate 61 Respiratory Rate Blood Pressure Pulse Oximetry Intake/Output Intake/Output: Intake & Output 07/25/20 07/26/20 07/27/20 07/28/20 23:59 23:59 23:59 23:59 Intake Total 570 1040 1520 600 Output Total 1450 1350 1250 550 Balance -880 -310 270 50 Meds/Results Medications: Active Medications Generic Name Dose Route Start Last Admin Trade Name Freq PRN Reason Stop Dose Admin Acetaminophen 650 mg 07/19/20 18:37 07/28/20 06:59 Tylenol Tablet PO 650 mg Q6H PRN Administration Mild Pain (1-3) Or Fever Albuterol 2.5 mg 07/19/20 18:37 07/20/20 15:16 Albuterol Sulf Neb 2.5 Mg/3 Ml INHALATION 2.5 mg Q4H PRN Administration Shortness Of Breath Or Wheezing Albuterol 2.5 mg 07/22/20 20:00 07/27/20 20:31 Albuterol Sulf Neb 2.5mg/0.5ml INHALATION 2.5 mg [id number] SHENA Administration Aspirin 81 mg 07/20/20 09:00 07/21/20 08:30 Aspirin Ec PO 81 mg DAILY [facility] Administration Budesonide 0.5 mg 07/22/20 20:00 07/27/20 20:31 Pulmicort Respule Neb INHALATION 0.5 mg Q12HRT SHENA Administration Buspirone HCl 5 mg 07/20/20 09:00 07/28/20 08:51 Buspar PO 5 mg TID [facility] Administration Citalopram Hydrobromide 10 mg 07/20/20 09:00 07/28/20 08:51 Celexa PO 10 mg DAILY [facility] Administration F
--- NOTE | 2020-07-28 09:28 | PCPTNOTE ---
Attempted PT reeval. Pt refused, states he's too tired to do anything. Will try again later today.
[2020-07-28] MEDS: ALBUTEROL SULFATE NEB 2.5 MG/0.5 ML INH INHALATION ×4 (09:35→21:33)
[2020-07-28] MEDS: BUDESONIDE RESPULE NEB 0.5 MG/2 ML AMP INHALATION ×3 (09:35→21:33)
[2020-07-28] MEDS: ASPIRIN 81 MG ENTERIC TABLET PO (11:27)
--- NOTE | 2020-07-28 14:35 | PM.IMPN ---
Progress Note: A&P Assessment and Plan (1) UTI (urinary tract infection) due to urinary indwelling Landeros catheter: Code(s): T83.511A - Infection and inflammatory reaction due to indwelling urethral catheter, initial encounter; N39.0 - Urinary tract infection, site not specified Status: Acute Assessment and Plan: 07/28/20 14:35 patient has and positive for ESBL and Pseudomonas in the past. I started him on Primaxin awaiting full sensitivities Interval history: Reinaldo is a 79 year old male Who has a history of COPD and cHF and is chronically on oxygen at 2 L per nasal cannula. EMS was dispatched to a nursing facility with the patient was complaining of shortness of breath and temperature. Pts covid is negative. Pt is now on medical floor. Pt admitted with UTI, COPD exacerbation and sepsis. patient with history UTI with E coli ESBL and Pseudomonas sensitive to imipenem this time patient is a similar presented with a E coli ESBL and Pseudomonas and sensitive to imipenem will continue, is clinically stable will give 6/7 days of IV antibiotic, patient with anemia patient was seen by GI and had a colonoscopy today which showed patient has colon mass suspicious for malignancy recommending excision and further evaluation, I spoke with the patient and he is in agreement for the surgery, patient has a moderate systolic dysfunction with ejection fraction of 45% will consult cardiology for their opinion for the surgery, Patient is clinically stable seen by registered nurse fetal patient had Lexiscan test suggesting moderate to high risk for the surgery, on 07/27 patient was taken to OR POD 1and had a colectomy, today patient states abdominal pain still persists, denies any nausea or vomit, able to tolerate clear liquid, he states that he is passing gas but not sure patient still is somewhat confused, his grandson is present in the room, patient denies any fever or chills, patient has leukocytosis most likely secondary to stress and pain will going to continue to monitor (2) Chronic atrial fibrillation: Code(s): I48.20 - Chronic atrial fibrillation, unspecified Status: Acute Assessment and Plan: Restart metoprolol. (3) Sepsis: Qualifiers: Sepsis type: sepsis due to unspecified organism Sepsis acute organ dysfunction status: unspecified Qualified Code(s): A41.9 - Sepsis, unspecified organism Code(s): A41.9 - Sepsis, unspecified organism Status: Acute Assessment and Plan: Most likely due to use UTI. Patient does have a chronic indwelling Landeros catheter. He was found to have UTI as well the patient's last urine cultures last month showed ESBL and the previous urine cultures were also ESBL plus Pseudomonas aeruginosa. (4) CHF (congestive heart failure): Qualifiers: Heart failure chronicity: unspecified Heart failure type: unspecified Qualified Code(s): I50.9 - Heart failure, unspecified Code(s): I50.9 - Heart failure, unspecified Status: Chronic Assessment and Plan: continue metoprolol and Lasix. (5) Elevated troponin: Code(s): R79.89 - Other specified abnormal findings of blood chemistry Status: Acute Assessment and Plan: Patient has chronically elevated troponins (6) BPH (benign prostatic hyperplasia): Code(s): N40.0 - Benign prostatic hyperplasia without lower urinary tract symptoms Status: Chronic Assessment and Plan: His a chronic indwelling Landeros catheter. He is on Proscar and Flomax. (7) Chronic respiratory failure with hypoxia: Code(s): J96.11 - Chronic respiratory failure with hypoxia Status: Chronic Assessment and Plan: He is chronically on 2 L per nasal cannula. (8) COPD (chronic obstructive pulmonary disease): Qualifiers: COPD type: COPD with acute exacerbation Qualified Code(s): J44.1 - Chronic obstructive pulmonary disease with (acute) exacerbation Code(s
--- NOTE | 2020-07-28 14:48 | WPDANESPN ---
Anes - Prog Note Post-Op Date/Time: 07/28/20 14:48 Cardiovascular status: normal Respiratory status: normal Airway patency: baseline Mental status: baseline Post-Op hydration status: normal Vital Signs: Last Vital Signs Temp 36.8 C 07/28/20 14:00 Pulse 73 07/28/20 14:37 Resp 16 07/28/20 14:00 BP 121/71 07/28/20 14:00 Pulse Ox 99 07/28/20 14:00 Pain Score (VAS): 4 I/O: Intake & Output 07/27/20 07/28/20 07/28/20 23:59 07:59 15:59 Intake Total 670 600 390 Output Total 250 550 Balance 420 50 390 Laboratory Tests 07/28/20 05:08 07/28/20 05:08 07/28/20 07/28/20 05:08 05:08 WBC 14.1 H RBC 3.11 L Hgb 8.6 L Hct 27.8 L MCV 89.4 MCH 27.7 MCHC 30.9 L RDW 13.7 Plt Count 205 MPV 11.4 H Sodium 134 L Potassium 4.4 Chloride 99 Carbon Dioxide 32 H Anion Gap 3 L BUN 28 H Creatinine 0.80 Estim Creat Clear Calc 63 Estimated GFR > 60 Glucose 142 H Calcium 8.0 L Post-procedural complaints: none Patient Feedback: Patient satisfied with anesthetic care.
[2020-07-28] MEDS: MELATONIN 5 MG TABLET PO (20:41)
[2020-07-28] MEDS: MIRTAZAPINE 7.5 MG TABLET PO (20:42)
[2020-07-28] MEDS: PANTOPRAZOLE 40 MG TABLET PO (20:42)
[2020-07-28] MEDS: TAMSULOSIN HCL 0.4 MG CAPSULE PO (20:43)
[2020-07-29] VITALS (17 sets, daily range): BP systolic 106–152; BP diastolic 54–78; PULSE 66–111; RESP 20–32; TEMP 36.1–36.6; O2SAT 89–99
[2020-07-29 05:49] LABS: Hematocrit 29.6 % (42.0-52.0); Hemoglobin 9.1 g/dL (14.0-18.0); Mean Corpuscular HGB Conc 30.7 g/dl (32-36); Mean Corpuscular Hemoglobin 27.6 pg (26-34); Mean Corpuscular Volume 89.7 fl (80-100); Mean Platelet Volume 11.4 fl (7.4-10.4); Platelet Count Result 209 k/mm3 (150-375); Red Cell Distribution Width 13.9 % (11.5-14.5); White Blood Count 16.4 K/mm3 (4.5-10.0)
[2020-07-29] MEDS: LEVOTHYROXINE SODIUM 50 MCG TABLET PO (05:59)
[2020-07-29] MEDS: methylPREDNISolone SOD SUCC 125 MG VIAL 60 MG IV PUSH ×4 (05:59→23:47)
[2020-07-29 06:01] LABS: Anion Gap 2 mmol/L (8-16); Blood Urea Nitrogen 29 mg/dL (9-20); Calcium 8.3 mg/dL (8.4-10.2); Carbon Dioxide 33 mmol/L (22-30); Chloride 96 mmol/L (98-107); Estimated CRCL calculation 71 ml/min; Estimated Glomerular Filt Rate > 60; Glucose 141 mg/dL (75-110); Potassium 4.4 mmol/L (3.4-5.0); Sodium 131 mmol/L (137-145)
[2020-07-29] MEDS: busPIRone HCL 5 MG TABLET PO ×3 (08:45→17:07)
[2020-07-29] MEDS: POTASSIUM CHLORIDE 20 MEQ PACKET (FOR LIQUID) PO (08:45)
[2020-07-29] MEDS: CHOLECALCIFEROL 1,000 UNITS TABLET 5000 UNITS PO (08:46)
[2020-07-29] MEDS: ACIDOPHILUS/BULGARICUS CHEWABLE TABLET 1 TABLET PO ×2 (08:46→17:07)
[2020-07-29] MEDS: FERROUS SULFATE 324 MG TABLET PO ×2 (08:46→17:07)
[2020-07-29] MEDS: ASPIRIN 81 MG ENTERIC TABLET PO (08:46)
[2020-07-29] MEDS: FINASTERIDE 5 MG TABLET PO (08:46)
[2020-07-29] MEDS: guaiFENesin 12 HR 600 MG TABCR PO ×2 (08:46→20:26)
[2020-07-29] MEDS: CITALOPRAM HYDROBROMIDE 10 MG TABLET PO (08:46)
--- NOTE | 2020-07-29 08:46 | PM.PNGS ---
Progress Note: A&P Assessment and Plan (1) Ascending colon malignant neoplasm: Code(s): C18.2 - Malignant neoplasm of ascending colon Status: Chronic Assessment and Plan: doing well, cont to await bowel fxn, advance to soft diet, encourage OOB/IS, PT/OT (2) Leukocytosis: Code(s): D72.829 - Elevated white blood cell count, unspecified Status: Acute Assessment and Plan: unclear etiology, will cont to follow at this point Subjective Subjective Date/Time Seen: 07/29/20 08:46 feels pretty good, some incisional pain, +flatus, liquid BM overnight Review of Systems Constitutional: Constitutional: Denies body ache(s), Denies chills, Reports fatigue, Reports lethargy and Reports weakness Cardiovascular: Cardiovascular: Denies chest pain Respiratory: Respiratory: Denies dyspnea and Reports dyspnea on exertion Gastrointestinal: Gastrointestinal: Reports abdominal pain, Denies bloating, Denies constipation, Denies heartburn, Denies diarrhea, Denies nausea, Denies vomiting and Denies hematemesis Exam Const: General: no acute distress Resp: Auscultation: clear to auscultation bilaterally Cardio: Rate: regular rate Rhythm: regular rhythm GI: Other: soft, sl dist, renée TTP, incisions C/D/I Objective Data Vital Signs Vital Signs: Vital Signs - 24 hr 07/28/20 09:36 07/28/20 09:44 07/28/20 10:00 Temperature 36.8 C Pulse Rate 68 72 72 Respiratory Rate 18 18 16 Blood Pressure 113/46 L Pulse Oximetry 97 100 07/28/20 12:00 07/28/20 14:00 07/28/20 14:37 Temperature 36.8 C Pulse Rate 73 71 73 Respiratory Rate 16 18 Blood Pressure 121/71 Pulse Oximetry 99 07/28/20 14:44 07/28/20 16:00 07/28/20 20:00 Temperature Pulse Rate 73 78 65 Respiratory Rate 18 Blood Pressure Pulse Oximetry 07/28/20 21:33 07/28/20 21:36 07/28/20 21:37 Temperature 36.6 C Pulse Rate 72 56 L 72 Respiratory Rate 20 20 Blood Pressure 124/56 L Pulse Oximetry 95 97 07/28/20 21:39 07/29/20 00:00 07/29/20 04:00 Temperature Pulse Rate 73 66 73 Respiratory Rate 20 Blood Pressure Pulse Oximetry 07/29/20 06:00 Temperature 36.5 C Pulse Rate 79 Respiratory Rate 20 Blood Pressure 152/78 H Pulse Oximetry 99 Intake/Output Intake/Output: Intake & Output 07/26/20 07/27/20 07/28/20 07/29/20 23:59 23:59 23:59 23:59 Intake Total 1040 1520 1800 675 Output Total 1350 1250 1050 500 Balance -310 270 750 175 Meds/Results Medications: Active Medications Generic Name Dose Route Start Last Admin Trade Name Freq PRN Reason Stop Dose Admin Acetaminophen 650 mg 07/19/20 18:37 07/28/20 06:59 Tylenol Tablet PO 650 mg Q6H PRN Administration Mild Pain (1-3) Or Fever Albuterol 2.5 mg 07/19/20 18:37 07/20/20 15:16 Albuterol Sulf Neb 2.5 Mg/3 Ml INHALATION 2.5 mg Q4H PRN Administration Shortness Of Breath Or Wheezing Albuterol 2.5 mg 07/22/20 20:00 07/28/20 21:33 Albuterol Sulf Neb 2.5mg/0.5ml INHALATION 2.5 mg [id number] SHENA Administration Aspirin 81 mg 07/20/20 09:00 07/28/20 11:27 Aspirin Ec PO 81 mg DAILY SHENA Administration Budesonide 0.5 mg 07/22/20 20:00 07/28/20 21:33 Pulmicort Respule Neb INHALATION 0.5 mg Q12HRT SHENA Administration Buspirone HCl 5 mg 07/20/20 09:00 07/28/20 17:03 Buspar PO 5 mg TID SHENA Administration Citalopram Hydrobromide 10 mg 07/20/20 09:00 07/28/20 08:51 Celexa PO 10 mg DAILY SHENA Administration Ferrous Sulfate 324 mg 07/29/20 09:00 Ferrous Sulfate PO BID SHENA Finasteride 5 mg 07/20/20 09:00 07/28/20 08:51 Proscar PO 5 mg DAILY SHENA Administration Guaifenesin 600 mg 07/19/20 21:00 07/28/20 20:41 Mucinex 12 Hr Tab PO 600 mg Q12HR SHENA Administration Imipenem/Cilastatin Sodium 500 mg in 100 mls @ 300 mls/hr 07/19/20 23:00 07/29/20 06:21 Primaxin 500 Mg/D5w 100 Ml IVPB Infused Q8H SHENA Infusion [facility]
[2020-07-29] MEDS: BUDESONIDE RESPULE NEB 0.5 MG/2 ML AMP INHALATION ×2 (08:48→20:48)
[2020-07-29] MEDS: METOPROLOL SUCCINATE EXT REL 12.5 MG TABCR PO (08:48)
[2020-07-29] MEDS: ALBUTEROL SULFATE NEB 2.5 MG/0.5 ML INH INHALATION ×3 (08:48→20:48)
--- NOTE | 2020-07-29 09:04 | WPDGIPROGNO ---
Progress Note: A&P Assessment and Plan (1) Ascending colon malignant neoplasm: Code(s): C18.2 - Malignant neoplasm of ascending colon Status: Chronic Assessment and Plan: Patient now status post resection of hepatic flexure colon carcinoma. Final histology pending. Plan is for supportive care. Postoperative management per Dr. Ferro. Advance diet per her sister actions. (2) COPD (chronic obstructive pulmonary disease): Qualifiers: COPD type: COPD with acute exacerbation Qualified Code(s): J44.1 - Chronic obstructive pulmonary disease with (acute) exacerbation Code(s): J44.9 - Chronic obstructive pulmonary disease, unspecified Status: Chronic (3) Atrial fibrillation: Code(s): I48.91 - Unspecified atrial fibrillation Status: Acute (4) ASHD (arteriosclerotic heart disease): Code(s): I25.10 - Atherosclerotic heart disease of [place] coronary artery without angina pectoris Status: Acute Subjective Date/time seen: 07/29/20 09:04 Patient alert and current more comfortable this morning. States he is passing some flatus and small amount of stool. Tolerated liquids. Review of Systems Review of Systems: All systems reviewed & are unremarkable except as noted in HPI and below Exam Narrative: Exam Narrative: Physical exam reveals patient to be comfortable. Lungs are clear. Abdomen is soft bowel sounds active. Incisional tenderness reported. Objective Data Vital Signs Vital Signs: Vital Signs - 24 hr 07/28/20 09:36 07/28/20 09:44 07/28/20 10:00 Temperature 98.3 F Pulse Rate 68 72 72 Respiratory Rate 18 18 16 Blood Pressure 113/46 L Pulse Oximetry 97 100 07/28/20 12:00 07/28/20 14:00 07/28/20 14:37 Temperature 98.2 F Pulse Rate 73 71 73 Respiratory Rate 16 18 Blood Pressure 121/71 Pulse Oximetry 99 07/28/20 14:44 07/28/20 16:00 07/28/20 20:00 Temperature Pulse Rate 73 78 65 Respiratory Rate 18 Blood Pressure Pulse Oximetry 07/28/20 21:33 07/28/20 21:36 07/28/20 21:37 Temperature 97.9 F Pulse Rate 72 56 L 72 Respiratory Rate 20 20 Blood Pressure 124/56 L Pulse Oximetry 95 97 07/28/20 21:39 07/29/20 00:00 07/29/20 04:00 Temperature Pulse Rate 73 66 73 Respiratory Rate 20 Blood Pressure Pulse Oximetry 07/29/20 06:00 07/29/20 08:48 07/29/20 08:58 Temperature 97.7 F Pulse Rate 79 86 109 H Respiratory Rate 20 32 H 32 H Blood Pressure 152/78 H Pulse Oximetry 99 89 L Intake/Output Intake/Output: Intake & Output 07/26/20 07/27/20 07/28/20 07/29/20 23:59 23:59 23:59 23:59 Intake Total 1040 1520 1800 675 Output Total 1350 1250 1050 500 Balance -310 270 750 175 Meds/Results Medications: Active Medications Generic Name Dose Route Start Last Admin Trade Name Freq PRN Reason Stop Dose Admin Acetaminophen 650 mg 07/19/20 18:37 07/28/20 06:59 Tylenol Tablet PO 650 mg Q6H PRN Administration Mild Pain (1-3) Or Fever Albuterol 2.5 mg 07/19/20 18:37 07/20/20 15:16 Albuterol Sulf Neb 2.5 Mg/3 Ml INHALATION 2.5 mg Q4H PRN Administration Shortness Of Breath Or Wheezing Albuterol 2.5 mg 07/22/20 20:00 07/29/20 08:48 Albuterol Sulf Neb 2.5mg/0.5ml INHALATION 2.5 mg [id number] SHENA Administration Aspirin 81 mg 07/20/20 09:00 07/29/20 08:46 Aspirin Ec PO 81 mg DAILY SHENA Administration Budesonide 0.5 mg 07/22/20 20:00 07/29/20 08:48 Pulmicort Respule Neb INHALATION 0.5 mg Q12HRT SHENA Administration Buspirone HCl 5 mg 07/20/20 09:00 07/29/20 08:45 Buspar PO 5 mg TID SHENA Administration Citalopram Hydrobromide 10 mg 07/20/20 09:00 07/29/20 08:46 Celexa PO 10 mg DAILY SHENA Administration Ferrous Sulfate 324 mg 07/29/20 09:00 07/29/20 08:46 Ferrous Sulfate PO 324 mg BID SHENA Administration Finasteride 5 mg 07/20/20 09:00 07/29/20 08:46 Proscar PO 5 mg DAILY SHENA Administr
--- NOTE | 2020-07-29 09:17 | PM.PNCARD ---
Progress Note: A&P Assessment and Plan (1) Preop cardiovascular exam: Code(s): Z01.810 - Encounter for preprocedural cardiovascular examination Status: Acute Assessment and Plan: feels worse today with worsening white count. Blood cultures have been ordered. Continue current cardiac regimen. Will give him a dose of furosemide IV 40 mg x 1. Also check a chest x-ray on him today. (2) Cardiomyopathy: Qualifiers: Cardiomyopathy type: ischemic Qualified Code(s): I25.5 - Ischemic cardiomyopathy Code(s): I42.9 - Cardiomyopathy, unspecified Status: Chronic Assessment and Plan: Previously 40-45%. EF 44% on stress test. Echo pending. Continue Metoprolol. Follows with Dr. Sheth, [facility], in [facility] (3) Coronary artery disease of [place] heart with stable angina pectoris: Code(s): I25.118 - Atherosclerotic heart disease of [place] coronary artery with other forms of angina pectoris Status: Acute Assessment and Plan: Continue metoprolol, statin continue current meds (4) Atrial fibrillation with rapid ventricular response: Code(s): I48.91 - Unspecified atrial fibrillation Status: Acute Assessment and Plan: Rate is controlled (5) Hypokalemia: Code(s): E87.6 - Hypokalemia Status: Acute Assessment and Plan: stable (6) Left carotid bruit: Code(s): R09.89 - Other specified symptoms and signs involving the circulatory and respiratory systems Status: Acute Assessment and Plan: Carotid Dopplers are negative. Subjective Date/time seen: 07/29/20 09:17 Interval history: Follow up for: coronary artery disease and cardiac risk assessment for noncardiac surgery. Date of service: Subjective: does not feel very well today. Poorly describes how he feels but he does deny any chest pain. He is short of breath but states that it is not worse than usual. Abdominal pain is present Review of Systems Review of Systems: All systems reviewed & are unremarkable except as noted in HPI and below Constitutional: Constitutional: Denies fatigue, Denies headache(s) and Denies weakness Eyes: Eyes: Denies blurry vision ENT: Denies headache(s), Denies lip swelling, Denies epistaxis and Denies neck pain Cardiovascular: Cardiovascular: Denies chest pain and Reports dyspnea on exertion Respiratory: Respiratory: Reports dyspnea on exertion Gastrointestinal: Gastrointestinal: Reports abdominal pain Genitourinary: Genitourinary: Denies dysuria Musculoskeletal: Musculoskeletal: Denies neck pain Integumentary/Breasts: Skin/Breast: Denies dry skin Neurologic: Denies confusion, Denies headache(s) and Denies weakness Psychiatric: Psychiatric: Denies anxiety and Denies confusion Endocrine: Endocrine: Denies fatigue Hematologic/Lymphatic: Hematologic/Lymphatic: Denies easy bleeding Allergic/Immunologic: Allergic/Immunologic: Denies lip swelling Exam Narrative: Exam Narrative: Seen in stress lab. Laying comfortably in bed. No distress peer Const: General: no acute distress; No confusion Orientation/consciousness: No confusion HENMT: General nose exam: Normal nares present Eyes: Sclera: sclerae normal Neck: Neck: no JVD Carotids: bruit Chest: Other: no reproducible chest wall pain to palpation Resp: Auscultation: diminished lung sounds Cardio: Rate: regular rate Rhythm: regular rhythm GI: Auscultation: normal bowel sounds Skin: General skin exam: normal color Neuro: General: No confusion Cognition (Neuro): normal cognition Speech: normal speech Extrem: General: no pedal edema Psych: Mental Status: mental status grossly normal Objective Data Vital Signs Vital Signs: Vital Signs - 24 hr 07/28/20 09:36 07/28/20 09:44 07/28/20 10:00
[2020-07-29] MEDS: FUROSEMIDE INJ 40 MG/4 ML VIAL IV PUSH (10:12)
[2020-07-29 13:56] LABS: Base Excess ABG 5.6 mEq/l (+/-2.0); Device NASAL CANNULA; Fractional Inspired Oxygen 32 %; HCO3 ABG 30.2 mEq/l (22.0-26.0); Modified Allen's Test Pass; Oxygen Content ABG 13.2 %vol (16.0-22.0); Oxyhemoglobin 92.4 % THb (90.0-100.0); PCO2 ABG 44.2 mmHg (35.0-45.0); PO2 ABG 71.4 mmHg (80.0-100.0); PO2 FiO2 Ratio Arterial Blood 2.23 %; Site Drawn RIGHT RADIAL; Total Hemoglobin 10.1 g/dL (12.0-18.0); pH ABG 7.452 (7.350-7.450)
[2020-07-29] MEDS: MORPHINE SULFATE 2 MG/ML INJ IV PUSH (14:02)
--- NOTE | 2020-07-29 14:18 | PM.IMPN ---
Progress Note: A&P Assessment and Plan (1) UTI (urinary tract infection) due to urinary indwelling Landeros catheter: Code(s): T83.511A - Infection and inflammatory reaction due to indwelling urethral catheter, initial encounter; N39.0 - Urinary tract infection, site not specified Status: Acute Assessment and Plan: 07/29/20 14:18 patient has and positive for ESBL and Pseudomonas in the past. I started him on Primaxin awaiting full sensitivities Interval history: Reinaldo is a 79 year old male Who has a history of COPD and cHF and is chronically on oxygen at 2 L per nasal cannula. EMS was dispatched to a nursing facility with the patient was complaining of shortness of breath and temperature. Pts covid is negative. Pt is now on medical floor. Pt admitted with UTI, COPD exacerbation and sepsis. patient with history UTI with E coli ESBL and Pseudomonas sensitive to imipenem this time patient is a similar presented with a E coli ESBL and Pseudomonas and sensitive to imipenem will continue, is clinically stable will give 6/7 days of IV antibiotic, patient with anemia patient was seen by GI and had a colonoscopy today which showed patient has colon mass suspicious for malignancy recommending excision and further evaluation, I spoke with the patient and he is in agreement for the surgery, patient has a moderate systolic dysfunction with ejection fraction of 45% will consult cardiology for their opinion for the surgery, Patient is clinically stable seen by tool room attendant patient had Lexiscan test suggesting moderate to high risk for the surgery, on 07/27 patient was taken to OR POD 2 and had a colectomy, today patient states abdominal pain still persists,Is having difficulty with breathing due to abdominal pain denies any nausea or vomit, able to tolerate clear liquid, he did have a bowel movement, however he appears short of breath, earlier today he was given IV Lasix 40 mg by tool room attendant, chest x-ray is negative for pulmonary edema, ABG show pH of 7.453, pCO2 of 44 and P O2 72% on 4 L oxygen, will give the patient 2 mg morphine IV for pain control, will continue to monitor, patient denies any fever or chills, patient has leukocytosis most likely secondary to stress and pain, patient is on imipenem for his UTI, will order blood culture, will going to continue to monitor (2) Chronic atrial fibrillation: Code(s): I48.20 - Chronic atrial fibrillation, unspecified Status: Acute Assessment and Plan: Restart metoprolol. (3) Sepsis: Qualifiers: Sepsis type: sepsis due to unspecified organism Sepsis acute organ dysfunction status: unspecified Qualified Code(s): A41.9 - Sepsis, unspecified organism Code(s): A41.9 - Sepsis, unspecified organism Status: Acute Assessment and Plan: Most likely due to use UTI. Patient does have a chronic indwelling Landeros catheter. He was found to have UTI as well the patient's last urine cultures last month showed ESBL and the previous urine cultures were also ESBL plus Pseudomonas aeruginosa. (4) CHF (congestive heart failure): Qualifiers: Heart failure chronicity: unspecified Heart failure type: unspecified Qualified Code(s): I50.9 - Heart failure, unspecified Code(s): I50.9 - Heart failure, unspecified Status: Chronic Assessment and Plan: continue metoprolol and Lasix. (5) Elevated troponin: Code(s): R79.89 - Other specified abnormal findings of blood chemistry Status: Acute Assessment and Plan: Patient has chronically elevated troponins (6) BPH (benign prostatic hyperplasia): Code(s): N40.0 - Benign prostatic hyperplasia without lower urinary tract symptoms Status: Chronic Assessment and Plan: His a chronic indwelling Landeros catheter. He is on Proscar and Flomax. (7) Chronic respiratory failure with hypoxia: Code(s): J96.11 - Chronic respiratory failure with hy
--- NOTE | 2020-07-29 16:05 | PCPTNOTE ---
The PT treatment was unable to be completed today. Will continue per Plan of Care frequency and duration.
[2020-07-29] MEDS: FUROSEMIDE INJ 40 MG/4 ML VIAL 20 MG IV PUSH (17:06)
[2020-07-29] MEDS: ACETAMINOPHEN 325 MG TABLET 650 MG PO (17:14)
[2020-07-29 17:29] LABS: Anion Gap 4 mmol/L (8-16); Blood Urea Nitrogen 32 mg/dL (9-20); Calcium 8.2 mg/dL (8.4-10.2); Carbon Dioxide 34 mmol/L (22-30); Chloride 94 mmol/L (98-107); Estimated CRCL calculation 63 ml/min; Estimated Glomerular Filt Rate > 60; Glucose 156 mg/dL (75-110); Magnesium 2.7 mg/dL (1.6-2.3); Potassium 4.5 mmol/L (3.4-5.0); Sodium 132 mmol/L (137-145)
[2020-07-29] MEDS: MELATONIN 5 MG TABLET PO (20:26)
[2020-07-29] MEDS: MIRTAZAPINE 7.5 MG TABLET PO (20:26)
[2020-07-29] MEDS: TAMSULOSIN HCL 0.4 MG CAPSULE PO (20:26)
[2020-07-29] MEDS: PANTOPRAZOLE 40 MG TABLET PO (20:27)
[2020-07-29] MEDS: IPRATROPIUM BR 0.02% INH SOLN 0.5 MG/2.5 ML VIAL INHALATION (20:49)
[2020-07-30] VITALS (19 sets, daily range): BP systolic 103–138; BP diastolic 52–61; PULSE 68–88; RESP 18–26; TEMP 36.1–36.6; O2SAT 95–100
[2020-07-30] MEDS: IPRATROPIUM BR 0.02% INH SOLN 0.5 MG/2.5 ML VIAL INHALATION ×4 (03:05→20:32)
[2020-07-30] MEDS: ALBUTEROL SULFATE NEB 2.5 MG/0.5 ML INH INHALATION ×4 (03:05→20:32)
[2020-07-30 05:50] LABS: Hematocrit 27.3 % (42.0-52.0); Hemoglobin 8.3 g/dL (14.0-18.0); Mean Corpuscular HGB Conc 30.4 g/dl (32-36); Mean Corpuscular Volume 92.2 fl (80-100); Mean Platelet Volume 12.3 fl (7.4-10.4); Platelet Count Result 135 k/mm3 (150-375); Red Blood Count 2.96 M/mm3 (4.6-6.20); Red Cell Distribution Width 14.5 % (11.5-14.5); White Blood Count 13.7 K/mm3 (4.5-10.0)
[2020-07-30] MEDS: LEVOTHYROXINE SODIUM 50 MCG TABLET PO (06:06)
[2020-07-30] MEDS: methylPREDNISolone SOD SUCC 125 MG VIAL 60 MG IV PUSH ×3 (06:07→17:15)
[2020-07-30 06:11] LABS: Anion Gap 5 mmol/L (8-16); Blood Urea Nitrogen 35 mg/dL (9-20); Calcium 8.1 mg/dL (8.4-10.2); Carbon Dioxide 29 mmol/L (22-30); Chloride 96 mmol/L (98-107); Estimated CRCL calculation 63 ml/min; Estimated Glomerular Filt Rate > 60; Glucose 138 mg/dL (75-110); Potassium 4.7 mmol/L (3.4-5.0); Sodium 130 mmol/L (137-145)
--- NOTE | 2020-07-30 07:25 | WPDGIPROGNO ---
Progress Note: A&P Additional Plan Patient comfortable this morning. Repeat reports much less pain. Tolerating diet. Physical exam reveals Vital Signs to be stable. HEENT exam is anicteric. Lungs are clear. Heart without murmur. Abdomen soft mild incisional tenderness noted. Labs resected colon segment histology pending. Impression 1. Adenocarcinoma of the colon. Status post resection of right colon mass. Await final path report. Consider Oncology follow-up subsequently. 2. Congestive heart failure. Patient clinically stable at present. plan as per surgery. Await final histology report. Subjective Date/time seen: 07/30/20 07:25 Objective Data Vital Signs Vital Signs: Vital Signs - 24 hr 07/29/20 08:00 07/29/20 08:45 07/29/20 08:48 Temperature Pulse Rate 68 86 Respiratory Rate 32 H Blood Pressure Pulse Oximetry 95 89 L 07/29/20 08:58 07/29/20 12:00 07/29/20 13:35 Temperature 97.9 F Pulse Rate 109 H 95 95 Respiratory Rate 32 H 25 H Blood Pressure 106/59 L Pulse Oximetry 99 07/29/20 14:15 07/29/20 14:23 07/29/20 16:00 Temperature Pulse Rate 98 75 80 Respiratory Rate 32 H 24 H Blood Pressure Pulse Oximetry 99 07/29/20 20:00 07/29/20 20:50 07/29/20 20:53 Temperature Pulse Rate 79 76 Respiratory Rate 20 Blood Pressure Pulse Oximetry 95 07/29/20 21:07 07/29/20 22:00 07/30/20 00:00 Temperature 97 F L Pulse Rate 82 88 68 Respiratory Rate 20 22 H Blood Pressure 114/54 L Pulse Oximetry 96 07/30/20 03:07 07/30/20 03:17 07/30/20 04:00 Temperature Pulse Rate 77 79 76 Respiratory Rate 18 18 Blood Pressure Pulse Oximetry 07/30/20 05:52 Temperature 97.0 F L Pulse Rate 72 Respiratory Rate 22 H Blood Pressure 114/52 L Pulse Oximetry 100 Intake/Output Intake/Output: Intake & Output 07/27/20 07/28/20 07/29/20 07/30/20 23:59 23:59 23:59 23:59 Intake Total 1520 1800 1450 290 Output Total 1250 1050 1825 600 Balance 270 920 -338 -757 Meds/Results Medications: Active Medications Generic Name Dose Route Start Last Admin Trade Name Freq PRN Reason Stop Dose Admin Acetaminophen 650 mg 07/19/20 18:37 07/29/20 17:14 Tylenol Tablet PO 650 mg Q6H PRN Administration Mild Pain (1-3) Or Fever Albuterol 2.5 mg 07/19/20 18:37 07/20/20 15:16 Albuterol Sulf Neb 2.5 Mg/3 Ml INHALATION 2.5 mg Q4H PRN Administration Shortness Of Breath Or Wheezing Albuterol 2.5 mg 07/29/20 14:13 07/30/20 03:05 Albuterol Sulf Neb 2.5mg/0.5ml INHALATION 2.5 mg Q6HRT SHENA Administration Aspirin 81 mg 07/20/20 09:00 07/29/20 08:46 Aspirin Ec PO 81 mg DAILY SHENA Administration Budesonide 0.5 mg 07/22/20 20:00 07/29/20 20:48 Pulmicort Respule Neb INHALATION 0.5 mg Q12HRT SHENA Administration Buspirone HCl 5 mg 07/20/20 09:00 07/29/20 17:07 Buspar PO 5 mg TID SHENA Administration Citalopram Hydrobromide 10 mg 07/20/20 09:00 07/29/20 08:46 Celexa PO 10 mg DAILY SHENA Administration Ferrous Sulfate 324 mg 07/29/20 09:00 07/29/20 17:07 Ferrous Sulfate PO 324 mg BID SHENA Administration Finasteride 5 mg 07/20/20 09:00 07/29/20 08:46 Proscar PO 5 mg DAILY SHENA Administration Guaifenesin 600 mg 07/19/20 21:00 07/29/20 20:26 Mucinex 12 Hr Tab PO 600 mg Q12HR SHENA Administration Ipratropium [place] 0.5 mg 07/29/20 20:00 07/30/20 03:05 Atrovent Neb INHALATION 0.5 mg Q6HRT SHENA Administration Lactobacillus Acidophilus 1 tablet 07/20/20 09:00 07/29/20 17:07 Lactinex Chewable Tablet PO 1 tablet BID SHENA Administration Levothyroxine Sodium 50 mcg 07/20/20 06:30 07/30/20 06:06 Synthroid PO 50 mcg DAILY@0630 SHENA Administration Lidocaine HCl 1 applic 07/19/20 18:37 Lidocaine Jelly 2% TOPICAL QID PRN Pain/BURNING Lorazepam 0.5 mg 07/19/20 18:37 07/20/20 13:41 Ativan Tablet PO
[2020-07-30] MEDS: BUDESONIDE RESPULE NEB 0.5 MG/2 ML AMP INHALATION ×2 (09:14→20:32)
[2020-07-30] MEDS: METOPROLOL SUCCINATE EXT REL 12.5 MG TABCR PO (09:25)
[2020-07-30] MEDS: POTASSIUM CHLORIDE 20 MEQ PACKET (FOR LIQUID) PO (09:25)
[2020-07-30] MEDS: CHOLECALCIFEROL 1,000 UNITS TABLET 5000 UNITS PO (09:25)
[2020-07-30] MEDS: ACIDOPHILUS/BULGARICUS CHEWABLE TABLET 1 TABLET PO ×2 (09:26→16:29)
[2020-07-30] MEDS: busPIRone HCL 5 MG TABLET PO ×3 (09:26→16:29)
[2020-07-30] MEDS: CITALOPRAM HYDROBROMIDE 10 MG TABLET PO (09:26)
[2020-07-30] MEDS: ASPIRIN 81 MG ENTERIC TABLET PO (09:26)
[2020-07-30] MEDS: guaiFENesin 12 HR 600 MG TABCR PO ×2 (09:26→20:32)
[2020-07-30] MEDS: FINASTERIDE 5 MG TABLET PO (09:26)
[2020-07-30] MEDS: FERROUS SULFATE 324 MG TABLET PO ×2 (09:26→16:29)
--- NOTE | 2020-07-30 09:33 | PM.PNCARD ---
Progress Note: A&P Assessment and Plan (1) Preop cardiovascular exam: Code(s): Z01.810 - Encounter for preprocedural cardiovascular examination Status: Acute Assessment and Plan: feels worse today with worsening white count. Blood cultures have been ordered. Continue current cardiac regimen. Furosemide 40 mg p.o. b.i.d. be started (2) Cardiomyopathy: Qualifiers: Cardiomyopathy type: ischemic Qualified Code(s): I25.5 - Ischemic cardiomyopathy Code(s): I42.9 - Cardiomyopathy, unspecified Status: Chronic Assessment and Plan: Previously 40-45%. EF 44% on stress test. Continue Metoprolol. Follows with Dr. Sheth, [facility], in [facility] (3) Coronary artery disease of [place] heart with stable angina pectoris: Code(s): I25.118 - Atherosclerotic heart disease of [place] coronary artery with other forms of angina pectoris Status: Acute Assessment and Plan: Continue metoprolol, statin continue current meds (4) Atrial fibrillation with rapid ventricular response: Code(s): I48.91 - Unspecified atrial fibrillation Status: Acute Assessment and Plan: in and out of sinus rhythm (5) Hypokalemia: Code(s): E87.6 - Hypokalemia Status: Acute Assessment and Plan: stable (6) Left carotid bruit: Code(s): R09.89 - Other specified symptoms and signs involving the circulatory and respiratory systems Status: Acute Assessment and Plan: Carotid Dopplers are negative. Subjective Date/time seen: 07/30/20 09:33 Interval history: Follow up for: coronary artery disease and cardiac risk assessment for noncardiac surgery. Date of service: 07/30/2020 Subjective: Feels much better today. No chest pain. Shortness breath is better. Abdominal pain is better. Review of Systems Review of Systems: All systems reviewed & are unremarkable except as noted in HPI and below Constitutional: Constitutional: Denies fatigue, Denies headache(s) and Denies weakness Eyes: Eyes: Denies blurry vision ENT: Denies headache(s), Denies lip swelling, Denies epistaxis and Denies neck pain Cardiovascular: Cardiovascular: Denies chest pain and Reports dyspnea on exertion Respiratory: Respiratory: Reports dyspnea on exertion Gastrointestinal: Gastrointestinal: Reports abdominal pain Genitourinary: Genitourinary: Denies dysuria Musculoskeletal: Musculoskeletal: Denies neck pain Integumentary/Breasts: Skin/Breast: Denies dry skin Neurologic: Denies confusion, Denies headache(s) and Denies weakness Psychiatric: Psychiatric: Denies anxiety and Denies confusion Endocrine: Endocrine: Denies fatigue Hematologic/Lymphatic: Hematologic/Lymphatic: Denies easy bleeding Allergic/Immunologic: Allergic/Immunologic: Denies lip swelling Exam Narrative: Exam Narrative: laying comfortably in bed. No distress Const: General: no acute distress; No confusion Orientation/consciousness: No confusion HENMT: General nose exam: Normal nares present Eyes: Sclera: sclerae normal Neck: Neck: no JVD Carotids: bruit Other: left carotid bruit Chest: Other: no reproducible chest wall pain to palpation Resp: Auscultation: diminished lung sounds Cardio: Rate: regular rate Rhythm: regular rhythm GI: Auscultation: normal bowel sounds Skin: General skin exam: normal color Neuro: General: No confusion Cognition (Neuro): normal cognition Speech: normal speech Extrem: General: no pedal edema Psych: Mental Status: mental status grossly normal Objective Data Vital Signs Vital Signs: Vital Signs - 24 hr 07/29/20 12:00 07/29/20 13:35 07/29/20 14:15 Temperature 36.6 C Pulse Rate 95 95 98 Respiratory Rate 25 H 32 H Blood Pressure 106/59 L Pulse Oximetry 99 07/29/20 14:23 09
--- NOTE | 2020-07-30 10:48 | PM.PNGS ---
Progress Note: A&P Assessment and Plan (1) Ascending colon malignant neoplasm: Code(s): C18.2 - Malignant neoplasm of ascending colon Status: Chronic Assessment and Plan: doing well, exam bengin, +bowel fxn, advance to heart healthy diet, ok to dc to ECF from surgical standpoint, await path (2) Leukocytosis: Code(s): D72.829 - Elevated white blood cell count, unspecified Status: Acute Assessment and Plan: improved, cont abx for UTI, blood cx pending Subjective Subjective Date/Time Seen: 07/30/20 10:48 feels much better today, incisional soreness much improved, iglesia soft diet, +bowel fxn Review of Systems Constitutional: Constitutional: Reports body ache(s), Denies chills, Reports fatigue, Reports lethargy and Reports weakness Cardiovascular: Cardiovascular: Denies chest pain Respiratory: Respiratory: Reports dyspnea on exertion Gastrointestinal: Gastrointestinal: Reports abdominal pain, Denies bloating, Denies constipation, Reports diarrhea, Denies nausea and Denies vomiting Objective Data Vital Signs Vital Signs: Vital Signs - 24 hr 07/29/20 12:00 07/29/20 13:35 07/29/20 14:15 Temperature 36.6 C Pulse Rate 95 95 98 Respiratory Rate 25 H 32 H Blood Pressure 106/59 L Pulse Oximetry 99 07/29/20 14:23 07/29/20 16:00 07/29/20 20:00 Temperature Pulse Rate 75 80 79 Respiratory Rate 24 H Blood Pressure Pulse Oximetry 99 07/29/20 20:50 07/29/20 20:53 07/29/20 21:07 Temperature Pulse Rate 76 82 Respiratory Rate 20 20 Blood Pressure Pulse Oximetry 95 07/29/20 22:00 07/30/20 00:00 07/30/20 03:07 Temperature 36.1 C L Pulse Rate 88 68 77 Respiratory Rate 22 H 18 Blood Pressure 114/54 L Pulse Oximetry 96 07/30/20 03:17 07/30/20 04:00 07/30/20 05:52 Temperature 36.1 C L Pulse Rate 79 76 72 Respiratory Rate 18 22 H Blood Pressure 114/52 L Pulse Oximetry 100 07/30/20 08:00 07/30/20 09:08 07/30/20 09:15 Temperature Pulse Rate 83 75 78 Respiratory Rate 20 20 Blood Pressure Pulse Oximetry 07/30/20 09:16 07/30/20 09:25 Temperature Pulse Rate 75 77 Respiratory Rate 20 Blood Pressure Pulse Oximetry 98 Intake/Output Intake/Output: Intake & Output 07/27/20 07/28/20 07/29/20 07/30/20 23:59 23:59 23:59 23:59 Intake Total 1520 1800 1450 410 Output Total 1250 1050 1825 600 Balance 270 287 -398 -692 Meds/Results Medications: Active Medications Generic Name Dose Route Start Last Admin Trade Name Freq PRN Reason Stop Dose Admin Acetaminophen 650 mg 07/19/20 18:37 07/29/20 17:14 Tylenol Tablet PO 650 mg Q6H PRN Administration Mild Pain (1-3) Or Fever Albuterol 2.5 mg 07/19/20 18:37 07/20/20 15:16 Albuterol Sulf Neb 2.5 Mg/3 Ml INHALATION 2.5 mg Q4H PRN Administration Shortness Of Breath Or Wheezing Albuterol 2.5 mg 07/29/20 14:13 07/30/20 09:14 Albuterol Sulf Neb 2.5mg/0.5ml INHALATION 2.5 mg Q6HRT SHENA Administration Aspirin 81 mg 07/20/20 09:00 07/30/20 09:26 Aspirin Ec PO 81 mg DAILY SHENA Administration Budesonide 0.5 mg 07/22/20 20:00 07/30/20 09:14 Pulmicort Respule Neb INHALATION 0.5 mg Q12HRT SHENA Administration Buspirone HCl 5 mg 07/20/20 09:00 07/30/20 09:26 Buspar PO 5 mg TID SHENA Administration Citalopram Hydrobromide 10 mg 07/20/20 09:00 07/30/20 09:26 Celexa PO 10 mg DAILY SHENA Administration Ferrous Sulfate 324 mg 07/29/20 09:00 07/30/20 09:26 Ferrous Sulfate PO 324 mg BID SHENA Administration Finasteride 5 mg 07/20/20 09:00 07/30/20 09:26 Proscar PO 5 mg DAILY SEHNA Administration Furosemide 40 mg 07/30/20 17:00 Lasix Tablet PO BID SHENA Guaifenesin 600 mg 07/19/20 21:00 07/30/20 09:26 Mucinex 12 Hr Tab PO 600 mg Q12HR SHENA Administration Ipratropium [place] 0.5 mg 07/29/20 20:00 07/30/20 09:14 Atrovent Neb INHALATION 0.5 mg
--- NOTE | 2020-07-30 14:43 | PM.IMPN ---
Progress Note: A&P Assessment and Plan (1) UTI (urinary tract infection) due to urinary indwelling Landeros catheter: Code(s): T83.511A - Infection and inflammatory reaction due to indwelling urethral catheter, initial encounter; N39.0 - Urinary tract infection, site not specified Status: Acute Assessment and Plan: 07/30/20 14:48 patient has and positive for ESBL and Pseudomonas in the past. I started him on Primaxin awaiting full sensitivities Interval history: Reinaldo is a 79 year old male Who has a history of COPD and cHF and is chronically on oxygen at 2 L per nasal cannula. EMS was dispatched to a nursing facility with the patient was complaining of shortness of breath and temperature. Pts covid is negative. Pt is now on medical floor. Pt admitted with UTI, COPD exacerbation and sepsis. patient with history UTI with E coli ESBL and Pseudomonas sensitive to imipenem this time patient is a similar presented with a E coli ESBL and Pseudomonas and sensitive to imipenem will continue, is clinically stable will give 6/7 days of IV antibiotic, patient with anemia patient was seen by GI and had a colonoscopy today which showed patient has colon mass suspicious for malignancy recommending excision and further evaluation, I spoke with the patient and he is in agreement for the surgery, patient has a moderate systolic dysfunction with ejection fraction of 45% will consult cardiology for their opinion for the surgery, Patient is clinically stable seen by activity therapy teacher patient had Lexiscan test suggesting moderate to high risk for the surgery, on 07/27 patient was taken to OR POD 2 and had a colectomy, today patient states abdominal pain still persists,Is having difficulty with breathing due to abdominal pain denies any nausea or vomit, able to tolerate clear liquid, he did have a bowel movement, however he appears short of breath, earlier on 07/29 he was given IV Lasix 40 mg by activity therapy teacher, chest x-ray was negative for pulmonary edema, ABG show pH of 7.453, pCO2 of 44 and P O2 72% on 4 L oxygen, gave the patient 2 mg morphine IV for pain control, which did help his pain and patient was much more comfortable, today patient is feeling much he had a BM able to tolerate diet seen by surgery and patient can be discharged to skilled nursing will order COVID test, patient denies any fever or chills, patient has leukocytosis most likely secondary to stress and pain, and it is trending down (2) Chronic atrial fibrillation: Code(s): I48.20 - Chronic atrial fibrillation, unspecified Status: Acute Assessment and Plan: Restart metoprolol. (3) Sepsis: Qualifiers: Sepsis type: sepsis due to unspecified organism Sepsis acute organ dysfunction status: unspecified Qualified Code(s): A41.9 - Sepsis, unspecified organism Code(s): A41.9 - Sepsis, unspecified organism Status: Acute Assessment and Plan: Most likely due to use UTI. Patient does have a chronic indwelling Landeros catheter. He was found to have UTI as well the patient's last urine cultures last month showed ESBL and the previous urine cultures were also ESBL plus Pseudomonas aeruginosa. (4) CHF (congestive heart failure): Qualifiers: Heart failure chronicity: unspecified Heart failure type: unspecified Qualified Code(s): I50.9 - Heart failure, unspecified Code(s): I50.9 - Heart failure, unspecified Status: Chronic Assessment and Plan: continue metoprolol and Lasix. (5) Elevated troponin: Code(s): R79.89 - Other specified abnormal findings of blood chemistry Status: Acute Assessment and Plan: Patient has chronically elevated troponins (6) BPH (benign prostatic hyperplasia): Code(s): N40.0 - Benign prostatic hyperplasia without lower urinary tract symptoms Status: Chronic Assessment and Plan: His a chronic indwelling Landeros catheter. He is on Proscar and F
[2020-07-30] MEDS: FUROSEMIDE 40 MG TABLET PO (16:29)
--- NOTE | 2020-07-30 20:15 | PC.NURSE ---
Pt had dark red bloody stool. B/P 138/55 and pulse 88, skin warm and dry, pt is alert and oriented. Dr. Ferro page and notified of stools. No new orders received.
[2020-07-30] MEDS: MELATONIN 5 MG TABLET PO (20:32)
[2020-07-30] MEDS: TAMSULOSIN HCL 0.4 MG CAPSULE PO (20:32)
[2020-07-30] MEDS: MIRTAZAPINE 7.5 MG TABLET PO (20:32)
[2020-07-30] MEDS: PANTOPRAZOLE 40 MG TABLET PO (20:32)
--- NOTE | 2020-07-30 22:57 | PC.NURSE ---
Pt has had third bloody stool Dr. Ferro called again and orders received.
[2020-07-30 23:35] LABS: Hematocrit 23.7 % (42.0-52.0); Hemoglobin 7.2 g/dL (14.0-18.0)
[2020-07-30 23:36] LABS: INR 1.2; Partial Thromboplastin Time 21.1 SECONDS (22.3-36.8); Prothrombin Time 14.8 Seconds (11.1-14.7)
--- NOTE | 2020-07-30 23:46 | PC.NURSE ---
H&H called to Dr. Ferro and no new orders received.
[2020-07-31] VITALS (34 sets, daily range): BP systolic 77–130; BP diastolic 42–90; PULSE 59–113; RESP 16–28; TEMP 35.9–36.7; O2SAT 98–100
[2020-07-31] MEDS: methylPREDNISolone SOD SUCC 125 MG VIAL 60 MG IV PUSH ×4 (00:04→20:57)
[2020-07-31] MEDS: IPRATROPIUM BR 0.02% INH SOLN 0.5 MG/2.5 ML VIAL INHALATION ×4 (02:12→19:55)
[2020-07-31] MEDS: ALBUTEROL SULFATE NEB 2.5 MG/0.5 ML INH INHALATION ×4 (02:12→19:55)
[2020-07-31 05:34] LABS: Hematocrit 21.3 % (42.0-52.0); Mean Corpuscular HGB Conc 30.5 g/dl (32-36); Mean Corpuscular Hemoglobin 27.7 pg (26-34); Mean Corpuscular Volume 90.6 fl (80-100); Mean Platelet Volume 11.7 fl (7.4-10.4); Platelet Count Result 165 k/mm3 (150-375); Red Blood Count 2.35 M/mm3 (4.6-6.20); Red Cell Distribution Width 14.5 % (11.5-14.5); White Blood Count 17.8 K/mm3 (4.5-10.0)
[2020-07-31 05:55] LABS: Hemoglobin 6.5 g/dL (14.0-18.0)
[2020-07-31] MEDS: LEVOTHYROXINE SODIUM 50 MCG TABLET PO (06:32)
--- NOTE | 2020-07-31 06:45 | PC.NURSE ---
Critical H&H called to Dr. Ferro and transfusion orders received. Dr. Infante also notified and received orders for Lasix between units. Spoke with daughter regarding changes and the need for transfusion, questions answered.
[2020-07-31] MEDS: CITALOPRAM HYDROBROMIDE 10 MG TABLET PO (07:56)
[2020-07-31] MEDS: FERROUS SULFATE 324 MG TABLET PO ×2 (07:56→17:29)
[2020-07-31] MEDS: busPIRone HCL 5 MG TABLET PO ×3 (07:56→17:29)
[2020-07-31] MEDS: FINASTERIDE 5 MG TABLET PO (07:56)
[2020-07-31] MEDS: FUROSEMIDE 40 MG TABLET PO (07:56)
[2020-07-31] MEDS: CHOLECALCIFEROL 1,000 UNITS TABLET 5000 UNITS PO (07:56)
[2020-07-31] MEDS: ACIDOPHILUS/BULGARICUS CHEWABLE TABLET 1 TABLET PO ×2 (07:56→17:29)
[2020-07-31] MEDS: guaiFENesin 12 HR 600 MG TABCR PO ×2 (07:56→20:57)
[2020-07-31] MEDS: METOPROLOL SUCCINATE EXT REL 12.5 MG TABCR PO (07:57)
[2020-07-31] MEDS: POTASSIUM CHLORIDE 20 MEQ PACKET (FOR LIQUID) PO (08:07)
--- NOTE | 2020-07-31 08:18 | WPDGIPROGNO ---
Progress Note: A&P Additional Plan Patient alert and comfortable this morning. He reports some bright red blood per rectum. Throughout the night. He denies any significant abdominal pain. He has been tolerating diet without difficulty. Status post colon resection on Thursday. Adenocarcinoma colon final histology pending. Physical exam reveals Vital Signs to be stable. HEENT exam reveals no evidence for icterus. Lungs are clear. Heart without murmur. Abdomen soft nontender with mild incisional discomfort. Labs reveal hemoglobin 6.5, hematocrit 21.3, MCV 90.6. Decline noted compared to Yesterday. Impression 1. GI blood loss. Likely secondary to anastomotic leakage. Plan is to transfuse to a stable hemoglobin. Usually this would be expected to seal on its own. Defer endoscopy because of fear of perforation. Supportive care for now. Continue close observation. Surgery following as well. 2. Anemia. Acute on chronic blood loss. Described above. 3. 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 Final histology pending. Oncology follow-up pending these results. Subjective Date/time seen: 07/31/20 08:18 Objective Data Vital Signs Vital Signs: Vital Signs - 24 hr 07/30/20 09:08 07/30/20 09:15 07/30/20 09:16 Temperature Pulse Rate 75 78 75 Respiratory Rate 20 20 20 Blood Pressure Pulse Oximetry 98 07/30/20 09:25 07/30/20 12:00 07/30/20 14:00 Temperature 97.4 F L Pulse Rate 77 84 86 Respiratory Rate 19 Blood Pressure 103/61 Pulse Oximetry 97 07/30/20 14:30 07/30/20 14:40 07/30/20 16:00 Temperature Pulse Rate 76 75 79 Respiratory Rate 20 20 Blood Pressure Pulse Oximetry 07/30/20 20:00 07/30/20 20:33 07/30/20 20:46 Temperature 97.9 F Pulse Rate 72 76 72 Respiratory Rate 20 20 Blood Pressure 138/55 L Pulse Oximetry 95 95 07/30/20 22:47 07/31/20 00:00 07/31/20 02:12 Temperature 97.9 F Pulse Rate 85 79 76 Respiratory Rate 24 H 20 Blood Pressure 103/55 L Pulse Oximetry 98 07/31/20 02:23 07/31/20 04:00 07/31/20 04:07 Temperature 96.6 F L Pulse Rate 78 81 72 Respiratory Rate 20 24 H Blood Pressure 109/51 L Pulse Oximetry 100 07/31/20 07:57 Temperature Pulse Rate 82 Respiratory Rate Blood Pressure Pulse Oximetry Intake/Output Intake/Output: Intake & Output 07/28/20 07/29/20 07/30/20 07/31/20 23:59 23:59 23:59 23:59 Intake Total 1800 1450 1330 Output Total 1050 1825 1150 700 Balance 750 -375 180 -700 Meds/Results Medications: Active Medications Generic Name Dose Route Start Last Admin Trade Name Freq PRN Reason Stop Dose Admin Acetaminophen 650 mg 07/19/20 18:37 07/29/20 17:14 Tylenol Tablet PO 650 mg Q6H PRN Administration Mild Pain (1-3) Or Fever Albuterol 2.5 mg 07/19/20 18:37 07/20/20 15:16 Albuterol Sulf Neb 2.5 Mg/3 Ml INHALATION 2.5 mg Q4H PRN Administration Shortness Of Breath Or Wheezing Albuterol 2.5 mg 07/29/20 14:13 07/31/20 02:12 Albuterol Sulf Neb 2.5mg/0.5ml INHALATION 2.5 mg Q6HRT SHENA Administration Budesonide 0.5 mg 07/22/20 20:00 07/30/20 20:32 Pulmicort Respule Neb INHALATION 0.5 mg Q12HRT SHENA Administration Buspirone HCl 5 mg 07/20/20 09:00 07/31/20 07:56 Buspar PO 5 mg TID SHENA Administration Citalopram Hydrobromide 10 mg 07/20/20 09:00 07/31/20 07:56 Celexa PO 10 mg DAILY SHENA Administration Ferrous Sulfate 324 mg 07/29/20 09:00 07/31/20 07:56 Ferrous Sulfate PO 324 mg BID SHENA Administration Finasteride 5 mg 07/20/20 09:00 07/31/20 07:56 Proscar PO 5 mg DAILY SHENA Administration Furosemide 40 mg 07/30/20 17:00 07/31/20 07:56 Lasix Tablet PO 40 mg BID SHENA Administration Guaifenesin 600 mg 07/19/20 21:00 07/31/20 07:56 Mucinex 12 Hr Tab PO 600 mg Q12HR SHENA Administration Sodium Chloride 250 mls @ 30 mls/hr 07/31/20 06:17 Nancy
[2020-07-31] MEDS: SODIUM CHLORIDE 0.9% IV 250 ML 30 ML IV CONT (08:22)
[2020-07-31] MEDS: BUDESONIDE RESPULE NEB 0.5 MG/2 ML AMP INHALATION ×2 (09:33→19:55)
--- NOTE | 2020-07-31 11:32 | PM.PNGS ---
Progress Note: A&P Assessment and Plan (1) Ascending colon malignant neoplasm: Code(s): C18.2 - Malignant neoplasm of ascending colon Status: Chronic Assessment and Plan: will hold anticoagulation, 2 units PRBCs ordered, tx to IMU Subjective Subjective Date/Time Seen: 07/31/20 11:32 feels ok, daughter present and states he seems more confused, multiple bloody BMs Review of Systems Review of Systems: ROS unobtainable: Yes unobtainable due to mental status Exam Const: General: comfortable and no acute distress Resp: Auscultation: diminished lung sounds Cardio: Rate: regular rate Rhythm: regular rhythm GI: Other: soft, sl dist, renée TTP, incision C/D/I Objective Data Vital Signs Vital Signs: Vital Signs - 24 hr 07/30/20 12:00 07/30/20 14:00 07/30/20 14:30 Temperature 36.3 C L Pulse Rate 84 86 76 Respiratory Rate 19 20 Blood Pressure 103/61 Pulse Oximetry 97 07/30/20 14:40 07/30/20 16:00 07/30/20 20:00 Temperature 36.6 C Pulse Rate 75 79 72 Respiratory Rate 20 20 Blood Pressure 138/55 L Pulse Oximetry 95 07/30/20 20:33 07/30/20 20:46 07/30/20 22:47 Temperature 36.6 C Pulse Rate 76 72 85 Respiratory Rate 20 24 H Blood Pressure 103/55 L Pulse Oximetry 95 98 07/31/20 00:00 07/31/20 02:12 07/31/20 02:23 Temperature Pulse Rate 79 76 78 Respiratory Rate 20 20 Blood Pressure Pulse Oximetry 07/31/20 04:00 07/31/20 04:07 07/31/20 07:57 Temperature 35.9 C L Pulse Rate 81 72 82 Respiratory Rate 24 H Blood Pressure 109/51 L Pulse Oximetry 100 07/31/20 08:00 07/31/20 08:28 07/31/20 08:43 Temperature 36.2 C L 36.1 C L Pulse Rate 107 H 92 88 Respiratory Rate 22 H 20 Blood Pressure 112/55 L 103/46 L Pulse Oximetry 100 100 07/31/20 09:35 07/31/20 09:36 07/31/20 09:43 Temperature 36.6 C Pulse Rate 86 87 Respiratory Rate 16 18 Blood Pressure 104/55 L Pulse Oximetry 100 100 07/31/20 10:43 07/31/20 11:18 Temperature 36.5 C Pulse Rate 90 Respiratory Rate 21 H Blood Pressure 98/48 L 98/50 L Pulse Oximetry 100 Intake/Output Intake/Output: Intake & Output 07/28/20 07/29/20 07/30/20 07/31/20 23:59 23:59 23:59 23:59 Intake Total 1800 1450 1330 240 Output Total 1050 1825 1150 700 Balance 750 -375 180 -460 Meds/Results Medications: Active Medications Generic Name Dose Route Start Last Admin Trade Name Freq PRN Reason Stop Dose Admin Acetaminophen 650 mg 07/19/20 18:37 07/29/20 17:14 Tylenol Tablet PO 650 mg Q6H PRN Administration Mild Pain (1-3) Or Fever Albuterol 2.5 mg 07/19/20 18:37 07/20/20 15:16 Albuterol Sulf Neb 2.5 Mg/3 Ml INHALATION 2.5 mg Q4H PRN Administration Shortness Of Breath Or Wheezing Albuterol 2.5 mg 07/29/20 14:13 07/31/20 09:33 Albuterol Sulf Neb 2.5mg/0.5ml INHALATION 2.5 mg Q6HRT SHENA Administration Budesonide 0.5 mg 07/22/20 20:00 07/31/20 09:33 Pulmicort Respule Neb INHALATION 0.5 mg Q12HRT SHENA Administration Buspirone HCl 5 mg 07/20/20 09:00 07/31/20 07:56 Buspar PO 5 mg TID SHENA Administration Citalopram Hydrobromide 10 mg 07/20/20 09:00 07/31/20 07:56 Celexa PO 10 mg DAILY SHENA Administration Ferrous Sulfate 324 mg 07/29/20 09:00 07/31/20 07:56 Ferrous Sulfate PO 324 mg BID SHENA Administration Finasteride 5 mg 07/20/20 09:00 07/31/20 07:56 Proscar PO 5 mg DAILY SHENA Administration Furosemide 40 mg 07/30/20 17:00 07/31/20 07:56 Lasix Tablet PO 40 mg BID SHENA Administration Guaifenesin 600 mg 07/19/20 21:00 07/31/20 07:56 Mucinex 12 Hr Tab PO 600 mg Q12HR SHENA Administration Sodium Chloride 250 mls @ 30 mls/hr 07/31/20 06:17 07/31/20 08:22 Normal Saline Iv IV CONT 07/31/20 14:36 30 mls/hr .Q8H20M STA Administration Ipratropium [place] 0.5 mg 07/29/20 20:00 07/31/20 09:33 Atrovent Neb INHALATION 0.5 mg Q6HRT SHENA Adminis
--- NOTE | 2020-07-31 12:30 | PM.PNCARD ---
Progress Note: A&P Assessment and Plan (1) Preop cardiovascular exam: Code(s): Z01.810 - Encounter for preprocedural cardiovascular examination Status: Acute Assessment and Plan: Status post hand assisted laparoscopic right colectomy, mobilization of hepatic flexure 07/27/2020. Feeling so-so this morning. Having bright red stool. 1st unit of blood completed. Blood pressure soft but stable. OK to give furosemide 20 IV between units. Monitor blood pressure. Continue furosemide 40 mg p.o. b.i.d. (2) Cardiomyopathy: Qualifiers: Cardiomyopathy type: ischemic Qualified Code(s): I25.5 - Ischemic cardiomyopathy Code(s): I42.9 - Cardiomyopathy, unspecified Status: Chronic Assessment and Plan: Previously 40-45%. EF 44% on stress test. Continue Metoprolol. Follows with Dr. Sheth, [facility], in [facility]. (3) Coronary artery disease of [place] heart with stable angina pectoris: Code(s): I25.118 - Atherosclerotic heart disease of [place] coronary artery with other forms of angina pectoris Status: Acute Assessment and Plan: Continue metoprolol, statin. (4) Atrial fibrillation with rapid ventricular response: Code(s): I48.91 - Unspecified atrial fibrillation Status: Acute Assessment and Plan: In and out of sinus rhythm. In sinus rhythm at the time of review of telemetry. (5) Hypokalemia: Code(s): E87.6 - Hypokalemia Status: Acute Assessment and Plan: Stable (6) Left carotid bruit: Code(s): R09.89 - Other specified symptoms and signs involving the circulatory and respiratory systems Status: Acute Assessment and Plan: Carotid Dopplers are negative. Additional Plan Monitor closely. Being transfer to U for closer observation. Plan discussed with Dr Franco 1230 07/31/2020 Subjective Date/time seen: 07/31/20 12:30 Interval history: Follow up for: coronary artery disease and cardiac risk assessment for noncardiac surgery. Date of service: 07/31/2020 Subjective: Having bloody stool. Laying flat in bed comfortably. Denied any chest discomfort or other pain. No shortness of breath. First unit of blood completed. Review of Systems Review of Systems: All systems reviewed & are unremarkable except as noted in HPI and below Constitutional: Constitutional: Denies fatigue, Denies headache(s) and Denies weakness Eyes: Eyes: Denies blurry vision ENT: Denies headache(s), Denies lip swelling, Denies epistaxis and Denies neck pain Cardiovascular: Cardiovascular: Denies chest pain, Reports dyspnea on exertion and Denies orthopnea Respiratory: Respiratory: Reports dyspnea on exertion Gastrointestinal: Gastrointestinal: Denies abdominal pain and Reports hematochezia Genitourinary: Genitourinary: Denies dysuria Musculoskeletal: Musculoskeletal: Denies neck pain Integumentary/Breasts: Skin/Breast: Denies dry skin Neurologic: Denies confusion, Denies headache(s) and Denies weakness Psychiatric: Psychiatric: Denies anxiety and Denies confusion Endocrine: Endocrine: Denies fatigue Hematologic/Lymphatic: Hematologic/Lymphatic: Denies easy bleeding Allergic/Immunologic: Allergic/Immunologic: Denies lip swelling Exam Narrative: Exam Narrative: Laying comfortably in bed, flat. No distress Const: General: no acute distress; No confusion Orientation/consciousness: No confusion HENMT: General nose exam: Normal nares present Eyes: Sclera: sclerae normal Neck: Neck: no JVD Carotids: bruit Other: left carotid bruit Resp: Auscultation: diminished lung sounds Cardio: Rate: regular rate Rhythm: regular rhythm GI:
[2020-07-31] MEDS: FUROSEMIDE INJ 40 MG/4 ML VIAL 20 MG IV PUSH (12:32)
--- NOTE | 2020-07-31 12:53 | PC.NURSE ---
Report called to Vera RN in IMU for transfer to higher level of care. Daughter Massiel at bedside and updated patient going to room 207. All questions and concerns answered at this time.
--- NOTE | 2020-07-31 12:55 | PC.NURSE ---
This patient, Eusebio Najera, was transferred to IMU 207 on 07/31/2020 at 1255 by Janes Mayorga RN. Personal belongings sent with patient. Belongings list checked and signed with receiving unit. Report given to QUINTIN Gamez. Appropriate documentation sent with patient.
--- NOTE | 2020-07-31 13:01 | PC.NURSE ---
This patient, Eusebio Najera, was received from [facility] on 07/31/20 at 1301. Report received from QUINTIN Cardenas. Patient/family oriented to unit policies and routines
--- NOTE | 2020-07-31 14:08 | PM.IMPN ---
Progress Note: A&P Assessment and Plan (1) UTI (urinary tract infection) due to urinary indwelling Landeros catheter: Code(s): T83.511A - Infection and inflammatory reaction due to indwelling urethral catheter, initial encounter; N39.0 - Urinary tract infection, site not specified Status: Acute Assessment and Plan: See above awaiting discharge to [facility] when pt is stable. (2) Chronic atrial fibrillation: Code(s): I48.20 - Chronic atrial fibrillation, unspecified Status: Acute Assessment and Plan: Restart metoprolol. (3) Sepsis: Qualifiers: Sepsis type: sepsis due to unspecified organism Sepsis acute organ dysfunction status: unspecified Qualified Code(s): A41.9 - Sepsis, unspecified organism Code(s): A41.9 - Sepsis, unspecified organism Status: Acute Assessment and Plan: Most likely due to use UTI. Patient does have a chronic indwelling Landeros catheter. (4) CHF (congestive heart failure): Qualifiers: Heart failure chronicity: unspecified Heart failure type: unspecified Qualified Code(s): I50.9 - Heart failure, unspecified Code(s): I50.9 - Heart failure, unspecified Status: Chronic Assessment and Plan: Continue Lasix. (5) Elevated troponin: Code(s): R79.89 - Other specified abnormal findings of blood chemistry Status: Acute Assessment and Plan: Patient has chronically elevated troponins (6) BPH (benign prostatic hyperplasia): Code(s): N40.0 - Benign prostatic hyperplasia without lower urinary tract symptoms Status: Chronic Assessment and Plan: His a chronic indwelling Landeros catheter. He is on Proscar and Flomax for BPH. (7) Chronic respiratory failure with hypoxia: Code(s): J96.11 - Chronic respiratory failure with hypoxia Status: Chronic Assessment and Plan: He is chronically on 2 L per nasal cannula. (8) COPD (chronic obstructive pulmonary disease): Qualifiers: COPD type: COPD with acute exacerbation Qualified Code(s): J44.1 - Chronic obstructive pulmonary disease with (acute) exacerbation Code(s): J44.9 - Chronic obstructive pulmonary disease, unspecified Status: Chronic Assessment and Plan: Nebulizers, solumedrol. (9) HTN (hypertension): Qualifiers: Hypertension type: essential hypertension Qualified Code(s): I10 - Essential (primary) hypertension Code(s): I10 - Essential (primary) hypertension Status: Chronic Assessment and Plan: Bp is low today hold BP medications (10) Anemia: Code(s): D64.9 - Anemia, unspecified Status: Chronic Assessment and Plan: Pt is severely anaemic, acute blood loss anaemia, hb is 6.5. pt to have 2 units of blood today and have hb rechecked Subjective Date/time seen: 07/31/20 14:08 Interval history: Pt initally admitted with UTI, COPD exacerbation and sepsis. 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 Pt having 2 units of blood as his Hb is only 6 this morning. Continue to watch or any further bloody bowel movements. Review of Systems Review of Systems: All systems reviewed & are unremarkable except as noted in HPI and below Constitutional: Constitutional: Reports fatigue, Reports lethargy and Reports weakness Cardiovascular: Cardiovascular: Denies no additional cardiov
[2020-07-31 15:10] LABS: Hematocrit 23.3 % (42.0-52.0); Hemoglobin 7.2 g/dL (14.0-18.0)
[2020-07-31] MEDS: SODIUM CHLORIDE 0.9% IV 250 ML 30 ML (16:03)
[2020-07-31] MEDS: TUBING, BLOOD PLUM PUMP TUBING 1 EACH XX (16:03)
[2020-07-31 17:02] LABS: SARS-CoV-2 RNA PCR Negative
[2020-07-31] MEDS: ACETAMINOPHEN 325 MG TABLET 650 MG PO (18:21)
[2020-07-31 20:24] LABS: Hematocrit 22.6 % (42.0-52.0); Hemoglobin 7.4 g/dL (14.0-18.0)
[2020-07-31] MEDS: MIRTAZAPINE 7.5 MG TABLET PO (20:57)
[2020-07-31] MEDS: MELATONIN 5 MG TABLET PO (20:57)
[2020-07-31] MEDS: PANTOPRAZOLE 40 MG TABLET PO (20:57)
[2020-07-31] MEDS: TAMSULOSIN HCL 0.4 MG CAPSULE PO (20:57)
[2020-07-31] MEDS: ATORVASTATIN 40 MG TABLET PO (20:58)
[2020-08-01] VITALS: PULSE 97; RESP 20; O2SAT 100
[2020-08-01] MEDS: ALBUTEROL SULFATE NEB 2.5 MG/0.5 ML INH INHALATION (01:49)
[2020-08-01 01:50] VITALS: PULSE 97; RESP 20
[2020-08-01] MEDS: IPRATROPIUM BR 0.02% INH SOLN 0.5 MG/2.5 ML VIAL INHALATION (01:50)
[2020-08-01 01:56] VITALS: PULSE 106; RESP 20
--- NOTE | 2020-08-01 03:44 | PC.NURSE ---
08/01/20:0345: PATIENT WAS YELLING OUT FOR HELP AROUND 0245. STAFF WENT IN TO SEE WHAT PATIENT WANTED. PATIENT STATED THAT HE WANTED OUT OF BED. WE TOLD HIM THAT IT WAS THE MIDDLE OF THE NIGHT AND THAT IT WASN'T TIME TO GET UP. BUT THE HEAD OF THE BED WAS RAISED. PATIENT STARTED TO SCREAM OUT AGAIN. PATIENT LOOKED PALE, TACHYPNIC. VITALS WERE TAKEN AND BLOOD PRESSURE WAS IN THE 80'S SYSTOLIC. CALLED FOR DR RUBI BUT SHE WAS PLACING A LINE. ORDER FOR 500 CC BOLUS OF NS AND STAT H& H TO BE DONE. STARTED BOLUS AND PLACED H&H AND CALLED SCRAPER HAND TO COME DRAW THE PATIENT. PATIENT STOPPED TALKING AND RAPID WAS CALLED. PATIENT WAS STILL RESPONDING AT THIS POINT. BY TIME I HUNG UP PHONE, I STARTED TO CHECK FOR PULSE. PATIENT HAD STARTED AGONAL BREATHING AND WAS NO LONGER RESPONDING. LAID PATIENT FLAT AND STARTED CPR. WHILE CRASH CART WAS BEING BROUGHT IN. FOLLOW CODE CHARTING.
--- NOTE | 2020-08-01 03:48 | PCRCNOTE ---
PT was intubated during code blue and we assisted with compressions.
--- NOTE | 2020-08-01 03:56 | PDCODEBLUE ---
Code Blue Note Code Blue Note Time Arrived at Code Blue: 030 Initial Rhythm on Arrival: PEA Airway Management: Pt intubated during resuscitation Chest Compressions: In process on arrival to bedside Result of Code Blue: Pt Cardiac Rhythm Post Code: asystole Code Blue Summary: The patient has a known history of coronary artery disease was high risk for surgical procedure with known cardiac ischemia approximately around 2:45 a.m. started calling out to nursing staff and trying to get out of bed. The head of the bed was raised at that time and a couple of minutes later the patient began crying out again. He was pale in tachypneic. Nursing staff obtained vital signs which demonstrated hypotension with systolic blood pressures in the 80s. A 500 mL fluid bolus was given and a stat lab draw was obtained. Before the lab could be obtained and while the nursing staff was still standing at the patient's bedside the patient went unresponsive. The patient was noted to not have a pulse and developed agonal respirations. the patient was noted to be in PEA on monitor. CPR was initiated in a code rebeca was called had 302. When I arrived at the bedside nursing staff was performing compressions. The patient was receiving a 250 mL fluid bolus. And epinephrine was being administered. ER provider arrived at the bedside around 307 and intubated the patient. At that time the patient was noted to have a large amount of gastric contents in the posterior oropharynx. When the ET tube was placed the patient had a large amount of gastric contents aspirated from his airway. His suction canister had approximately 300 mL in gastric contents at the end of the code. Tube placement was verified with end-tidal CO2, equal breath sounds, vapor in the tube, and equal chest rise. Resuscitation efforts continued until 320 with total of 5 doses of epinephrine and 1 amp of sodium bicarb administered. The patient still had no palpable pulse and was no longer having any respiratory effort, pupils were fixed and dilated. The decision made to pronounced the patient however as staff stepped away from the bed the patient's monitor demonstrated ventricular fibrillation. The patient subsequently received 2 gram of magnesium sulfate and received defibrillation. An additional 2 rounds of epinephrine were administered and the patient's repeat pulse check and monitor demonstrad PEA. he received a total 2 more rounds of epinephrine and on repeat pulse check had ventricular fibrillation without a palpable pulse. He received a 2nd episode of defibrillation and 2 gram of magnesium sulfate as well as 300 mg of amiodarone. On repeat pulse check at 3:41 a.m. the patient was noted to be in asystole and resuscitation efforts were terminated. date and time of : 08/01/2020 03:41 40 minutes spent in critical care activities.
--- NOTE | 2020-09-13 16:28 | P.DN_ITS ---
Discharge Sum: Prov Provider Primary care physician: Kimmy Dawson, TABLEMAN Admitting provider: Li He MD Consults: 07/21/20 Consult to Physician Routine Comment: DR. COYLE AWARE Consulting Provider: Arthur Coyle machine scallop cutter/MD group to consult: Reason for consultation: occult stool positive Has provider been notified: Yes 07/24/20 Consult to Physician Routine Comment: OFFICE NOTIFIED OF CONSULT Consulting Provider: Nate Kimble machine scallop cutter/MD group to consult: Dr Yung Reason for consultation: colon mass c/w carcinoma of colon Has provider been notified: Yes 07/24/20 14:59 Consult to Physician Routine Comment: SPOKE WITH DAVID Consulting Provider: Christoph Infante machine scallop cutter/MD group to consult: Cardiology Reason for consultation: surgical clearance, EF is 40% Has provider been notified: Yes Discharge Sum: Diag Contributing Factors (1) ASHD (arteriosclerotic heart disease): (2) Leukocytosis: (3) Ascending colon malignant neoplasm: (4) Sepsis: (5) Acute UTI: (6) COPD (chronic obstructive pulmonary disease): (7) HTN (hypertension): Discharge Sum: Summary Date and Time Date of admission: 07/20/20 10:29 Date of : 08/01/20 Time of : 03:41 Summary Details: Pt initally admitted with UTI, COPD exacerbation and sepsis. patient with history UTI with E coli ESBL and Pseudomonas sensitive to imipenem this time patient is a similar presented with a E coli ESBL and Pseudomonas and sensitive to imipenem, patient had anemia patient was seen by GI and had a colonoscopy today which showed patient has colon mass suspicious for malignancy recommending excision and further evaluation, pt seen by cardiology as pt has some cardiac risk for surgery, on 07/27 patient was taken to OR sp colectomy. 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 Pt having 2 units of blood as his Hb is only 6 this morning. Unfortunately pt had a code blue event later that day. Pt was intubated and had CPRx2 but unfortunately at 08/01/2020 03:41. Additional Data Attending physician: Evelyn Hurtado DO
== END 2020-08-01 03:41 | disposition expired | DRG 981 ==
LOC: ANHED 15:37 → ANHICU 16:29 → ANHIMU 07-20 07:04 → ANH2MED 07-30 12:03 → ANHIMU 08-02 10:39
PROVIDERS: Emergency Medicine; Family Medicine; Internal Medicine Gastroenterology; Nurse Practitioner; Nurse Practitioner Adult Health; Surgery; Admitting Provider Family Medicine; Emergency Provider Emergency Medicine; PCP Registered Nurse; Visit Provider Internal Medicine
PROC: 0DJ08ZZ Inspection of Upper Intestinal Tract, Via Natural or Artificial Opening Endoscopic (ICD-10-PCS; CPT 43235; principal; 2020-07-24 08:00)
PROC: 0DTF4ZZ Resection of Right Large Intestine, Percutaneous Endoscopic Approach (ICD-10-PCS; CPT 44204; principal; 2020-07-27 10:00)
DX: T83.511A Infection and inflammatory reaction due to indwelling urethral catheter, initial encounter (principal); A41.9 Sepsis, unspecified organism; I50.23 Acute on chronic systolic (congestive) heart failure; J96.11 Chronic respiratory failure with hypoxia; C18.2 Malignant neoplasm of ascending colon; I42.9 Cardiomyopathy, unspecified; J44.1 Chronic obstructive pulmonary disease with (acute) exacerbation; I48.20 Chronic atrial fibrillation, unspecified; D62 Acute posthemorrhagic anemia; N39.0 Urinary tract infection, site not specified; Z87.891 Personal history of nicotine dependence; I25.2 Old myocardial infarction; E78.5 Hyperlipidemia, unspecified; I73.9 Peripheral vascular disease, unspecified; N40.0 Benign prostatic hyperplasia without lower urinary tract symptoms; I11.0 Hypertensive heart disease with heart failure; B96.5 Pseudomonas (aeruginosa) (mallei) (pseudomallei) as the cause of diseases classified elsewhere; B96.20 Unspecified Escherichia coli [E. coli] as the cause of diseases classified elsewhere; D12.5 Benign neoplasm of sigmoid colon; K57.30 Diverticulosis of large intestine without perforation or abscess without bleeding; K64.8 Other hemorrhoids; E87.6 Hypokalemia; Z99.81 Dependence on supplemental oxygen; I25.118 Atherosclerotic heart disease of native coronary artery with other forms of angina pectoris; Z20.828 Contact with and (suspected) exposure to other viral communicable diseases
CPT/HCPCS: 31500; 36415; 36430; 36600; 71045; 71046; 78452; 80048; 80053; 80076; 81001; 81210; 81301; 82274; 82378; 82728; 82805; 83605; 83615; 83735; 83880; 84132; 84443; 84484; 85014; 85018; 85025; 85027; 85610; 85730; 86140; 86850; 86900; 86901; 86923; 87040; 87077; 87086; 87088; 87186; 87635; 88305; 88309; 88342; 88381; 93005; 93017; 93880; 94640; 96361; 96365; 96366; 96367; 96375; 96376; 97110; 97161; 97164; 97165; 97168; 97530; 97535; 99285; A9270; A9502; C8929; C9803; G0378; J0171; J0282; J0690; J0692; J0743; J1100; J1940; J2270; J2370; J2405; J2704; J2710; J2785; J2920; J2930; J3010; J3370; J3475; J3480; J7030; J7040; J7050; J7120; P9016; Q9957; U0003